=== PATIENT | male | born 1935 | race Caucasian/White ===

== ENCOUNTER 2016-04-18 20:26 | Emergency (ER) | payer MEDICARE, OTHER ==
[~2016-04-18 20:26] MED LIST: ASCO25TA PO; ASPI1TAB PO; BENA25CA2 PO; COLA100C PO; FLOM5CAP PO; GLUCOSAMINE PO; GUAI100S7 PO; IRON65TA PO; IRONTAB3 PO; LIDO5DIS36 TD; LOPR0.77 EX; MAGN200T3 PO; MAVI1TAB PO; MOBI7.5T10 PO; MULTCAP PO; OMEG340C PO; PRAM0.5T4 PO; PRAV10TA PO; PROS5TAB PO; PROTPAK PO; TESS100C PO; VALS1TAB49 PO; VITA250L INJ; VITAMIN B 12 PO; VITAMIN D PO; tylenol 3
[2016-04-18 21:39] LABS: MEAN CORPUSCULAR HEMOGLOBIN 33.5 pg (27.0-33.0); MEAN CORPUSCULAR VOLUME 95.6 fl (80.0-96.0); RED CELL DISTRIBUTION WIDTH 12.1 % (11.5-14.5); WHITE BLOOD COUNT 8.6 K/mm3 (4.0-10.0)
[2016-04-18 21:42] LABS: INR 1.02
[2016-04-18 21:59] LABS: ANION GAP 6 MEQ/L (8-16); BLOOD UREA NITROGEN 21 MG/DL (7-18); CALCIUM LEVEL 8.6 MG/DL (8.8-10.2); CARBON DIOXIDE LEVEL 27 MEQ/L (21-32); CHLORIDE LEVEL 109 MEQ/L (98-107); CREATININE FOR GFR 1.06 MG/DL (0.70-1.30); GLOMERULAR FILTRATION RATE > 60.0 (>42); GLUCOSE, FASTING 91 MG/DL (83-110); POTASSIUM SERUM 4.5 MEQ/L (3.5-5.1); SODIUM LEVEL 142 MEQ/L (136-145)
--- NOTE | 2016-04-18 22:40 | EDDOCDS ---
Nurse's Notes [facility] Name: Jose G Ferguson Age: 80 yrs Sex: Male : 1935 Arrival Date: 04/18/2016 Time: 20:26 Bed 17 Private MD: Neri Horner Diagnosis: Gastritis, unspecified Presentation: 04/18 20:29 Presenting complaint: Patient states: he has had 3 black stools and has a history of GI ms18 bleeds. brought in a sample. Adult Sepsis Screening: The patient does not have new or worsening altered mentation. Patient's respiratory rate is less than 22. Systolic blood pressure is greater than 100. Patient has a qSOFA score of 0- Negative Sepsis Screen. Suicide/Homicide risk assessment- the patient denies having any suicidal and/or homicidal ideations and does not present with any other emotional, behavioral or mental health complaints. Status: Patient is not a coordinator of genetic services or dependent. Transition of care: patient was not received from another setting of care. 20:29 Acuity: MAURICE Level 3 ms18 20:29 Method Of Arrival: Walkin/Carried/Asstd ms18 Triage Assessment: 20:42 General: Appears in no apparent distress, Behavior is appropriate for age, cooperative. ms18 Pain: Denies pain. Neurological: Level of Consciousness is awake, alert, obeys commands. Respiratory: Airway is patent Respiratory effort is even, unlabored. Derm: Skin is pink, warm & dry. Historical: - Allergies: no known allergies; - Home Meds: 1. Azilect 1 mg oral tab 1 tab once daily 2. Tylenol PM Oral 1 tablet nightly 3. Colace 100 mg oral cap 1 cap once daily 4. magnesium oxide 400 mg Oral cap 400 mg daily 5. multivitamin Oral cap daily 6. ferrous sulfate 325 mg (65 mg iron) Oral tab daily 7. Vitamin D Oral 2000 units daily 8. Vitamin C 500 mg Oral chew daily 9. [place]-3 oral cap daily 300 mg 10. Glucosamine oral oral daily 11. Vitamin B-12 1,000 mcg Oral tab 1,000 mcg daily 12. ciclopirox 0.77 % topical crea 2 times per day 13. Lidoderm 5 % Topical ptmd as needed 14. Flomax 0.4 mg Oral cp24 2 caps once daily 15. Proscar 5 mg Oral tab 1 tab once daily 16. pravastatin 40 mg oral tab 1 tab once daily 17. valsartan 40 mg oral tab 1 tab once daily 18. Voltaren 1 % topical gel 4 times per day 19. [place] 5-325 mg Oral tab 1 tab every 6 hours 20. aspirin 81 mg Oral tab 1 tab once daily - PMHx: Hypertension; Diabetes - NIDDM: controlled; hyperlipidemia; CAD; Hernia; Parkinson's Disease; GI bleed; - PSHx: Aortic Valve Replacement, Mechanical; back surgery; aneurysm repair, aorta; Carpal Tunnel Repair- Left; - Social history: Smoking status: Patient states former smoker of tobacco. No barriers to communication noted, The patient speaks fluent Hebrew. - Family history: Not pertinent. - : The pt / caregiver states he / she is not on anticoagulants. Home medication list is obtained from the patient. - Exposure Risk Screening:: None identified. Screenin:58 Screening information is obtained from the patient. Fall risk: No risks identified. mgs Assistance ADL's: requires no assistance with activities of daily living. Abuse/DV Screen: The patient / caregiver reports he/she is: not in a situation that causes fear, pain or injury. Nutritional screening: No deficits noted. Advance Directives: Currently, there is a health care proxy, Peter Ferguson, . There is no active DNR order. home support is adequate. Assessment: 20:57 Adult Sepsis Screening: The patient does not have new or worsening altered mentation. mgs Patient's respiratory rate is less than 22. Systolic blood pressure is greater than 100. Patient has a qSOFA score of 0- Negative Sepsis Screen. General: Appears in no apparent distress, Behavior is appropriate for age, cooperative. Pain: Denies pain. Neurological: Level of Consciousness is awake, alert, Oriented to person, place, time. Cardiovascular: Capillary refill < 3 seconds Heart tones S1 S2 present. Respiratory: Airway is patent Respiratory effort is even, unlabored, Respiratory pattern is regular, symmetrical, Breath sounds are clear bilaterally. GI: Abdomen is distended, Bowel sounds present X 4 quads. Abd is non tender X 4 quads. Derm: Skin is pale. 21:48 General: Appears in no apparent distress, Behavior is appropriate for age, cooperative. mgs Pain: Denies pain. Neurological: Level of Consciousness is awake, alert, Oriented to person, place, time. Cardiovascular: Capillary refill < 3 seconds. Respiratory: Airway is patent Respiratory effort is even, unlabored, Respiratory pattern is regular, symmetrical. Derm: Skin is pale. 22:37 General: Appears in no apparent distress, Behavior is appropriate for age, cooperative. mgs Pain: Denies pain. Neurological: Level of Consciousness is awake, alert, Oriented to person, place, time. Cardiovascular: Capillary refill < 3 seconds. Respiratory: Airway is patent Respiratory effort is even, unlabored, Respiratory pattern is regular, symmetrical. Derm: Skin is pink, warm & dry. Vital Signs: 20:27 BP 188 / 89; Pulse 81; Resp 18 S; Temp 96.5(O); Pulse Ox 96% on R/A; Weight 85.73 kg dd6 (R); Height 5 ft. 9 in. (175.26 cm) (R); 20:53 BP 197 / 95 (auto/); mgs 20:53 Pulse 70; Pulse Ox 97% ; mgs 22:26 BP 186 / 83; Pulse 71; Resp 20; Temp 97.4(O); Pulse Ox 96% on R/A; Pain 0/10; jmv 20:27 Body Mass Index 27.91 (85.73 kg, 175.26 cm) dd6 Vitals: 20:27 Log In Time: April 18, 2016 at 20:25. dd6 ED Course: 20:26 Patient visited by Omid Swenson PCA. dd6 20:26 Patient moved to Waiting dd6 20:27 Neri Horner MD is Private Physician. dd6 20:27 Patient moved to Pre RCE dd6 20:31 Triage Initiated ms18 20:37 Howard Quesada,RN is Primary Nurse. mgs 20:37 Patient moved to Apr 21:01 Patient visited by Howard Quesada,YELENA. mgs 21:13 Jass Cooper FNP is PHCP. ke 21:13 Patient visited by Jass Cooper FNP. ke 21:13 Patient visited by Jass Cooper FNP. ke 21:33 PT/INR Sent. mgs 21:33 BMP Sent. mgs 21:33 CBC Sent. mgs 21:42 Patient visited by Jass Cooper FNP. ke 22:17 Patient visited by Jass Cooper FNP. ke 22:19 Neri Horner MD is Referral Physician. ke 22:27 Patient visited by Curt Will PCA. jmv 22:38 No IV's were initiated during this patient's visit. No procedures done that require mgs assistance. 22:39 Patient visited by Howard Quesada RN. mgs 22:39 The patient / caregiver is instructed regarding the plan of care and ED course. mgs Order Results: Lab Order: CBC; SPEC'M 04/18/16 21:30 Test: WHITE BLOOD COUNT; Value: 8.6; Range: 4.0-10.0; Units: K/mm3; Status: F Test: RED BLOOD COUNT; Value: 3.88; Range: 4.30-6.10; Abnormal: Below low normal; Units: M/mm3; Status: F Test: HEMOGLOBIN; Value: 13.0; Range: 14.0-18.0; Abnormal: Below low normal; Units: g/dl; Status: F Test: HEMATOCRIT; Value: 37.1; Range: 42.0-52.0; Abnormal: Below low normal; Units: %; Status: F Test: MEAN CORPUSCULAR VOLUME; Value: 95.6; Range: 80.0-96.0; Units: fl; Status: F Test: MEAN CORPUSCULAR HEMOGLOBIN; Value: 33.5; Range: 27.0-33.0; Abnormal: Above high normal; Units: pg; Status: F Test: MEAN CORPUSCULAR HGB CONC; Value: 35.0; Range: 32.0-36.5; Units: g/dl; Status: F Test: RED CELL DISTRIBUTION WIDTH; Value: 12.1; Range: 11.5-14.5; Units: %; Status: F Test: PLATELET COUNT, AUTOMATED; Value: 239; Range: 150-450; Units: k/mm3; Status: F Lab Order: BMP; SPEC'M 04/18/16 21:30 Test: GLUCOSE, FASTING; Value: 91; Range: 83-110; Units: MG/DL; Status: F Test: BLOOD UREA NITROGEN; Value: 21; Range: 7-18; Abnormal: Above high normal; Units: MG/DL; Status: F Test: CREATININE FOR GFR; Value: 1.06; Range: 0.70-1.30; Units: MG/DL; Status: F Test: GLOMERULAR FILTRATION RATE; Value: > 60.0; Range: >42; Status: F Test: SODIUM LEVEL; Value: 142; Range: 136-145; Units: MEQ/L; Status: F Test: POTASSIUM SERUM; Value: 4.5; Range: 3.5-5.1; Units: MEQ/L; Status: F Test: CHLORIDE LEVEL; Value: 109; Range: 98-107; Abnormal: Above high normal; Units: MEQ/L; Status: F Test: CARBON DIOXIDE LEVEL; Value: 27; Range: 21-32; Units: MEQ/L; Status: F Test: ANION GAP; Value: 6; Range: 8-16; Abnormal: Below low normal; Units: MEQ/L; Status: F Test: CALCIUM LEVEL; Value: 8.6; Range: 8.8-10.2; Abnormal: Below low normal; Units: MG/DL; Status: F Test Note: ; Units are mL/min/1.73 m2 Chronic Kidney Disease Staging per NKF: Stage I & II GFR >=60 Normal to Mildly Decreased Stage III GFR 30-59 Moderately Decreased Stage IV GFR 15-29 Severely Decreased Stage V GFR <15 Very Little GFR Left ESRD GFR <15 on [facility] Lab Order: PT/INR; MARY'M 04/18/16 21:30 Test: PROTHROMBIN TIME; Value: 13.5; Range: 12.3-14.5; Units: SECONDS; Status: F Test: INR; Value: 1.02; Status: F Test Note: ; THERAPUTIC HUMAN INR VALUES INDICATIONS NORMAL RANGES PROPHYLAXIS/TREATMENT OF: VENOUS THROMBOSIS 2.0-3.0 PULMONARY EMBOLISM 2.0-3.0 PREVENTION OF SYSTEMIC EMBOLISM FROM: TISSUE HEART VALVES 2.0-3.0 ACUTE MYOCARDIAL INFARCTION 2.0-3.0 VALVULAR HEART DISEASE 2.0-3.0 ATRIAL FIBRILLATION 2.0-3.0 MECHANICAL VALVES(HIGH RISK) 2.5-3.5 RECURRENT MYOCARDIAL INFARCTION 2.5-3.5 Outcome: 22:20 Discharge ordered by Provider. ke 22:38 Discharge Assessment: Patient awake, alert and oriented x 3. No cognitive and/or mgs functional deficits noted. Patient verbalized understanding of disposition instructions. patient administered narcotics - no. The following High Risk Discharge criteria are identified: None. Discharged to home ambulatory, with family. Condition: stable. Discharge instructions given to patient, Instructed on discharge instructions, follow up and referral plans. medication usage, Demonstrated understanding of instructions, medications, Pt was receptive of discharge instructions/ teaching. Prescriptions given X 1. No special radiology studies were completed. Property sent home with patient. 22:39 Patient left the ED. mgs Signatures: Maggy Lockhart, RN RN Jass Chilel, CHANGE RELEASE MANAGER CHANGE RELEASE MANAGER Omid To, INSPECTOR SET UP AND LAY OUT INSPECTOR SET UP AND LAY OUT dd6 Fanta Hallman RN RN ms18 Howard QuesadaRN RN mgs Curt Will, INSPECTOR SET UP AND LAY OUT INSPECTOR SET UP AND LAY OUT jmv MTDD
--- NOTE | 2016-04-18 22:40 | EDDOCDS ---
Physician Documentation [facility] Name: Jose G Ferguson Age: 80 yrs Sex: Male : 1935 Arrival Date: 04/18/2016 Time: 20:26 Bed 17 Private MD: Neri Horner Disposition: 04/18/16 22:20 Discharged to Home/Self Care. Impression: Gastritis, unspecified. - Condition is Stable. - Discharge Instructions: Gastritis, Adult. - Prescriptions for Zofran 4 mg Oral Tablet - take 1 tablet by ORAL route 4 times per day As needed; 10 tablet. - Medication Reconciliation, Local Pharmacy Hours form. - Follow up: Neri Horner MD; When: 2 - 3 days; Reason: Recheck today's complaints, Continuance of care. - Problem is an ongoing problem. - Symptoms are unchanged. Historical: - Allergies: no known allergies; - Home Meds: 1. Azilect 1 mg oral tab 1 tab once daily 2. Tylenol PM Oral 1 tablet nightly 3. Colace 100 mg oral cap 1 cap once daily 4. magnesium oxide 400 mg Oral cap 400 mg daily 5. multivitamin Oral cap daily 6. ferrous sulfate 325 mg (65 mg iron) Oral tab daily 7. Vitamin D Oral 2000 units daily 8. Vitamin C 500 mg Oral chew daily 9. [place]-3 oral cap daily 300 mg 10. Glucosamine oral oral daily 11. Vitamin B-12 1,000 mcg Oral tab 1,000 mcg daily 12. ciclopirox 0.77 % topical crea 2 times per day 13. Lidoderm 5 % Topical ptmd as needed 14. Flomax 0.4 mg Oral cp24 2 caps once daily 15. Proscar 5 mg Oral tab 1 tab once daily 16. pravastatin 40 mg oral tab 1 tab once daily 17. valsartan 40 mg oral tab 1 tab once daily 18. Voltaren 1 % topical gel 4 times per day 19. [place] 5-325 mg Oral tab 1 tab every 6 hours 20. aspirin 81 mg Oral tab 1 tab once daily - PMHx: Hypertension; Diabetes - NIDDM: controlled; hyperlipidemia; CAD; Hernia; Parkinson's Disease; GI bleed; - PSHx: Aortic Valve Replacement, Mechanical; back surgery; aneurysm repair, aorta; Carpal Tunnel Repair- Left; - Social history: Smoking status: Patient states former smoker of tobacco. No barriers to communication noted, The patient speaks fluent Wolof. - Family history: Not pertinent. - : The pt / caregiver states he / she is not on anticoagulants. Home medication list is obtained from the patient. - Exposure Risk Screening:: None identified. Vital Signs: 04/18 20:27 BP 188 / 89; Pulse 81; Resp 18 S; Temp 96.5(O); Pulse Ox 96% on R/A; Weight 85.73 kg / dd6 189 lbs (R); Height 5 ft. 9 in. (175.26 cm) (R); 20:53 BP 197 / 95 (auto/); mgs 20:53 Pulse 70; Pulse Ox 97% ; mgs 22:26 BP 186 / 83; Pulse 71; Resp 20; Temp 97.4(O); Pulse Ox 96% on R/A; Pain 0/10; jmv 20:27 Body Mass Index 27.91 (85.73 kg, 175.26 cm) dd6 MDM: 21:23 CBC Ordered. EDMS 21:23 BMP Ordered. EDMS 21:23 PT/INR Ordered. EDMS 22:18 CBC Reviewed. ke 22:18 BMP Reviewed. ke 22:18 PT/INR Reviewed. irvin Signatures: Dispatcher [employer] EDJass Majano, ADVERTISING DISPATCH CLERKS SUPERVISOR ADVERTISING DISPATCH CLERKS SUPERVISOR Fanta Hong,RN RN ms18 Howard Quesada,RN RN mgs MTDD
--- NOTE | 2016-04-20 23:40 | EDDOCDS ---
Physician Documentation [facility] Name: Jose G Ferguson Age: 80 yrs Sex: Male : 1935 Arrival Date: 04/18/2016 Time: 20:26 Bed 17 Private MD: Neri Horner Disposition: 04/18/16 22:20 Discharged to Home/Self Care. Impression: Gastritis, unspecified. - Condition is Stable. - Discharge Instructions: Gastritis, Adult. - Prescriptions for Zofran 4 mg Oral Tablet - take 1 tablet by ORAL route 4 times per day As needed; 10 tablet. - Medication Reconciliation, Local Pharmacy Hours form. - Follow up: Neri Horner MD; When: 2 - 3 days; Reason: Recheck today's complaints, Continuance of care. - Problem is an ongoing problem. - Symptoms are unchanged. Historical: - Allergies: no known allergies; - Home Meds: 1. Azilect 1 mg oral tab 1 tab once daily 2. Tylenol PM Oral 1 tablet nightly 3. Colace 100 mg oral cap 1 cap once daily 4. magnesium oxide 400 mg Oral cap 400 mg daily 5. multivitamin Oral cap daily 6. ferrous sulfate 325 mg (65 mg iron) Oral tab daily 7. Vitamin D Oral 2000 units daily 8. Vitamin C 500 mg Oral chew daily 9. [place]-3 oral cap daily 300 mg 10. Glucosamine oral oral daily 11. Vitamin B-12 1,000 mcg Oral tab 1,000 mcg daily 12. ciclopirox 0.77 % topical crea 2 times per day 13. Lidoderm 5 % Topical ptmd as needed 14. Flomax 0.4 mg Oral cp24 2 caps once daily 15. Proscar 5 mg Oral tab 1 tab once daily 16. pravastatin 40 mg oral tab 1 tab once daily 17. valsartan 40 mg oral tab 1 tab once daily 18. Voltaren 1 % topical gel 4 times per day 19. [place] 5-325 mg Oral tab 1 tab every 6 hours 20. aspirin 81 mg Oral tab 1 tab once daily - PMHx: Hypertension; Diabetes - NIDDM: controlled; hyperlipidemia; CAD; Hernia; Parkinson's Disease; GI bleed; - PSHx: Aortic Valve Replacement, Mechanical; back surgery; aneurysm repair, aorta; Carpal Tunnel Repair- Left; - Social history: Smoking status: Patient states former smoker of tobacco. No barriers to communication noted, The patient speaks fluent Estonian. - Family history: Not pertinent. - : The pt / caregiver states he / she is not on anticoagulants. Home medication list is obtained from the patient. - Exposure Risk Screening:: None identified. Vital Signs: 04/18 20:27 BP 188 / 89; Pulse 81; Resp 18 S; Temp 96.5(O); Pulse Ox 96% on R/A; Weight 85.73 kg / dd6 189 lbs (R); Height 5 ft. 9 in. (175.26 cm) (R); 20:53 BP 197 / 95 (auto/); mgs 20:53 Pulse 70; Pulse Ox 97% ; mgs 22:26 BP 186 / 83; Pulse 71; Resp 20; Temp 97.4(O); Pulse Ox 96% on R/A; Pain 0/10; jmv 20:27 Body Mass Index 27.91 (85.73 kg, 175.26 cm) dd6 MDM: 21:23 CBC Ordered. EDMS 21:23 BMP Ordered. EDMS 21:23 PT/INR Ordered. EDMS 22:18 CBC Reviewed. ke 22:18 BMP Reviewed. ke 22:18 PT/INR Reviewed. irvin 22:44 [facility] Payment Agreement was scanned into [employer] and attached to record. neville 22:44 Financial registration complete. aimee 04/19 01:43 T-Sheet-- Draft Copy was scanned into [employer] and attached to record. ximena Signatures: Dispatcher [employer] EDJass Majano, [facility] TECH INSTRUCTOR Fanta Hong RN RN ms18 Howard Quesada RN RN mgs Mary Mendez Gabriela gjb The chart was reviewed and I authenticate all verbal orders and agree with the evaluation and treatment provided.Attachments: 04/18 22:44 [facility] Payment Agreement [email or web address] 04/19 01:43 T-Sheet-- Draft Copy ximena Chart Complete MTDD
--- NOTE | 2016-04-20 23:40 | EDDOCDS ---
Nurse's Notes [facility] Name: Jose G Ferguson Age: 80 yrs Sex: Male : 1935 Arrival Date: 04/18/2016 Time: 20:26 Bed 17 Private MD: Neri Horner Diagnosis: Gastritis, unspecified Presentation: 04/18 20:29 Presenting complaint: Patient states: he has had 3 black stools and has a history of GI ms18 bleeds. brought in a sample. Adult Sepsis Screening: The patient does not have new or worsening altered mentation. Patient's respiratory rate is less than 22. Systolic blood pressure is greater than 100. Patient has a qSOFA score of 0- Negative Sepsis Screen. Suicide/Homicide risk assessment- the patient denies having any suicidal and/or homicidal ideations and does not present with any other emotional, behavioral or mental health complaints. Status: Patient is not a online services manager or dependent. Transition of care: patient was not received from another setting of care. 20:29 Acuity: MAURICE Level 3 ms18 20:29 Method Of Arrival: Walkin/Carried/Asstd ms18 Triage Assessment: 20:42 General: Appears in no apparent distress, Behavior is appropriate for age, cooperative. ms18 Pain: Denies pain. Neurological: Level of Consciousness is awake, alert, obeys commands. Respiratory: Airway is patent Respiratory effort is even, unlabored. Derm: Skin is pink, warm & dry. Historical: - Allergies: no known allergies; - Home Meds: 1. Azilect 1 mg oral tab 1 tab once daily 2. Tylenol PM Oral 1 tablet nightly 3. Colace 100 mg oral cap 1 cap once daily 4. magnesium oxide 400 mg Oral cap 400 mg daily 5. multivitamin Oral cap daily 6. ferrous sulfate 325 mg (65 mg iron) Oral tab daily 7. Vitamin D Oral 2000 units daily 8. Vitamin C 500 mg Oral chew daily 9. [place]-3 oral cap daily 300 mg 10. Glucosamine oral oral daily 11. Vitamin B-12 1,000 mcg Oral tab 1,000 mcg daily 12. ciclopirox 0.77 % topical crea 2 times per day 13. Lidoderm 5 % Topical ptmd as needed 14. Flomax 0.4 mg Oral cp24 2 caps once daily 15. Proscar 5 mg Oral tab 1 tab once daily 16. pravastatin 40 mg oral tab 1 tab once daily 17. valsartan 40 mg oral tab 1 tab once daily 18. Voltaren 1 % topical gel 4 times per day 19. [place] 5-325 mg Oral tab 1 tab every 6 hours 20. aspirin 81 mg Oral tab 1 tab once daily - PMHx: Hypertension; Diabetes - NIDDM: controlled; hyperlipidemia; CAD; Hernia; Parkinson's Disease; GI bleed; - PSHx: Aortic Valve Replacement, Mechanical; back surgery; aneurysm repair, aorta; Carpal Tunnel Repair- Left; - Social history: Smoking status: Patient states former smoker of tobacco. No barriers to communication noted, The patient speaks fluent Indonesian. - Family history: Not pertinent. - : The pt / caregiver states he / she is not on anticoagulants. Home medication list is obtained from the patient. - Exposure Risk Screening:: None identified. Screenin:58 Screening information is obtained from the patient. Fall risk: No risks identified. mgs Assistance ADL's: requires no assistance with activities of daily living. Abuse/DV Screen: The patient / caregiver reports he/she is: not in a situation that causes fear, pain or injury. Nutritional screening: No deficits noted. Advance Directives: Currently, there is a health care proxy, Peter Ferguson, . There is no active DNR order. home support is adequate. Assessment: 20:57 Adult Sepsis Screening: The patient does not have new or worsening altered mentation. mgs Patient's respiratory rate is less than 22. Systolic blood pressure is greater than 100. Patient has a qSOFA score of 0- Negative Sepsis Screen. General: Appears in no apparent distress, Behavior is appropriate for age, cooperative. Pain: Denies pain. Neurological: Level of Consciousness is awake, alert, Oriented to person, place, time. Cardiovascular: Capillary refill < 3 seconds Heart tones S1 S2 present. Respiratory: Airway is patent Respiratory effort is even, unlabored, Respiratory pattern is regular, symmetrical, Breath sounds are clear bilaterally. GI: Abdomen is distended, Bowel sounds present X 4 quads. Abd is non tender X 4 quads. Derm: Skin is pale. 21:48 General: Appears in no apparent distress, Behavior is appropriate for age, cooperative. mgs Pain: Denies pain. Neurological: Level of Consciousness is awake, alert, Oriented to person, place, time. Cardiovascular: Capillary refill < 3 seconds. Respiratory: Airway is patent Respiratory effort is even, unlabored, Respiratory pattern is regular, symmetrical. Derm: Skin is pale. 22:37 General: Appears in no apparent distress, Behavior is appropriate for age, cooperative. mgs Pain: Denies pain. Neurological: Level of Consciousness is awake, alert, Oriented to person, place, time. Cardiovascular: Capillary refill < 3 seconds. Respiratory: Airway is patent Respiratory effort is even, unlabored, Respiratory pattern is regular, symmetrical. Derm: Skin is pink, warm & dry. Vital Signs: 20:27 BP 188 / 89; Pulse 81; Resp 18 S; Temp 96.5(O); Pulse Ox 96% on R/A; Weight 85.73 kg dd6 (R); Height 5 ft. 9 in. (175.26 cm) (R); 20:53 BP 197 / 95 (auto/); mgs 20:53 Pulse 70; Pulse Ox 97% ; mgs 22:26 BP 186 / 83; Pulse 71; Resp 20; Temp 97.4(O); Pulse Ox 96% on R/A; Pain 0/10; jmv 20:27 Body Mass Index 27.91 (85.73 kg, 175.26 cm) dd6 Vitals: 20:27 Log In Time: April 18, 2016 at 20:25. dd6 ED Course: 20:26 Patient visited by Omid Swenson PCA. dd6 20:26 Patient moved to Waiting dd6 20:27 Neri Horner MD is Private Physician. dd6 20:27 Patient moved to Pre RCE dd6 20:31 Triage Initiated ms18 20:37 Howard Quesada,RN is Primary Nurse. mgs 20:37 Patient moved to Apr 21:01 Patient visited by Howard Quesada,YELENA. mgs 21:13 Jass Cooper FNP is PHCP. ke 21:13 Patient visited by Jass Cooper FNP. ke 21:13 Patient visited by Jass Cooper FNP. ke 21:33 PT/INR Sent. mgs 21:33 BMP Sent. mgs 21:33 CBC Sent. mgs 21:42 Patient visited by Jass Cooper FNP. ke 22:17 Patient visited by Jass Cooper FNP. ke 22:19 Neri Horner MD is Referral Physician. ke 22:27 Patient visited by Curt Will PCA. jmv 22:38 No IV's were initiated during this patient's visit. No procedures done that require mgs assistance. 22:39 Patient visited by Howard Quesada RN. mgs 22:39 The patient / caregiver is instructed regarding the plan of care and ED course. mgs 22:44 [facility] [place] Agreement was scanned into [employer] and attached to record. gjb 04/19 01:43 T-Sheet-- Draft Copy was scanned into [employer] and attached to record. lja Order Results: Lab Order: CBC; SPEC'M 04/18/16 21:30 Test: WHITE BLOOD COUNT; Value: 8.6; Range: 4.0-10.0; Units: K/mm3; Status: F Test: RED BLOOD COUNT; Value: 3.88; Range: 4.30-6.10; Abnormal: Below low normal; Units: M/mm3; Status: F Test: HEMOGLOBIN; Value: 13.0; Range: 14.0-18.0; Abnormal: Below low normal; Units: g/dl; Status: F Test: HEMATOCRIT; Value: 37.1; Range: 42.0-52.0; Abnormal: Below low normal; Units: %; Status: F Test: MEAN CORPUSCULAR VOLUME; Value: 95.6; Range: 80.0-96.0; Units: fl; Status: F Test: MEAN CORPUSCULAR HEMOGLOBIN; Value: 33.5; Range: 27.0-33.0; Abnormal: Above high normal; Units: pg; Status: F Test: MEAN CORPUSCULAR HGB CONC; Value: 35.0; Range: 32.0-36.5; Units: g/dl; Status: F Test: RED CELL DISTRIBUTION WIDTH; Value: 12.1; Range: 11.5-14.5; Units: %; Status: F Test: PLATELET COUNT, AUTOMATED; Value: 239; Range: 150-450; Units: k/mm3; Status: F Lab Order: BMP; SPEC'M 04/18/16 21:30 Test: GLUCOSE, FASTING; Value: 91; Range: 83-110; Units: MG/DL; Status: F Test: BLOOD UREA NITROGEN; Value: 21; Range: 7-18; Abnormal: Above high normal; Units: MG/DL; Status: F Test: CREATININE FOR GFR; Value: 1.06; Range: 0.70-1.30; Units: MG/DL; Status: F Test: GLOMERULAR FILTRATION RATE; Value: > 60.0; Range: >42; Status: F Test: SODIUM LEVEL; Value: 142; Range: 136-145; Units: MEQ/L; Status: F Test: POTASSIUM SERUM; Value: 4.5; Range: 3.5-5.1; Units: MEQ/L; Status: F Test: CHLORIDE LEVEL; Value: 109; Range: 98-107; Abnormal: Above high normal; Units: MEQ/L; Status: F Test: CARBON DIOXIDE LEVEL; Value: 27; Range: 21-32; Units: MEQ/L; Status: F Test: ANION GAP; Value: 6; Range: 8-16; Abnormal: Below low normal; Units: MEQ/L; Status: F Test: CALCIUM LEVEL; Value: 8.6; Range: 8.8-10.2; Abnormal: Below low normal; Units: MG/DL; Status: F Test Note: ; Units are mL/min/1.73 m2 Chronic Kidney Disease Staging per NKF: Stage I & II GFR >=60 Normal to Mildly Decreased Stage III GFR 30-59 Moderately Decreased Stage IV GFR 15-29 Severely Decreased Stage V GFR <15 Very Little GFR Left ESRD GFR <15 on VIDEO GAME SCRIPT WRITER Lab Order: PT/INR; SPEC'M 04/18/16 21:30 Test: PROTHROMBIN TIME; Value: 13.5; Range: 12.3-14.5; Units: SECONDS; Status: F Test: INR; Value: 1.02; Status: F Test Note: ; THERAPUTIC HUMAN INR VALUES INDICATIONS NORMAL RANGES PROPHYLAXIS/TREATMENT OF: VENOUS THROMBOSIS 2.0-3.0 PULMONARY EMBOLISM 2.0-3.0 PREVENTION OF SYSTEMIC EMBOLISM FROM: TISSUE HEART VALVES 2.0-3.0 ACUTE MYOCARDIAL INFARCTION 2.0-3.0 VALVULAR HEART DISEASE 2.0-3.0 ATRIAL FIBRILLATION 2.0-3.0 MECHANICAL VALVES(HIGH RISK) 2.5-3.5 RECURRENT MYOCARDIAL INFARCTION 2.5-3.5 Outcome: 04/18 22:20 Discharge ordered by Provider. irvin 22:38 Discharge Assessment: Patient awake, alert and oriented x 3. No cognitive and/or mgs functional deficits noted. Patient verbalized understanding of disposition instructions. patient administered narcotics - no. The following High Risk Discharge criteria are identified: None. Discharged to home ambulatory, with family. Condition: stable. Discharge instructions given to patient, Instructed on discharge instructions, follow up and referral plans. medication usage, Demonstrated understanding of instructions, medications, Pt was receptive of discharge instructions/ teaching. Prescriptions given X 1. No special radiology studies were completed. Property sent home with patient. 22:39 Patient left the ED. mgs Signatures: Maggy Lockhart, RN RN Jass Chilel, PITCH GATHERER PITCH GATHERER Omid To, SULPHATE TESTER SULPHATE TESTER dd6 Fanta Hallman,RN RN ms18 Howard Quesada,YELENA RN mgs Andrea, Elsa Araon Jose, SULPHATE TESTER SULPHATE TESTER jmv Chart Complete REBECCA
--- NOTE | 2016-04-20 23:40 | EDDOCDS ---
Physician Documentation [facility] Name: Jose G Ferguson Age: 80 yrs Sex: Male : 1935 Arrival Date: 04/18/2016 Time: 20:26 Bed 17 Private MD: Neri Horner Disposition: 04/18/16 22:20 Discharged to Home/Self Care. Impression: Gastritis, unspecified. - Condition is Stable. - Discharge Instructions: Gastritis, Adult. - Prescriptions for Zofran 4 mg Oral Tablet - take 1 tablet by ORAL route 4 times per day As needed; 10 tablet. - Medication Reconciliation, Local Pharmacy Hours form. - Follow up: Neri Horner MD; When: 2 - 3 days; Reason: Recheck today's complaints, Continuance of care. - Problem is an ongoing problem. - Symptoms are unchanged. Historical: - Allergies: no known allergies; - Home Meds: 1. Azilect 1 mg oral tab 1 tab once daily 2. Tylenol PM Oral 1 tablet nightly 3. Colace 100 mg oral cap 1 cap once daily 4. magnesium oxide 400 mg Oral cap 400 mg daily 5. multivitamin Oral cap daily 6. ferrous sulfate 325 mg (65 mg iron) Oral tab daily 7. Vitamin D Oral 2000 units daily 8. Vitamin C 500 mg Oral chew daily 9. [place]-3 oral cap daily 300 mg 10. Glucosamine oral oral daily 11. Vitamin B-12 1,000 mcg Oral tab 1,000 mcg daily 12. ciclopirox 0.77 % topical crea 2 times per day 13. Lidoderm 5 % Topical ptmd as needed 14. Flomax 0.4 mg Oral cp24 2 caps once daily 15. Proscar 5 mg Oral tab 1 tab once daily 16. pravastatin 40 mg oral tab 1 tab once daily 17. valsartan 40 mg oral tab 1 tab once daily 18. Voltaren 1 % topical gel 4 times per day 19. [place] 5-325 mg Oral tab 1 tab every 6 hours 20. aspirin 81 mg Oral tab 1 tab once daily - PMHx: Hypertension; Diabetes - NIDDM: controlled; hyperlipidemia; CAD; Hernia; Parkinson's Disease; GI bleed; - PSHx: Aortic Valve Replacement, Mechanical; back surgery; aneurysm repair, aorta; Carpal Tunnel Repair- Left; - Social history: Smoking status: Patient states former smoker of tobacco. No barriers to communication noted, The patient speaks fluent Slovenian. - Family history: Not pertinent. - : The pt / caregiver states he / she is not on anticoagulants. Home medication list is obtained from the patient. - Exposure Risk Screening:: None identified. Vital Signs: 04/18 20:27 BP 188 / 89; Pulse 81; Resp 18 S; Temp 96.5(O); Pulse Ox 96% on R/A; Weight 85.73 kg / dd6 189 lbs (R); Height 5 ft. 9 in. (175.26 cm) (R); 20:53 BP 197 / 95 (auto/); mgs 20:53 Pulse 70; Pulse Ox 97% ; mgs 22:26 BP 186 / 83; Pulse 71; Resp 20; Temp 97.4(O); Pulse Ox 96% on R/A; Pain 0/10; jmv 20:27 Body Mass Index 27.91 (85.73 kg, 175.26 cm) dd6 MDM: 21:23 CBC Ordered. EDMS 21:23 BMP Ordered. EDMS 21:23 PT/INR Ordered. EDMS 22:18 CBC Reviewed. ke 22:18 BMP Reviewed. ke 22:18 PT/INR Reviewed. irvin 22:44 [facility] Payment Agreement was scanned into [employer] and attached to record. neville 22:44 Financial registration complete. aimee 04/19 01:43 T-Sheet-- Draft Copy was scanned into [employer]ji and attached to record. ximena Signatures: Dispatcher [employer] EDJass Majano, BROWN BLACKSMITH APPRENTICE Fnata Hong RN RN ms18 Howard Quesada RN RN mgs Mary Mendez Gabriela gjb The chart was reviewed and I authenticate all verbal orders and agree with the evaluation and treatment provided.Attachments: 04/18 22:44 [facility] Payment Agreement [facility] 04/19 01:43 T-Sheet-- Draft Copy ximena Chart Complete MTDD
== END 2016-04-18 22:39 | disposition home or self-care (01) ==
LOC: M ED 20:26
DX: K52.9 Noninfective gastroenteritis and colitis, unspecified (principal); I10 Essential (primary) hypertension; E11.9 Type 2 diabetes mellitus without complications; E78.5 Hyperlipidemia, unspecified; I25.10 Atherosclerotic heart disease of native coronary artery without angina pectoris; G20 Parkinson's disease; K92.2 Gastrointestinal hemorrhage, unspecified; Z95.2 Presence of prosthetic heart valve; Z87.891 Personal history of nicotine dependence; Z79.82 Long term (current) use of aspirin; Z79.891 Long term (current) use of opiate analgesic; Z79.899 Other long term (current) drug therapy

== ENCOUNTER → 2016-05-09 | Outpatient (CLI) | payer MEDICARE, OTHER ==
[2016-05-09 10:57] LABS: ALBUMIN 3.8 GM/DL (3.2-5.2); ALBUMIN/GLOBULIN RATIO 1.06 (1.00-1.93); ALKALINE PHOSPHATASE 98 U/L (45-117); ALT/SGPT 18 U/L (12-78); ANION GAP 8 MEQ/L (8-16); AST/SGOT 15 U/L (15-37); BILIRUBIN,TOTAL 0.6 MG/DL (0.2-1.0); BLOOD UREA NITROGEN 13 MG/DL (7-18); CALCIUM LEVEL 8.7 MG/DL (8.8-10.2); CARBON DIOXIDE LEVEL 28 MEQ/L (21-32); CHLORIDE LEVEL 107 MEQ/L (98-107); CREATININE FOR GFR 0.86 MG/DL (0.70-1.30); GLOMERULAR FILTRATION RATE > 60.0 (>42); GLUCOSE, FASTING 98 MG/DL (83-110); POTASSIUM SERUM 4.3 MEQ/L (3.5-5.1); SODIUM LEVEL 143 MEQ/L (136-145); TOTAL PROTEIN 7.4 GM/DL (6.4-8.2)
== END ==
LOC: M WUC 08:08
PROVIDERS: ATTEND Family Medicine
DX: I11.9 Hypertensive heart disease without heart failure (principal); E11.8 Type 2 diabetes mellitus with unspecified complications

== ENCOUNTER 2016-05-21 12:57 | Inpatient (IN) | payer MEDICARE, OTHER ==
[~2016-05-21] VITALS: Ht 177.8 cm; Wt 83.7 kg
[2016-05-21 13:37] LABS: BASO % 0.5 % (0.0-1.0); EOS # 0.2 K/mm3 (0.0-0.50); EOS % 2.3 % (0.0-3.0); LARGE UNSTAINED CELL # 0.1 K/mm3 (0.0-0.4); LARGE UNSTAINED CELL % 1.7 % (0.0-4.0); LYMPH # 1.2 K/mm3 (1.5-4.5); LYMPH % 15.8 % (24.0-44.0); MEAN CORPUSCULAR HEMOGLOBIN 33.7 pg (27.0-33.0); MEAN CORPUSCULAR HGB CONC 33.7 g/dl (32.0-36.5); MEAN CORPUSCULAR VOLUME 100.1 fl (80.0-96.0); MONO # 0.5 K/mm3 (0.0-0.8); MONO % 7.5 % (0.0-5.0); NEUTROPHILS # 4.9 K/mm3 (1.8-7.7); NEUTROPHILS % 72.1 % (36.0-66.0); PLATELET COUNT, AUTOMATED 232 k/mm3 (150-450); RED CELL DISTRIBUTION WIDTH 12.6 % (11.5-14.5); WHITE BLOOD COUNT 6.8 K/mm3 (4.0-10.0)
[2016-05-21 13:47] LABS: INR 0.99
[2016-05-21 13:56] LABS: ALBUMIN 3.9 GM/DL (3.2-5.2); ALBUMIN/GLOBULIN RATIO 1.03 (1.00-1.93); ALKALINE PHOSPHATASE 96 U/L (45-117); ALT/SGPT 19 U/L (12-78); AMYLASE 89 U/L (25-115); ANION GAP 3 MEQ/L (8-16); AST/SGOT 16 U/L (15-37); BILIRUBIN,DIRECT 0.1 MG/DL (0.0-0.2); BILIRUBIN,TOTAL 0.4 MG/DL (0.2-1.0); BLOOD UREA NITROGEN 21 MG/DL (7-18); CALCIUM LEVEL 8.8 MG/DL (8.8-10.2); CARBON DIOXIDE LEVEL 30 MEQ/L (21-32); CHLORIDE LEVEL 108 MEQ/L (98-107); CREATININE FOR GFR 0.91 MG/DL (0.70-1.30); GLOMERULAR FILTRATION RATE > 60.0 (>42); GLUCOSE, FASTING 114 MG/DL (83-110); POTASSIUM SERUM 4.3 MEQ/L (3.5-5.1); SODIUM LEVEL 141 MEQ/L (136-145); TOTAL PROTEIN 7.7 GM/DL (6.4-8.2)
[2016-05-21] MEDS ORDERED: PANTOPRAZOLE 40MG INJ (PROTONIX) (C9113) As Ordered ONE (13:59)
[2016-05-21] MEDS ORDERED: OXYC1TAB23 PO (14:33)
[2016-05-21] MEDS ORDERED: VOLT1GEL24 TD (14:33)
[2016-05-21] MEDS ORDERED: GLUCTAB6 PO (14:33)
[2016-05-21] MEDS ORDERED: VITA100072 PO (14:33)
[2016-05-21] MEDS ORDERED: FERR325T PO (14:33)
[2016-05-21] MEDS ORDERED: TYLE1TAB5 PO (14:33)
[2016-05-21] MEDS ORDERED: VITA20008 PO (14:33)
[2016-05-21] MEDS ORDERED: AZIL1TAB PO (14:33)
[2016-05-21] MEDS ORDERED: MAGN400T5 PO (14:34)
[2016-05-21] MEDS ORDERED: PERCOCET 5MG/325MG TAB PO PRN ×2 (14:45)
[2016-05-21] MEDS ORDERED: ACETAMINOPHEN TAB 650MG DOSE (2X325MG) PO ONE (18:00)
[2016-05-21] MEDS ORDERED: TAMSULOSIN 0.4 MG CAP PO ONE (18:00)
--- NOTE | 2016-05-21 18:48 | EDDOCDS ---
Physician Documentation [facility] Name: Jose G Ferguson Age: 80 yrs Sex: Male : 1935 Arrival Date: 05/21/2016 Time: 12:57 Bed 6 Private MD: Neri Horner MD Disposition: 05/21/16 14:04 Hospitalization ordered by Neri Horner for Inpatient Admission. Preliminary diagnosis is Gastrointestinal hemorrhage, unspecified. - [facility] - Status is Inpatient Admission. ar3 - Condition is Stable. - Problem is new. - Symptoms are unchanged. Historical: - Allergies: NSAIDS (GI bleed); - Home Meds: 1. aspirin 81 mg Oral tab 1 tab once daily 2. Azilect 1 mg oral tab 1 tab once daily 3. Colace 100 mg oral cap 1 cap once daily 4. ferrous sulfate 325 mg (65 mg iron) Oral tab daily 5. Flomax 0.4 mg Oral cp24 2 caps once daily 6. Vitamin B-12 1,000 mcg Oral tab 1000 mcg daily 7. oxycodone-acetaminophen 5-325 mg Oral tab every 6 hours states once a day 8. Voltaren 1 % Topical gel 4 times per day 9. Lidoderm 5 % Topical ptmd as needed 10. valsartan 40 mg oral tab 1 tab once daily 11. Proscar 5 mg Oral tab 1 tab once daily 12. Tessalon [place] 100 mg Oral cap prn- hasnt taken 13. Benadryl 25 mg Oral cap bedtime 14. magnesium oxide 400 mg Oral cap 400 mg daily 15. multivitamin Oral cap daily 16. Vitamin C 500 mg Oral chew daily 17. Vitamin D Oral 2000 unit daily 18. [place]-3 oral cap daily 300 mg 19. Glucosamine oral daily - PMHx: Diabetes - NIDDM: controlled; CAD; gi bleed; Hernia; hyperlipidemia; Hypertension; Parkinson's Disease; esophageal obstruction; BPH; Anemia; Depression; Anxiety; - PSHx: Aortic Valve Replacement, Mechanical; back surgery; aneurysm repair, aorta; Carpal Tunnel Repair- Left; - Social history: Smoking status: Patient states former smoker of tobacco. No barriers to communication noted, The patient speaks fluent Luxembourgish, Speaks appropriately for age. - Family history: Not pertinent. - : The pt / caregiver states he / she is not on anticoagulants. Home medication list is obtained from the patient. - Exposure Risk Screening:: None identified. Vital Signs: 05/21 12:59 BP 194 / 77; Pulse 86; Resp 18 S; Temp 96.2(O); Pulse Ox 98% on R/A; Weight 85.73 kg / gr2 189 lbs (R); Height 5 ft. 9 in. (175.26 cm) (R); Pain 2/10; 13:50 BP 174 / 82 LA Supine (auto/reg); js13 13:50 BP 165 / 74 LA Standing (auto/reg); js13 13:51 Pulse 70 MON; Resp 16; Pulse Ox 96% on R/A; js13 13:51 BP 166 / 71 LA Sitting (auto/reg); js13 14:05 BP 158 / 73 (auto/); js13 14:05 Pulse 68 MON; Resp 16; Pulse Ox 95% on R/A; js13 14:28 BP 162 / 76 (auto/); js13 14:28 Pulse 74; Resp 16; Pulse Ox 95% on R/A; js13 14:50 BP 156 / 72 (auto/); js13 14:50 Pulse 68 MON; Resp 16; Pulse Ox 97% on R/A; js13 15:20 BP 151 / 70 (auto/); js13 15:20 Pulse 68 MON; Resp 16; Pulse Ox 97% on R/A; js13 15:50 BP 147 / 69 (auto/); js13 15:50 Pulse 74 MON; Resp 16; Pulse Ox 99% on R/A; js13 15:58 BP 155 / 74 (auto/); js13 15:58 Pulse 72 MON; Resp 16; Pulse Ox 99% on R/A; js13 16:20 BP 196 / 81 (auto/); js13 16:20 Pulse 80 MON; Resp 16; Pulse Ox 98% on R/A; js13 16:50 BP 168 / 79 (auto/); js13 16:50 Pulse 70 MON; Resp 16; Pulse Ox 96% on R/A; js13 17:10 BP 170 / 79 (auto/); js13 17:12 Pulse 84 MON; Resp 16; Pulse Ox 97% on R/A; js13 17:20 BP 191 / 78 (auto/); js13 17:20 Pulse 70 MON; Resp 16; Pulse Ox 96% on R/A; js13 17:50 BP 184 / 83 (auto/); js13 17:50 Pulse 68 MON; Resp 16; Pulse Ox 96% on R/A; js13 18:20 BP 212 / 77 (auto/); js13 18:20 Pulse 70 MON; Resp 16; Pulse Ox 96% on R/A; js13 18:31 BP 201 / 84 (auto/); js13 18:31 Pulse 70 MON; Resp 16; Temp 97.0(O); Pulse Ox 97% on R/A; js13 12:59 Body Mass Index 27.91 (85.73 kg, 175.26 cm) gr2 MDM: 13:12 Undress patient appropriately for examination ordered. sd1 13:13 Amylase Ordered. EDMS 13:13 Basic Metabolic Profile Ordered. EDMS 13:13 CBC with Diff Ordered. EDMS 13:13 Lipase Ordered. EDMS 13:13 Liver Profile Ordered. EDMS 13:13 Prothrombin Time Profile\E\INR Ordered. EDMS 13:13 Type & Screen Ordered. EDMS 13:13 NOTHING BY MOUTH+DIET ordered. EDMS 13:42 CBC with Diff Reviewed. sd1 13:43 Orthostatic VS ordered. sd1 13:43 Dewer/Pulse Ox/q 30 min VS ordered. sd1 13:44 ECG WITH READING ER PHYS+CARDIAG ordered. EDMS 13:52 Type and Cross, Packed Cells Ordered. EDMS 13:55 BED REQUEST+ADM ordered. EDMS 13:57 Prothrombin Time Profile\E\INR Reviewed. sd1 13:57 Type & Screen Reviewed. sd1 13:58 pantoprazole 40 mg IV at bolus once ordered. sd1 14:37 Admission / Observation Status ordered. EDMS 14:38 CLEAR LIQUIDS DIET ordered. EDMS 14:38 COMPLETE BLOOD COUNT Ordered. EDMS 14:51 Financial registration complete. lg 14:56 [facility] Payment Agreement was scanned into [employer] and attached to record. lg 15:03 NS 0.9% 1000 ml IV at 150 mL/hr continuous ordered. sd1 17:35 Transfuse PRBC's 1 unit, ensure PRBCs ordered in lab ordered. js13 18:15 Admission Orders was scanned into [employer] and attached to record. ar3 18:17 COMPLETE BLOOD COUNT Ordered. EDMS Administered Medications: 14:01 Drug: pantoprazole 40 mg [pantoprazole 40 mg intravenous solution] Route: IV; Rate: js13 bolus; Site: left antecubital; 15:32 Not Given (Patient Refused): NS 0.9% 1000 ml IV at 150 mL/hr continuous bcj Signatures: Dispatcher [employer] EDMS Kandy Morales MD MD sd1 Maxwell Yao, RN RN bcj Dayana Figueroa RN RN srm Inder Inman, Reg Reg lg Cely Bond, PELLET POST INSPECTOR PELLET POST INSPECTOR ar3 Lawanda Dowd RN RN js13 The chart was reviewed and I authenticate all verbal orders and agree with the evaluation and treatment provided.Corrections: (The following items were deleted from the chart) 13:54 13:54 TYPE & SCREEN ordered. EDMS EDMS 13:54 13:54 TYPE & SCREEN ordered. EDMS EDMS 14:52 14:37 PACKED CELLS ordered. EDMS EDMS 14:52 14:37 TYPE & SCREEN ordered. EDMS EDMS 15:03 14:38 COMPLETE BLOOD COUNT ordered. EDMS EDMS Attachments: 14:56 [facility] Payment Agreement lg 18:15 Admission Orders ar3 MTDD
--- NOTE | 2016-05-21 18:48 | EDDOCDS ---
Nurse's Notes [facility] Name: Jose G Ferguson Age: 80 yrs Sex: Male : 1935 Arrival Date: 05/21/2016 Time: 12:57 Bed 6 Private MD: Neri Horner MD Diagnosis: Gastrointestinal hemorrhage, unspecified Presentation: 05/21 13:06 Presenting complaint: Patient states: 3 bloody stools in past hour. hx of same. denies srm pain. no other c/o. Adult Sepsis Screening: The patient does not have new or worsening altered mentation. Patient's respiratory rate is less than 22. Systolic blood pressure is greater than 100. Patient has a qSOFA score of 0- Negative Sepsis Screen. Suicide/Homicide risk assessment- the patient denies having any suicidal and/or homicidal ideations and does not present with any other emotional, behavioral or mental health complaints. Status: Patient is not a nursing service administrator or dependent. Transition of care: patient was not received from another setting of care. 13:06 Acuity: MAURICE Level 3 srm 13:06 Method Of Arrival: Walkin/Carried/Asstd srm Triage Assessment: 13:12 General: Appears in no apparent distress, Behavior is appropriate for age, cooperative. srm Pain: Denies pain. Historical: - Allergies: NSAIDS (GI bleed); - Home Meds: 1. aspirin 81 mg Oral tab 1 tab once daily 2. Azilect 1 mg oral tab 1 tab once daily 3. Colace 100 mg oral cap 1 cap once daily 4. ferrous sulfate 325 mg (65 mg iron) Oral tab daily 5. Flomax 0.4 mg Oral cp24 2 caps once daily 6. Vitamin B-12 1,000 mcg Oral tab 1000 mcg daily 7. oxycodone-acetaminophen 5-325 mg Oral tab every 6 hours states once a day 8. Voltaren 1 % Topical gel 4 times per day 9. Lidoderm 5 % Topical ptmd as needed 10. valsartan 40 mg oral tab 1 tab once daily 11. Proscar 5 mg Oral tab 1 tab once daily 12. Tessalon Perles 100 mg Oral cap prn- hasnt taken 13. Benadryl 25 mg Oral cap bedtime 14. magnesium oxide 400 mg Oral cap 400 mg daily 15. multivitamin Oral cap daily 16. Vitamin C 500 mg Oral chew daily 17. Vitamin D Oral 2000 unit daily 18. [place]-3 oral cap daily 300 mg 19. Glucosamine oral daily - PMHx: Diabetes - NIDDM: controlled; CAD; gi bleed; Hernia; hyperlipidemia; Hypertension; Parkinson's Disease; esophageal obstruction; BPH; Anemia; Depression; Anxiety; - PSHx: Aortic Valve Replacement, Mechanical; back surgery; aneurysm repair, aorta; Carpal Tunnel Repair- Left; - Social history: Smoking status: Patient states former smoker of tobacco. No barriers to communication noted, The patient speaks fluent Tunisian, Speaks appropriately for age. - Family history: Not pertinent. - : The pt / caregiver states he / she is not on anticoagulants. Home medication list is obtained from the patient. - Exposure Risk Screening:: None identified. Screenin:30 Screening information is obtained from the patient. Fall risk: At risk due to age. js13 Assistance ADL's: requires no assistance with activities of daily living. Abuse/DV Screen: The patient / caregiver reports he/she is: not in a situation that causes fear, pain or injury. Nutritional screening: No deficits noted. Advance Directives: There is no active DNR order. home support is adequate. Assessment: 13:30 General: Appears in no apparent distress, Behavior is appropriate for age, cooperative. js13 Pain: Denies pain. Neurological: No deficits noted. Level of Consciousness is awake, alert. Cardiovascular: Chest pain is denied. GI: Abdomen is non- distended Bowel sounds hypoactive in right upper quadrant, left upper quadrant, right lower quadrant and left lower quadrant Abd is soft and non tender Reports bloody stools. Derm: Skin is pink, warm & dry. 13:30 Respiratory: Airway is patent Respiratory effort is even, unlabored, Respiratory js13 pattern is regular, symmetrical. 14:13 General: Appears in no apparent distress, Behavior is appropriate for age, cooperative. js13 Pain: Denies pain. Neurological: Level of Consciousness is awake, alert. Cardiovascular: Rhythm is regular Chest pain is denied. Respiratory: Airway is patent Respiratory effort is even, unlabored, Respiratory pattern is regular, symmetrical. Derm: Skin is pink, warm & dry. 15:15 General: Appears in no apparent distress, Behavior is appropriate for age, cooperative. js13 Pain: Denies pain. Neurological: Level of Consciousness is awake, alert. Cardiovascular: Rhythm is regular Chest pain is denied. Respiratory: Airway is patent Respiratory effort is even, unlabored, Respiratory pattern is regular, symmetrical. GI: Abdomen is non- distended Bowel sounds present X 4 quads. Abd is soft and non tender Reports bloody stools. Derm: Skin is pink, warm & dry. 15:30 Adult Sepsis Screening: The patient does not have new or worsening altered mentation. js13 Patient's respiratory rate is less than 22. Systolic blood pressure is greater than 100. Patient has a qSOFA score of 0- Negative Sepsis Screen. 16:03 General: Appears in no apparent distress, Behavior is appropriate for age, cooperative. js13 Pain: Denies pain. Neurological: Level of Consciousness is awake, alert. Cardiovascular: Rhythm is sinus rhythm Chest pain is denied. Respiratory: No deficits noted. Airway is patent Respiratory effort is even, unlabored, Respiratory pattern is regular, symmetrical. GI: Abdomen is non- distended Bowel sounds present X 4 quads. Abd is soft and non tender Reports bloody stools. Derm: Skin is pink, warm & dry. 17:33 Adult Sepsis Screening: The patient does not have new or worsening altered mentation. js13 Patient's respiratory rate is less than 22. Systolic blood pressure is greater than 100. Patient has a qSOFA score of 0- Negative Sepsis Screen. General: Appears in no apparent distress, Behavior is appropriate for age, cooperative. General: Blood running in at 150 ml/hr. Pain: Denies pain. Neurological: Level of Consciousness is awake, alert. Cardiovascular: Rhythm is sinus rhythm Chest pain is denied. Respiratory: Airway is patent Respiratory effort is even, unlabored, Respiratory pattern is regular, symmetrical. GI: Abdomen is non- distended Bowel sounds present X 4 quads. Abd is soft and non tender Reports bloody stools. Derm: Skin is pink, warm & dry. 18:33 General: Appears in no apparent distress, comfortable, Behavior is appropriate for age, js13 cooperative. Pain: Denies pain. Neurological: Level of Consciousness is awake, alert. Cardiovascular: Rhythm is sinus rhythm Chest pain is denied. Respiratory: Airway is patent Respiratory effort is even, unlabored, Respiratory pattern is regular, symmetrical, Breath sounds are clear. GI: Abdomen is non- distended Bowel sounds present X 4 quads. Abd is soft and non tender Reports bloody stools. Derm: Skin is pink, warm & dry. Vital Signs: 12:59 BP 194 / 77; Pulse 86; Resp 18 S; Temp 96.2(O); Pulse Ox 98% on R/A; Weight 85.73 kg gr2 (R); Height 5 ft. 9 in. (175.26 cm) (R); Pain 2/10; 13:50 BP 174 / 82 LA Supine (auto/reg); js13 13:50 BP 165 / 74 LA Standing (auto/reg); js13 13:51 Pulse 70 MON; Resp 16; Pulse Ox 96% on R/A; js13 13:51 BP 166 / 71 LA Sitting (auto/reg); js13 14:05 BP 158 / 73 (auto/); js13 14:05 Pulse 68 MON; Resp 16; Pulse Ox 95% on R/A; js13 14:28 BP 162 / 76 (auto/); js13 14:28 Pulse 74; Resp 16; Pulse Ox 95% on R/A; js13 14:50 BP 156 / 72 (auto/); js13 14:50 Pulse 68 MON; Resp 16; Pulse Ox 97% on R/A; js13 15:20 BP 151 / 70 (auto/); js13 15:20 Pulse 68 MON; Resp 16; Pulse Ox 97% on R/A; js13 15:50 BP 147 / 69 (auto/); js13 15:50 Pulse 74 MON; Resp 16; Pulse Ox 99% on R/A; js13 15:58 BP 155 / 74 (auto/); js13 15:58 Pulse 72 MON; Resp 16; Pulse Ox 99% on R/A; js13 16:20 BP 196 / 81 (auto/); js13 16:20 Pulse 80 MON; Resp 16; Pulse Ox 98% on R/A; js13 16:50 BP 168 / 79 (auto/); js13 16:50 Pulse 70 MON; Resp 16; Pulse Ox 96% on R/A; js13 17:10 BP 170 / 79 (auto/); js13 17:12 Pulse 84 MON; Resp 16; Pulse Ox 97% on R/A; js13 17:20 BP 191 / 78 (auto/); js13 17:20 Pulse 70 MON; Resp 16; Pulse Ox 96% on R/A; js13 17:50 BP 184 / 83 (auto/); js13 17:50 Pulse 68 MON; Resp 16; Pulse Ox 96% on R/A; js13 18:20 BP 212 / 77 (auto/); js13 18:20 Pulse 70 MON; Resp 16; Pulse Ox 96% on R/A; js13 18:31 BP 201 / 84 (auto/); js13 18:31 Pulse 70 MON; Resp 16; Temp 97.0(O); Pulse Ox 97% on R/A; js13 12:59 Body Mass Index 27.91 (85.73 kg, 175.26 cm) gr2 Vitals: 12:59 Log In Time: May 21, 2016 at 12:59. gr2 ED Course: 12:58 Patient visited by Otf Workman. gr2 12:58 Neri Horner is Private Physician. gr2 12:58 Patient moved to Waiting gr2 13:03 Patient visited by Otf Workman. gr2 13:03 Patient moved to Pre RCE gr2 13:07 Triage Initiated srm 13:13 Lawanda Dowd RN is Primary Nurse. srm 13:13 Patient moved to 6 srm 13:19 Kandy Morales MD is Attending Physician. sd1 13:29 Amylase Sent. js13 13:29 Basic Metabolic Profile Sent. js13 13:29 CBC with Diff Sent. js13 13:29 Lipase Sent. js13 13:29 Liver Profile Sent. js13 13:29 Prothrombin Time Profile\E\INR Sent. js13 13:29 Type & Screen Sent. js13 13:30 The patient / caregiver is instructed regarding the plan of care and ED course. js13 13:30 Inserted saline lock: 18 gauge in left antecubital area and blood collected. The js13 patient tolerated the procedure well. No procedures done that require assistance. Labs drawn. (by ED staff). Sent per order to lab. 13:32 Patient visited by Lawanda Dowd RN. js13 13:37 Patient visited by Kandy Morales MD. sd1 13:55 Patient visited by Lawanda Dowd RN. js13 14:04 Neri Horner is Hospitalizing Provider. sd1 14:06 EKG done. (by ED staff). Reviewed by Kandy Morales MD. rn1 14:14 Patient visited by Lawanda Dowd RN. js13 14:56 [facility] Payment Agreement was scanned into [employer] and attached to record. lg 15:38 Patient visited by Maxwell Yao RN. bcj 16:05 Patient visited by Lawanda Dowd RN. js13 18:15 Admission Orders was scanned into [employer] and attached to record. ar3 18:35 Patient visited by Lawanda Dowd RN. js13 18:45 Patient visited by Lawanda Dowd RN. js13 Administered Medications: 14:01 Drug: pantoprazole 40 mg [pantoprazole 40 mg intravenous solution] Route: IV; Rate: js13 bolus; Site: left antecubital; 15:32 Not Given (Patient Refused): NS 0.9% 1000 ml IV at 150 mL/hr continuous bcj Intake: 18:44 PO: 360.00ml (Juice); Total: 360.00ml. js13 18:44 blood js13 Output: 18:44 Stool: 300; Total: 0.00ml. js13 18:44 blood js13 Order Results: Lab Order: Amylase; SPEC'M 05/21/16 13:26 Test: AMYLASE; Value: 89; Range: 25-115; Units: U/L; Status: F Lab Order: Basic Metabolic Profile; [facility]' 05/21/16 13:26 Test: GLUCOSE, FASTING; Value: 114; Range: 83-110; Abnormal: Above high normal; Units: MG/DL; Status: F Test: BLOOD UREA NITROGEN; Value: 21; Range: 7-18; Abnormal: Above high normal; Units: MG/DL; Status: F Test: CREATININE FOR GFR; Value: 0.91; Range: 0.70-1.30; Units: MG/DL; Status: F Test: GLOMERULAR FILTRATION RATE; Value: > 60.0; Range: >42; Status: F Test: SODIUM LEVEL; Value: 141; Range: 136-145; Units: MEQ/L; Status: F Test: POTASSIUM SERUM; Value: 4.3; Range: 3.5-5.1; Units: MEQ/L; Status: F Test: CHLORIDE LEVEL; Value: 108; Range: 98-107; Abnormal: Above high normal; Units: MEQ/L; Status: F Test: CARBON DIOXIDE LEVEL; Value: 30; Range: 21-32; Units: MEQ/L; Status: F Test: ANION GAP; Value: 3; Range: 8-16; Abnormal: Below low normal; Units: MEQ/L; Status: F Test: CALCIUM LEVEL; Value: 8.8; Range: 8.8-10.2; Units: MG/DL; Status: F Test Note: ; Units are mL/min/1.73 m2 Chronic Kidney Disease Staging per NKF: Stage I & II GFR >=60 Normal to Mildly Decreased Stage III GFR 30-59 Moderately Decreased Stage IV GFR 15-29 Severely Decreased Stage V GFR <15 Very Little GFR Left ESRD GFR <15 on [employer]OR OF [employer]PERATIONS Lab Order: CBC with Diff; SPEC'M 05/21/16 13:26 Test: WHITE BLOOD COUNT; Value: 6.8; Range: 4.0-10.0; Units: K/mm3; Status: F Test: RED BLOOD COUNT; Value: 3.86; Range: 4.30-6.10; Abnormal: Below low normal; Units: M/mm3; Status: F Test: HEMOGLOBIN; Value: 13.0; Range: 14.0-18.0; Abnormal: Below low normal; Units: g/dl; Status: F Test: HEMATOCRIT; Value: 38.7; Range: 42.0-52.0; Abnormal: Below low normal; Units: %; Status: F Test: MEAN CORPUSCULAR VOLUME; Value: 100.1; Range: 80.0-96.0; Abnormal: Above high normal; Units: fl; Status: F Test: MEAN CORPUSCULAR HEMOGLOBIN; Value: 33.7; Range: 27.0-33.0; Abnormal: Above high normal; Units: pg; Status: F Test: MEAN CORPUSCULAR HGB CONC; Value: 33.7; Range: 32.0-36.5; Units: g/dl; Status: F Test: RED CELL DISTRIBUTION WIDTH; Value: 12.6; Range: 11.5-14.5; Units: %; Status: F Test: PLATELET COUNT, AUTOMATED; Value: 232; Range: 150-450; Units: k/mm3; Status: F Test: NEUTROPHILS %; Value: 72.1; Range: 36.0-66.0; Abnormal: Above high normal; Units: %; Status: F Test: LYMPH %; Value: 15.8; Range: 24.0-44.0; Abnormal: Below low normal; Units: %; Status: F Test: MONO %; Value: 7.5; Range: 0.0-5.0; Abnormal: Above high normal; Units: %; Status: F Test: EOS %; Value: 2.3; Range: 0.0-3.0; Units: %; Status: F Test: BASO %; Value: 0.5; Range: 0.0-1.0; Units: %; Status: F Test: LARGE UNSTAINED CELL %; Value: 1.7; Range: 0.0-4.0; Units: %; Status: F Test: NEUTROPHILS #; Value: 4.9; Range: 1.8-7.7; Units: K/mm3; Status: F Test: LYMPH #; Value: 1.2; Range: 1.5-4.5; Abnormal: Below low normal; Units: K/mm3; Status: F Test: MONO #; Value: 0.5; Range: 0.0-0.8; Units: K/mm3; Status: F Test: EOS #; Value: 0.2; Range: 0.0-0.50; Units: K/mm3; Status: F Test: BASO #; Value: 0.0; Range: 0.0-0.2; Units: K/mm3; Status: F Test: LARGE UNSTAINED CELL #; Value: 0.1; Range: 0.0-0.4; Units: K/mm3; Status: F Lab Order: Lipase; SPEC' 05/21/16 13:26 Test: LIPASE; Value: 199; Range: 73-393; Units: U/L; Status: F Lab Order: Liver Profile; [facility] 05/21/16 13:26 Test: AST/SGOT; Value: 16; Range: 15-37; Units: U/L; Status: F Test: ALT/SGPT; Value: 19; Range: 12-78; Units: U/L; Status: F Test: ALKALINE PHOSPHATASE; Value: 96; Range: 45-117; Units: U/L; Status: F Test: BILIRUBIN,TOTAL; Value: 0.4; Range: 0.2-1.0; Units: MG/DL; Status: F Test: BILIRUBIN,DIRECT; Value: 0.1; Range: 0.0-0.2; Units: MG/DL; Status: F Test: TOTAL PROTEIN; Value: 7.7; Range: 6.4-8.2; Units: GM/DL; Status: F Test: ALBUMIN; Value: 3.9; Range: 3.2-5.2; Units: GM/DL; Status: F Test: ALBUMIN/GLOBULIN RATIO; Value: 1.03; Range: 1.00-1.93; Status: F Lab Order: Prothrombin Time Profile\E\INR; SPEC'M 05/21/16 13:26 Test: PROTHROMBIN TIME; Value: 13.2; Range: 12.3-14.5; Units: SECONDS; Status: F Test: INR; Value: 0.99; Status: F Test Note: ; THERAPUTIC HUMAN INR VALUES INDICATIONS NORMAL RANGES PROPHYLAXIS/TREATMENT OF: VENOUS THROMBOSIS 2.0-3.0 PULMONARY EMBOLISM 2.0-3.0 PREVENTION OF SYSTEMIC EMBOLISM FROM: TISSUE HEART VALVES 2.0-3.0 ACUTE MYOCARDIAL INFARCTION 2.0-3.0 VALVULAR HEART DISEASE 2.0-3.0 ATRIAL FIBRILLATION 2.0-3.0 MECHANICAL VALVES(HIGH RISK) 2.5-3.5 RECURRENT MYOCARDIAL INFARCTION 2.5-3.5 Lab Order: Type & Screen; SPEC05/21/16 13:26 Test: BLOOD TYPE; Value: B POS; Status: F Test: AB SCREEN (INDIRECT KYUNG)GEL; Value: NEGATIVE; Status: F Outcome: 14:04 Decision to Hospitalize by Provider. sd1 16:51 Admission hand-off: Report Faxed Fax receipt verified by Diandra Bustamante Clerk. js13 18:42 Discharge Assessment: Patient awake, alert and oriented x 3. No cognitive and/or js13 functional deficits noted. Patient verbalized understanding of disposition instructions. patient administered narcotics - no. The following High Risk Discharge criteria are identified: None. Admitted to PCU accompanied by nurse, accompanied by tech, via stretcher, on monitor, with chart. Condition: stable. No special radiology studies were completed. Admission hand-off: Report called to Dano Schafer RN. Property :Personal belongings accompany Pt. 18:47 Patient left the ED. ar3 Signatures: Kandy Morales MD MD sd1 Maxwell Yao RN RN juan mj Dayana Figueroa RN RN srm Inder Inman, Reg Reg lg Ronda, Cely, [employer] ar3 Lawanda DowdRN RN js13 Otf Workman 2 Andrea Lockhart rn1 Corrections: (The following items were deleted from the chart) 18:44 18:31 Pulse 70bpm; MonitorResp 16bpm; Pulse Ox 97% RA; js13 js13 MTDD
[2016-05-21 19:00] VITALS: BP 162/70
--- NOTE | 2016-05-21 19:08 | ECGEPIP ---
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
--- NOTE | 2016-05-21 20:10 | HPE ---
DATE OF ADMISSION: 05/21/2016 PRINCIPAL DIAGNOSIS: Gastrointestinal bleed, presumably diverticular. SECONDARY DIAGNOSES: 1. Hypertensive heart disease. 2. Type 2 diabetes. 3. Hyperlipidemia. 4. History of esophageal stricture. 5. History of upper gastrointestinal bleed in February 2012 from AVMs. 6. History of lower gastrointestinal bleed in October 2013, probably diverticular. 7. Status post aortic valve replacement with bioprosthetic aortic valve in 2012 with normal bioprosthetic valve function on echocardiogram in June 2014. 8. Parkinson's disease. 9. Severe lumbar spinal stenosis. 10. B12 deficiency. 11. Hyperlipidemia. HISTORY: Jose G Ferguson is 80. He has had six maroon, watery stools today, which is painless. He woke up with this. He has had no lightheadedness. He is tachycardic and looks pale in the emergency room. He has a history of lower gastrointestinal bleeding from presumed diverticular source in October 2013 and had an upper and lower endoscopy by Dr. Castelan in October 2013. No acute bleeding found. He had a severe upper gastrointestinal bleed in February 2012 and transferred to [facility] and had EGD by Dr. Marti Wise that showed AVMs requiring photocoagulation. His past medical history shows: 1. Hypertensive heart disease. 2. Diet-controlled type 2 diabetes. 3. Hyperlipidemia. 4. Gastroesophageal reflux. 5. B12 deficiency. 6. History of esophageal stricture, status post Botox injections, dilatations and ultimately Heller myotomy in February 2014. He had a thoracic aortic aneurysm repaired in March 2013. 7. Aortic valvular disease and had aortic valve replacement with bioprosthetic aortic valve in March 2013, most recent echocardiogram from June 2014 showed normal AV bioprosthetic function, left atrial enlargement, ejection fraction of 65%. It should be noted that [facility] notified the patients who had cardiac surgery involving a piece of bypass equipment of a very low risk of Mycobacterium chimaera infection, of which he has shown no signs of this infection. 8. He has Parkinson's disease and has seen a neurologist for this. 9. He has severe lumbar spinal stenosis first noted on a MRI in March 2007. Progressive on a MRI from March 2015. ALLERGIES: NSAIDS are avoided because of gastrointestinal bleed and gastritis. While not an allergy, I do note that he is on Azilect, which has numerous drug interactions. SURGICAL HISTORY: Left wrist repair many years ago. Pilonidal cyst repair. Prior prosthetic aortic valve replacement in October 2008. Ascending aortic aneurysm repair with repair of aortic valve in May 2012. Colonoscopy in September 2006, February 2012, October 2013. Cystoscopy for bladder outlet obstruction in August 2007. EGD on numerous occasions, including October 2006, August 2009, February 2010, July 2010, February 2012 with photocoagulation of AVMs. Numerous esophageal dilatations. Botox injections and ultimately a Heller myotomy in February 2014. Unilateral laminectomy by Dr. Solis in September 2014. Left carpal tunnel repair in March 2015. Left cataract extraction in November 2015. FAMILY HISTORY: Father of hypotensive event. Siblings have problems with hypotension. Daughter has type 2 diabetes. SOCIAL HISTORY: He is . He quit smoking many years ago. No significant alcohol intake. 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 His 's name is Adiel. 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 MEDICATIONS: - Benadryl 25 mg at bedtime - Colace 100 mg twice a day - magnesium 400 mg daily - iron 325 mg daily - multivitamin daily - vitamin D 2000 units daily - vitamin C - oxycodone acetaminophen 5/325 mg every 6 hours as needed for pain - Voltaren 1% gel 2 to 4 grams externally for joint pain - Lidoderm 5% patch to the back on 12 hours and off 12 hours - valsartan 40 mg daily - pravastatin 40 mg daily - Flomax 0.4 mg daily - Proscar 5 mg daily - Azilect 1 mg daily for Parkinson's - aspirin 81 mg daily REVIEW OF SYSTEMS: No unexplained weight loss, hematemesis, abdominal pain, distention or bloating. No chest pain or shortness of breath. PHYSICAL EXAMINATION: VITAL SIGNS: Per emergency room flow sheet. When I was seeing him, his systolic pressure was in the 130s, but he was tachycardic with heart rate around 100. GENERAL APPEARANCE: He looked pale, resting comfortably, visiting with family. Looks anxious. HEENT: Shows masked facial appearance of Parkinson's. Pupils are round and reactive to light. Pharynx clear. Neck with no masses. LUNGS: Clear. HEART: Regular rhythm. 1/6 systolic ejection murmur. ABDOMEN: Soft, nontender, nondistended. Perfuse maroon stool in the toilet in the room. EXTREMITIES: No clubbing, cyanosis or edema. Parkinsonian tremor, more on the right than the left. LABORATORY DATA: White count is 6.8, hemoglobin 13, hematocrit 38, platelets 232. INR is 0.99. Sodium 141, potassium 4.3, BUN 21, creatinine 0.9, glucose 114. Liver functions normal. IMPRESSION: 1. Gastrointestinal bleed, presumably diverticular. Bleeding was quite perfuse. He is tachycardic. He has not received intravenous fluids yet. I have ordered some normal saline. He will be typed and crossed 2 units of packed red blood cells and transfused if his hemoglobin drops or if he becomes hypotensive. We do not have any gastroenterology coverage this weekend. Dr. Lora is learning operations specialist for surgery. He will be consulted. The case has been discussed with Dr. Lora. 2. Parkinson's disease. Continue his Azilect. 3. Aortic valve replacement, bioprosthetic valve. Holding aspirin in the face of gastrointestinal bleeding. 4. Type 2 diabetes, diet controlled. Should not require attention while here. 5. Hypertensive heart disease. Hold his valsartan in the face of his GI bleed. 6. Spinal stenosis. Continue his Lidoderm patch. Hold the voltaren patch, absorption of Voltaren topically is minimal, but in the face of gastrointestinal bleeding we will discontinue it. 7. Hyperlipidemia. Continue pravastatin 40 mg daily. 8. Benign prostatic hypertrophy (BPH) . Continue Flomax 0.4 mg daily, Proscar 5 mg daily. Early ambulation. He is at risk of acute urinary retention. The patient has signed a consent for transfusion if necessary. The risks and benefits have been discussed with the patient and his . He has had transfusions before for gastrointestinal bleeds.
[2016-05-21 20:25] LABS: MEAN CORPUSCULAR HEMOGLOBIN 33.6 pg (27.0-33.0); MEAN CORPUSCULAR HGB CONC 34.7 g/dl (32.0-36.5)
[2016-05-21] MEDS: **NOTE PATIENT COMMENT** MISC XX SCH (21:00)
[2016-05-21 21:05] VITALS: BP 168/78
[2016-05-21] MEDS: PRAVASTATIN 20 MG TAB PO SCH (21:19)
[2016-05-21] MEDS: FINASTERIDE 5 MG TAB PO SCH (21:19)
[2016-05-21 22:51] LABS: MEAN CORPUSCULAR HEMOGLOBIN 33.2 pg (27.0-33.0); MEAN CORPUSCULAR HGB CONC 34.3 g/dl (32.0-36.5); MEAN CORPUSCULAR VOLUME 96.8 fl (80.0-96.0); RED CELL DISTRIBUTION WIDTH 13.1 % (11.5-14.5); WHITE BLOOD COUNT 8.1 K/mm3 (4.0-10.0)
[2016-05-21 23:59] VITALS: BP 169/74
[2016-05-22] MEDS ORDERED: SLF 3 ML SYR IV PRN (02:15)
[2016-05-22 02:23] LABS: MEAN CORPUSCULAR HEMOGLOBIN 34.3 pg (27.0-33.0); MEAN CORPUSCULAR HGB CONC 35.3 g/dl (32.0-36.5); MEAN CORPUSCULAR VOLUME 97.1 fl (80.0-96.0); RED CELL DISTRIBUTION WIDTH 12.9 % (11.5-14.5); WHITE BLOOD COUNT 8.3 K/mm3 (4.0-10.0)
[2016-05-22 02:50] LABS: ANION GAP 7 MEQ/L (8-16); BLOOD UREA NITROGEN 21 MG/DL (7-18); CALCIUM LEVEL 8.4 MG/DL (8.8-10.2); CARBON DIOXIDE LEVEL 25 MEQ/L (21-32); CHLORIDE LEVEL 110 MEQ/L (98-107); CREATININE FOR GFR 0.81 MG/DL (0.70-1.30); GLOMERULAR FILTRATION RATE > 60.0 (>42); GLUCOSE, FASTING 102 MG/DL (83-110); POTASSIUM SERUM 4.3 MEQ/L (3.5-5.1); SODIUM LEVEL 142 MEQ/L (136-145)
[2016-05-22] MEDS: SLF 3 ML SYR IV SCH ×3 (05:03→21:15)
[2016-05-22 05:14] VITALS: BP 172/75
[2016-05-22 08:00] VITALS: BP 160/72
[2016-05-22 08:12] LABS: MEAN CORPUSCULAR HEMOGLOBIN 33.1 pg (27.0-33.0); MEAN CORPUSCULAR HGB CONC 34.1 g/dl (32.0-36.5); MEAN CORPUSCULAR VOLUME 97.1 fl (80.0-96.0); RED CELL DISTRIBUTION WIDTH 13.1 % (11.5-14.5); WHITE BLOOD COUNT 7.2 K/mm3 (4.0-10.0)
[2016-05-22] MEDS: LIDOCAINE 5% (LIDODERM) PATCH TD SCH (09:23)
[2016-05-22] MEDS: AZILECT 1 MG PO SCH (11:34)
[2016-05-22 11:42] VITALS: BP 138/70
--- NOTE | 2016-05-22 11:51 | CR ---
DATE OF CONSULTATION: 05/21/2016 CHIEF COMPLAINT: Gastrointestinal (GI) bleeding. HISTORY OF PRESENT ILLNESS: The patient is a 80-year-old male who presented to the emergency room with a history of six maroon watery stools that started this morning. After having a multiple maroon stools, he came the emergency room for evaluation. While in the ER he had another three to four bowel movements. He claims at up to this point he has had at least 10. However, they are starting to become more clotted and less bright blood in them. No nausea or vomiting. No problems with abdominal pain, diarrhea, or constipation in the past. No recent difficulty with heartburn or acid reflux. He has had both upper and lower GI bleeds in his history. 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 In October 2013, he had lower GI bleed that was treated nonoperatively and was suspected to be from diverticulosis. PAST MEDICAL HISTORY: Heart disease. Type 2 diabetes. Hyperlipidemia. Gastroesophageal reflux disease. B12 deficiency. History of esophageal stricture with Botox injections and dilatations. Parkinson's. Lumbar stenosis. PAST SURGICAL HISTORY: Multiple upper and lower endoscopies. Heller myotomy. Thoracic aortic aneurysm repair. Aortic valve replacement. ALLERGIES: 1. LATEX. 2. NSAIDS. MEDICATIONS: Please see med rec. REVIEW OF SYSTEMS: Pertinent positives and negatives as stated in the history of present illness. PHYSICAL EXAMINATION GENERAL: Alert and oriented times three. No acute distress. VITALS: Temperature 97.3, pulse 73, respirations 18, blood pressure 162/70, pulse oximetry 98% on room air. HEENT: Pupils equally round and reactive to light and accommodation. HEART: S1 and S2 regular rate and rhythm. LUNGS: Clear to auscultation bilaterally. ABDOMEN: Soft, nontender, nondistended. Bowel sounds positive. EXTREMITIES: No clubbing, cyanosis or edema. LABORATORIES: Hemoglobin 13, white count 6.8, platelets 232, INR 0.99, potassium 4.3, creatinine 0.91. ASSESSMENT/PLAN: Patient is a 80-year-old male with suspected acute blood loss anemia secondary to the lower GI bleed. This is likely diverticular in nature; however , due to the color of the blood and the contents that he showed me in the toilet, I am concerned for possible ischemic colitis as well. That is less likely given that he has no abdominal pain; however, I will check a lactic acid just to make sure. Repeat hemoglobin after 1 unit of blood stayed at 13. Therefore, no need to give a second unit of blood. Will continue to watch him overnight with every 6 hours hemoglobin and hematocrit and monitor his bowel movements. If he continues to show signs of active bleeding or if there is suspicion for ischemic colitis, then I will consider endoscopy tomorrow. However, if his bleeding appears to be slowing down, then we may hold off and try to treat him nonsurgically. The patient agrees to this. I will explain this all to him and his again in the morning. REBECCA
--- NOTE | 2016-05-22 14:46 | IPN ---
DATE OF SERVICE: 05/22/2016 Jose G is seen in progressive care unit (PCU). He had some rectal bleeding overnight, at least two bloody stools, none today. His hemoglobin in stabilizing. I had originally planned for him to get 2 units of packed red blood cells, but we only transfused one. His blood pressure went up after the first unit and his rectal bleeding seemed to have slowed down at that point. Per the patient, he has not had a bloody stool since the middle of the night. Blood pressure 130/70, pulse 84, respirations 18, 96% oxygen saturation. He looks well. Color is good. Lungs clear. Heart regular rate and rhythm with a 1/6 systolic ejection murmur. Abdomen soft, nontender. No masses. No peripheral edema. LABORATORIES: Electrolytes are unremarkable. Hemoglobin is 11.3 IMPRESSION: 1. Rectal bleeding, probably diverticular. He has received 1 unit packed red blood cells. Aspirin is on hold. Surgery has been consulted, Dr. Lora. He agrees it is probably diverticular. I do not think he wants endoscopy at this point. I am transferring him to the floor. His hemoglobin is stable. He can probably be discharged tomorrow. 2. Hypertension. His blood pressure has been elevated. I was holding his valsartan when he was actively bleeding. Will restart this. 3. Benign prostatic hypertrophy (BPH). Continue Flomax and Proscar. 4. Parkinson's. He is on Azilect 1 mg daily. This is fraught with drug interactions and will ask pharmacy to review these prior to releasing medications. 5. Spinal stenosis. He is on Lidoderm patch. We will hold the voltaren for now. 6. Hyperlipidemia. Continue his pravastatin 40 mg daily.
[2016-05-22 14:50] LABS: MEAN CORPUSCULAR HEMOGLOBIN 32.8 pg (27.0-33.0); MEAN CORPUSCULAR HGB CONC 34.2 g/dl (32.0-36.5); MEAN CORPUSCULAR VOLUME 96.1 fl (80.0-96.0); RED CELL DISTRIBUTION WIDTH 13.1 % (11.5-14.5); WHITE BLOOD COUNT 7.6 K/mm3 (4.0-10.0)
[2016-05-22] MEDS: VALSARTAN 40MG TABLET (DIOVAN) PO SCH (15:30)
[2016-05-22 18:30] VITALS: BP_SYST 145; BP_SYST 170; BP_DIAS 72; BP_DIAS 77
[2016-05-22 20:27] LABS: MEAN CORPUSCULAR HEMOGLOBIN 33.9 pg (27.0-33.0); MEAN CORPUSCULAR HGB CONC 35.7 g/dl (32.0-36.5); MEAN CORPUSCULAR VOLUME 94.9 fl (80.0-96.0); RED CELL DISTRIBUTION WIDTH 12.6 % (11.5-14.5); WHITE BLOOD COUNT 6.7 K/mm3 (4.0-10.0)
[2016-05-22] MEDS: FINASTERIDE 5 MG TAB PO SCH (20:51)
[2016-05-22] MEDS: **NOTE PATIENT COMMENT** MISC XX SCH (20:51)
[2016-05-22] MEDS: PRAVASTATIN 20 MG TAB PO SCH (20:51)
[2016-05-22 22:00] VITALS: BP 140/72
[2016-05-23 02:31] LABS: MEAN CORPUSCULAR HEMOGLOBIN 33.9 pg (27.0-33.0); MEAN CORPUSCULAR HGB CONC 35.4 g/dl (32.0-36.5); RED CELL DISTRIBUTION WIDTH 13.1 % (11.5-14.5); WHITE BLOOD COUNT 9.6 K/mm3 (4.0-10.0)
[2016-05-23 02:46] LABS: ANION GAP 5 MEQ/L (8-16); BLOOD UREA NITROGEN 19 MG/DL (7-18); CALCIUM LEVEL 8.6 MG/DL (8.8-10.2); CARBON DIOXIDE LEVEL 29 MEQ/L (21-32); CHLORIDE LEVEL 108 MEQ/L (98-107); CREATININE FOR GFR 0.87 MG/DL (0.70-1.30); GLOMERULAR FILTRATION RATE > 60.0 (>42); GLUCOSE, FASTING 101 MG/DL (83-110); POTASSIUM SERUM 4.6 MEQ/L (3.5-5.1); SODIUM LEVEL 142 MEQ/L (136-145)
[2016-05-23] MEDS: SLF 3 ML SYR IV SCH ×3 (05:32→22:05)
[2016-05-23 06:00] VITALS: BP 139/66
[2016-05-23 08:09] LABS: MEAN CORPUSCULAR HEMOGLOBIN 33.8 pg (27.0-33.0); MEAN CORPUSCULAR HGB CONC 34.9 g/dl (32.0-36.5); MEAN CORPUSCULAR VOLUME 96.9 fl (80.0-96.0); RED CELL DISTRIBUTION WIDTH 13.1 % (11.5-14.5); WHITE BLOOD COUNT 6.8 K/mm3 (4.0-10.0)
[2016-05-23] MEDS: LIDOCAINE 5% (LIDODERM) PATCH TD SCH (09:00)
[2016-05-23] MEDS: AZILECT 1 MG PO SCH (09:19)
[2016-05-23 09:20] VITALS: BP 139/66
[2016-05-23] MEDS: VALSARTAN 40MG TABLET (DIOVAN) PO SCH (09:20)
--- NOTE | 2016-05-23 12:37 | IPNPDOC ---
Assessment/Plan Date Seen The patient was seen on 05/23/16. Problems Problems: (1) Acute GI hemorrhage Status: Acute Problem Specific Plan: Consult Specialist, Monitor Clinically, Repeat Labs Problem Text: favor tic bleed-afebrile, normal WBC, non tender 10/2013 colon/EGD Reindl normal x moderate sigmoid losis 05/23/16 slightly down to 11.2 05/21/16 hgb 13.0 but received 2u PRBCs ? h/o gastric/SB AVMs (not seen in EGD) Pt was seen by Dr Lora from surgery. Dr Lora discussed the possibility of endoscopy if bleeding continues. Hemoglobin has remained stable. Continue to monitor. Aspirin 81/vit C has been held. (2) HTN (hypertension) Status: Chronic Problem Specific Plan: Monitor Clinically Problem Text: Pt is on Diovan. (3) Spinal stenosis Status: Chronic Problem Specific Plan: Monitor Clinically Problem Text: Lidoderm patch. Voltaren held. (4) Hyperlipemia Status: Chronic Problem Specific Plan: Monitor Clinically Problem Text: On Pravastatin. (5) Parkinson disease Status: Chronic Problem Specific Plan: Monitor Clinically Problem Text: Pt is on Azilect 1 mg daily. (6) BPH (benign prostatic hyperplasia) Status: Chronic Problem Specific Plan: Monitor Clinically Problem Text: On Proscar. Plan / VTE VTE Prophylaxis Ordered?: No Subjective Review of Systems CC/HPI The patient is a 80-year-old male admitted with a reason for visit of Acute Gi Hemorrhage. Events since last encounter Pt notes rectal bleeding restarted. Denies Abd pain. Denies CP, SOB. Constitutional: Denies: Chills, Fever Pulmonary: Denies: Dyspnea Cardiovascular: Denies: Chest Pain, Palpitations Gastrointestinal: Denies: Abdominal Pain, Nausea, Vomiting Objective Physical Examination General Exam: Positive: Alert, No Acute Distress Neck Exam: Positive: Supple, Negative: JVD Chest Exam: Positive: Clear to auscultation Heart Exam: Positive: Rate Normal, Regular Rhythm Abdomen Exam: Positive: Normal bowel sounds, Soft, Negative: Tenderness Extremity Exam: Negative: Edema Vital Signs/I&O Vital Signs Date Time Temp Pulse Resp B/P Pulse Ox O2 Delivery O2 Flow Rate FiO2 05/23/16 09:20 139/66 05/23/16 06:00 97.7 87 16 98 05/22/16 11:42 Room Air I&O- Last 24 Hours up to 6 AM 05/23/16 06:00 Intake Total 1440 ml Output Total 850 ml Balance 590 ml Laboratory Data Labs 24H Laboratory Tests 2 05/23/16 02:19: Anion Gap 5L, Blood Urea Nitrogen 19H, Creatinine 0.87, Sodium Level 142, Potassium Level 4.6, Chloride Level 108H, Carbon Dioxide Level 29, Calcium Level 8.6L, Glomerular Filtration Rate > 60.0 CBC/BMP Laboratory Tests 05/22/16 14:35 Red Blood Count 3.53 L, Mean Corpuscular Volume 96.1 H, Mean Corpuscular Hemoglobin 32.8, Mean Corpuscular Hemoglobin Concent 34.2, Red Cell Distribution Width 13.1 05/22/16 20:17 Red Blood Count 3.37 L, Mean Corpuscular Volume 94.9, Mean Corpuscular Hemoglobin 33.9 H, Mean Corpuscular Hemoglobin Concent 35.7, Red Cell Distribution Width 12.6 05/23/16 02:19 Red Blood Count 3.35 L, Mean Corpuscular Volume 96.0, Mean Corpuscular Hemoglobin 33.9 H, Mean Corpuscular Hemoglobin Concent 35.4, Red Cell Distribution Width 13.1, Calcium Level 8.6 L 05/23/16 08:01 Red Blood Count 3.33 L, Mean Corpuscular Volume 96.9 H, Mean Corpuscular Hemoglobin 33.8 H, Mean Corpuscular Hemoglobin Concent 34.9, Red Cell Distribution Width 13.1 Rios Peters May 23, 2016 12:37 Daryl Holland M.D. May 23, 2016 16:12
[2016-05-23 14:00] VITALS: BP 142/67
[2016-05-23] MEDS ORDERED: GOLYTELY SOLN 4000 ML BTL PO ONE (14:00)
--- NOTE | 2016-05-23 19:48 | EDDOCDS ---
Physician Documentation [facility] Name: Jose G Ferguson Age: 80 yrs Sex: Male : 1935 Arrival Date: 05/21/2016 Time: 12:57 Bed 6 Private MD: Neri Horner MD Disposition: 05/21/16 14:04 Hospitalization ordered by Neri Horner for Inpatient Admission. Preliminary diagnosis is Gastrointestinal hemorrhage, unspecified. - [facility] - Status is Inpatient Admission. ar3 - Condition is Stable. - Problem is new. - Symptoms are unchanged. Historical: - Allergies: NSAIDS (GI bleed); - Home Meds: 1. aspirin 81 mg Oral tab 1 tab once daily 2. Azilect 1 mg oral tab 1 tab once daily 3. Colace 100 mg oral cap 1 cap once daily 4. ferrous sulfate 325 mg (65 mg iron) Oral tab daily 5. Flomax 0.4 mg Oral cp24 2 caps once daily 6. Vitamin B-12 1,000 mcg Oral tab 1000 mcg daily 7. oxycodone-acetaminophen 5-325 mg Oral tab every 6 hours states once a day 8. Voltaren 1 % Topical gel 4 times per day 9. Lidoderm 5 % Topical ptmd as needed 10. valsartan 40 mg oral tab 1 tab once daily 11. Proscar 5 mg Oral tab 1 tab once daily 12. Tessalon Perles 100 mg Oral cap prn- hasnt taken 13. Benadryl 25 mg Oral cap bedtime 14. magnesium oxide 400 mg Oral cap 400 mg daily 15. multivitamin Oral cap daily 16. Vitamin C 500 mg Oral chew daily 17. Vitamin D Oral 2000 unit daily 18. [employer]-3 oral cap daily 300 mg 19. Glucosamine oral daily - PMHx: Diabetes - NIDDM: controlled; CAD; gi bleed; Hernia; hyperlipidemia; Hypertension; Parkinson's Disease; esophageal obstruction; BPH; Anemia; Depression; Anxiety; - PSHx: Aortic Valve Replacement, Mechanical; back surgery; aneurysm repair, aorta; Carpal Tunnel Repair- Left; - Social history: Smoking status: Patient states former smoker of tobacco. No barriers to communication noted, The patient speaks fluent Slovenian, Speaks appropriately for age. - Family history: Not pertinent. - : The pt / caregiver states he / she is not on anticoagulants. Home medication list is obtained from the patient. - Exposure Risk Screening:: None identified. Vital Signs: 05/21 12:59 BP 194 / 77; Pulse 86; Resp 18 S; Temp 96.2(O); Pulse Ox 98% on R/A; Weight 85.73 kg / gr2 189 lbs (R); Height 5 ft. 9 in. (175.26 cm) (R); Pain 2/10; 13:50 BP 174 / 82 LA Supine (auto/reg); js13 13:50 BP 165 / 74 LA Standing (auto/reg); js13 13:51 Pulse 70 MON; Resp 16; Pulse Ox 96% on R/A; js13 13:51 BP 166 / 71 LA Sitting (auto/reg); js13 14:05 BP 158 / 73 (auto/); js13 14:05 Pulse 68 MON; Resp 16; Pulse Ox 95% on R/A; js13 14:28 BP 162 / 76 (auto/); js13 14:28 Pulse 74; Resp 16; Pulse Ox 95% on R/A; js13 14:50 BP 156 / 72 (auto/); js13 14:50 Pulse 68 MON; Resp 16; Pulse Ox 97% on R/A; js13 15:20 BP 151 / 70 (auto/); js13 15:20 Pulse 68 MON; Resp 16; Pulse Ox 97% on R/A; js13 15:50 BP 147 / 69 (auto/); js13 15:50 Pulse 74 MON; Resp 16; Pulse Ox 99% on R/A; js13 15:58 BP 155 / 74 (auto/); js13 15:58 Pulse 72 MON; Resp 16; Pulse Ox 99% on R/A; js13 16:20 BP 196 / 81 (auto/); js13 16:20 Pulse 80 MON; Resp 16; Pulse Ox 98% on R/A; js13 16:50 BP 168 / 79 (auto/); js13 16:50 Pulse 70 MON; Resp 16; Pulse Ox 96% on R/A; js13 17:10 BP 170 / 79 (auto/); js13 17:12 Pulse 84 MON; Resp 16; Pulse Ox 97% on R/A; js13 17:20 BP 191 / 78 (auto/); js13 17:20 Pulse 70 MON; Resp 16; Pulse Ox 96% on R/A; js13 17:50 BP 184 / 83 (auto/); js13 17:50 Pulse 68 MON; Resp 16; Pulse Ox 96% on R/A; js13 18:20 BP 212 / 77 (auto/); js13 18:20 Pulse 70 MON; Resp 16; Pulse Ox 96% on R/A; js13 18:31 BP 201 / 84 (auto/); js13 18:31 Pulse 70 MON; Resp 16; Temp 97.0(O); Pulse Ox 97% on R/A; js13 12:59 Body Mass Index 27.91 (85.73 kg, 175.26 cm) gr2 MDM: 13:12 Undress patient appropriately for examination ordered. sd1 13:13 Amylase Ordered. EDMS 13:13 Basic Metabolic Profile Ordered. EDMS 13:13 CBC with Diff Ordered. EDMS 13:13 Lipase Ordered. EDMS 13:13 Liver Profile Ordered. EDMS 13:13 Prothrombin Time Profile\E\INR Ordered. EDMS 13:13 Type & Screen Ordered. EDMS 13:13 NOTHING BY MOUTH+DIET ordered. EDMS 13:42 CBC with Diff Reviewed. sd1 13:43 Orthostatic VS ordered. sd1 13:43 Fund Development Manager/Pulse Ox/q 30 min VS ordered. sd1 13:44 ECG WITH READING ER PHYS+CARDIAG ordered. EDMS 13:52 Type and Cross, Packed Cells Ordered. EDMS 13:55 BED REQUEST+ADM ordered. EDMS 13:57 Prothrombin Time Profile\E\INR Reviewed. sd1 13:57 Type & Screen Reviewed. sd1 13:58 pantoprazole 40 mg IV at bolus once ordered. sd1 14:37 Admission / Observation Status ordered. EDMS 14:38 CLEAR LIQUIDS DIET ordered. EDMS 14:38 COMPLETE BLOOD COUNT Ordered. EDMS 14:51 Financial registration complete. lg 14:56 MT-EM Payment Agreement was scanned into [employer] and attached to record. lg 15:03 NS 0.9% 1000 ml IV at 150 mL/hr continuous ordered. sd1 17:35 Transfuse PRBC's 1 unit, ensure PRBCs ordered in lab ordered. js13 18:15 Admission Orders was scanned into [employer] and attached to record. ar3 18:17 COMPLETE BLOOD COUNT Ordered. EDMS 19:39 T-Sheet-- Draft Copy was scanned into [employer] and attached to record. r 05/22 11:42 ECG/EKG was scanned into [employer] and attached to record. 11:43 Consents was scanned into [employer] and attached to record. gb Administered Medications: 05/21 14:01 Drug: pantoprazole 40 mg [pantoprazole 40 mg intravenous solution] Route: IV; Rate: js13 bolus; Site: left antecubital; 15:32 Not Given (Patient Refused): NS 0.9% 1000 ml IV at 150 mL/hr continuous bcj Signatures: Dispatcher [employer] EDMS Kandy Morales MD MD sd1 Maxwell Yao, RN RN bcDayana Sharpe RN RN srm Ivanna Holloway, Reg Reg gb Inder Inman, Reg Reg lg Miguel Bonda, BEREAVEMENT PROGRAM COORDINATOR BEREAVEMENT PROGRAM COORDINATOR ar3 Lawanda Dowd RN RN js13 Paluy Jacob The chart was reviewed and I authenticate all verbal orders and agree with the evaluation and treatment provided.Corrections: (The following items were deleted from the chart) 13:54 13:54 TYPE & SCREEN ordered. EDMS EDMS 13:54 13:54 TYPE & SCREEN ordered. EDMS EDMS 14:52 14:37 PACKED CELLS ordered. EDMS EDMS 14:52 14:37 TYPE & SCREEN ordered. EDMS EDMS 15:03 14:38 COMPLETE BLOOD COUNT ordered. EDMS EDMS Attachments: 14:56 [facility] Payment Agreement lg 18:15 Admission Orders ar3 19:39 T-Sheet-- Draft Copy [facility] 05/22 11:42 ECG/EKG gb Chart Complete MTDD
--- NOTE | 2016-05-23 19:48 | EDDOCDS ---
Nurse's Notes [facility] Name: Jose G Ferguson Age: 80 yrs Sex: Male : 1935 Arrival Date: 05/21/2016 Time: 12:57 Bed 6 Private MD: Neri Horner MD Diagnosis: Gastrointestinal hemorrhage, unspecified Presentation: 05/21 13:06 Presenting complaint: Patient states: 3 bloody stools in past hour. hx of same. denies srm pain. no other c/o. Adult Sepsis Screening: The patient does not have new or worsening altered mentation. Patient's respiratory rate is less than 22. Systolic blood pressure is greater than 100. Patient has a qSOFA score of 0- Negative Sepsis Screen. Suicide/Homicide risk assessment- the patient denies having any suicidal and/or homicidal ideations and does not present with any other emotional, behavioral or mental health complaints. Status: Patient is not a supervisor volunteer services or dependent. Transition of care: patient was not received from another setting of care. 13:06 Acuity: MAURICE Level 3 srm 13:06 Method Of Arrival: Walkin/Carried/Asstd srm Triage Assessment: 13:12 General: Appears in no apparent distress, Behavior is appropriate for age, cooperative. srm Pain: Denies pain. Historical: - Allergies: NSAIDS (GI bleed); - Home Meds: 1. aspirin 81 mg Oral tab 1 tab once daily 2. Azilect 1 mg oral tab 1 tab once daily 3. Colace 100 mg oral cap 1 cap once daily 4. ferrous sulfate 325 mg (65 mg iron) Oral tab daily 5. Flomax 0.4 mg Oral cp24 2 caps once daily 6. Vitamin B-12 1,000 mcg Oral tab 1000 mcg daily 7. oxycodone-acetaminophen 5-325 mg Oral tab every 6 hours states once a day 8. Voltaren 1 % Topical gel 4 times per day 9. Lidoderm 5 % Topical ptmd as needed 10. valsartan 40 mg oral tab 1 tab once daily 11. Proscar 5 mg Oral tab 1 tab once daily 12. Tessalon Perles 100 mg Oral cap prn- hasnt taken 13. Benadryl 25 mg Oral cap bedtime 14. magnesium oxide 400 mg Oral cap 400 mg daily 15. multivitamin Oral cap daily 16. Vitamin C 500 mg Oral chew daily 17. Vitamin D Oral 2000 unit daily 18. [place]-3 oral cap daily 300 mg 19. Glucosamine oral daily - PMHx: Diabetes - NIDDM: controlled; CAD; gi bleed; Hernia; hyperlipidemia; Hypertension; Parkinson's Disease; esophageal obstruction; BPH; Anemia; Depression; Anxiety; - PSHx: Aortic Valve Replacement, Mechanical; back surgery; aneurysm repair, aorta; Carpal Tunnel Repair- Left; - Social history: Smoking status: Patient states former smoker of tobacco. No barriers to communication noted, The patient speaks fluent Kuwaiti, Speaks appropriately for age. - Family history: Not pertinent. - : The pt / caregiver states he / she is not on anticoagulants. Home medication list is obtained from the patient. - Exposure Risk Screening:: None identified. Screenin:30 Screening information is obtained from the patient. Fall risk: At risk due to age. js13 Assistance ADL's: requires no assistance with activities of daily living. Abuse/DV Screen: The patient / caregiver reports he/she is: not in a situation that causes fear, pain or injury. Nutritional screening: No deficits noted. Advance Directives: There is no active DNR order. home support is adequate. Assessment: 13:30 General: Appears in no apparent distress, Behavior is appropriate for age, cooperative. js13 Pain: Denies pain. Neurological: No deficits noted. Level of Consciousness is awake, alert. Cardiovascular: Chest pain is denied. GI: Abdomen is non- distended Bowel sounds hypoactive in right upper quadrant, left upper quadrant, right lower quadrant and left lower quadrant Abd is soft and non tender Reports bloody stools. Derm: Skin is pink, warm & dry. 13:30 Respiratory: Airway is patent Respiratory effort is even, unlabored, Respiratory js13 pattern is regular, symmetrical. 14:13 General: Appears in no apparent distress, Behavior is appropriate for age, cooperative. js13 Pain: Denies pain. Neurological: Level of Consciousness is awake, alert. Cardiovascular: Rhythm is regular Chest pain is denied. Respiratory: Airway is patent Respiratory effort is even, unlabored, Respiratory pattern is regular, symmetrical. Derm: Skin is pink, warm & dry. 15:15 General: Appears in no apparent distress, Behavior is appropriate for age, cooperative. js13 Pain: Denies pain. Neurological: Level of Consciousness is awake, alert. Cardiovascular: Rhythm is regular Chest pain is denied. Respiratory: Airway is patent Respiratory effort is even, unlabored, Respiratory pattern is regular, symmetrical. GI: Abdomen is non- distended Bowel sounds present X 4 quads. Abd is soft and non tender Reports bloody stools. Derm: Skin is pink, warm & dry. 15:30 Adult Sepsis Screening: The patient does not have new or worsening altered mentation. js13 Patient's respiratory rate is less than 22. Systolic blood pressure is greater than 100. Patient has a qSOFA score of 0- Negative Sepsis Screen. 16:03 General: Appears in no apparent distress, Behavior is appropriate for age, cooperative. js13 Pain: Denies pain. Neurological: Level of Consciousness is awake, alert. Cardiovascular: Rhythm is sinus rhythm Chest pain is denied. Respiratory: No deficits noted. Airway is patent Respiratory effort is even, unlabored, Respiratory pattern is regular, symmetrical. GI: Abdomen is non- distended Bowel sounds present X 4 quads. Abd is soft and non tender Reports bloody stools. Derm: Skin is pink, warm & dry. 17:33 Adult Sepsis Screening: The patient does not have new or worsening altered mentation. js13 Patient's respiratory rate is less than 22. Systolic blood pressure is greater than 100. Patient has a qSOFA score of 0- Negative Sepsis Screen. General: Appears in no apparent distress, Behavior is appropriate for age, cooperative. General: Blood running in at 150 ml/hr. Pain: Denies pain. Neurological: Level of Consciousness is awake, alert. Cardiovascular: Rhythm is sinus rhythm Chest pain is denied. Respiratory: Airway is patent Respiratory effort is even, unlabored, Respiratory pattern is regular, symmetrical. GI: Abdomen is non- distended Bowel sounds present X 4 quads. Abd is soft and non tender Reports bloody stools. Derm: Skin is pink, warm & dry. 18:33 General: Appears in no apparent distress, comfortable, Behavior is appropriate for age, js13 cooperative. Pain: Denies pain. Neurological: Level of Consciousness is awake, alert. Cardiovascular: Rhythm is sinus rhythm Chest pain is denied. Respiratory: Airway is patent Respiratory effort is even, unlabored, Respiratory pattern is regular, symmetrical, Breath sounds are clear. GI: Abdomen is non- distended Bowel sounds present X 4 quads. Abd is soft and non tender Reports bloody stools. Derm: Skin is pink, warm & dry. Vital Signs: 12:59 BP 194 / 77; Pulse 86; Resp 18 S; Temp 96.2(O); Pulse Ox 98% on R/A; Weight 85.73 kg gr2 (R); Height 5 ft. 9 in. (175.26 cm) (R); Pain 2/10; 13:50 BP 174 / 82 LA Supine (auto/reg); js13 13:50 BP 165 / 74 LA Standing (auto/reg); js13 13:51 Pulse 70 MON; Resp 16; Pulse Ox 96% on R/A; js13 13:51 BP 166 / 71 LA Sitting (auto/reg); js13 14:05 BP 158 / 73 (auto/); js13 14:05 Pulse 68 MON; Resp 16; Pulse Ox 95% on R/A; js13 14:28 BP 162 / 76 (auto/); js13 14:28 Pulse 74; Resp 16; Pulse Ox 95% on R/A; js13 14:50 BP 156 / 72 (auto/); js13 14:50 Pulse 68 MON; Resp 16; Pulse Ox 97% on R/A; js13 15:20 BP 151 / 70 (auto/); js13 15:20 Pulse 68 MON; Resp 16; Pulse Ox 97% on R/A; js13 15:50 BP 147 / 69 (auto/); js13 15:50 Pulse 74 MON; Resp 16; Pulse Ox 99% on R/A; js13 15:58 BP 155 / 74 (auto/); js13 15:58 Pulse 72 MON; Resp 16; Pulse Ox 99% on R/A; js13 16:20 BP 196 / 81 (auto/); js13 16:20 Pulse 80 MON; Resp 16; Pulse Ox 98% on R/A; js13 16:50 BP 168 / 79 (auto/); js13 16:50 Pulse 70 MON; Resp 16; Pulse Ox 96% on R/A; js13 17:10 BP 170 / 79 (auto/); js13 17:12 Pulse 84 MON; Resp 16; Pulse Ox 97% on R/A; js13 17:20 BP 191 / 78 (auto/); js13 17:20 Pulse 70 MON; Resp 16; Pulse Ox 96% on R/A; js13 17:50 BP 184 / 83 (auto/); js13 17:50 Pulse 68 MON; Resp 16; Pulse Ox 96% on R/A; js13 18:20 BP 212 / 77 (auto/); js13 18:20 Pulse 70 MON; Resp 16; Pulse Ox 96% on R/A; js13 18:31 BP 201 / 84 (auto/); js13 18:31 Pulse 70 MON; Resp 16; Temp 97.0(O); Pulse Ox 97% on R/A; js13 12:59 Body Mass Index 27.91 (85.73 kg, 175.26 cm) gr2 Vitals: 12:59 Log In Time: May 21, 2016 at 12:59. gr2 ED Course: 12:58 Patient visited by Otf Workman. gr2 12:58 Neri Horner is Private Physician. gr2 12:58 Patient moved to Waiting gr2 13:03 Patient visited by Otf Workman. gr2 13:03 Patient moved to Pre RCE gr2 13:07 Triage Initiated srm 13:13 Lawanda Dowd RN is Primary Nurse. srm 13:13 Patient moved to 6 srm 13:19 Kandy Morales MD is Attending Physician. sd1 13:29 Amylase Sent. js13 13:29 Basic Metabolic Profile Sent. js13 13:29 CBC with Diff Sent. js13 13:29 Lipase Sent. js13 13:29 Liver Profile Sent. js13 13:29 Prothrombin Time Profile\E\INR Sent. js13 13:29 Type & Screen Sent. js13 13:30 The patient / caregiver is instructed regarding the plan of care and ED course. js13 13:30 Inserted saline lock: 18 gauge in left antecubital area and blood collected. The js13 patient tolerated the procedure well. No procedures done that require assistance. Labs drawn. (by ED staff). Sent per order to lab. 13:32 Patient visited by Lawanda Dowd RN. js13 13:37 Patient visited by Kandy Morales MD. sd1 13:55 Patient visited by Lawanda Dowd RN. js13 14:04 Neri Horner is Hospitalizing Provider. sd1 14:06 EKG done. (by ED staff). Reviewed by Kandy Morales MD. rn1 14:14 Patient visited by Lawanda Dowd RN. js13 14:56 [facility] Payment Agreement was scanned into [employer] and attached to record. lg 15:38 Patient visited by Maxwell Yao RN. bcj 16:05 Patient visited by Lawanda Dowd RN. js13 18:15 Admission Orders was scanned into [employer] and attached to record. ar3 18:35 Patient visited by Lawanda Dowd RN. js13 18:45 Patient visited by Lawanda Dowd RN. js13 19:39 T-Sheet-- Draft Copy was scanned into [employer] and attached to record. klr 02 11:42 ECG/EKG was scanned into [employer] and attached to record. gb 11:43 Consents was scanned into [employer] and attached to record. gb Administered Medications: 05/21 14:01 Drug: pantoprazole 40 mg [pantoprazole 40 mg intravenous solution] Route: IV; Rate: js13 bolus; Site: left antecubital; 15:32 Not Given (Patient Refused): NS 0.9% 1000 ml IV at 150 mL/hr continuous bcj Attachments: 11:43 Consents gb Intake: 05/21 18:44 PO: 360.00ml (Juice); Total: 360.00ml. js13 18:44 blood js13 Output: 18:44 Stool: 300; Total: 0.00ml. js13 18:44 blood js13 Order Results: Lab Order: Amylase; SPEC'M 05/21/16 13:26 Test: AMYLASE; Value: 89; Range: 25-115; Units: U/L; Status: F Lab Order: Basic Metabolic Profile; SPEC'M 05/21/16 13:26 Test: GLUCOSE, FASTING; Value: 114; Range: 83-110; Abnormal: Above high normal; Units: MG/DL; Status: F Test: BLOOD UREA NITROGEN; Value: 21; Range: 7-18; Abnormal: Above high normal; Units: MG/DL; Status: F Test: CREATININE FOR GFR; Value: 0.91; Range: 0.70-1.30; Units: MG/DL; Status: F Test: GLOMERULAR FILTRATION RATE; Value: > 60.0; Range: >42; Status: F Test: SODIUM LEVEL; Value: 141; Range: 136-145; Units: MEQ/L; Status: F Test: POTASSIUM SERUM; Value: 4.3; Range: 3.5-5.1; Units: MEQ/L; Status: F Test: CHLORIDE LEVEL; Value: 108; Range: 98-107; Abnormal: Above high normal; Units: MEQ/L; Status: F Test: CARBON DIOXIDE LEVEL; Value: 30; Range: 21-32; Units: MEQ/L; Status: F Test: ANION GAP; Value: 3; Range: 8-16; Abnormal: Below low normal; Units: MEQ/L; Status: F Test: CALCIUM LEVEL; Value: 8.8; Range: 8.8-10.2; Units: MG/DL; Status: F Test Note: ; Units are mL/min/1.73 m2 Chronic Kidney Disease Staging per NKF: Stage I & II GFR >=60 Normal to Mildly Decreased Stage III GFR 30-59 Moderately Decreased Stage IV GFR 15-29 Severely Decreased Stage V GFR <15 Very Little GFR Left ESRD GFR <15 on ROUGH RICE TENDER Lab Order: CBC with Diff; SPEC'M 05/21/16 13:26 Test: WHITE BLOOD COUNT; Value: 6.8; Range: 4.0-10.0; Units: K/mm3; Status: F Test: RED BLOOD COUNT; Value: 3.86; Range: 4.30-6.10; Abnormal: Below low normal; Units: M/mm3; Status: F Test: HEMOGLOBIN; Value: 13.0; Range: 14.0-18.0; Abnormal: Below low normal; Units: g/dl; Status: F Test: HEMATOCRIT; Value: 38.7; Range: 42.0-52.0; Abnormal: Below low normal; Units: %; Status: F Test: MEAN CORPUSCULAR VOLUME; Value: 100.1; Range: 80.0-96.0; Abnormal: Above high normal; Units: fl; Status: F Test: MEAN CORPUSCULAR HEMOGLOBIN; Value: 33.7; Range: 27.0-33.0; Abnormal: Above high normal; Units: pg; Status: F Test: MEAN CORPUSCULAR HGB CONC; Value: 33.7; Range: 32.0-36.5; Units: g/dl; Status: F Test: RED CELL DISTRIBUTION WIDTH; Value: 12.6; Range: 11.5-14.5; Units: %; Status: F Test: PLATELET COUNT, AUTOMATED; Value: 232; Range: 150-450; Units: k/mm3; Status: F Test: NEUTROPHILS %; Value: 72.1; Range: 36.0-66.0; Abnormal: Above high normal; Units: %; Status: F Test: LYMPH %; Value: 15.8; Range: 24.0-44.0; Abnormal: Below low normal; Units: %; Status: F Test: MONO %; Value: 7.5; Range: 0.0-5.0; Abnormal: Above high normal; Units: %; Status: F Test: EOS %; Value: 2.3; Range: 0.0-3.0; Units: %; Status: F Test: BASO %; Value: 0.5; Range: 0.0-1.0; Units: %; Status: F Test: LARGE UNSTAINED CELL %; Value: 1.7; Range: 0.0-4.0; Units: %; Status: F Test: NEUTROPHILS #; Value: 4.9; Range: 1.8-7.7; Units: K/mm3; Status: F Test: LYMPH #; Value: 1.2; Range: 1.5-4.5; Abnormal: Below low normal; Units: K/mm3; Status: F Test: MONO #; Value: 0.5; Range: 0.0-0.8; Units: K/mm3; Status: F Test: EOS #; Value: 0.2; Range: 0.0-0.50; Units: K/mm3; Status: F Test: BASO #; Value: 0.0; Range: 0.0-0.2; Units: K/mm3; Status: F Test: LARGE UNSTAINED CELL #; Value: 0.1; Range: 0.0-0.4; Units: K/mm3; Status: F Lab Order: Lipase; SPEC' 05/21/16 13:26 Test: LIPASE; Value: 199; Range: 73-393; Units: U/L; Status: F Lab Order: Liver Profile; SPEC' 05/21/16 13:26 Test: AST/SGOT; Value: 16; Range: 15-37; Units: U/L; Status: F Test: ALT/SGPT; Value: 19; Range: 12-78; Units: U/L; Status: F Test: ALKALINE PHOSPHATASE; Value: 96; Range: 45-117; Units: U/L; Status: F Test: BILIRUBIN,TOTAL; Value: 0.4; Range: 0.2-1.0; Units: MG/DL; Status: F Test: BILIRUBIN,DIRECT; Value: 0.1; Range: 0.0-0.2; Units: MG/DL; Status: F Test: TOTAL PROTEIN; Value: 7.7; Range: 6.4-8.2; Units: GM/DL; Status: F Test: ALBUMIN; Value: 3.9; Range: 3.2-5.2; Units: GM/DL; Status: F Test: ALBUMIN/GLOBULIN RATIO; Value: 1.03; Range: 1.00-1.93; Status: F Lab Order: Prothrombin Time Profile\E\INR; SPEC'M 05/21/16 13:26 Test: PROTHROMBIN TIME; Value: 13.2; Range: 12.3-14.5; Units: SECONDS; Status: F Test: INR; Value: 0.99; Status: F Test Note: ; THERAPUTIC HUMAN INR VALUES INDICATIONS NORMAL RANGES PROPHYLAXIS/TREATMENT OF: VENOUS THROMBOSIS 2.0-3.0 PULMONARY EMBOLISM 2.0-3.0 PREVENTION OF SYSTEMIC EMBOLISM FROM: TISSUE HEART VALVES 2.0-3.0 ACUTE MYOCARDIAL INFARCTION 2.0-3.0 VALVULAR HEART DISEASE 2.0-3.0 ATRIAL FIBRILLATION 2.0-3.0 MECHANICAL VALVES(HIGH RISK) 2.5-3.5 RECURRENT MYOCARDIAL INFARCTION 2.5-3.5 Lab Order: Type & Screen; SPEC'M 05/21/16 13:26 Test: BLOOD TYPE; Value: B POS; Status: F Test: AB SCREEN (INDIRECT KYUNG)GEL; Value: NEGATIVE; Status: F Outcome: 14:04 Decision to Hospitalize by Provider. sd1 16:51 Admission hand-off: Report Faxed Fax receipt verified by Diandra Bustamante Clerk. js13 18:42 Discharge Assessment: Patient awake, alert and oriented x 3. No cognitive and/or js13 functional deficits noted. Patient verbalized understanding of disposition instructions. patient administered narcotics - no. The following High Risk Discharge criteria are identified: None. Admitted to PCU accompanied by nurse, accompanied by tech, via stretcher, on monitor, with chart. Condition: stable. No special radiology studies were completed. Admission hand-off: Report called to Dano Schafer RN. Property :Personal belongings accompany Pt. 18:47 Patient left the ED. ar3 Signatures: Kandy Morales MD MD sd1 Maxwell Yao, RN RN Dayana Choudhary, RN RN srm Amie, Ivanna, Reg Reg gb Ganter, LoriLee, Reg Reg lg Ronda, Cely, ASSOCIATE PROGRAM MANAGER ASSOCIATE PROGRAM MANAGER ar3 Lawanda Dowd,RN RN js13 Otf Workman gr2 Andrea Lockhart rn1 Pauly Jacob Corrections: (The following items were deleted from the chart) 18:44 18:31 Pulse 70bpm; MonitorResp 16bpm; Pulse Ox 97% RA; js13 js13 Chart Complete MTDD
--- NOTE | 2016-05-23 19:48 | EDDOCDS ---
Physician Documentation [facility] Name: Jose G Ferguson Age: 80 yrs Sex: Male : 1935 Arrival Date: 05/21/2016 Time: 12:57 Bed 6 Private MD: Neri Horner MD Disposition: 05/21/16 14:04 Hospitalization ordered by Neri Horner for Inpatient Admission. Preliminary diagnosis is Gastrointestinal hemorrhage, unspecified. - [facility] - Status is Inpatient Admission. ar3 - Condition is Stable. - Problem is new. - Symptoms are unchanged. Historical: - Allergies: NSAIDS (GI bleed); - Home Meds: 1. aspirin 81 mg Oral tab 1 tab once daily 2. Azilect 1 mg oral tab 1 tab once daily 3. Colace 100 mg oral cap 1 cap once daily 4. ferrous sulfate 325 mg (65 mg iron) Oral tab daily 5. Flomax 0.4 mg Oral cp24 2 caps once daily 6. Vitamin B-12 1,000 mcg Oral tab 1000 mcg daily 7. oxycodone-acetaminophen 5-325 mg Oral tab every 6 hours states once a day 8. Voltaren 1 % Topical gel 4 times per day 9. Lidoderm 5 % Topical ptmd as needed 10. valsartan 40 mg oral tab 1 tab once daily 11. Proscar 5 mg Oral tab 1 tab once daily 12. Tessalon Perles 100 mg Oral cap prn- hasnt taken 13. Benadryl 25 mg Oral cap bedtime 14. magnesium oxide 400 mg Oral cap 400 mg daily 15. multivitamin Oral cap daily 16. Vitamin C 500 mg Oral chew daily 17. Vitamin D Oral 2000 unit daily 18. [place]-3 oral cap daily 300 mg 19. Glucosamine oral daily - PMHx: Diabetes - NIDDM: controlled; CAD; gi bleed; Hernia; hyperlipidemia; Hypertension; Parkinson's Disease; esophageal obstruction; BPH; Anemia; Depression; Anxiety; - PSHx: Aortic Valve Replacement, Mechanical; back surgery; aneurysm repair, aorta; Carpal Tunnel Repair- Left; - Social history: Smoking status: Patient states former smoker of tobacco. No barriers to communication noted, The patient speaks fluent Malay, Speaks appropriately for age. - Family history: Not pertinent. - : The pt / caregiver states he / she is not on anticoagulants. Home medication list is obtained from the patient. - Exposure Risk Screening:: None identified. Vital Signs: 05/21 12:59 BP 194 / 77; Pulse 86; Resp 18 S; Temp 96.2(O); Pulse Ox 98% on R/A; Weight 85.73 kg / gr2 189 lbs (R); Height 5 ft. 9 in. (175.26 cm) (R); Pain 2/10; 13:50 BP 174 / 82 LA Supine (auto/reg); js13 13:50 BP 165 / 74 LA Standing (auto/reg); js13 13:51 Pulse 70 MON; Resp 16; Pulse Ox 96% on R/A; js13 13:51 BP 166 / 71 LA Sitting (auto/reg); js13 14:05 BP 158 / 73 (auto/); js13 14:05 Pulse 68 MON; Resp 16; Pulse Ox 95% on R/A; js13 14:28 BP 162 / 76 (auto/); js13 14:28 Pulse 74; Resp 16; Pulse Ox 95% on R/A; js13 14:50 BP 156 / 72 (auto/); js13 14:50 Pulse 68 MON; Resp 16; Pulse Ox 97% on R/A; js13 15:20 BP 151 / 70 (auto/); js13 15:20 Pulse 68 MON; Resp 16; Pulse Ox 97% on R/A; js13 15:50 BP 147 / 69 (auto/); js13 15:50 Pulse 74 MON; Resp 16; Pulse Ox 99% on R/A; js13 15:58 BP 155 / 74 (auto/); js13 15:58 Pulse 72 MON; Resp 16; Pulse Ox 99% on R/A; js13 16:20 BP 196 / 81 (auto/); js13 16:20 Pulse 80 MON; Resp 16; Pulse Ox 98% on R/A; js13 16:50 BP 168 / 79 (auto/); js13 16:50 Pulse 70 MON; Resp 16; Pulse Ox 96% on R/A; js13 17:10 BP 170 / 79 (auto/); js13 17:12 Pulse 84 MON; Resp 16; Pulse Ox 97% on R/A; js13 17:20 BP 191 / 78 (auto/); js13 17:20 Pulse 70 MON; Resp 16; Pulse Ox 96% on R/A; js13 17:50 BP 184 / 83 (auto/); js13 17:50 Pulse 68 MON; Resp 16; Pulse Ox 96% on R/A; js13 18:20 BP 212 / 77 (auto/); js13 18:20 Pulse 70 MON; Resp 16; Pulse Ox 96% on R/A; js13 18:31 BP 201 / 84 (auto/); js13 18:31 Pulse 70 MON; Resp 16; Temp 97.0(O); Pulse Ox 97% on R/A; js13 12:59 Body Mass Index 27.91 (85.73 kg, 175.26 cm) gr2 MDM: 13:12 Undress patient appropriately for examination ordered. sd1 13:13 Amylase Ordered. EDMS 13:13 Basic Metabolic Profile Ordered. EDMS 13:13 CBC with Diff Ordered. EDMS 13:13 Lipase Ordered. EDMS 13:13 Liver Profile Ordered. EDMS 13:13 Prothrombin Time Profile\E\INR Ordered. EDMS 13:13 Type & Screen Ordered. EDMS 13:13 NOTHING BY MOUTH+DIET ordered. EDMS 13:42 CBC with Diff Reviewed. sd1 13:43 Orthostatic VS ordered. sd1 13:43 Acid Strength Inspector/Pulse Ox/q 30 min VS ordered. sd1 13:44 ECG WITH READING ER PHYS+CARDIAG ordered. EDMS 13:52 Type and Cross, Packed Cells Ordered. EDMS 13:55 BED REQUEST+ADM ordered. EDMS 13:57 Prothrombin Time Profile\E\INR Reviewed. sd1 13:57 Type & Screen Reviewed. sd1 13:58 pantoprazole 40 mg IV at bolus once ordered. sd1 14:37 Admission / Observation Status ordered. EDMS 14:38 CLEAR LIQUIDS DIET ordered. EDMS 14:38 COMPLETE BLOOD COUNT Ordered. EDMS 14:51 Financial registration complete. lg 14:56 [facility] Payment Agreement was scanned into [employer] and attached to record. lg 15:03 NS 0.9% 1000 ml IV at 150 mL/hr continuous ordered. sd1 17:35 Transfuse PRBC's 1 unit, ensure PRBCs ordered in lab ordered. js13 18:15 Admission Orders was scanned into [employer] and attached to record. ar3 18:17 COMPLETE BLOOD COUNT Ordered. EDMS 19:39 T-Sheet-- Draft Copy was scanned into [employer] and attached to record. r 05/22 11:42 ECG/EKG was scanned into [employer] and attached to record. 11:43 Consents was scanned into [employer] and attached to record. gb Administered Medications: 05/21 14:01 Drug: pantoprazole 40 mg [pantoprazole 40 mg intravenous solution] Route: IV; Rate: js13 bolus; Site: left antecubital; 15:32 Not Given (Patient Refused): NS 0.9% 1000 ml IV at 150 mL/hr continuous bcj Signatures: Dispatcher [employer] EDMS Kandy Morales MD MD sd1 Maxwell Yao, RN RN bcDayana Sharpe RN RN srm Ivanna Holloway, Reg Reg gb Inder Inman, Reg Reg lg Miguel Bonda, TERRA COTTA ROOFER TERRA COTTA ROOFER ar3 Lawanda Dowd RN RN js13 Pauly Jacob The chart was reviewed and I authenticate all verbal orders and agree with the evaluation and treatment provided.Corrections: (The following items were deleted from the chart) 13:54 13:54 TYPE & SCREEN ordered. EDMS EDMS 13:54 13:54 TYPE & SCREEN ordered. EDMS EDMS 14:52 14:37 PACKED CELLS ordered. EDMS EDMS 14:52 14:37 TYPE & SCREEN ordered. EDMS EDMS 15:03 14:38 COMPLETE BLOOD COUNT ordered. EDMS EDMS Attachments: 14:56 [facility] Payment Agreement lg 18:15 Admission Orders ar3 19:39 T-Sheet-- Draft Copy [facility] 05/22 11:42 ECG/EKG gb Chart Complete MTDD
[2016-05-23] MEDS: **NOTE PATIENT COMMENT** MISC XX SCH (21:00)
[2016-05-23 22:00] VITALS: BP 125/64
[2016-05-23] MEDS: PRAVASTATIN 20 MG TAB PO SCH (22:05)
[2016-05-23] MEDS: FINASTERIDE 5 MG TAB PO SCH (22:05)
[2016-05-24] VITALS (7 sets, daily range): BP systolic 130–195; BP diastolic 63–78
[2016-05-24] MEDS: SLF 3 ML SYR IV SCH ×3 (06:00→21:21)
[2016-05-24 07:17] LABS: BASO % 0.4 % (0.0-1.0); EOS # 0.2 K/mm3 (0.0-0.50); EOS % 2.7 % (0.0-3.0); LARGE UNSTAINED CELL # 0.1 K/mm3 (0.0-0.4); LARGE UNSTAINED CELL % 1.5 % (0.0-4.0); LYMPH # 1.4 K/mm3 (1.5-4.5); LYMPH % 22.8 % (24.0-44.0); MEAN CORPUSCULAR HEMOGLOBIN 33.4 pg (27.0-33.0); MEAN CORPUSCULAR VOLUME 95.5 fl (80.0-96.0); MONO # 0.5 K/mm3 (0.0-0.8); MONO % 7.7 % (0.0-5.0); NEUTROPHILS # 3.8 K/mm3 (1.8-7.7); NEUTROPHILS % 64.9 % (36.0-66.0); PLATELET COUNT, AUTOMATED 215 k/mm3 (150-450); RED CELL DISTRIBUTION WIDTH 12.9 % (11.5-14.5); WHITE BLOOD COUNT 5.9 K/mm3 (4.0-10.0)
[2016-05-24 07:31] LABS: ANION GAP 8 MEQ/L (8-16); BLOOD UREA NITROGEN 21 MG/DL (7-18); CALCIUM LEVEL 8.6 MG/DL (8.8-10.2); CARBON DIOXIDE LEVEL 27 MEQ/L (21-32); CHLORIDE LEVEL 107 MEQ/L (98-107); CREATININE FOR GFR 0.84 MG/DL (0.70-1.30); GLOMERULAR FILTRATION RATE > 60.0 (>42); GLUCOSE, FASTING 84 MG/DL (83-110); POTASSIUM SERUM 3.7 MEQ/L (3.5-5.1); SODIUM LEVEL 142 MEQ/L (136-145)
--- NOTE | 2016-05-24 07:47 | IPNPDOC ---
Assessment/Plan Date Seen The patient was seen on 05/24/16. Problems Problems: (1) Acute GI hemorrhage Status: Acute Problem Specific Plan: Consult Specialist, Monitor Clinically, Repeat Labs Problem Text: favor tic bleed-afebrile, normal WBC, non tender 10/2013 colon/EGD Reindl normal x moderate sigmoid losis 05/23/16 slightly down to 11.2 05/21/16 hgb 13.0 but received 2u PRBCs ? h/o gastric/SB AVMs (not seen in EGD) Pt was seen by Dr Lora from surgery. Dr Lora discussed the possibility of endoscopy if bleeding continues. Hemoglobin has remained stable. Continue to monitor. Aspirin 81/vit C has been held. Hemoglobin down slightly this am, but no bleeding overnight. Some blood in stool noted earlier yesterday so he is on for Scope today. (2) HTN (hypertension) Status: Chronic Problem Specific Plan: Monitor Clinically Problem Text: Pt is on Diovan. Pressure still OK, but I am concerned about possible hypotension being created by valsartan in conjunction with GI Bleed so will stop valsartan until bleeding controlled and evidence of need to resume Rx. (3) Spinal stenosis Status: Chronic Problem Specific Plan: Monitor Clinically Problem Text: Lidoderm patch. Voltaren held. Going forward, patient should probably avoid all NSAID agents, even topicals He is taking APAP/narcotic agents for pain. (4) Hyperlipemia Status: Chronic Problem Specific Plan: Monitor Clinically Problem Text: On Pravastatin. (5) Parkinson disease Status: Chronic Problem Specific Plan: Monitor Clinically Problem Text: Pt is on Azilect 1 mg daily. Reports movement is nominal and no problems. (6) BPH (benign prostatic hyperplasia) Status: Chronic Problem Specific Plan: Monitor Clinically Problem Text: On Proscar. Symptoms: none reported. Plan / VTE VTE Prophylaxis Ordered?: No Disposition Scope today. If bleeding stopped and Hgb stable, likely D/C tomorrow. Subjective Review of Systems CC/HPI The patient is a 80-year-old male admitted with a reason for visit of Acute Gi Hemorrhage. Objective Physical Examination General Exam: Positive: Alert, No Acute Distress Neck Exam: Positive: Supple, Negative: JVD Chest Exam: Positive: Clear to auscultation Heart Exam: Positive: Rate Normal, Regular Rhythm Abdomen Exam: Positive: Normal bowel sounds, Soft, Negative: Tenderness Extremity Exam: Negative: Edema Vital Signs/I&O Vital Signs Date Time Temp Pulse Resp B/P Pulse Ox O2 Delivery O2 Flow Rate FiO2 05/23/16 22:00 97.4 62 16 125/64 95 Room Air I&O- Last 24 Hours up to 6 AM 05/24/16 06:00 Intake Total 840 ml Output Total 600 ml Balance 240 ml Laboratory Data Labs 24H Laboratory Tests 2 05/24/16 07:01: Anion Gap 8, White Blood Count 5.9, Red Blood Count 3.16L, Hemoglobin 10.6L, Hematocrit 30.2L, Mean Corpuscular Volume 95.5, Mean Corpuscular Hemoglobin 33.4H, Mean Corpuscular Hemoglobin Concent 35.0, Red Cell Distribution Width 12.9, Platelet Count 215, Neutrophils (%) (Auto) 64.9, Lymphocytes (%) (Auto) 22.8L, Monocytes (%) (Auto) 7.7H, Eosinophils (%) (Auto) 2.7, Basophils (%) ( Auto) 0.4, Neutrophils # (Auto) 3.8, Lymphocytes # (Auto) 1.4L, Monocytes # ( Auto) 0.5, Eosinophils # (Auto) 0.2, Basophils # (Auto) 0.0, Blood Urea Nitrogen 21H, Creatinine 0.84, Sodium Level 142, Potassium Level 3.7, Chloride Level 107, Carbon Dioxide Level 27, Calcium Level 8.6L, Glomerular Filtration Rate > 60.0, Large Unclassified Cells # 0.1, Large Unclassified Cells % 1.5 CBC/BMP Laboratory Tests 05/23/16 08:01 Red Blood Count 3.33 L, Mean Corpuscular Volume 96.9 H, Mean Corpuscular Hemoglobin 33.8 H, Mean Corpuscular Hemoglobin Concent 34.9, Red Cell Distribution Width 13.1 05/24/16 07:01 Red Blood Count 3.16 L, Mean Corpuscular Volume 95.5, Mean Corpuscular Hemoglobin 33.4 H, Mean Corpuscular Hemoglobin Concent 35.0, Red Cell Distribution Width 12.9, Calcium Level 8.6 L, Neutrophils (%) (Auto) 64.9, Lymphocytes (%) (Auto) 22.8 L, Monocytes (%) (Auto) 7.7 H, Eosinophils (%) (Auto ) 2.7, Basophils (%) (Auto) 0.4, Neutrophils # (Auto) 3.8, Lymphocytes # (Auto) 1.4 L, Monocytes # (Auto) 0.5, Eosinophils # (Auto) 0.2, Basophils # (Auto) 0.0 Anthony Hanks MD May 24, 2016 07:46
[2016-05-24] MEDS: LIDOCAINE 5% (LIDODERM) PATCH TD SCH (09:00)
[2016-05-24] MEDS: AZILECT 1 MG PO SCH (09:46)
[2016-05-24] MEDS ORDERED: ePHEDrine SULFATE 25 MG/5 ML(5MG/ML) SYRINGE As Ordered ONE (17:09)
[2016-05-24] MEDS ORDERED: PROPOFOL 200 MG/20 ML VIAL As Ordered ONE ×2 (17:09→17:15)
[2016-05-24] MEDS ORDERED: PHENYLephrine HCL 500 MCG/5 ML (100MCG/ML) SYRINGE (J2370) As Ordered ONE (17:09)
[2016-05-24] MEDS ORDERED: LIDOCAINE 2% INJ 100 MG/5 ML SDV (FOR ANES.) As Ordered ONE (17:09)
--- NOTE | 2016-05-24 17:43 | ROOR ---
Patient Name: Jose G Ferguson Procedure Date: 05/24/2016 3:12 PM Date of : 1935 Age: 80 Room: Main OR Gender: Male Note Status: Finalized Procedure: Colonoscopy Indications: Hematochezia Providers: DO Antwon Gutierrez MD: Neri Horner MD Requesting Provider: Medicines: Propofol per Anesthesia Complications: No immediate complications. Estimated blood loss: None. Procedure: Pre-Anesthesia Assessment: - Prior to the procedure, a History and Physical was performed, and patient medications and allergies were reviewed. The patient is competent. The risks and benefits of the procedure and the sedation options and risks were discussed with the patient. All questions were answered and informed consent was obtained. Patient identification and proposed procedure were verified by the physician, the nurse, the clamper and the airdrop systems technician in the procedure room. Mental Status Examination: alert and oriented. Airway Examination: normal oropharyngeal airway and neck mobility. Respiratory Examination: clear to auscultation. CV Examination: normal. Prophylactic Antibiotics: The patient does not require prophylactic antibiotics. Prior Anticoagulants: The patient has taken no previous anticoagulant or antiplatelet agents. ASA Grade Assessment: II - A patient with mild systemic disease. After reviewing the risks and benefits, the patient was deemed in satisfactory condition to undergo the procedure. The anesthesia plan was to use monitored anesthesia care (MAC). Immediately prior to administration of medications, the patient was re-assessed for adequacy to receive sedatives. The heart rate, respiratory rate, oxygen saturations, blood pressure, adequacy of pulmonary ventilation, and response to care were monitored throughout the procedure. The physical status of the patient was re-assessed after the procedure. The Colonoscope was introduced through the anus and advanced to the cecum, identified by the appendiceal orifice, ileocecal valve and palpation. The colonoscopy was somewhat difficult. The patient tolerated the procedure well. Findings: 400mL maroon and clotted blood was found in the entire colon. The exam was otherwise without abnormality. Impression: - Blood in the entire examined colon. - The examination was otherwise normal. - No specimens collected. Recommendation: - [facility] - plan on egd tomorrow Lucian Lora DO 05/24/2016 5:42:32 PM This report has been signed electronically. Number of Addenda: 0 Note Initiated On: 05/24/2016 3:12 PM Estimated Blood Loss: Estimated blood loss: none.
[2016-05-24] MEDS ORDERED: ONDANSETRON 4MG/2ML VIAL (J2405) IV PRN (18:00)
[2016-05-24] MEDS ORDERED: LR 1,000 ML IV SCH (18:00)
[2016-05-24] MEDS: **NOTE PATIENT COMMENT** MISC XX SCH (21:00)
[2016-05-24] MEDS: PRAVASTATIN 20 MG TAB PO SCH (21:21)
[2016-05-24] MEDS: FINASTERIDE 5 MG TAB PO SCH (21:21)
[2016-05-25] VITALS: BP 122/60
[2016-05-25] MEDS: SLF 3 ML SYR IV SCH ×3 (05:44→22:26)
[2016-05-25 06:00] VITALS: BP 138/65
[2016-05-25 06:49] LABS: BASO % 0.3 % (0.0-1.0); EOS # 0.2 K/mm3 (0.0-0.50); EOS % 2.4 % (0.0-3.0); LARGE UNSTAINED CELL # 0.1 K/mm3 (0.0-0.4); LYMPH % 16.2 % (24.0-44.0); MEAN CORPUSCULAR HEMOGLOBIN 32.6 pg (27.0-33.0); MEAN CORPUSCULAR HGB CONC 34.3 g/dl (32.0-36.5); MEAN CORPUSCULAR VOLUME 95.2 fl (80.0-96.0); MONO # 0.5 K/mm3 (0.0-0.8); MONO % 7.2 % (0.0-5.0); NEUTROPHILS # 4.6 K/mm3 (1.8-7.7); NEUTROPHILS % 71.9 % (36.0-66.0); PLATELET COUNT, AUTOMATED 201 k/mm3 (150-450); RED CELL DISTRIBUTION WIDTH 12.9 % (11.5-14.5); WHITE BLOOD COUNT 6.3 K/mm3 (4.0-10.0)
[2016-05-25 07:07] LABS: ANION GAP 8 MEQ/L (8-16); BLOOD UREA NITROGEN 19 MG/DL (7-18); CALCIUM LEVEL 8.4 MG/DL (8.8-10.2); CARBON DIOXIDE LEVEL 27 MEQ/L (21-32); CHLORIDE LEVEL 107 MEQ/L (98-107); CREATININE FOR GFR 0.83 MG/DL (0.70-1.30); GLOMERULAR FILTRATION RATE > 60.0 (>42); GLUCOSE, FASTING 104 MG/DL (83-110); POTASSIUM SERUM 3.7 MEQ/L (3.5-5.1); SODIUM LEVEL 142 MEQ/L (136-145)
[2016-05-25] MEDS: LIDOCAINE 5% (LIDODERM) PATCH TD SCH (08:37)
--- NOTE | 2016-05-25 08:51 | IPNPDOC ---
Subjective Subjective Date Seen The patient was seen on 05/25/16. Chief Complaint/HPI The patient is a 80-year-old male admitted with a reason for visit of Acute Gi Hemorrhage. General: Denies: Chills Cardiovascular: Denies: Lt Headedness, Orthopnea, Palpitations Gastrointestinal: Reports: Melena, Denies: Abdominal Pain, Nausea, Vomiting Genitourinary: Denies: Dysuria, Frequency, Hematuria Endocrine: Denies: Polydipsia, Polyphagia, Polyuria Objective Physical Examination General Exam: Positive: Alert, No Acute Distress Neck Exam: Positive: Supple, Negative: JVD Chest Exam: Positive: Clear to auscultation Heart Exam: Positive: Rate Normal, Regular Rhythm Abdomen Exam: Positive: Normal bowel sounds, Soft, Negative: Tenderness Extremity Exam: Negative: Edema Assessment /Plan Problems Problems: (1) Acute GI hemorrhage Status: Acute Problem Specific Plan: Consult Specialist, Monitor Clinically, Repeat Labs Problem Text: favor tic bleed-afebrile, normal WBC, non tender 10/2013 colon/EGD Reindl normal x moderate sigmoid losis 05/23/16 slightly down to 11.2 05/21/16 hgb 13.0 but received 2u PRBCs ? h/o gastric/SB AVMs (not seen in EGD) Pt was seen by Dr Lora from surgery. Dr Lora discussed the possibility of endoscopy if bleeding continues. Hemoglobin has remained stable. Continue to monitor. Aspirin 81/vit C has been held. Hemoglobin down slightly this am, but no bleeding overnight. Some blood in stool noted earlier yesterday so he is on for Scope today. 05/25/16. Colon showed about 400 cc of blood. no active bleeding site identified so on for UGI endoscopy today. Patient asked good questions about the problem and plan and these were reviewed in detail (2) HTN (hypertension) Status: Chronic Problem Specific Plan: Monitor Clinically Problem Text: Pt is on Diovan. Pressure still OK, but I am concerned about possible hypotension being created by valsartan in conjunction with GI Bleed so will stop valsartan until bleeding controlled and evidence of need to resume Rx. 05/25/16 bp ok so far, off valsartan (3) Spinal stenosis Status: Chronic Problem Specific Plan: Monitor Clinically Problem Text: Lidoderm patch. Voltaren held. Going forward, patient should probably avoid all NSAID agents, even topicals He is taking APAP/narcotic agents for pain. (4) Hyperlipemia Status: Chronic Problem Specific Plan: Monitor Clinically Problem Text: On Pravastatin. (5) Parkinson disease Status: Chronic Problem Specific Plan: Monitor Clinically Problem Text: Pt is on Azilect 1 mg daily. Reports movement is nominal and no problems. (6) BPH (benign prostatic hyperplasia) Status: Chronic Problem Specific Plan: Monitor Clinically Problem Text: On Proscar. Symptoms: none reported. Plan/VTE VTE Prophylaxis Ordered?: No Disposition UGI endoscopy, continue to monitor CBC, once he is convincingly no longer bleeding, will be ready for Discharge. If bleeding continues additional work up will be needed to localize source (possible tagged red cell study but he is not likely bleeding fast enough for this test, possible camera pill study but not likely available locally) VS, I&O, 24H, Fishbone Vital Signs/I&O VS/I&O Vital Signs Date Time Temp Pulse Resp B/P Pulse Ox O2 Delivery O2 Flow Rate FiO2 05/25/16 06:00 97.5 76 18 138/65 96 Room Air I&O- Last 24 Hours up to 6 AM 05/25/16 06:00 Intake Total 720 ml Output Total 400 ml Balance 320 ml Laboratory Data 24H LABS Laboratory Tests 2 05/25/16 06:31: Anion Gap 8, White Blood Count 6.3, Red Blood Count 2.78L, Hemoglobin 9.1L, Hematocrit 26.5L, Mean Corpuscular Volume 95.2, Mean Corpuscular Hemoglobin 32.6 , Mean Corpuscular Hemoglobin Concent 34.3, Red Cell Distribution Width 12.9, Platelet Count 201, Neutrophils (%) (Auto) 71.9H, Lymphocytes (%) (Auto) 16.2L, Monocytes (%) (Auto) 7.2H, Eosinophils (%) (Auto) 2.4, Basophils (%) (Auto) 0.3 , Neutrophils # (Auto) 4.6, Lymphocytes # (Auto) 1.0L, Monocytes # (Auto) 0.5, Eosinophils # (Auto) 0.2, Basophils # (Auto) 0.0, Blood Urea Nitrogen 19H, Creatinine 0.83, Sodium Level 142, Potassium Level 3.7, Chloride Level 107, Carbon Dioxide Level 27, Calcium Level 8.4L, Glomerular Filtration Rate > 60.0, Large Unclassified Cells # 0.1, Large Unclassified Cells % 2.0 CBC/BMP Laboratory Tests 05/25/16 06:31 Calcium Level 8.4 L, Red Blood Count 2.78 L, Mean Corpuscular Volume 95.2, Mean Corpuscular Hemoglobin 32.6, Mean Corpuscular Hemoglobin Concent 34.3, Red Cell Distribution Width 12.9, Neutrophils (%) (Auto) 71.9 H, Lymphocytes (%) (Auto) 16.2 L, Monocytes (%) (Auto) 7.2 H, Eosinophils (%) (Auto) 2.4, Basophils (%) ( Auto) 0.3, Neutrophils # (Auto) 4.6, Lymphocytes # (Auto) 1.0 L, Monocytes # ( Auto) 0.5, Eosinophils # (Auto) 0.2, Basophils # (Auto) 0.0 Anthony Hanks MD May 25, 2016 08:51
[2016-05-25] MEDS: AZILECT 1 MG PO SCH (08:54)
[2016-05-25] MEDS ORDERED: PROPOFOL 200 MG/20 ML VIAL As Ordered ONE (13:20)
[2016-05-25] MEDS ORDERED: LIDOCAINE 2% INJ 100 MG/5 ML SDV (FOR ANES.) As Ordered ONE (13:20)
--- NOTE | 2016-05-25 14:11 | ROOR ---
Patient Name: Jose G Ferguson Procedure Date: 05/25/2016 1:57 PM Date of : 1935 Age: 80 Room: [facility] Gender: Male Note Status: Finalized Procedure: Upper GI endoscopy Indications: Hematochezia, Melena Providers: DO Antwon Gutierrez MD: Neri Horner MD Requesting Provider: Medicines: Propofol per Anesthesia Complications: No immediate complications. Procedure: Pre-Anesthesia Assessment: - Prior to the procedure, a History and Physical was performed, and patient medications and allergies were reviewed. The patient is competent. The risks and benefits of the procedure and the sedation options and risks were discussed with the patient. All questions were answered and informed consent was obtained. Patient identification and proposed procedure were verified by the physician, the nurse, the paraprofessional education assistant and the architecture technician in the endoscopy suite. Mental Status Examination: alert and oriented. Airway Examination: normal oropharyngeal airway and neck mobility. Respiratory Examination: clear to auscultation. CV Examination: normal. Prophylactic Antibiotics: The patient does not require prophylactic antibiotics. Prior Anticoagulants: The patient has taken no previous anticoagulant or antiplatelet agents. ASA Grade Assessment: II - A patient with mild systemic disease. After reviewing the risks and benefits, the patient was deemed in satisfactory condition to undergo the procedure. The anesthesia plan was to use monitored anesthesia care (MAC). Immediately prior to administration of medications, the patient was re-assessed for adequacy to receive sedatives. The heart rate, respiratory rate, oxygen saturations, blood pressure, adequacy of pulmonary ventilation, and response to care were monitored throughout the procedure. The physical status of the patient was re-assessed after the procedure. The Endoscope was introduced through the mouth, and advanced to the second part of duodenum. The upper GI endoscopy was accomplished without difficulty. The patient tolerated the procedure well. Findings: The esophagus was normal. The stomach was normal. The examined duodenum was normal. Impression: - Normal esophagus. - Normal stomach. - Normal examined duodenum. - No specimens collected. Recommendation: - [facility]. Lucian Lora DO 05/25/2016 2:11:12 PM This report has been signed electronically. Number of Addenda: 0 Note Initiated On: 05/25/2016 1:57 PM Estimated Blood Loss: Estimated blood loss: none.
[2016-05-25 15:00] VITALS: BP 148/74
[2016-05-25 16:55] LABS: MEAN CORPUSCULAR HEMOGLOBIN 33.5 pg (27.0-33.0); MEAN CORPUSCULAR HGB CONC 34.9 g/dl (32.0-36.5); MEAN CORPUSCULAR VOLUME 95.9 fl (80.0-96.0); RED CELL DISTRIBUTION WIDTH 12.8 % (11.5-14.5); WHITE BLOOD COUNT 6.3 K/mm3 (4.0-10.0)
[2016-05-25] MEDS: **NOTE PATIENT COMMENT** MISC XX SCH (21:00)
[2016-05-25 22:00] VITALS: BP 142/65
[2016-05-25] MEDS: PRAVASTATIN 20 MG TAB PO SCH (22:26)
[2016-05-25] MEDS: FINASTERIDE 5 MG TAB PO SCH (22:26)
[2016-05-26] MEDS: SLF 3 ML SYR IV SCH ×3 (05:48→20:47)
[2016-05-26 06:00] VITALS: BP 116/56
[2016-05-26 06:56] LABS: BASO % 0.3 % (0.0-1.0); EOS # 0.2 K/mm3 (0.0-0.50); EOS % 3.4 % (0.0-3.0); LARGE UNSTAINED CELL # 0.1 K/mm3 (0.0-0.4); LARGE UNSTAINED CELL % 1.5 % (0.0-4.0); LYMPH # 1.2 K/mm3 (1.5-4.5); MEAN CORPUSCULAR HEMOGLOBIN 33.4 pg (27.0-33.0); MEAN CORPUSCULAR HGB CONC 34.3 g/dl (32.0-36.5); MEAN CORPUSCULAR VOLUME 97.4 fl (80.0-96.0); MONO # 0.4 K/mm3 (0.0-0.8); MONO % 7.3 % (0.0-5.0); NEUTROPHILS # 4.2 K/mm3 (1.8-7.7); NEUTROPHILS % 69.6 % (36.0-66.0); PLATELET COUNT, AUTOMATED 251 k/mm3 (150-450); RED CELL DISTRIBUTION WIDTH 13.2 % (11.5-14.5)
[2016-05-26 07:13] LABS: ANION GAP 6 MEQ/L (8-16); BLOOD UREA NITROGEN 15 MG/DL (7-18); CALCIUM LEVEL 8.3 MG/DL (8.8-10.2); CARBON DIOXIDE LEVEL 28 MEQ/L (21-32); CHLORIDE LEVEL 109 MEQ/L (98-107); CREATININE FOR GFR 0.84 MG/DL (0.70-1.30); GLOMERULAR FILTRATION RATE > 60.0 (>42); GLUCOSE, FASTING 115 MG/DL (83-110); POTASSIUM SERUM 3.7 MEQ/L (3.5-5.1); SODIUM LEVEL 143 MEQ/L (136-145)
--- NOTE | 2016-05-26 08:57 | IPNPDOC ---
Subjective General Date Seen The patient was seen on 05/26/16. Subjective Chief Complaint/HPI The patient is a 80-year-old male admitted with a reason for visit of Acute Gi Hemorrhage. General: Denies: Chills, Night Sweats Eyes: Denies: Vision change ENT: Denies: Dysphagia, Head Aches Pulmonary: Denies: Cough, Dyspnea, Pleuritic Chest Pain Cardiovascular: Denies: Chest Pain, Orthopnea, Palpitations Gastrointestinal: Denies: Abdominal Pain, Nausea, Vomiting Genitourinary: Denies: Dysuria Objective Physical Examination General Exam: Positive: Alert, No Acute Distress Neck Exam: Positive: Supple, Negative: JVD Chest Exam: Positive: Clear to auscultation Heart Exam: Positive: Rate Normal, Regular Rhythm Abdomen Exam: Positive: Normal bowel sounds, Soft, Negative: Tenderness Extremity Exam: Negative: Edema Assessment /Plan Problems Problems: (1) Acute GI hemorrhage Status: Acute Problem Specific Plan: Consult Specialist, Monitor Clinically, Repeat Labs Problem Text: favor tic bleed-afebrile, normal WBC, non tender 10/2013 colon/EGD Reindl normal x moderate sigmoid losis 05/23/16 slightly down to 11.2 05/21/16 hgb 13.0 but received 2u PRBCs ? h/o gastric/SB AVMs (not seen in EGD) Pt was seen by Dr Lora from surgery. Dr Lora discussed the possibility of endoscopy if bleeding continues. Hemoglobin has remained stable. Continue to monitor. Aspirin 81/vit C has been held. Hemoglobin down slightly this am, but no bleeding overnight. Some blood in stool noted earlier yesterday so he is on for Scope today. 05/25/16. Colon showed about 400 cc of blood. no active bleeding site identified so on for UGI endoscopy today. Patient asked good questions about the problem and plan and these were reviewed in detail 05/26/16: UGI endoscopy negative. Hgb up a bit today. Hopefully bleeding has stopped and discharge can be expected tomorrow with plan to perform Capsule endoscopy (2) HTN (hypertension) Status: Chronic Problem Specific Plan: Monitor Clinically Problem Text: Pt is on Diovan. Pressure still OK, but I am concerned about possible hypotension being created by valsartan in conjunction with GI Bleed so will stop valsartan until bleeding controlled and evidence of need to resume Rx. 05/25/16 bp ok so far, off valsartan (3) Spinal stenosis Status: Chronic Problem Specific Plan: Monitor Clinically Problem Text: Lidoderm patch. Voltaren held. Going forward, patient should probably avoid all NSAID agents, even topicals He is taking APAP/narcotic agents for pain. (4) Hyperlipemia Status: Chronic Problem Specific Plan: Monitor Clinically Problem Text: On Pravastatin. (5) Parkinson disease Status: Chronic Problem Specific Plan: Monitor Clinically Problem Text: Pt is on Azilect 1 mg daily. Reports movement is nominal and no problems. (6) BPH (benign prostatic hyperplasia) Status: Chronic Problem Specific Plan: Monitor Clinically Problem Text: On Proscar. Symptoms: none reported. Plan/VTE VTE Prophylaxis Ordered?: No Plan Diagnostics: Check Labs Anticipated Discharge: Home VS, I&O, 24H, [facility] Vital Signs/I&O Vital Signs Date Time Temp Pulse Resp B/P Pulse Ox O2 Delivery O2 Flow Rate FiO2 05/26/16 06:00 96.3 68 18 116/56 95 Room Air I&O- Last 24 Hours up to 6 AM 05/26/16 06:00 Intake Total 600 ml Output Total 225 ml Balance 375 ml Laboratory Data 24H LABS Laboratory Tests 2 05/26/16 06:30: Anion Gap 6L, White Blood Count 6.0, Red Blood Count 2.72L, Hemoglobin 9.1L, Hematocrit 26.5L, Mean Corpuscular Volume 97.4H, Mean Corpuscular Hemoglobin 33.4H, Mean Corpuscular Hemoglobin Concent 34.3, Red Cell Distribution Width 13.2, Platelet Count 251, Neutrophils (%) (Auto) 69.6H, Lymphocytes (%) (Auto) 18.0L, Monocytes (%) (Auto) 7.3H, Eosinophils (%) (Auto) 3.4H, Basophils (%) ( Auto) 0.3, Neutrophils # (Auto) 4.2, Lymphocytes # (Auto) 1.2L, Monocytes # ( Auto) 0.4, Eosinophils # (Auto) 0.2, Basophils # (Auto) 0.0, Blood Urea Nitrogen 15, Creatinine 0.84, Sodium Level 143, Potassium Level 3.7, Chloride Level 109H, Carbon Dioxide Level 28, Calcium Level 8.3L, Glomerular Filtration Rate > 60.0, Large Unclassified Cells # 0.1, Large Unclassified Cells % 1.5 CBC/BMP Laboratory Tests 05/25/16 16:41 Red Blood Count 2.55 L, Mean Corpuscular Volume 95.9, Mean Corpuscular Hemoglobin 33.5 H, Mean Corpuscular Hemoglobin Concent 34.9, Red Cell Distribution Width 12.8 05/25/16 22:23 05/26/16 06:30 Red Blood Count 2.72 L, Mean Corpuscular Volume 97.4 H, Mean Corpuscular Hemoglobin 33.4 H, Mean Corpuscular Hemoglobin Concent 34.3, Red Cell Distribution Width 13.2, Calcium Level 8.3 L, Neutrophils (%) (Auto) 69.6 H, Lymphocytes (%) (Auto) 18.0 L, Monocytes (%) (Auto) 7.3 H, Eosinophils (%) (Auto ) 3.4 H, Basophils (%) (Auto) 0.3, Neutrophils # (Auto) 4.2, Lymphocytes # (Auto ) 1.2 L, Monocytes # (Auto) 0.4, Eosinophils # (Auto) 0.2, Basophils # (Auto) 0.0 Anthony Hanks MD May 26, 2016 08:56
[2016-05-26] MEDS: LIDOCAINE 5% (LIDODERM) PATCH TD SCH (09:00)
[2016-05-26] MEDS: AZILECT 1 MG PO SCH (09:52)
[2016-05-26 14:00] VITALS: BP 126/63
[2016-05-26 17:08] LABS: MEAN CORPUSCULAR HEMOGLOBIN 33.3 pg (27.0-33.0); MEAN CORPUSCULAR HGB CONC 34.2 g/dl (32.0-36.5); MEAN CORPUSCULAR VOLUME 97.5 fl (80.0-96.0); RED CELL DISTRIBUTION WIDTH 13.3 % (11.5-14.5); WHITE BLOOD COUNT 6.2 K/mm3 (4.0-10.0)
[2016-05-26] MEDS: PRAVASTATIN 20 MG TAB PO SCH (20:45)
[2016-05-26] MEDS: **NOTE PATIENT COMMENT** MISC XX SCH (20:46)
[2016-05-26] MEDS: FINASTERIDE 5 MG TAB PO SCH (20:46)
[2016-05-26 22:00] VITALS: BP 162/74
[2016-05-27] MEDS: SLF 3 ML SYR IV SCH (05:56)
[2016-05-27 06:00] VITALS: BP 162/74
[2016-05-27 06:53] LABS: BASO % 0.4 % (0.0-1.0); EOS # 0.2 K/mm3 (0.0-0.50); EOS % 2.9 % (0.0-3.0); LARGE UNSTAINED CELL # 0.1 K/mm3 (0.0-0.4); LARGE UNSTAINED CELL % 1.5 % (0.0-4.0); LYMPH # 1.2 K/mm3 (1.5-4.5); LYMPH % 16.4 % (24.0-44.0); MEAN CORPUSCULAR HEMOGLOBIN 33.1 pg (27.0-33.0); MEAN CORPUSCULAR HGB CONC 33.7 g/dl (32.0-36.5); MEAN CORPUSCULAR VOLUME 98.4 fl (80.0-96.0); MONO # 0.4 K/mm3 (0.0-0.8); MONO % 5.3 % (0.0-5.0); NEUTROPHILS # 5.5 K/mm3 (1.8-7.7); NEUTROPHILS % 73.6 % (36.0-66.0); PLATELET COUNT, AUTOMATED 247 k/mm3 (150-450); RED CELL DISTRIBUTION WIDTH 13.4 % (11.5-14.5); WHITE BLOOD COUNT 7.5 K/mm3 (4.0-10.0)
[2016-05-27 07:06] LABS: ANION GAP 8 MEQ/L (8-16); BLOOD UREA NITROGEN 15 MG/DL (7-18); CALCIUM LEVEL 8.4 MG/DL (8.8-10.2); CARBON DIOXIDE LEVEL 27 MEQ/L (21-32); CHLORIDE LEVEL 109 MEQ/L (98-107); CREATININE FOR GFR 0.88 MG/DL (0.70-1.30); GLOMERULAR FILTRATION RATE > 60.0 (>42); GLUCOSE, FASTING 100 MG/DL (83-110); POTASSIUM SERUM 3.5 MEQ/L (3.5-5.1); SODIUM LEVEL 144 MEQ/L (136-145)
[2016-05-27] MEDS: LIDOCAINE 5% (LIDODERM) PATCH TD SCH (07:49)
[2016-05-27] MEDS: AZILECT 1 MG PO SCH (08:19)
--- NOTE | 2016-05-27 10:06 | DSES ---
DATE OF ADMISSION: 05/21/2016 DATE OF DISCHARGE: 05/27/2016 ATTENDING PHYSICIAN: Dr. Anthony Hanks PRIMARY CARE PROVIDER: Dr. Neri Horner HISTORY OF PRESENT ILLNESS: 80-year-old gentleman who presented to the emergency room with six maroon, watery colored stools which were painless. Workup in the emergency room showed some tachycardia, pale appearance, and presenting hemoglobin and hematocrit (H and H) of 13 and 38. White blood cell count stable on admission. The patient was subsequently admitted. HOSPITAL COURSE: Dr. Lucian Lora was consulted. He proceeded with colonoscopy as well as upper endoscopy. The patient resumed a regular diet on 05/25/2016 and has tolerated his regular diet well. H and H has remained stable. Vital signs have remained stable. The patient is anxious to go home as of today. CONSULTS: Dr. Lucian Lora, general surgery. PROCEDURES: 1. Colonoscopy, completed on 05/24/2016. The patient was noted to have 400 mL maroon and clotted blood in the entire colon. Otherwise normal exam. No specimens collected. 2. Esophagogastroduodenoscopy (EGD) completed on 05/25/[address] Lora. Esophagus was normal. Stomach normal. Duodenum normal. No specimens collected. PHYSICAL EXAM: Today, blood pressure slightly elevated at 162/74. The patient has a heart rate of 72. Temperature 98.6. Oxygen saturation 94% on room air. HEENT: Neck is supple without lymphadenopathy. CARDIOVASCULAR: Heart rate and rhythm are regular. PULMONARY: Lungs clear to auscultation bilaterally. ABDOMEN: Soft. Nontender. Positive bowel sounds times all four quadrants. The patient is passing flatus without difficulty. ASSESSMENT: 1. Gastrointestinal bleed. 2. Hypertensive heart disease. 3. Type 2 diabetes. 4. Hyperlipidemia. 5. Esophageal stricture. 6. History of aortic valve replacement. 7. History of Parkinson's disease. 8. Severe lumbar spine stenosis. 9. B12 deficiency. 10. Hyperlipidemia. PLAN: Patient will be discharged home. Diet is a regular carbohydrate consistent diet. Activity is as tolerated. He will followup with his primary care physician (PCP) within the next 7 days. He will follow up with Dr. Jose Castelan for a recommended capsule endoscopy within the next 2 weeks. MEDICATIONS: - vitamin C 500 mg by mouth daily - Tessalon Perles 100 mg by mouth three times a day as needed cough - vitamin D3 2000 international units by mouth daily - vitamin B12 1000 mcg by mouth daily - Colace 100 mg by mouth daily - ferrous sulfate 325 mg by mouth daily - Proscar 5 mg by mouth at bedtime - glucosamine chondroitin 1 tablet daily - lidocaine patch 5% transdermal every 12 hours as needed for pain, apply to back - magnesium oxide 400 mg by mouth daily - multivitamin 1 daily - [place] 3 capsules 1 by mouth daily - oxycodone/acetaminophen 1 tablet by mouth daily as needed pain - pravastatin 10 mg tablet, he is to take 40 mg by mouth at bedtime - Azilect 1 mg by mouth daily - tamsulosin hydrochloride 0.8 mg by mouth at bedtime - Tylenol PM Extra Strength 1 tablet by mouth at bedtime - valsartan 40 mg by mouth at bedtime MEDICATIONS THAT WERE HELD (Include): - aspirin 81 mg daily and Voltaren gel as patient is at increased risk of further GI bleeding The patient was advised on symptoms of further GI bleeding and instructions to attend to an urgent care or the emergency department if he develops further bloody stools. The patient is discharged in stable and satisfactory condition with no further questions at the time of discharge. [facility]
== END 2016-05-27 11:20 | disposition home or self-care (01) | DRG 378 ==
LOC: M ED 12:57 → M ED INP 14:17 → M PCU 18:49 → M MS5PR 05-22 15:37
PROVIDERS: ADMIT Family Medicine; ATTEND Family Medicine
PROC: 30233N1 Transfusion of Nonautologous Red Blood Cells into Peripheral Vein, Percutaneous Approach (ICD-10-PCS; 2016-05-21)
PROC: 0DJD8ZZ Inspection of Lower Intestinal Tract, Via Natural or Artificial Opening Endoscopic (ICD-10-PCS; principal; 2016-05-24 16:00)
PROC: 0DJ08ZZ Inspection of Upper Intestinal Tract, Via Natural or Artificial Opening Endoscopic (ICD-10-PCS; 2016-05-25)
DX: K57.91 Diverticulosis of intestine, part unspecified, without perforation or abscess with bleeding (principal); D62 Acute posthemorrhagic anemia; E11.9 Type 2 diabetes mellitus without complications; E78.5 Hyperlipidemia, unspecified; K22.2 Esophageal obstruction; Z95.2 Presence of prosthetic heart valve; G20 Parkinson's disease; M48.06 Spinal stenosis, lumbar region; E53.8 Deficiency of other specified B group vitamins; N40.0 Benign prostatic hyperplasia without lower urinary tract symptoms; I10 Essential (primary) hypertension; Z88.6 Allergy status to analgesic agent; Z79.899 Other long term (current) drug therapy; Z83.3 Family history of diabetes mellitus; Z82.49 Family history of ischemic heart disease and other diseases of the circulatory system; Z87.891 Personal history of nicotine dependence; Z79.82 Long term (current) use of aspirin; Z91.040 Latex allergy status

== ENCOUNTER → 2016-05-31 | Outpatient (CLI) | payer MEDICARE, OTHER ==
[~2016-05-31] MED LIST changes: +AZIL1TAB PO; +FERR325T PO; +GLUCTAB6 PO; +MAGN400T5 PO; +OXYC1TAB23 PO; +TYLE1TAB5 PO; +VITA100072 PO; +VITA20008 PO; +VOLT1GEL24 TD
[2016-05-31 17:30] LABS: ALBUMIN 3.1 GM/DL (3.2-5.2); ALBUMIN/GLOBULIN RATIO 1.11 (1.00-1.93); ALKALINE PHOSPHATASE 76 U/L (45-117); ALT/SGPT 23 U/L (12-78); ANION GAP 7 MEQ/L (8-16); AST/SGOT 18 U/L (15-37); BILIRUBIN,TOTAL 0.3 MG/DL (0.2-1.0); BLOOD UREA NITROGEN 15 MG/DL (7-18); CALCIUM LEVEL 8.5 MG/DL (8.8-10.2); CARBON DIOXIDE LEVEL 27 MEQ/L (21-32); CHLORIDE LEVEL 109 MEQ/L (98-107); CREATININE FOR GFR 0.97 MG/DL (0.70-1.30); GLOMERULAR FILTRATION RATE > 60.0 (>42); GLUCOSE, FASTING 92 MG/DL (83-110); POTASSIUM SERUM 4.5 MEQ/L (3.5-5.1); SODIUM LEVEL 143 MEQ/L (136-145); TOTAL PROTEIN 5.9 GM/DL (6.4-8.2)
[2016-05-31 18:06] LABS: BASO % 0.2 % (0.0-1.0); EOS # 0.2 K/mm3 (0.0-0.50); EOS % 2.6 % (0.0-3.0); LARGE UNSTAINED CELL # 0.2 K/mm3 (0.0-0.4); LARGE UNSTAINED CELL % 2.9 % (0.0-4.0); LYMPH # 0.7 K/mm3 (1.5-4.5); LYMPH % 8.4 % (24.0-44.0); MEAN CORPUSCULAR HEMOGLOBIN 33.1 pg (27.0-33.0); MEAN CORPUSCULAR HGB CONC 32.4 g/dl (32.0-36.5); MEAN CORPUSCULAR VOLUME 102.3 fl (80.0-96.0); MONO # 0.6 K/mm3 (0.0-0.8); MONO % 7.9 % (0.0-5.0); NEUTROPHILS # 6.1 K/mm3 (1.8-7.7); NEUTROPHILS % 78.1 % (36.0-66.0); PLATELET COUNT, AUTOMATED 243 k/mm3 (150-450); RED CELL DISTRIBUTION WIDTH 14.2 % (11.5-14.5); WHITE BLOOD COUNT 7.8 K/mm3 (4.0-10.0)
== END ==
LOC: M WUC 11:31
PROVIDERS: ATTEND Internal Medicine Gastroenterology
DX: D62 Acute posthemorrhagic anemia (principal)

== ENCOUNTER → 2016-06-02 | Outpatient (CLI) | payer MEDICARE, OTHER ==
[~2016-06-02] MED LIST changes: +E-Z-PAQUE 96% w/w SUSP 176GM BTL As Ordered ONE
--- NOTE | 2016-06-02 16:42 | REP ---
SMALL BOWEL FOLLOW THROUGH: The procedure was performed under the direct supervision of Dr. Hernandez. The images were reviewed with Dr. Hernandez. The service promoter salesperson film shows no organomegaly or pathological masses. The intestinal gas pattern is nonspecific. There are degenerative changes of the lumbar spine identified. Liquid barium was administered and the barium column was followed through the small bowel to the level of the terminal ileum. The initial film demonstrates a hiatal hernia and reflux. Small bowel transit time is approximately 2 hours. During fluoroscopy, gentle palpation shows all loops are freely movable and pliable. There are no fixed or angulated loops. The small bowel mucosal pattern is normal in course and caliber. There is no transition to suggest a partial small bowel obstruction. Spot filming of the terminal ileum shows it to be unremarkable. IMPRESSION: There is a hiatal hernia and gastroesophageal reflux identified, otherwise unremarkable small bowel follow through examination. 1 minute and 13 seconds of fluoroscopy time was utilized for this procedure. Reviewed by ADRIANE Chavira 06/02/2016 05:16 PEdited and Signed by Lucian Hernandez MD 06/03/2016 06:25 P
== END ==
LOC: M RAD 08:20
PROVIDERS: ATTEND Internal Medicine Gastroenterology
DX: D62 Acute posthemorrhagic anemia (principal); K21.9 Gastro-esophageal reflux disease without esophagitis; K44.9 Diaphragmatic hernia without obstruction or gangrene

== ENCOUNTER → 2016-06-07 | Outpatient (CLI) | payer MEDICARE, OTHER ==
[~2016-06-07] MED LIST changes: -E-Z-PAQUE 96% w/w SUSP 176GM BTL As Ordered ONE
== END ==
LOC: M LAB 11:04
PROVIDERS: ATTEND Internal Medicine Gastroenterology
DX: D62 Acute posthemorrhagic anemia (principal); K92.1 Melena

== ENCOUNTER 2016-06-08 07:01 | Outpatient (CLI) | payer MEDICARE, OTHER ==
[~2016-06-08] VITALS: Ht 177.8 cm; Wt 83.7 kg
[2016-06-08] MEDS ORDERED: diphenhydrAMINE 25 MG CAP PO PRN (09:45)
[2016-06-08] MEDS ORDERED: ACETAMINOPHEN TAB 650MG DOSE (2X325MG) PO PRN (09:45)
== END 2016-06-08 12:15 | disposition home or self-care (01) ==
LOC: M INFU 07:01
PROVIDERS: ATTEND Internal Medicine Gastroenterology
DX: D62 Acute posthemorrhagic anemia (principal); K92.1 Melena; Z79.899 Other long term (current) drug therapy; Z79.891 Long term (current) use of opiate analgesic; Z91.040 Latex allergy status
CPT/HCPCS: 36430; P9016

== ENCOUNTER → 2016-06-13 | Outpatient (REF) | payer MEDICARE, OTHER ==
[2016-06-13 15:35] LABS: BASO % 0.4 % (0.0-1.0); EOS # 0.2 K/mm3 (0.0-0.50); LARGE UNSTAINED CELL # 0.1 K/mm3 (0.0-0.4); LARGE UNSTAINED CELL % 1.2 % (0.0-4.0); LYMPH % 12.3 % (24.0-44.0); MEAN CORPUSCULAR HEMOGLOBIN 31.7 pg (27.0-33.0); MEAN CORPUSCULAR HGB CONC 33.5 g/dl (32.0-36.5); MEAN CORPUSCULAR VOLUME 94.5 fl (80.0-96.0); MONO # 0.4 K/mm3 (0.0-0.8); MONO % 4.9 % (0.0-5.0); NEUTROPHILS # 6.1 K/mm3 (1.8-7.7); NEUTROPHILS % 79.2 % (36.0-66.0); PLATELET COUNT, AUTOMATED 366 k/mm3 (150-450); RED CELL DISTRIBUTION WIDTH 17.6 % (11.5-14.5); WHITE BLOOD COUNT 7.7 K/mm3 (4.0-10.0)
== END ==
LOC: M SFHCPLAZ 13:51
PROVIDERS: ATTEND Physician Assistant
DX: K92.2 Gastrointestinal hemorrhage, unspecified (principal)

== ENCOUNTER → 2016-06-24 | Outpatient (CLI) | payer MEDICARE, OTHER ==
[~2016-06-24] VITALS: Ht 175.3 cm; Wt 83.0 kg
[~2016-06-24] MED LIST changes: +LIDOCAINE 2% INJ 100 MG/5 ML SDV (FOR ANES.) As Ordered ONE; +NS 1,000 ML IV SCH; +PROPOFOL 200 MG/20 ML VIAL As Ordered ONE
--- NOTE | 2016-06-24 07:42 | ROOR ---
Patient Name: Jose G Ferguson Procedure Date: 06/24/2016 7:31 AM Date of : 1935 Age: 80 Room: [facility] Gender: Male Note Status: Finalized Procedure: Upper GI endoscopy Indications: Acute post hemorrhagic anemia, Iron deficiency anemia Providers: Jose CASTELAN MD Referring MD: Neri Horner MD Requesting Provider: Medicines: Monitored Anesthesia Care Complications: No immediate complications. Procedure: Pre-Anesthesia Assessment: - The heart rate, respiratory rate, oxygen saturations, blood pressure, adequacy of pulmonary ventilation, and response to care were monitored throughout the procedure. The Endoscope was introduced through the mouth, and advanced to the second part of duodenum. The upper GI endoscopy was accomplished without difficulty. The patient tolerated the procedure well. Findings: The esophagus was normal. The stomach was normal. The examined duodenum was normal. Impression: - Normal esophagus. - Normal stomach. - Normal examined duodenum. - No specimens collected. Recommendation: - Observe patient's clinical course. Jose Castelan MD Jose CASTELAN MD 06/24/2016 7:42:05 AM This report has been signed electronically. Number of Addenda: 0 Note Initiated On: 06/24/2016 7:31 AM Estimated Blood Loss: Estimated blood loss: none.
--- NOTE | 2016-06-24 08:03 | ROOR ---
Patient Name: Jose G Ferguson Procedure Date: 06/24/2016 7:31 AM Date of : 1935 Age: 80 Room: [facility] Gender: Male Note Status: Finalized Procedure: Colonoscopy Indications: Hematochezia, Iron deficiency anemia Providers: Jose CASTELAN MD Referring MD: Neri Horner MD Requesting Provider: Medicines: Monitored Anesthesia Care Complications: No immediate complications. Procedure: Pre-Anesthesia Assessment: - The heart rate, respiratory rate, oxygen saturations, blood pressure, adequacy of pulmonary ventilation, and response to care were monitored throughout the procedure. The Colonoscope was introduced through the anus and advanced to 10 cm into the ileum. The colonoscopy was performed without difficulty. The patient tolerated the procedure well. The quality of the bowel preparation was good. Findings: The perianal and digital rectal examinations were normal. (Exam: Complete, Prep: Good or Excellent.) Multiple medium-mouthed diverticula were found in the sigmoid colon, descending colon and transverse colon. Internal hemorrhoids were found during retroflexion. The hemorrhoids were moderate. The terminal ileum contained a single non-bleeding aphtha. No stigmata of recent bleeding were seen. The exam was otherwise without abnormality on direct and retroflexion views. Impression: - Moderate diverticulosis in the sigmoid colon, in the descending colon and in the transverse colon. - Internal hemorrhoids. - A single small aphtha in the terminal ileum. - The examination was otherwise normal on direct and retroflexion views. - No specimens collected. - (Source for chronic anemia is not seen.) Recommendation: - To visualize the small bowel, perform video capsule endoscopy at appointment to be scheduled. - To discuss todays findings, my office will call you in the next few days to schedule a follow up appointment. Jose Castelan MD Jose CASTELAN MD 06/24/2016 8:02:53 AM This report has been signed electronically. Number of Addenda: 0 Note Initiated On: 06/24/2016 7:31 AM Estimated Blood Loss: Estimated blood loss: none.
[2016-06-24 08:20] VITALS: BP 146/67
== END | disposition home or self-care (01) ==
LOC: M OPP 06:27
PROVIDERS: ATTEND Internal Medicine Gastroenterology
DX: K92.1 Melena (principal); D50.9 Iron deficiency anemia, unspecified; K57.30 Diverticulosis of large intestine without perforation or abscess without bleeding; K64.8 Other hemorrhoids; K63.3 Ulcer of intestine; D62 Acute posthemorrhagic anemia; K63.89 Other specified diseases of intestine; I10 Essential (primary) hypertension; E78.5 Hyperlipidemia, unspecified; K46.9 Unspecified abdominal hernia without obstruction or gangrene; R12 Heartburn; M19.90 Unspecified osteoarthritis, unspecified site; I71.4 Abdominal aortic aneurysm, without rupture; G20 Parkinson's disease; J39.3 Upper respiratory tract hypersensitivity reaction, site unspecified; N40.0 Benign prostatic hyperplasia without lower urinary tract symptoms; Z95.3 Presence of xenogenic heart valve; Z87.19 Personal history of other diseases of the digestive system; Z88.8 Allergy status to other drugs, medicaments and biological substances; Z91.040 Latex allergy status; Z79.899 Other long term (current) drug therapy

== ENCOUNTER → 2016-07-07 | Outpatient (REF) | payer MEDICARE, OTHER ==
[~2016-07-07] MED LIST changes: -COLA100C PO; +COLA100C3 PO; -LIDOCAINE 2% INJ 100 MG/5 ML SDV (FOR ANES.) As Ordered ONE; -NS 1,000 ML IV SCH; -PROPOFOL 200 MG/20 ML VIAL As Ordered ONE
[2016-07-07 12:42] LABS: MEAN CORPUSCULAR HGB CONC 32.8 g/dl (32.0-36.5); MEAN CORPUSCULAR VOLUME 94.5 fl (80.0-96.0); RED CELL DISTRIBUTION WIDTH 16.1 % (11.5-14.5); RETIC HEMOGLOBIN CONTENT CHr 33.1 PG (24-36); RETICULOCYTE % ADVIA2120 1.4 % (0.5-1.5); WHITE BLOOD COUNT 6.5 K/mm3 (4.0-10.0)
[2016-07-07 12:52] LABS: ANION GAP 8 MEQ/L (8-16); BLOOD UREA NITROGEN 17 MG/DL (7-18); CALCIUM LEVEL 9.3 MG/DL (8.8-10.2); CARBON DIOXIDE LEVEL 28 MEQ/L (21-32); CHLORIDE LEVEL 106 MEQ/L (98-107); CREATININE FOR GFR 0.88 MG/DL (0.70-1.30); FERRITIN 204 NG/ML (26-388); GLOMERULAR FILTRATION RATE > 60.0 (>42); GLUCOSE, FASTING 98 MG/DL (83-110); POTASSIUM SERUM 4.8 MEQ/L (3.5-5.1); SODIUM LEVEL 142 MEQ/L (136-145)
== END ==
LOC: M SFHCADAM 09:52
PROVIDERS: ATTEND Family Medicine
DX: K92.2 Gastrointestinal hemorrhage, unspecified (principal); N13.8 Other obstructive and reflux uropathy
CPT/HCPCS: 80048; 82728; 84402; 84403; 85027; 85046; G0463

== ENCOUNTER → 2016-07-13 | Outpatient (REF) | payer MEDICARE, OTHER | LOC: M LAB REF 13:05 | PROVIDERS: ATTEND Nurse Practitioner Family | DX: R35.1 Nocturia (principal) | CPT/HCPCS: 51798; 81001; 87086; G0463 ==

== ENCOUNTER → 2016-08-18 | Outpatient (REF) | payer MEDICARE, OTHER ==
[2016-08-18 12:35] LABS: MEAN CORPUSCULAR HEMOGLOBIN 32.4 pg (27.0-33.0); MEAN CORPUSCULAR HGB CONC 33.7 g/dl (32.0-36.5); MEAN CORPUSCULAR VOLUME 96.2 fl (80.0-96.0); RED CELL DISTRIBUTION WIDTH 15.8 % (11.5-14.5); WHITE BLOOD COUNT 5.8 K/mm3 (4.0-10.0)
[2016-08-18 13:08] LABS: PERCENT SATURATION 33.8 % (19.7-37.4)
== END ==
LOC: M SFHCADAM 10:04
PROVIDERS: ATTEND Physician Assistant
DX: D64.9 Anemia, unspecified (principal)
CPT/HCPCS: 82728; 83550; 85027; G0463

== ENCOUNTER 2016-10-28 08:09 | Outpatient (CLI) | payer MEDICARE, OTHER ==
[~2016-10-28 08:09] MED LIST changes: -COLA100C3 PO; +COLA100C5 PO; +FERR1TAB8 PO; -FERR325T PO; -LIDO5DIS36 TD; +LIDO5DIS41 TD; +MOBI4TAB PO; -MOBI7.5T10 PO; -PRAV10TA PO; +PRAV10TA4 PO; +VOLT1GEL15 TD; -VOLT1GEL24 TD
[2016-10-28 09:37] LABS: MEAN CORPUSCULAR HEMOGLOBIN 33.2 pg (27.0-33.0); MEAN CORPUSCULAR HGB CONC 34.1 g/dl (32.0-36.5); MEAN CORPUSCULAR VOLUME 97.2 fl (80.0-96.0); RED CELL DISTRIBUTION WIDTH 13.2 % (11.5-14.5); WHITE BLOOD COUNT 7.5 K/mm3 (4.0-10.0)
[2016-10-28 09:57] LABS: ALBUMIN 3.8 GM/DL (3.2-5.2); ALBUMIN/GLOBULIN RATIO 1.06 (1.00-1.93); ALKALINE PHOSPHATASE 79 U/L (45-117); ALT/SGPT 14 U/L (12-78); ANION GAP 7 MEQ/L (8-16); AST/SGOT 14 U/L (15-37); BILIRUBIN,TOTAL 0.5 MG/DL (0.2-1.0); BLOOD UREA NITROGEN 18 MG/DL (7-18); CALCIUM LEVEL 9.1 MG/DL (8.8-10.2); CARBON DIOXIDE LEVEL 29 MEQ/L (21-32); CHLORIDE LEVEL 106 MEQ/L (98-107); CHOLESTEROL LEVEL 96 MG/DL (<200); CREATININE FOR GFR 0.88 MG/DL (0.70-1.30); GLOMERULAR FILTRATION RATE > 60.0 (>35); GLUCOSE, FASTING 84 MG/DL (83-110); POTASSIUM SERUM 4.4 MEQ/L (3.5-5.1); SODIUM LEVEL 142 MEQ/L (136-145); TOTAL PROTEIN 7.4 GM/DL (6.4-8.2); TRIGLYCERIDES LEVEL 151 MG/DL (<150)
== END 2016-10-28 16:00 | disposition home or self-care (01) ==
LOC: M WUC 08:09
PROVIDERS: ATTEND Family Medicine
DX: I25.10 Atherosclerotic heart disease of native coronary artery without angina pectoris (principal); E11.8 Type 2 diabetes mellitus with unspecified complications; E78.5 Hyperlipidemia, unspecified

== ENCOUNTER 2017-01-13 08:38 | Outpatient (CLI) | payer MEDICARE, OTHER ==
[2017-01-13] MEDS ORDERED: NS 1,000 ML IV ONE (09:00)
[2017-01-13] MEDS ORDERED: SINE25TA5 PO (09:52)
--- NOTE | 2017-01-13 11:22 | ROOR ---
Patient Name: Jose G Ferguson Procedure Date: 01/13/2017 10:55 AM Date of : 1935 Age: 81 Room: [facility] Gender: Male Note Status: Finalized Procedure: Upper GI endoscopy Indications: Dysphagia, History of Achalasia, s/p myotomy/surgical correction. New onset dysphagia. Providers: Jose CASTELAN MD Referring MD: Neri Horner MD Requesting Provider: Medicines: Monitored Anesthesia Care Complications: No immediate complications. Procedure: Pre-Anesthesia Assessment: - The heart rate, respiratory rate, oxygen saturations, blood pressure, adequacy of pulmonary ventilation, and response to care were monitored throughout the procedure. The Endoscope was introduced through the mouth, and advanced to the second part of duodenum. The upper GI endoscopy was accomplished without difficulty. The patient tolerated the procedure well. Findings: Abnormal motility was noted in the esophagus. The cricopharyngeus was normal. There are extra peristaltic waves in the esophageal body. The distal esophagus/lower esophageal sphincter is open. A TTS dilator was passed through the scope. Dilation with an 18-19-20 mm balloon dilator was performed to 20 mm. The dilation site was examined and showed no change. A medium amount of food (residue) was found in the gastric body. The entire examined stomach was normal. The cardia and gastric fundus were normal on retroflexion. The examined duodenum was normal. Impression: - Abnormal esophageal motility. Dilated. - A medium amount of food (residue) in the stomach. - Normal stomach. - Normal examined duodenum. - No specimens collected. - (known achalasia, s/p surgical correction. LES appears patent and normal, esophagus body spastic--I suspect esophageal dysmotility. Possible residual vigorous achalasia of esophageal body) Recommendation: - Observe patient's clinical course. - Observe patient's clinical course following today's procedure with therapeutic intervention. - For persistent symptoms, consideration may be given to PRN use of s/l Nitrate or Nifedipine/Calcium Channel gail. Jose Castelan MD Jose CASTELAN MD 01/13/2017 11:22:07 AM This report has been signed electronically. Number of Addenda: 0 Note Initiated On: 01/13/2017 10:55 AM Estimated Blood Loss: Estimated blood loss: none.
[2017-01-13] MEDS ORDERED: PROPOFOL 200 MG/20 ML VIAL As Ordered ONE (11:39)
[2017-01-13] MEDS ORDERED: LIDOCAINE 2% INJ 100 MG/5 ML SDV (FOR ANES.) As Ordered ONE (11:39)
[2017-01-13 11:48] VITALS: BP 139/74
== END 2017-01-13 11:56 | disposition home or self-care (01) ==
LOC: M OPP 08:38
PROVIDERS: ATTEND Internal Medicine Gastroenterology
DX: R13.10 Dysphagia, unspecified (principal); K22.4 Dyskinesia of esophagus; I10 Essential (primary) hypertension; E78.5 Hyperlipidemia, unspecified; E11.9 Type 2 diabetes mellitus without complications; E53.8 Deficiency of other specified B group vitamins; G20 Parkinson's disease; Z95.4 Presence of other heart-valve replacement; Z88.8 Allergy status to other drugs, medicaments and biological substances; Z91.040 Latex allergy status; Z79.82 Long term (current) use of aspirin; Z79.899 Other long term (current) drug therapy

== ENCOUNTER → 2017-07-07 | Outpatient (CLI) | payer MEDICARE, OTHER ==
[~2017-07-07] MED LIST changes: -ASCO25TA PO; -ASPI1TAB PO; -AZIL1TAB PO; -BENA25CA2 PO; -COLA100C5 PO; +E-Z-GAS II EFFERVESCENT PACKET (SODIUM BICARB./CITRIC ACID/SIMETHICONE) As Ordered; +E-Z-HD 98% w/w 340GM SUSP BTL As Ordered; +E-Z-PAQUE 96% w/w SUSP 176GM BTL As Ordered; -FERR1TAB8 PO; -FLOM5CAP PO; -GLUCOSAMINE PO; -GLUCTAB6 PO; -GUAI100S7 PO; -IRON65TA PO; -IRONTAB3 PO; -LIDO5DIS41 TD; -LOPR0.77 EX; -MAGN200T3 PO; -MAGN400T5 PO; -MAVI1TAB PO; -MOBI4TAB PO; -MULTCAP PO; -OMEG340C PO; -OXYC1TAB23 PO; -PRAM0.5T4 PO; -PRAV10TA4 PO; -PROS5TAB PO; -PROTPAK PO; -TESS100C PO; -TYLE1TAB5 PO; -VALS1TAB49 PO; -VITA100072 PO; -VITA20008 PO; -VITA250L INJ; -VITAMIN B 12 PO; -VITAMIN D PO; -VOLT1GEL15 TD; -tylenol 3
== END ==
LOC: M RAD 09:40
DX: R13.10 Dysphagia, unspecified (principal); Z98.890 Other specified postprocedural states
CPT/HCPCS: 71045

== ENCOUNTER → 2017-07-12 | Outpatient (CLI) | payer MEDICARE, OTHER | LOC: M RAD 07:24 | DX: R13.10 Dysphagia, unspecified (principal); K21.9 Gastro-esophageal reflux disease without esophagitis; K44.9 Diaphragmatic hernia without obstruction or gangrene | CPT/HCPCS: 74220 ==

== ENCOUNTER 2017-07-14 11:58 | Day surgery (SDC) | payer MEDICARE, OTHER ==
[2017-07-14] MEDS: NS 1,000 ML IV (12:00)
[2017-07-14] MEDS ORDERED: PROPOFOL 200 MG/20 ML VIAL As Ordered ×2 (13:19)
[2017-07-14] MEDS ORDERED: AMPICILLIN 2 GM VIAL As Ordered (13:47)
[2017-07-14] MEDS: AMPICILLIN SOD 2 GM in D5W MINI-BAG PLUS 100 ML IV (13:53)
[2017-07-14] MEDS: GENTAMICIN 80 MG in APPROPRIATE DILUENT 1 EA IV (14:20)
== END 2017-07-14 15:33 | disposition home or self-care (01) ==
LOC: M OPP 11:58
DX: R13.19 Other dysphagia (principal); K22.4 Dyskinesia of esophagus; K22.0 Achalasia of cardia; R13.14 Dysphagia, pharyngoesophageal phase; T18.2XXA Foreign body in stomach, initial encounter; Q39.4 Esophageal web; I25.10 Atherosclerotic heart disease of native coronary artery without angina pectoris; I10 Essential (primary) hypertension; E78.5 Hyperlipidemia, unspecified; Z95.2 Presence of prosthetic heart valve; Z87.19 Personal history of other diseases of the digestive system; K46.9 Unspecified abdominal hernia without obstruction or gangrene; K21.9 Gastro-esophageal reflux disease without esophagitis; R12 Heartburn; D64.9 Anemia, unspecified; E53.8 Deficiency of other specified B group vitamins; M19.90 Unspecified osteoarthritis, unspecified site; M51.9 Unspecified thoracic, thoracolumbar and lumbosacral intervertebral disc disorder; F41.9 Anxiety disorder, unspecified; F32.9 Major depressive disorder, single episode, unspecified; G20 Parkinson's disease; N40.1 Benign prostatic hyperplasia with lower urinary tract symptoms; Z86.79 Personal history of other diseases of the circulatory system; Z88.8 Allergy status to other drugs, medicaments and biological substances; Z91.040 Latex allergy status; Z79.82 Long term (current) use of aspirin; Z79.899 Other long term (current) drug therapy
CPT/HCPCS: 43249

== ENCOUNTER → 2017-09-26 | Outpatient (CLI) | payer MEDICARE, OTHER ==
[2017-09-26 10:55] LABS: HEMATOCRIT 38.1 % (42.0-52.0); HEMOGLOBIN 13.4 g/dl (13.5-17.5); MEAN CORPUSCULAR HEMOGLOBIN 33.8 pg (27.0-33.0); MEAN CORPUSCULAR HGB CONC 35.2 g/dl (32.0-36.5); PLATELET COUNT, AUTOMATED 209 10^3/uL (150-450); RED BLOOD COUNT 3.97 10^6/uL (4.30-6.10); RED CELL DISTRIBUTION WIDTH 12.5 % (11.5-14.5); WHITE BLOOD COUNT 7.2 10^3/uL (4.0-10.0)
[2017-09-26 11:05] LABS: INR 0.99; PROTHROMBIN TIME 13.2 SECONDS (12.4-14.5)
[2017-09-26 11:23] LABS: ERYTHROCYTE SEDIMENTATION RATE 10 mm/hr (0-20)
[2017-09-26 11:24] LABS: ALBUMIN 3.8 GM/DL (3.2-5.2); ALBUMIN/GLOBULIN RATIO 1.09 (1.00-1.93); ALKALINE PHOSPHATASE 89 U/L (45-117); ALT/SGPT 6 U/L (12-78); ANION GAP 7 MEQ/L (8-16); AST/SGOT 14 U/L (7-37); BILIRUBIN,TOTAL 0.7 MG/DL (0.2-1.0); BLOOD UREA NITROGEN 17 MG/DL (7-18); CALCIUM LEVEL 8.8 MG/DL (8.8-10.2); CARBON DIOXIDE LEVEL 27 MEQ/L (21-32); CHLORIDE LEVEL 108 MEQ/L (98-107); CREATININE FOR GFR 0.85 MG/DL (0.70-1.30); GLOMERULAR FILTRATION RATE > 60.0 (>35); GLUCOSE, FASTING 122 MG/DL (70-100); POTASSIUM SERUM 3.9 MEQ/L (3.5-5.1); SODIUM LEVEL 142 MEQ/L (136-145); TOTAL PROTEIN 7.3 GM/DL (6.4-8.2)
== END ==
LOC: M ADMPAT 09:23
DX: Z01.818 Encounter for other preprocedural examination (principal); M16.12 Unilateral primary osteoarthritis, left hip; G35 Multiple sclerosis; Z95.2 Presence of prosthetic heart valve; K21.9 Gastro-esophageal reflux disease without esophagitis; Z87.19 Personal history of other diseases of the digestive system
CPT/HCPCS: 71046

== ENCOUNTER → 2017-10-03 | Outpatient (CLI) | payer MEDICARE, OTHER ==
[2017-10-03 13:02] LABS: HEMOGLOBIN 14.3 g/dl (13.5-17.5); MEAN CORPUSCULAR HEMOGLOBIN 33.6 pg (27.0-33.0); MEAN CORPUSCULAR HGB CONC 34.9 g/dl (32.0-36.5); MEAN CORPUSCULAR VOLUME 96.2 fl (80.0-96.0); PLATELET COUNT, AUTOMATED 207 10^3/uL (150-450); RED BLOOD COUNT 4.26 10^6/uL (4.30-6.10); RED CELL DISTRIBUTION WIDTH 12.5 % (11.5-14.5); WHITE BLOOD COUNT 6.5 10^3/uL (4.0-10.0)
[2017-10-03 13:24] LABS: VITAMIN B12 LEVEL 941 PG/ML (247-911)
[2017-10-03 13:37] LABS: ALBUMIN/GLOBULIN RATIO 1.05 (1.00-1.93); ALKALINE PHOSPHATASE 88 U/L (45-117); ALT/SGPT 17 U/L (12-78); ANION GAP 10 MEQ/L (8-16); AST/SGOT 11 U/L (7-37); BILIRUBIN,TOTAL 0.5 MG/DL (0.2-1.0); BLOOD UREA NITROGEN 12 MG/DL (7-18); CARBON DIOXIDE LEVEL 28 MEQ/L (21-32); CHLORIDE LEVEL 106 MEQ/L (98-107); CHOLESTEROL LEVEL 86 MG/DL (<200); CREATININE FOR GFR 0.86 MG/DL (0.70-1.30); GLOMERULAR FILTRATION RATE > 60.0 (>35); GLUCOSE, FASTING 103 MG/DL (70-100); HDL CHOLESTEROL 40 MG/DL (>40); LDL CHOLESTEROL 24.6 MG/DL (<100); NON-HDL-C 46 MG/DL; POTASSIUM SERUM 4.6 MEQ/L (3.5-5.1); SODIUM LEVEL 144 MEQ/L (136-145); TOTAL PROTEIN 7.8 GM/DL (6.4-8.2); TRIGLYCERIDES LEVEL 107 MG/DL (<150)
[2017-10-03 15:52] LABS: MALB URINE SIEMENS 87.5 MG/L; MAU/CREAT RATIO 30.2 MCG/MG (0.0-30.0)
[2017-10-03 18:48] LABS: ESTIMATED AVERAGE GLUCOSE 120 MG/DL (60-110); HEMOGLOBIN A1c 5.8 %
== END ==
LOC: M WUC 08:15
DX: D51.9 Vitamin B12 deficiency anemia, unspecified (principal); E11.8 Type 2 diabetes mellitus with unspecified complications; E78.5 Hyperlipidemia, unspecified
CPT/HCPCS: 82607

== ENCOUNTER 2017-10-23 09:06 | Inpatient (IN) | payer MEDICARE, OTHER ==
[2017-10-23 09:57] LABS: GLUCOSE, FASTING 96 MG/DL (70-100)
[2017-10-23] MEDS: LR 1,000 ML IV ×3 (10:15→16:00)
[2017-10-23] MEDS: MIDAZOLAM INJ 2 MG/2 ML VIAL (J2250) IV (11:01)
[2017-10-23] MEDS ORDERED: fentaNYL 100 MCG/2 ML INJECTION (J3010) As Ordered (12:07)
[2017-10-23] MEDS ORDERED: BUPIVACAINE/DEXTROSE 0.75% 2 ML AMP As Ordered (12:09)
[2017-10-23] MEDS ORDERED: ONDANSETRON 4MG/2ML VIAL (J2405) As Ordered (12:10)
[2017-10-23] MEDS ORDERED: PROPOFOL 200 MG/20 ML VIAL As Ordered ×3 (12:10)
[2017-10-23] MEDS: EPINEPHrine INJ 1 MG/ML 1ML AMP As Ordered ×3 (12:15→13:01)
[2017-10-23] MEDS: TRANEXAMIC ACID 100 MG/ML 10ML VIAL As Ordered ×2 (12:18→13:00)
[2017-10-23] MEDS: ceFAZolin 1GM INJ (J0690 PER 500MG) As Ordered (12:19)
[2017-10-23] MEDS ORDERED: PHENYLephrine HCL 500 MCG/5 ML (100MCG/ML) SYRINGE (J2370) As Ordered ×4 (12:25→12:53)
[2017-10-23] MEDS ORDERED: PHENYLEPHRINE INJ 10MG/ML VIAL (J2370) As Ordered (12:53)
[2017-10-23] MEDS ORDERED: MORPHINE 1MG/ML IN 0.9% NACL 100ML IV BAG As Ordered ×2 (13:26→13:28)
[2017-10-23] MEDS ORDERED: MORPHINE 1MG/ML IN 0.9% NACL 100ML IV BAG IV (13:45)
[2017-10-23] MEDS ORDERED: FLEET ENEMA PR (13:45)
[2017-10-23] MEDS ORDERED: EPIDURAL/PCA KEYS XX (13:45)
[2017-10-23] MEDS ORDERED: PERCOCET 5MG/325MG TAB PO (13:45)
[2017-10-23] MEDS ORDERED: ONDANSETRON 4MG/2ML VIAL (J2405) IV ×3 (13:45)
[2017-10-23] MEDS ORDERED: NALBUPHINE HCL 10 MG/ML AMP (J2300) IV (13:45)
[2017-10-23] MEDS ORDERED: fentaNYL 100 MCG/2 ML INJECTION (J3010) IV (13:45)
[2017-10-23] MEDS ORDERED: NALOXONE INJ 0.4 MG/1 ML VIAL (J2310) IV (13:45)
[2017-10-23] MEDS ORDERED: HYDROMORPHONE HCL 0.5 MG/ 0.5 ML SYRINGE (J1170 PER 1) IV (13:45)
[2017-10-23] MEDS ORDERED: diphenhydrAMINE INJ 50MG/ML VIAL (J1200) IV (13:45)
[2017-10-23 14:05] LABS: HEMATOCRIT 30.6 % (42.0-52.0); HEMOGLOBIN 10.8 g/dl (13.5-17.5)
[2017-10-23] MEDS: PHENYLephrine HCL 500 MCG/5 ML (100MCG/ML) SYRINGE (J2370) IV ×2 (14:15→14:26)
[2017-10-23] MEDS: LR 500 ML IV (14:30)
[2017-10-23] MEDS ORDERED: PHENYLephrine HCL 500 MCG/5 ML (100MCG/ML) SYRINGE (J2370) (15:27)
[2017-10-23 17:01] LABS: BASO % 0.2 % (0.0-1.0); EOS # 0.1 10^3/uL (0.0-0.50); EOS % 0.4 % (0.0-3.0); HEMATOCRIT 30.9 % (42.0-52.0); HEMOGLOBIN 10.9 g/dl (13.5-17.5); IMMATURE GRANULOCYTE % 0.6 % (0-3.0); LYMPH # 1.8 10^3/uL (1.5-4.5); LYMPH % 11.6 % (24.0-44.0); MEAN CORPUSCULAR HEMOGLOBIN 34.1 pg (27.0-33.0); MEAN CORPUSCULAR HGB CONC 35.3 g/dl (32.0-36.5); MEAN CORPUSCULAR VOLUME 96.6 fl (80.0-96.0); MONO # 1.4 10^3/uL (0.0-0.8); MONO % 9.2 % (0.0-5.0); NEUTROPHILS # 12.2 10^3/uL (1.8-7.7); PLATELET COUNT, AUTOMATED 175 10^3/uL (150-450); RED CELL DISTRIBUTION WIDTH 12.2 % (11.5-14.5); WHITE BLOOD COUNT 15.7 10^3/uL (4.0-10.0)
[2017-10-23] MEDS: NS 1,000 ML IV ×2 (17:30→20:42)
[2017-10-23 17:36] LABS: ALBUMIN 3.1 GM/DL (3.2-5.2); ALBUMIN/GLOBULIN RATIO 1.11 (1.00-1.93); ALKALINE PHOSPHATASE 73 U/L (45-117); ALT/SGPT 10 U/L (12-78); ANION GAP 7 MEQ/L (8-16); AST/SGOT 16 U/L (7-37); BILIRUBIN,TOTAL 0.6 MG/DL (0.2-1.0); BLOOD UREA NITROGEN 11 MG/DL (7-18); CARBON DIOXIDE LEVEL 26 MEQ/L (21-32); CHLORIDE LEVEL 111 MEQ/L (98-107); CREATININE FOR GFR 0.69 MG/DL (0.70-1.30); GLOMERULAR FILTRATION RATE > 60.0 (>35); GLUCOSE, FASTING 89 MG/DL (70-100); POTASSIUM SERUM 4.2 MEQ/L (3.5-5.1); SODIUM LEVEL 144 MEQ/L (136-145); TOTAL PROTEIN 5.9 GM/DL (6.4-8.2)
[2017-10-23] MEDS: ACETAMINOPHEN TAB 650MG DOSE (2X325MG) PO (18:45)
[2017-10-24 00:43] LABS: HEMATOCRIT 26.9 % (42.0-52.0); HEMOGLOBIN 9.1 g/dl (13.5-17.5)
[2017-10-24] MEDS ORDERED: DOCUSATE SODIUM 100 MG CAP PO (02:45)
[2017-10-24] MEDS ORDERED: GLUCOSE 4 GM CHEW TABLET PO (02:45)
[2017-10-24] MEDS ORDERED: GLUCAGON FOR INJ 1 MG VIAL (J1610) SC (02:45)
[2017-10-24] MEDS ORDERED: DEXTROSE 50% 50 ML SYRINGE IV (02:45)
[2017-10-24] MEDS: NS 1,000 ML IV (05:00)
[2017-10-24] MEDS ORDERED: ONDANSETRON 4 MG TAB (S0181) PO (06:45)
[2017-10-24] MEDS ORDERED: PERCOCET 5MG/325MG TAB PO ×2 (06:45)
[2017-10-24 06:56] LABS: HEMOGLOBIN 8.8 g/dl (13.5-17.5); MEAN CORPUSCULAR HEMOGLOBIN 33.7 pg (27.0-33.0); MEAN CORPUSCULAR HGB CONC 33.8 g/dl (32.0-36.5); MEAN CORPUSCULAR VOLUME 99.6 fl (80.0-96.0); PLATELET COUNT, AUTOMATED 150 10^3/uL (150-450); RED BLOOD COUNT 2.61 10^6/uL (4.30-6.10); RED CELL DISTRIBUTION WIDTH 12.4 % (11.5-14.5); WHITE BLOOD COUNT 12.4 10^3/uL (4.0-10.0)
[2017-10-24] MEDS: HumaLOG INSULIN (NovoLOG) PER UNIT SC ×4 (07:30→21:00)
[2017-10-24 07:51] LABS: BEDSIDE GLUCOSE 122 MG/DL (83-110)
[2017-10-24] MEDS: MOM 30ML SUSPENSION UDC PO (09:00)
[2017-10-24] MEDS: SENOKOT S TAB PO ×2 (09:00→22:59)
[2017-10-24] MEDS: MIRALAX *UNIT DOSE* 17GM PACKET PO (09:00)
[2017-10-24] MEDS ORDERED: traMADol 50 MG TAB PO (09:30)
[2017-10-24] MEDS ORDERED: ACETAMINOPHEN 500 MG TAB PO (09:30)
[2017-10-24] MEDS: traMADol 50 MG TAB PO ×2 (10:08→18:09)
[2017-10-24 11:12] LABS: HEMATOCRIT 23.9 % (42.0-52.0); HEMOGLOBIN 8.3 g/dl (13.5-17.5)
[2017-10-24] MEDS ORDERED: PILL CRUSHER/CUTTER 1 EACH XX (11:30)
[2017-10-24 12:07] LABS: BEDSIDE GLUCOSE 141 MG/DL (83-110)
[2017-10-24] MEDS: SINEMET 25-100 MG TAB PO ×3 (12:43→23:00)
[2017-10-24] MEDS: ASCORBIC ACID 250 MG TAB PO (12:43)
[2017-10-24 17:14] LABS: BEDSIDE GLUCOSE 105 MG/DL (83-110)
[2017-10-24] MEDS ORDERED: RIVAROXABAN 10 MG TAB (XARELTO) PO (18:00)
[2017-10-24] MEDS: RASAGILINE 1 MG PO (18:09)
[2017-10-24 20:08] LABS: IMMEDIATE SPIN CROSSMATCH 1 2
[2017-10-24 20:33] LABS: BEDSIDE GLUCOSE 105 MG/DL (83-110)
[2017-10-24] MEDS: VALSARTAN 40MG TABLET (DIOVAN) PO (22:59)
[2017-10-24] MEDS: FINASTERIDE 5 MG TAB PO (22:59)
[2017-10-24] MEDS: PRAVASTATIN 20 MG TAB PO (23:00)
[2017-10-24] MEDS: TAMSULOSIN 0.4 MG CAP PO (23:00)
[2017-10-25] MEDS ORDERED: UNRESOLVED PATIENT OWN MED ORDER XX (00:01)
[2017-10-25] MEDS: traMADol 50 MG TAB PO ×2 (00:59→09:09)
[2017-10-25 07:14] LABS: MEAN CORPUSCULAR HEMOGLOBIN 32.4 pg (27.0-33.0); MEAN CORPUSCULAR HGB CONC 34.7 g/dl (32.0-36.5); MEAN CORPUSCULAR VOLUME 93.5 fl (80.0-96.0); PLATELET COUNT, AUTOMATED 136 10^3/uL (150-450); RED BLOOD COUNT 3.21 10^6/uL (4.30-6.10); RED CELL DISTRIBUTION WIDTH 13.5 % (11.5-14.5); WHITE BLOOD COUNT 12.6 10^3/uL (4.0-10.0)
[2017-10-25] MEDS: HumaLOG INSULIN (NovoLOG) PER UNIT SC ×2 (07:30→12:00)
[2017-10-25 07:34] LABS: HEMOGLOBIN 10.4 g/dl (13.5-17.5)
[2017-10-25 08:02] LABS: BEDSIDE GLUCOSE 118 MG/DL (83-110)
[2017-10-25] MEDS: MIRALAX *UNIT DOSE* 17GM PACKET PO (09:00)
[2017-10-25] MEDS: MOM 30ML SUSPENSION UDC PO (09:00)
[2017-10-25] MEDS: ASCORBIC ACID 250 MG TAB PO (09:09)
[2017-10-25] MEDS: RIVAROXABAN 10 MG TAB (XARELTO) PO (09:09)
[2017-10-25] MEDS: SINEMET 25-100 MG TAB PO (09:09)
[2017-10-25] MEDS: RASAGILINE 1 MG PO (09:09)
[2017-10-25] MEDS: SENOKOT S TAB PO (09:09)
[2017-10-25 11:50] LABS: BEDSIDE GLUCOSE 101 MG/DL (83-110)
== END 2017-10-25 15:10 | DRG 470 ==
LOC: M OR 09:06 → M MS5PR 15:52
PROVIDERS: Orthopaedic Surgery
PROC: 0SRB0JA Replacement of Left Hip Joint with Synthetic Substitute, Uncemented, Open Approach (ICD-10-PCS; principal; 2017-10-23 11:23)
PROC: 30233N1 Transfusion of Nonautologous Red Blood Cells into Peripheral Vein, Percutaneous Approach (ICD-10-PCS; 2017-10-23 11:23)
DX: M16.12 Unilateral primary osteoarthritis, left hip (principal); D62 Acute posthemorrhagic anemia; E11.9 Type 2 diabetes mellitus without complications; E78.5 Hyperlipidemia, unspecified; I10 Essential (primary) hypertension; N40.0 Benign prostatic hyperplasia without lower urinary tract symptoms; E53.8 Deficiency of other specified B group vitamins; G20 Parkinson's disease; Z95.2 Presence of prosthetic heart valve; Z98.49 Cataract extraction status, unspecified eye; Z87.891 Personal history of nicotine dependence; Z91.040 Latex allergy status; Z88.6 Allergy status to analgesic agent; Z79.82 Long term (current) use of aspirin; Z79.899 Other long term (current) drug therapy

== ENCOUNTER 2017-10-25 15:15 | Inpatient (IN) | payer MEDICARE, OTHER ==
[~2017-10-25 15:15] MED LIST changes: +ACETAMINOPHEN 500 MG TAB PO; +BENZONATATE 100 MG CAP PO; +BISACODYL 10 MG SUPP PR; +BISACODYL 5 MG TAB PO; +DEXTROSE 50% 50 ML SYRINGE IV; -E-Z-GAS II EFFERVESCENT PACKET (SODIUM BICARB./CITRIC ACID/SIMETHICONE) As Ordered; -E-Z-HD 98% w/w 340GM SUSP BTL As Ordered; -E-Z-PAQUE 96% w/w SUSP 176GM BTL As Ordered; +FLEET ENEMA PR; +GLUCAGON FOR INJ 1 MG VIAL (J1610) SC; +GLUCOSE 4 GM CHEW TABLET PO; +MIRALAX *UNIT DOSE* 17GM PACKET PO; +MOM 30ML SUSPENSION UDC PO; +ONDANSETRON 4 MG TAB (S0181) PO; +ONDANSETRON 4MG/2ML VIAL (J2405) IM
[2017-10-25] MEDS ORDERED: HumaLOG INSULIN (NovoLOG) PER UNIT SC ×2 (17:30→21:00)
[2017-10-25] MEDS: MULTIVITAMINS/MINERALS THERAP 1 TAB PO (17:35)
[2017-10-25] MEDS: SINEMET 25-100 MG TAB PO ×2 (17:35→21:15)
[2017-10-25] MEDS: RIVAROXABAN 10 MG TAB (XARELTO) PO (17:35)
[2017-10-25] MEDS: VITAMIN D 1,000 INTERNATIONAL UNITS TABLET PO (17:35)
[2017-10-25] MEDS: CYANOCOBALAMIN 500 MCG TAB PO (17:35)
[2017-10-25] MEDS: SENNA 8.6 MG TAB (SENOKOT) PO (21:14)
[2017-10-25] MEDS: FINASTERIDE 5 MG TAB PO (21:14)
[2017-10-25] MEDS: PRAVASTATIN 10 MG TAB PO (21:14)
[2017-10-25] MEDS: traMADol 50 MG TAB PO (21:15)
[2017-10-25] MEDS: TAMSULOSIN 0.4 MG CAP PO (21:15)
[2017-10-25] MEDS: VALSARTAN 40MG TABLET (DIOVAN) PO (21:15)
[2017-10-26 07:29] LABS: BASO % 0.2 % (0.0-1.0); EOS # 0.1 10^3/uL (0.0-0.50); EOS % 0.9 % (0.0-3.0); HEMATOCRIT 28.6 % (42.0-52.0); IMMATURE GRANULOCYTE % 0.3 % (0-3.0); LYMPH # 0.7 10^3/uL (1.5-4.5); LYMPH % 7.8 % (24.0-44.0); MEAN CORPUSCULAR HEMOGLOBIN 32.7 pg (27.0-33.0); MEAN CORPUSCULAR VOLUME 93.5 fl (80.0-96.0); MONO # 0.9 10^3/uL (0.0-0.8); MONO % 10.3 % (0.0-5.0); NEUTROPHILS % 80.5 % (36.0-66.0); PLATELET COUNT, AUTOMATED 147 10^3/uL (150-450); RED BLOOD COUNT 3.06 10^6/uL (4.30-6.10); RED CELL DISTRIBUTION WIDTH 13.2 % (11.5-14.5); WHITE BLOOD COUNT 8.7 10^3/uL (4.0-10.0)
[2017-10-26 07:40] LABS: ALBUMIN 2.5 GM/DL (3.2-5.2); ALBUMIN/GLOBULIN RATIO 0.66 (1.00-1.93); ALKALINE PHOSPHATASE 63 U/L (45-117); ALT/SGPT 8 U/L (12-78); ANION GAP 7 MEQ/L (8-16); AST/SGOT 27 U/L (7-37); BLOOD UREA NITROGEN 14 MG/DL (7-18); CALCIUM LEVEL 8.1 MG/DL (8.8-10.2); CARBON DIOXIDE LEVEL 26 MEQ/L (21-32); CHLORIDE LEVEL 106 MEQ/L (98-107); CREATININE FOR GFR 0.69 MG/DL (0.70-1.30); GLOMERULAR FILTRATION RATE > 60.0 (>35); GLUCOSE, FASTING 140 MG/DL (70-100); POTASSIUM SERUM 3.5 MEQ/L (3.5-5.1); SODIUM LEVEL 139 MEQ/L (136-145); TOTAL PROTEIN 6.3 GM/DL (6.4-8.2)
[2017-10-26] MEDS: DOCUSATE SODIUM 100 MG CAP PO (07:48)
[2017-10-26] MEDS: VITAMIN D 1,000 INTERNATIONAL UNITS TABLET PO (07:49)
[2017-10-26] MEDS: MULTIVITAMINS/MINERALS THERAP 1 TAB PO (07:49)
[2017-10-26] MEDS: LIDOCAINE 5% (LIDODERM) PATCH TD (07:49)
[2017-10-26] MEDS: RASAGILINE MESYLATE 1 MG PO (07:49)
[2017-10-26] MEDS: ASCORBIC ACID 250 MG TAB PO (07:50)
[2017-10-26] MEDS: CYANOCOBALAMIN 500 MCG TAB PO (07:50)
[2017-10-26] MEDS: SINEMET 25-100 MG TAB PO ×3 (07:50→20:42)
[2017-10-26] MEDS: traMADol 50 MG TAB PO ×3 (07:50→20:46)
[2017-10-26] MEDS: RIVAROXABAN 10 MG TAB (XARELTO) PO (17:33)
[2017-10-26] MEDS: PRAVASTATIN 10 MG TAB PO (20:42)
[2017-10-26] MEDS: SENNA 8.6 MG TAB (SENOKOT) PO (20:42)
[2017-10-26] MEDS: TAMSULOSIN 0.4 MG CAP PO (20:42)
[2017-10-26] MEDS: FINASTERIDE 5 MG TAB PO (20:42)
[2017-10-26] MEDS: VALSARTAN 40MG TABLET (DIOVAN) PO (20:42)
[2017-10-26] MEDS: **NOTE PATIENT COMMENT** MISC XX (20:46)
[2017-10-26] MEDS: PILL CRUSHER/CUTTER 1 EACH XX (22:12)
[2017-10-27] MEDS: CYANOCOBALAMIN 500 MCG TAB PO (08:21)
[2017-10-27] MEDS: LIDOCAINE 5% (LIDODERM) PATCH TD ×2 (08:21→08:28)
[2017-10-27] MEDS: SINEMET 25-100 MG TAB PO ×3 (08:22→21:18)
[2017-10-27] MEDS: MULTIVITAMINS/MINERALS THERAP 1 TAB PO (08:23)
[2017-10-27] MEDS: DOCUSATE SODIUM 100 MG CAP PO (08:23)
[2017-10-27] MEDS: ASCORBIC ACID 250 MG TAB PO (08:23)
[2017-10-27] MEDS: VITAMIN D 1,000 INTERNATIONAL UNITS TABLET PO (08:23)
[2017-10-27] MEDS: traMADol 50 MG TAB PO ×4 (08:24→22:53)
[2017-10-27] MEDS: RASAGILINE MESYLATE 1 MG PO (08:24)
[2017-10-27] MEDS: RIVAROXABAN 10 MG TAB (XARELTO) PO (19:33)
[2017-10-27] MEDS: TAMSULOSIN 0.4 MG CAP PO (21:18)
[2017-10-27] MEDS: FINASTERIDE 5 MG TAB PO (21:18)
[2017-10-27] MEDS: SENNA 8.6 MG TAB (SENOKOT) PO (21:19)
[2017-10-27] MEDS: PRAVASTATIN 10 MG TAB PO (21:20)
[2017-10-27] MEDS: VALSARTAN 40MG TABLET (DIOVAN) PO (21:20)
[2017-10-27] MEDS: **NOTE PATIENT COMMENT** MISC XX (21:21)
[2017-10-27] MEDS: diphenhydrAMINE 50 MG CAP PO ×2 (22:51→22:52)
[2017-10-28] MEDS: traMADol 50 MG TAB PO ×4 (03:44→21:17)
[2017-10-28] MEDS: ASCORBIC ACID 250 MG TAB PO (08:30)
[2017-10-28] MEDS: RASAGILINE MESYLATE 1 MG PO (08:30)
[2017-10-28] MEDS: LIDOCAINE 5% (LIDODERM) PATCH TD ×2 (08:30→09:00)
[2017-10-28] MEDS: CYANOCOBALAMIN 500 MCG TAB PO (08:30)
[2017-10-28] MEDS: VITAMIN D 1,000 INTERNATIONAL UNITS TABLET PO (08:30)
[2017-10-28] MEDS: SINEMET 25-100 MG TAB PO ×3 (08:30→21:17)
[2017-10-28] MEDS: DOCUSATE SODIUM 100 MG CAP PO (08:30)
[2017-10-28] MEDS: MULTIVITAMINS/MINERALS THERAP 1 TAB PO (08:30)
[2017-10-28] MEDS: RIVAROXABAN 10 MG TAB (XARELTO) PO (17:01)
[2017-10-28] MEDS: SENNA 8.6 MG TAB (SENOKOT) PO (21:16)
[2017-10-28] MEDS: TAMSULOSIN 0.4 MG CAP PO (21:17)
[2017-10-28] MEDS: FINASTERIDE 5 MG TAB PO (21:17)
[2017-10-28] MEDS: PRAVASTATIN 10 MG TAB PO (21:17)
[2017-10-28] MEDS: VALSARTAN 40MG TABLET (DIOVAN) PO (21:17)
[2017-10-28] MEDS: **NOTE PATIENT COMMENT** MISC XX (21:18)
[2017-10-29] MEDS: traMADol 50 MG TAB PO ×4 (02:35→21:17)
[2017-10-29] MEDS: LIDOCAINE 5% (LIDODERM) PATCH TD (09:00)
[2017-10-29] MEDS: MULTIVITAMINS/MINERALS THERAP 1 TAB PO (09:23)
[2017-10-29] MEDS: VITAMIN D 1,000 INTERNATIONAL UNITS TABLET PO (09:23)
[2017-10-29] MEDS: RASAGILINE MESYLATE 1 MG PO (09:24)
[2017-10-29] MEDS: DOCUSATE SODIUM 100 MG CAP PO (09:24)
[2017-10-29] MEDS: SINEMET 25-100 MG TAB PO ×3 (09:24→21:14)
[2017-10-29] MEDS: ASCORBIC ACID 250 MG TAB PO (09:24)
[2017-10-29] MEDS: CYANOCOBALAMIN 500 MCG TAB PO (09:24)
[2017-10-29] MEDS: RIVAROXABAN 10 MG TAB (XARELTO) PO (17:19)
[2017-10-29] MEDS: **NOTE PATIENT COMMENT** MISC XX (21:00)
[2017-10-29] MEDS: TAMSULOSIN 0.4 MG CAP PO (21:14)
[2017-10-29] MEDS: SENNA 8.6 MG TAB (SENOKOT) PO (21:14)
[2017-10-29] MEDS: PRAVASTATIN 10 MG TAB PO (21:14)
[2017-10-29] MEDS: VALSARTAN 40MG TABLET (DIOVAN) PO (21:15)
[2017-10-29] MEDS: FINASTERIDE 5 MG TAB PO (21:15)
[2017-10-30] MEDS: CYANOCOBALAMIN 500 MCG TAB PO (09:35)
[2017-10-30] MEDS: ASCORBIC ACID 250 MG TAB PO (09:35)
[2017-10-30] MEDS: DOCUSATE SODIUM 100 MG CAP PO (09:35)
[2017-10-30] MEDS: SINEMET 25-100 MG TAB PO ×3 (09:35→20:30)
[2017-10-30] MEDS: VITAMIN D 1,000 INTERNATIONAL UNITS TABLET PO (09:35)
[2017-10-30] MEDS: MULTIVITAMINS/MINERALS THERAP 1 TAB PO (09:35)
[2017-10-30] MEDS: LIDOCAINE 5% (LIDODERM) PATCH TD (09:36)
[2017-10-30] MEDS: RASAGILINE MESYLATE 1 MG PO (09:36)
[2017-10-30] MEDS: QUEtiapine FUMARATE 25 MG TAB PO (09:43)
[2017-10-30 15:40] LABS: BASO % 0.2 % (0.0-1.0); EOS # 0.1 10^3/uL (0.0-0.50); EOS % 1.1 % (0.0-3.0); HEMATOCRIT 29.3 % (42.0-52.0); HEMOGLOBIN 10.1 g/dl (13.5-17.5); IMMATURE GRANULOCYTE % 0.4 % (0-3.0); LYMPH % 12.2 % (24.0-44.0); MEAN CORPUSCULAR HEMOGLOBIN 33.1 pg (27.0-33.0); MEAN CORPUSCULAR HGB CONC 34.5 g/dl (32.0-36.5); MEAN CORPUSCULAR VOLUME 96.1 fl (80.0-96.0); MONO # 0.9 10^3/uL (0.0-0.8); MONO % 11.2 % (0.0-5.0); NEUTROPHILS # 6.3 10^3/uL (1.8-7.7); NEUTROPHILS % 74.9 % (36.0-66.0); PLATELET COUNT, AUTOMATED 278 10^3/uL (150-450); RED BLOOD COUNT 3.05 10^6/uL (4.30-6.10); WHITE BLOOD COUNT 8.4 10^3/uL (4.0-10.0)
[2017-10-30 16:06] LABS: ANION GAP 9 MEQ/L (8-16); BLOOD UREA NITROGEN 9 MG/DL (7-18); CALCIUM LEVEL 8.5 MG/DL (8.8-10.2); CARBON DIOXIDE LEVEL 28 MEQ/L (21-32); CHLORIDE LEVEL 106 MEQ/L (98-107); CREATININE FOR GFR 0.72 MG/DL (0.70-1.30); GLOMERULAR FILTRATION RATE > 60.0 (>35); GLUCOSE, FASTING 106 MG/DL (70-100); MAGNESIUM LEVEL 2.1 MG/DL (1.8-2.4); POTASSIUM SERUM 3.6 MEQ/L (3.5-5.1); SODIUM LEVEL 143 MEQ/L (136-145)
[2017-10-30 17:17] LABS: KETONE, URINE AUTO RFX TRACE mg/dL (NEGATIVE); LEUKOCYTE ESTERASE UR AUTO RFX NEGATIVE (NEGATIVE); MUCUS, URINE RFX SMALL (NEGATIVE); NITRITE, URINE AUTO RFX NEGATIVE (NEGATIVE); RBC, URINE AUTO RFX 2 /HPF (0-3); SPECIFIC GRAVITY UR AUTO RFX 1.011 (1.002-1.035); SQUAM EPITHELIAL CELL UR AURFX 0 /HPF (0-6); WBC, URINE AUTO RFX 0 /HPF (0-3)
[2017-10-30] MEDS: RIVAROXABAN 10 MG TAB (XARELTO) PO (18:22)
[2017-10-30] MEDS: ACETAMINOPHEN 500 MG TAB PO (18:22)
[2017-10-30] MEDS: PRAVASTATIN 10 MG TAB PO (20:30)
[2017-10-30] MEDS: QUEtiapine FUMARATE 50 MG TAB PO (20:31)
[2017-10-30] MEDS: FINASTERIDE 5 MG TAB PO (20:31)
[2017-10-30] MEDS: SENNA 8.6 MG TAB (SENOKOT) PO (20:31)
[2017-10-30] MEDS: **NOTE PATIENT COMMENT** MISC XX (20:31)
[2017-10-30] MEDS: TAMSULOSIN 0.4 MG CAP PO (20:31)
[2017-10-30] MEDS: VALSARTAN 40MG TABLET (DIOVAN) PO (20:31)
[2017-10-30] MEDS ORDERED: QUEtiapine FUMARATE 50 MG TAB PO (21:00)
[2017-10-31] MEDS: ACETAMINOPHEN 500 MG TAB PO ×3 (06:07→17:51)
[2017-10-31] MEDS: LIDOCAINE 5% (LIDODERM) PATCH TD ×2 (09:00→10:04)
[2017-10-31] MEDS: MULTIVITAMINS/MINERALS THERAP 1 TAB PO (10:02)
[2017-10-31] MEDS: VITAMIN D 1,000 INTERNATIONAL UNITS TABLET PO (10:02)
[2017-10-31] MEDS: CYANOCOBALAMIN 500 MCG TAB PO (10:03)
[2017-10-31] MEDS: DOCUSATE SODIUM 100 MG CAP PO (10:03)
[2017-10-31] MEDS: ASCORBIC ACID 250 MG TAB PO (10:03)
[2017-10-31] MEDS: SINEMET 25-100 MG TAB PO ×3 (10:04→20:58)
[2017-10-31] MEDS: RIVAROXABAN 10 MG TAB (XARELTO) PO (17:50)
[2017-10-31] MEDS: traMADol 50 MG TAB PO (18:56)
[2017-10-31] MEDS: QUEtiapine FUMARATE 50 MG TAB PO (20:58)
[2017-10-31] MEDS: SENNA 8.6 MG TAB (SENOKOT) PO (20:58)
[2017-10-31] MEDS: FINASTERIDE 5 MG TAB PO (20:58)
[2017-10-31] MEDS: VALSARTAN 40MG TABLET (DIOVAN) PO (20:58)
[2017-10-31] MEDS: PRAVASTATIN 10 MG TAB PO (20:58)
[2017-10-31] MEDS: TAMSULOSIN 0.4 MG CAP PO (20:58)
[2017-10-31] MEDS: **NOTE PATIENT COMMENT** MISC XX (20:59)
[2017-11-01] MEDS: ACETAMINOPHEN 500 MG TAB PO (06:01)
[2017-11-01] MEDS: MULTIVITAMINS/MINERALS THERAP 1 TAB PO (08:34)
[2017-11-01] MEDS: LIDOCAINE 5% (LIDODERM) PATCH TD ×2 (08:34→08:42)
[2017-11-01] MEDS: CYANOCOBALAMIN 500 MCG TAB PO (08:35)
[2017-11-01] MEDS: SINEMET 25-100 MG TAB PO (08:35)
[2017-11-01] MEDS: VITAMIN D 1,000 INTERNATIONAL UNITS TABLET PO (08:35)
[2017-11-01] MEDS: DOCUSATE SODIUM 100 MG CAP PO (08:35)
[2017-11-01] MEDS: ASCORBIC ACID 250 MG TAB PO (08:35)
[2017-11-01] MEDS: traMADol 50 MG TAB PO (08:36)
== END 2017-11-01 12:35 | disposition home health service (06) | DRG 560 ==
LOC: M PM&R 15:15
DX: Z47.1 Aftercare following joint replacement surgery (principal); D62 Acute posthemorrhagic anemia; R44.1 Visual hallucinations; Z96.642 Presence of left artificial hip joint; G20 Parkinson's disease; Z87.891 Personal history of nicotine dependence; I10 Essential (primary) hypertension; E11.9 Type 2 diabetes mellitus without complications; N40.0 Benign prostatic hyperplasia without lower urinary tract symptoms; Z79.899 Other long term (current) drug therapy; E78.5 Hyperlipidemia, unspecified; E53.8 Deficiency of other specified B group vitamins; Z95.2 Presence of prosthetic heart valve; R47.82 Fluency disorder in conditions classified elsewhere; Z79.4 Long term (current) use of insulin; Z91.040 Latex allergy status; Z88.6 Allergy status to analgesic agent

== ENCOUNTER → 2017-11-16 | Outpatient (REF) | payer MEDICARE, OTHER | LOC: M SFHCPLAZ 09:51 | DX: D51.9 Vitamin B12 deficiency anemia, unspecified (principal); E11.8 Type 2 diabetes mellitus with unspecified complications; E78.5 Hyperlipidemia, unspecified ==

== ENCOUNTER → 2018-03-28 | Outpatient (CLI) | payer MEDICARE, OTHER ==
[2018-03-28 12:03] LABS: HEMATOCRIT 39.1 % (42.0-52.0); HEMOGLOBIN 13.3 g/dl (13.5-17.5); PLATELET COUNT, AUTOMATED 184 10^3/uL (150-450); RED BLOOD COUNT 4.03 10^6/uL (4.30-6.10); RED CELL DISTRIBUTION WIDTH 13.4 % (11.5-14.5); WHITE BLOOD COUNT 6.6 10^3/uL (4.0-10.0)
[2018-03-28 12:46] LABS: ALBUMIN 3.8 GM/DL (3.2-5.2); ALBUMIN/GLOBULIN RATIO 1.19 (1.00-1.93); ALKALINE PHOSPHATASE 86 U/L (45-117); ALT/SGPT 10 U/L (12-78); ANION GAP 7 MEQ/L (8-16); AST/SGOT 14 U/L (7-37); BILIRUBIN,TOTAL 0.8 MG/DL (0.2-1.0); BLOOD UREA NITROGEN 12 MG/DL (7-18); CALCIUM LEVEL 8.5 MG/DL (8.8-10.2); CARBON DIOXIDE LEVEL 28 MEQ/L (21-32); CHLORIDE LEVEL 107 MEQ/L (98-107); CHOLESTEROL LEVEL 92 MG/DL (<200); CREATININE FOR GFR 0.87 MG/DL (0.70-1.30); GLOMERULAR FILTRATION RATE > 60.0 (>35); GLUCOSE, FASTING 93 MG/DL (70-100); HDL CHOLESTEROL 44 MG/DL (>40); LDL CHOLESTEROL 29 MG/DL (<100); NON-HDL-C 48 MG/DL; POTASSIUM SERUM 3.6 MEQ/L (3.5-5.1); SODIUM LEVEL 142 MEQ/L (136-145); TRIGLYCERIDES LEVEL 97 MG/DL (<150); VITAMIN B12 LEVEL 1588 PG/ML (247-911)
[2018-03-28 16:01] LABS: MALB URINE SIEMENS 83.1 MG/L; MAU/CREAT RATIO 40.3 MCG/MG (0.0-30.0)
[2018-03-28 16:28] LABS: ESTIMATED AVERAGE GLUCOSE 114 MG/DL (60-110); HEMOGLOBIN A1c 5.6 %
== END ==
LOC: M WUC 08:53
DX: E11.8 Type 2 diabetes mellitus with unspecified complications (principal); D51.9 Vitamin B12 deficiency anemia, unspecified; E78.5 Hyperlipidemia, unspecified
CPT/HCPCS: 82607

== ENCOUNTER → 2018-08-14 | Outpatient (CLI) | payer MEDICARE, OTHER ==
[~2018-08-14] MED LIST changes: -ACETAMINOPHEN 500 MG TAB PO; +ASPI81TA26 PO; +AZIL1TAB PO; +BENA25CA2 PO; -BENZONATATE 100 MG CAP PO; -BISACODYL 10 MG SUPP PR; -BISACODYL 5 MG TAB PO; +COLA100C5 PO; -DEXTROSE 50% 50 ML SYRINGE IV; +E-Z-GAS II EFFERVESCENT PACKET (SODIUM BICARB./CITRIC ACID/SIMETHICONE) As Ordered ONE; +E-Z-HD 98% w/w 340GM SUSP BTL As Ordered ONE; +E-Z-PAQUE 96% w/w SUSP 176GM BTL As Ordered ONE; +FERR1TAB8 PO; -FLEET ENEMA PR; +FLOM0.4C39 PO; -GLUCAGON FOR INJ 1 MG VIAL (J1610) SC; +GLUCOSAMINE PO; -GLUCOSE 4 GM CHEW TABLET PO; +GLUCTAB6 PO; +GUAI100L6 PO; +IRON65TA PO; +IRONTAB3 PO; +LIDO5DIS41 TD; +LOPR0.77 EX; +LOPR0.775 EX; +LOSA50TA88 PO; +MAGN200T3 PO; +MAGN400T5 PO; +MAVI1TAB PO; -MIRALAX *UNIT DOSE* 17GM PACKET PO; +MOBI4TAB PO; -MOM 30ML SUSPENSION UDC PO; +MULTCAP PO; +OMEG340C PO; +OMEG350C PO; -ONDANSETRON 4 MG TAB (S0181) PO; -ONDANSETRON 4MG/2ML VIAL (J2405) IM; +OXYC1TAB23 PO; +PRAM0.5T7 PO; +PRAV10TA4 PO; +PRAV40TA2 PO; +PROS5TAB PO; +PROTPAK PO; +QUET5TAB PO; +REST0.05 OD; +SINE25TA5 PO; +TESS100C PO; +TRAM50TA2 PO; +TYLE1TAB5 PO; +TYLE650T35 PO; +VALS1TAB49 PO; +VITA100018 PO; +VITA1TAB23 PO; +VITA200044 PO; +VITA20008 PO; +VITA250L INJ; +VITAMIN B 12 PO; +VITAMIN D PO; +VOLT1GEL15 TD; +XARE10TA PO; +tylenol 3
--- NOTE | 2018-08-15 09:34 | REP ---
Esophagram The procedure was performed under the direct supervision of Dr. Hernandez. The images were reviewed with Dr. Finley. A single view PA chest x-ray is submitted as a meat scrubber film. There is no change compared to a previous chest x-ray performed on 07/12/2017. Liquid barium and gas producing granules were given in the erect position as well as liquid barium in the prone oblique positions in order to perform a double contrast esophagram examination. The oral and pharyngeal stages of deglutition are unremarkable. 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 There are tertiary waves. There is a hiatal hernia. There is gastroesophageal reflux demonstrated to the level of the thoracic inlet. These findings are unchanged compared to a previous exam. The stricture seen on the previous exam has improved. Impression: 1. 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 2. The stricture seen on the previous exam has improved. 3. The remainder of the findings described above are unchanged compared to a previous examination dated 07/12/2017. 0.8 minutes of fluoro time was utilized for this procedure. Reviewed by ADRIANE Chavira 08/14/2018 05:05 P Electronically Signed by Lucian Hernandez MD 08/15/2018 09:25 A
== END ==
LOC: M RAD 08:36
PROVIDERS: ATTEND Internal Medicine Gastroenterology
DX: K22.0 Achalasia of cardia (principal); D50.1 Sideropenic dysphagia

== ENCOUNTER 2018-08-24 12:06 | Day surgery (SDC) | payer MEDICARE, OTHER ==
[~2018-08-24] VITALS: Ht 175.3 cm; Wt 81.6 kg
[~2018-08-24 12:06] MED LIST changes: -E-Z-GAS II EFFERVESCENT PACKET (SODIUM BICARB./CITRIC ACID/SIMETHICONE) As Ordered ONE; -E-Z-HD 98% w/w 340GM SUSP BTL As Ordered ONE; -E-Z-PAQUE 96% w/w SUSP 176GM BTL As Ordered ONE; +NS 1,000 ML IV ONE
[2018-08-24] MEDS ORDERED: PROPOFOL 200 MG/20 ML VIAL As Ordered ONE (12:43)
[2018-08-24] MEDS ORDERED: LIDOCAINE 2% INJ 100 MG/5 ML SDV (FOR ANES.) As Ordered ONE (12:43)
--- NOTE | 2018-08-24 14:59 | ROOR ---
Patient Name: Jose G Ferguson Procedure Date: 08/24/2018 2:38 PM Date of : 1935 Age: 82 Room: [facility] Gender: Male Note Status: Finalized Procedure: Upper GI endoscopy Indications: Dysphagia, Abnormal cine-esophagram Providers: Jose CASTELAN MD Referring MD: Neri Horner MD Requesting Provider: Medicines: Monitored Anesthesia Care Complications: No immediate complications. Procedure: Pre-Anesthesia Assessment: - The heart rate, respiratory rate, oxygen saturations, blood pressure, adequacy of pulmonary ventilation, and response to care were monitored throughout the procedure. The Endoscope was introduced through the mouth, and advanced to the second part of duodenum. The upper GI endoscopy was somewhat difficult due to presence of food. The patient tolerated the procedure well. Findings: The examined esophagus was normal. A large amount of food (residue) was found in the entire examined stomach. The first portion of the duodenum was normal. Impression: - Normal esophagus- I see no significant esophageal web, there is no significant restriction at the LES. - A large amount of food (residue) in the stomach. c/w gastroparesis. Stomach was not well evaluated, but I see no gross lesions. - Normal first portion of the duodenum. (there is no outlet obstruction) - No specimens collected. Recommendation: - Observe patient's clinical course. - He is not a candidate for G-tube due to gastroparesis. Consideration may be given to a surgical J tube. - Try a Gastroparesis diet: - Eat smaller, more frequent meals throughout the day. - Low fat diet. - Liquid/soft foods are tolerated better than solid foods. - Low fiber/well cooked vegetables are tolerated better than high fiber/fibrous foods/raw vegetables. - Avoid medications that inhibit gastric/intestinal motility such as narcotic medications. Jose Castelan MD Jose CASTELAN MD 08/24/2018 2:59:02 PM Electronically signed by Jose CASTELAN MD Number of Addenda: 0 Note Initiated On: 08/24/2018 2:38 PM Estimated Blood Loss: Estimated blood loss: none.
[2018-08-24 15:15] VITALS: BP 181/85
== END 2018-08-24 15:29 | disposition home or self-care (01) ==
LOC: M OPP 12:06
PROVIDERS: ATTEND Internal Medicine Gastroenterology
DX: R13.10 Dysphagia, unspecified (principal); R93.3 Abnormal findings on diagnostic imaging of other parts of digestive tract

== ENCOUNTER → 2018-10-03 | Outpatient (CLI) | payer MEDICARE, OTHER ==
[~2018-10-03] MED LIST changes: -NS 1,000 ML IV ONE
[2018-10-03 10:00] LABS: ALBUMIN 3.7 GM/DL (3.2-5.2); ALT/SGPT 10 U/L (12-78); BILIRUBIN,TOTAL 0.5 MG/DL (0.2-1.0); BLOOD UREA NITROGEN 13 MG/DL (7-18); CALCIUM LEVEL 8.8 MG/DL (8.8-10.2); CARBON DIOXIDE LEVEL 27 MEQ/L (21-32); CHLORIDE LEVEL 109 MEQ/L (98-107); CREATININE FOR GFR 0.82 MG/DL (0.70-1.30); GLOMERULAR FILTRATION RATE > 60.0 (>35); GLUCOSE, FASTING 101 MG/DL (70-100); POTASSIUM SERUM 4.2 MEQ/L (3.5-5.1); SODIUM LEVEL 141 MEQ/L (136-145); TOTAL PROTEIN 7.2 GM/DL (6.4-8.2)
[2018-10-03 10:05] LABS: HEMOGLOBIN A1c 5.3 %
== END ==
LOC: M WUC 08:04
PROVIDERS: ATTEND Family Medicine
DX: E11.8 Type 2 diabetes mellitus with unspecified complications (principal)

== ENCOUNTER → 2019-03-24 | Outpatient (CLI) | payer MEDICARE, OTHER ==
[~2019-03-24] MED LIST changes: -VALS1TAB49 PO; +VALS40TA9 PO
[2019-03-24 12:42] LABS: HEMATOCRIT 42.4 % (42.0-52.0); HEMOGLOBIN 14.3 g/dl (13.5-17.5); MEAN CORPUSCULAR HEMOGLOBIN 34.7 pg (27.0-33.0); MEAN CORPUSCULAR HGB CONC 33.7 g/dl (32.0-36.5); MEAN CORPUSCULAR VOLUME 102.9 fl (80.0-96.0); PLATELET COUNT, AUTOMATED 210 10^3/uL (150-450); RED BLOOD COUNT 4.12 10^6/uL (4.30-6.10); WHITE BLOOD COUNT 5.2 10^3/uL (4.0-10.0)
[2019-03-24 13:12] LABS: ALT/SGPT 22 U/L (12-78); BILIRUBIN,TOTAL 0.7 MG/DL (0.2-1.0); BLOOD UREA NITROGEN 13 MG/DL (7-18); CARBON DIOXIDE LEVEL 30 MEQ/L (21-32); CHLORIDE LEVEL 108 MEQ/L (98-107); CHOLESTEROL LEVEL 111 MG/DL (<200); CHOLESTEROL RISK RATIO 2.176 (<5); CREATININE FOR GFR 0.81 MG/DL (0.70-1.30); GLOMERULAR FILTRATION RATE > 60.0 (>35); GLUCOSE, FASTING 98 MG/DL (70-100); HDL CHOLESTEROL 51 MG/DL (>40); LDL CHOLESTEROL 44 MG/DL (<100); NON-HDL-C 60 MG/DL; POTASSIUM SERUM 4.8 MEQ/L (3.5-5.1); SODIUM LEVEL 143 MEQ/L (136-145); TOTAL PROTEIN 7.6 GM/DL (6.4-8.2); TRIGLYCERIDES LEVEL 79 MG/DL (<150)
[2019-03-24 13:40] LABS: MALB URINE SIEMENS 89.7 MG/L; MAU/CREAT RATIO 37.6 MCG/MG (0.0-30.0)
== END ==
LOC: M WUC 08:03
PROVIDERS: ATTEND Family Medicine
DX: K22.2 Esophageal obstruction (principal); K31.84 Gastroparesis; E11.43 Type 2 diabetes mellitus with diabetic autonomic (poly)neuropathy; E78.5 Hyperlipidemia, unspecified

== ENCOUNTER → 2019-09-12 | Outpatient (CLI) | payer MEDICARE, OTHER ==
[2019-09-12 11:58] LABS: BLOOD UREA NITROGEN 19 MG/DL (7-18); CALCIUM LEVEL 9.2 MG/DL (8.8-10.2); CARBON DIOXIDE LEVEL 27 MEQ/L (21-32); CHLORIDE LEVEL 108 MEQ/L (98-107); CREATININE FOR GFR 0.86 MG/DL (0.70-1.30); GLOMERULAR FILTRATION RATE > 60.0 (>35); GLUCOSE, FASTING 86 MG/DL (70-100); POTASSIUM SERUM 4.2 MEQ/L (3.5-5.1); SODIUM LEVEL 140 MEQ/L (136-145)
[2019-09-12 12:51] LABS: HEMOGLOBIN A1c 5.5 %
== END ==
LOC: M WUC 08:18
PROVIDERS: ATTEND Family Medicine
DX: E11.8 Type 2 diabetes mellitus with unspecified complications (principal)

== ENCOUNTER → 2020-02-14 | Outpatient (REF) | payer MEDICARE, OTHER ==
[~2020-02-14] MED LIST changes: +ACET650T61 PO; -TYLE650T35 PO; -VITA1TAB23 PO; +VITA250T20 PO
[2020-02-14 12:49] LABS: HEMOGLOBIN 13.5 g/dl (13.5-17.5); MEAN CORPUSCULAR HEMOGLOBIN 35.1 pg (27.0-33.0); MEAN CORPUSCULAR HGB CONC 33.8 g/dl (32.0-36.5); MEAN CORPUSCULAR VOLUME 103.9 fl (80.0-96.0); PLATELET COUNT, AUTOMATED 213 10^3/uL (150-450); RED BLOOD COUNT 3.85 10^6/uL (4.30-6.10); WHITE BLOOD COUNT 7.6 10^3/uL (4.0-10.0)
[2020-02-14 13:01] LABS: ALBUMIN 3.9 GM/DL (3.2-5.2); ALT/SGPT 9 U/L (12-78); BILIRUBIN,TOTAL 0.5 MG/DL (0.2-1.0); BLOOD UREA NITROGEN 14 MG/DL (7-18); CALCIUM LEVEL 9.2 MG/DL (8.8-10.2); CARBON DIOXIDE LEVEL 29 MEQ/L (21-32); CHLORIDE LEVEL 106 MEQ/L (98-107); CHOLESTEROL LEVEL 104 MG/DL (<200); CREATININE FOR GFR 0.88 MG/DL (0.70-1.30); FREE T4 0.92 NG/DL (0.76-1.46); GLOMERULAR FILTRATION RATE > 60.0 (>35); GLUCOSE, FASTING 137 MG/DL (70-100); HDL CHOLESTEROL 46 MG/DL (>40); LDL CHOLESTEROL 36 MG/DL (<100); NON-HDL-C 58 MG/DL; POTASSIUM SERUM 4.1 MEQ/L (3.5-5.1); SODIUM LEVEL 140 MEQ/L (136-145); THYROID STIMULATING HORMONE 0.997 uIU/ML (0.358-3.740); TOTAL PROTEIN 7.7 GM/DL (6.4-8.2); TRIGLYCERIDES LEVEL 112 MG/DL (<150)
[2020-02-14 13:19] LABS: HEMOGLOBIN A1c 5.5 %
== END ==
LOC: M SFHCADAM 09:46
PROVIDERS: ATTEND Family Medicine
DX: R07.9 Chest pain, unspecified (principal); R06.00 Dyspnea, unspecified; I11.9 Hypertensive heart disease without heart failure; E11.8 Type 2 diabetes mellitus with unspecified complications; E78.5 Hyperlipidemia, unspecified

== ENCOUNTER → 2020-02-14 | Outpatient (CLI) | payer MEDICARE, OTHER ==
[~2020-02-14] MED LIST changes: +CEFD1CAP8 PO; +OMEP-221
--- NOTE | 2020-02-14 16:43 | REP ---
INDICATION: CHEST PAIN, UNSPECIFIED TYPE, ZAMBRANO(DYSPNEA ON EXERTION). COMPARISON: 09/26/2017 FINDINGS: Note is again made of previous median sternotomy and aortic valve prosthesis. The cardiomediastinal silhouette is stable. The heart is not enlarged. The lung rodriguez are clear and unchanged. The pleural angles are sharp. The osseous structures are stable and intact. IMPRESSION: There is no acute cardiopulmonary disease. <Electronically signed by Luis Beyer > 02/14/20 [id number]
== END ==
LOC: M ADAMS 10:16
PROVIDERS: ATTEND Family Medicine
DX: R07.9 Chest pain, unspecified (principal); R06.00 Dyspnea, unspecified; I11.9 Hypertensive heart disease without heart failure; E11.8 Type 2 diabetes mellitus with unspecified complications; E78.5 Hyperlipidemia, unspecified
CPT/HCPCS: 71046; 80053; 80061; 83036; 84439; 84443; 85027; G0463

== ENCOUNTER 2020-02-22 07:51 | Emergency (ER) | payer MEDICARE, OTHER ==
[~2020-02-22] VITALS: Ht 175.3 cm; Wt 82.0 kg
[~2020-02-22 07:51] MED LIST changes: -CEFD1CAP8 PO; -OMEP-221
[2020-02-22] MEDS ORDERED: OMEP-221 (08:14)
[2020-02-22] MEDS ORDERED: NS 500 ML IV ONE (08:15)
[2020-02-22 08:42] LABS: BASO % 0.2 % (0.0-1.0); EOS # 0.1 10^3/uL (0.0-0.5); EOS % 0.5 % (0.0-3.0); HEMATOCRIT 36.1 % (42.0-52.0); HEMOGLOBIN 12.1 g/dl (13.5-17.5); LYMPH # 0.9 10^3/uL (1.5-5.0); LYMPH % 5.8 % (24.0-44.0); MEAN CORPUSCULAR HEMOGLOBIN 33.7 pg (27.0-33.0); MEAN CORPUSCULAR HGB CONC 33.5 g/dl (32.0-36.5); MEAN CORPUSCULAR VOLUME 100.6 fl (80.0-96.0); MONO # 1.5 10^3/uL (0.0-0.8); MONO % 9.9 % (0.0-5.0); NEUTROPHILS # 12.4 10^3/uL (1.5-8.5); PLATELET COUNT, AUTOMATED 195 10^3/uL (150-450); RED BLOOD COUNT 3.59 10^6/uL (4.30-6.10); WHITE BLOOD COUNT 14.9 10^3/uL (4.0-10.0)
[2020-02-22 09:25] LABS: INR 0.99; PROTHROMBIN TIME 13.3 SECONDS (12.5-14.3)
[2020-02-22 09:26] LABS: PARTIAL THROMBOPLASTIN TIME 28.6 SECONDS (24.2-38.5)
[2020-02-22 09:31] LABS: ALBUMIN 3.6 GM/DL (3.2-5.2); ALT/SGPT < 6 U/L (12-78); BILIRUBIN,DIRECT 0.3 MG/DL (0.0-0.2); BILIRUBIN,TOTAL 0.9 MG/DL (0.2-1.0); BLOOD UREA NITROGEN 14 MG/DL (7-18); CALCIUM LEVEL 8.6 MG/DL (8.8-10.2); CARBON DIOXIDE LEVEL 24 MEQ/L (21-32); CHLORIDE LEVEL 109 MEQ/L (98-107); CREATININE FOR GFR 0.69 MG/DL (0.70-1.30); GLOMERULAR FILTRATION RATE > 60.0 (>35); GLUCOSE, FASTING 88 MG/DL (70-100); POTASSIUM SERUM 3.9 MEQ/L (3.5-5.1); SODIUM LEVEL 140 MEQ/L (136-145); TOTAL PROTEIN 6.7 GM/DL (6.4-8.2)
--- NOTE | 2020-02-22 10:10 | REP ---
INDICATION: gross hematuria. COMPARISON: CT WITH CONTRAST 03/03/2014 TECHNIQUE: RENAL STONE PROTOCOL WITH CORONAL AND SAGITTAL RECONSTRUCTIONS. IMAGES WERE ALSO OBTAINED USING ORTHOPEDIC METAL ARTIFACT REDUCTION ALGORITHM BECAUSE OF LEFT TOTAL HIP ARTHROPLASTY. FINDINGS: CT ABDOMEN: LUNG PEREIRA SHOW SOME MINOR FIBROTIC CHANGES DEEP SULCUS RIGHT LOWER LOBE UNCHANGED. THE HEART IS NOT ENLARGED AND THERE IS NO PERICARDIAL THICKENING OR EFFUSION I DO NOT SEE A HIATAL HERNIA THERE APPEARS TO BE SMALL AMOUNT OF REFLUX INTO THE LOWER ESOPHAGUS. NO HEPATOSPLENOMEGALY, FOCAL HEPATIC MASS OR INTRAHEPATIC BILIARY DILATATION NOTED. GALLBLADDER WITHOUT CALCIFIED STONE OR MASS. THE ADRENAL GLANDS WERE NORMAL. PANCREAS SHOWS NO MASS, DUCTAL DILATATION OR OTHER SIGNIFICANT FINDING. ABDOMINAL COURSE OF THE COLON SHOWS STOOL AND GAS SCATTERED WITHOUT SIGNS OF COLITIS OR DIVERTICULITIS. KIDNEYS SHOW NO STONE, HYDRONEPHROSIS, MASS OR VASCULAR CALCIFICATIONS. NO HYDRO URETER OR URETERAL STONE VISIBLE THE DISTAL LEFT URETER IS OBSCURED IN PART BUT NO GROSS STONE ALONG ITS COURSE. DISTAL RIGHT URETER UNREMARKABLE. ABDOMINAL AORTA SHOWS DIFFUSE ATHEROSCLEROTIC CALCIFICATION WITHOUT ANEURYSM. NO PERIAORTIC, MESENTERIC OR RETROPERITONEAL PATHOLOGIC SIZED LYMPHADENOPATHY WITH SOME SCATTERED NORMAL SIZE NODES EVIDENT. NO INFLAMMATORY CHANGE ABOUT THE CECUM. LUNG WINDOW REVIEW OF ALL CT SLICE LEVELS SHOWS NO PERFORATION OR FREE AIR. NO ABNORMAL FLUID COLLECTIONS TO SUGGEST ABSCESS. BONE WINDOWS SHOW LUMBAR SPINE WITH VACUUM PHENOMENA AT L3-4 AND L4-5, MARKED NARROWING AT THOSE LEVELS AND POSTERIOR OSTEOPHYTES. NO COMPRESSION DEFORMITY. LESSER DEGENERATIVE CHANGES AT OTHER DISC LEVELS AND A FEW MM OF RETROLISTHESIS OF L2 ON 3 AND L5 ON S1. NO COMPRESSION FRACTURES NOTED. THERE IS FACET ARTHROPATHY IN THE LOWER LUMBAR SPINE. VISUALIZED RIBS ARE INTACT. CT PELVIS: THE SACRUM AND SI JOINTS SHOW NO ACUTE FINDING. ILIAC BONES INTACT. THERE IS A LEFT TOTAL HIP ARTHROPLASTY WITH THE PROSTHETIC COMPONENTS SEEN UNREMARKABLE. SOME HETEROTOPIC BONE ADJACENT TO THE LEFT ACETABULAR ROOF MARGIN. RIGHT HIP SHOWS SOME DEGENERATIVE CHANGES WITH ACETABULAR AND FEMORAL HEAD SPURRING AND ONLY MILD JOINT SPACE NARROWING. PUBIC BONES ARE UNREMARKABLE. THE BLADDER IS ONLY PARTIALLY FILLED AND SOME SHADOWING LIMITS EVALUATION BECAUSE OF THE ADJACENT HARDWARE. HOWEVER, NO GROSS MASS OR STONE. ABDOMINAL PORTION OF THE COLON SHOWS SOME SCATTERED LEFT-SIDED DIVERTICULOSIS WITH HEAVIER DIVERTICULOSIS DISTAL LEFT COLON AND SIGMOID WITHOUT DIVERTICULITIS, COLITIS OR STRICTURE. APPENDIX IS NORMAL BUT ACTUALLY IS SEEN WITH THE RETROCECAL APPEARANCE AND WRAPPED AROUND THE INFERIOR MARGIN OF THE RIGHT LOBE OF THE LIVER. NO VENTRAL OR INGUINAL HERNIA NOR PATHOLOGIC INGUINAL ADENOPATHY. NO PELVIC LYMPHADENOPATHY OR FREE FLUID. IMPRESSION: 1. NO RENAL URETERAL OR BLADDER STONE VISIBLE. SOME DECREASED SENSITIVITY FOR STONE DISEASE IN THE DISTAL LEFT URETER AND BLADDER DUE TO LEFT HIP ARTHROPLASTY. 2. NO RENAL URETERAL OR BLADDER MASS IDENTIFIED. NON-CONTRAST STUDY LIMITS THAT EVALUATION WELL. 3. DIVERTICULOSIS DISTAL LEFT COLON AND SIGMOID WITHOUT DIVERTICULITIS. 4. EXTENSIVE DIFFUSE CALCIFICATIONS OF THE ABDOMINAL AORTA AND ILIAC VESSELS WITHOUT GROSS ANEURYSM. 5. NO OTHER SIGNIFICANT OR ACUTE FINDING. <Electronically signed by Lavon Calero > 02/22/20 [id number]
[2020-02-22] MEDS ORDERED: cefTRIAXone SOD 1 GM in D5W MINI-BAG PLUS 50 ML IV ONE (10:15)
[2020-02-22] MEDS ORDERED: CEFD1CAP8 PO (10:57)
[2020-02-22 11:16] VITALS: BP 113/55
== END 2020-02-22 11:32 | disposition home or self-care (01) ==
LOC: M ED 07:51
DX: N30.01 Acute cystitis with hematuria (principal); Z87.891 Personal history of nicotine dependence; K57.30 Diverticulosis of large intestine without perforation or abscess without bleeding; I70.0 Atherosclerosis of aorta; Z79.899 Other long term (current) drug therapy; Z88.6 Allergy status to analgesic agent; Z91.040 Latex allergy status
CPT/HCPCS: 36415; 74176; 80048; 80076; 81001; 85025; 85610; 85730; 87088; 87186; 96361; 96374; 99284; J0696

== ENCOUNTER → 2020-03-16 | Outpatient (REF) | payer MEDICARE, OTHER ==
[~2020-03-16] MED LIST changes: +CEFD1CAP8 PO; +OMEP-221
[2020-03-16 14:28] LABS: APPEARANCE, URINE CLEAR (CLEAR); BACTERIA, URINE AUTO NEGATIVE (NEGATIVE); BILIRUBIN, URINE AUTO 1+ (NEGATIVE); BLOOD, URINE BLOOD NEGATIVE (NEGATIVE); COLOR, URINE AMBER (YELLOW); GLUCOSE, URINE (UA) AUTO NEGATIVE (NEGATIVE); KETONE, URINE AUTO TRACE mg/dL (NEGATIVE); LEUKOCYTE ESTERASE, URINE AUTO NEGATIVE (NEGATIVE); MUCUS, URINE SMALL (NEGATIVE); NITRITE, URINE AUTO NEGATIVE (NEGATIVE); PROTEIN, URINE AUTO 1+ mg/dL (NEGATIVE); RBC, URINE AUTO 1 /HPF (0-3); SPECIFIC GRAVITY URINE AUTO 1.032 (1.002-1.035); SQUAMOUS EPITHELIAL CELL UR AU 0 /HPF (0-6); WBC, URINE AUTO 2 /HPF (0-3)
== END ==
LOC: M SMT 13:28
PROVIDERS: ATTEND Nurse Practitioner Family
DX: N39.0 Urinary tract infection, site not specified (principal)

== ENCOUNTER → 2020-03-24 | Outpatient (CLI) | payer MEDICARE, OTHER ==
[2020-03-24 10:27] LABS: HEMATOCRIT 41.2 % (42.0-52.0); HEMOGLOBIN 13.8 g/dl (13.5-17.5); MEAN CORPUSCULAR HEMOGLOBIN 34.1 pg (27.0-33.0); MEAN CORPUSCULAR HGB CONC 33.5 g/dl (32.0-36.5); MEAN CORPUSCULAR VOLUME 101.7 fl (80.0-96.0); PLATELET COUNT, AUTOMATED 210 10^3/uL (150-450); RED BLOOD COUNT 4.05 10^6/uL (4.30-6.10); WHITE BLOOD COUNT 6.3 10^3/uL (4.0-10.0)
[2020-03-24 11:03] LABS: HEMOGLOBIN A1c 5.3 %
[2020-03-24 11:11] LABS: ALBUMIN 4.3 GM/DL (3.2-5.2); ALT/SGPT 13 U/L (12-78); BILIRUBIN,TOTAL 0.8 MG/DL (0.2-1.0); BLOOD UREA NITROGEN 18 MG/DL (7-18); CALCIUM LEVEL 9.5 MG/DL (8.8-10.2); CARBON DIOXIDE LEVEL 28 MEQ/L (21-32); CHLORIDE LEVEL 108 MEQ/L (98-107); CHOLESTEROL LEVEL 99 MG/DL (<200); CREATININE FOR GFR 0.84 MG/DL (0.70-1.30); GLOMERULAR FILTRATION RATE > 60.0 (>35); GLUCOSE, FASTING 91 MG/DL (70-100); HDL CHOLESTEROL 44 MG/DL (>40); LDL CHOLESTEROL 36 MG/DL (<100); NON-HDL-C 55 MG/DL; POTASSIUM SERUM 3.9 MEQ/L (3.5-5.1); SODIUM LEVEL 140 MEQ/L (136-145); TOTAL PROTEIN 7.8 GM/DL (6.4-8.2); TRIGLYCERIDES LEVEL 95 MG/DL (<150)
== END ==
LOC: M WUC 08:04
PROVIDERS: ATTEND Family Medicine
DX: G20 Parkinson's disease (principal); E11.8 Type 2 diabetes mellitus with unspecified complications; E78.5 Hyperlipidemia, unspecified

== ENCOUNTER → 2020-09-21 | Outpatient (CLI) | payer MEDICARE, OTHER ==
[~2020-09-21] MED LIST changes: +CARB-89 PO; +QUET50TA3 PO; -QUET5TAB PO; -SINE25TA5 PO
[2020-09-21 10:34] LABS: BLOOD UREA NITROGEN 21 MG/DL (7-18); CARBON DIOXIDE LEVEL 26 MEQ/L (21-32); CHLORIDE LEVEL 109 MEQ/L (98-107); CREATININE FOR GFR 0.86 MG/DL (0.70-1.30); GLOMERULAR FILTRATION RATE > 60.0 (>35); GLUCOSE, FASTING 101 MG/DL (70-100); POTASSIUM SERUM 4.4 MEQ/L (3.5-5.1); SODIUM LEVEL 140 MEQ/L (136-145)
[2020-09-21 11:58] LABS: HEMOGLOBIN A1c 5.3 %
== END ==
LOC: M WUC 08:10
PROVIDERS: ATTEND Family Medicine
DX: E11.8 Type 2 diabetes mellitus with unspecified complications (principal)

== ENCOUNTER 2021-01-09 08:50 | Emergency (ER) | payer MEDICARE, OTHER ==
[~2021-01-09] VITALS: Ht 175.3 cm; Wt 76.6 kg
[~2021-01-09 08:50] MED LIST changes: -QUET50TA3 PO; +QUET50TA4 PO
--- NOTE | 2021-01-09 09:53 | REP ---
INDICATION: Altered Mental Status. COMPARISON: None. TECHNIQUE: Contiguous 5 mm thick axial projection images were obtained of the head. 2D coronal reconstructions were performed. FINDINGS: There is moderate diffuse cerebral atrophy with concomitant ventriculomegaly. There is patchy low density of the periventricular white matter consistent with chronic ischemic white matter disease. There is a focal widening of the extra-axial space in the left frontotemporal region, measuring 3.5 cm in AP dimension, 3.4 cm in vertical dimension, and 13 mm in thickness. There is mild mass effect on the underlying cerebral cortex and mild erosion of the internal table of the overlying calvarium. The appearance is consistent with an arachnoid cyst. There is no evidence of acute intracranial hemorrhage or infarction. There are no abnormal intraparenchymal masses or mass effects. The orbital contents and extracranial soft tissues are normal. The skull base and calvarium are intact. IMPRESSION: 1. Cerebral atrophy. 2. Left frontotemporal arachnoid cyst, as described. 3. No evidence of acute intracranial pathology. <Electronically signed by Dino Lewis > 01/09/21 0917
--- NOTE | 2021-01-09 09:57 | REP ---
INDICATION: Altered Mental Status. COMPARISON: PA and lateral chest, 02/14/2020. TECHNIQUE: Upright AP portable chest image was obtained. FINDINGS: The lungs are clear. There is no lobar consolidation or pleural effusion. The heart size is normal. There is an aortic valve prosthesis. There is calcific vascular disease of the thoracic aorta. Status post median sternotomy. The upper abdominal bowel gas pattern is normal. IMPRESSION: 1. No evidence of acute cardiopulmonary pathology. 2. Other findings as noted. <Electronically signed by Dino Lewis > 01/09/21 0993
[2021-01-09 10:44] LABS: BASO % 0.5 % (0.0-1.0); EOS # 0.3 10^3/uL (0.0-0.5); EOS % 4.1 % (0.0-3.0); HEMATOCRIT 34.3 % (42.0-52.0); HEMOGLOBIN 11.7 g/dl (13.5-17.5); LYMPH # 1.1 10^3/uL (1.5-5.0); MEAN CORPUSCULAR HEMOGLOBIN 34.8 pg (27.0-33.0); MEAN CORPUSCULAR HGB CONC 34.1 g/dl (32.0-36.5); MEAN CORPUSCULAR VOLUME 102.1 fl (80.0-96.0); MONO % 12.2 % (2.0-8.0); NEUTROPHILS # 5.4 10^3/uL (1.5-8.5); NEUTROPHILS % 68.9 % (36.0-66.0); PLATELET COUNT, AUTOMATED 223 10^3/uL (150-450); RED BLOOD COUNT 3.36 10^6/uL (4.30-6.10); WHITE BLOOD COUNT 7.9 10^3/uL (4.0-10.0)
[2021-01-09 11:14] LABS: OSMOLALITY SERUM 294 MOSM/KG (280-301)
[2021-01-09 11:17] LABS: RSV AMPLIFICATION NEGATIVE (NEGATIVE)
[2021-01-09 11:20] LABS: ALBUMIN 3.3 GM/DL (3.2-5.2); ALT/SGPT 10 U/L (12-78); BILIRUBIN,DIRECT 0.2 MG/DL (0.0-0.2); BILIRUBIN,TOTAL 0.4 MG/DL (0.2-1.0); BLOOD UREA NITROGEN 17 MG/DL (7-18); CALCIUM LEVEL 9.1 MG/DL (8.8-10.2); CARBON DIOXIDE LEVEL 27 MEQ/L (21-32); CHLORIDE LEVEL 110 MEQ/L (98-107); CK-MB VALUE MASS 1.4 NG/ML (<3.6); CPK CREATINE PHOSPHOKINASE 49 U/L (39-308); CREATININE FOR GFR 0.84 MG/DL (0.70-1.30); GLOMERULAR FILTRATION RATE > 60.0 (>35); GLUCOSE, FASTING 103 MG/DL (70-100); MB/CK RELATIVE INDEX 2.86 (< OR =4); POTASSIUM SERUM 4.5 MEQ/L (3.5-5.1); SODIUM LEVEL 142 MEQ/L (136-145); THYROID STIMULATING HORMONE 0.823 uIU/ML (0.358-3.740); TOTAL PROTEIN 7.2 GM/DL (6.4-8.2); TROPONIN I < 0.02 NG/ML (< 0.10)
[2021-01-09 12:16] VITALS: BP 184/84
--- NOTE | 2021-01-10 08:15 | ECGEPIP ---
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
== END 2021-01-09 12:52 | disposition home or self-care (01) ==
LOC: M ED 08:50
DX: R42 Dizziness and giddiness (principal); R55 Syncope and collapse; I44.0 Atrioventricular block, first degree; R94.31 Abnormal electrocardiogram [ECG] [EKG]; I45.19 Other right bundle-branch block; G20 Parkinson's disease; I10 Essential (primary) hypertension; E11.9 Type 2 diabetes mellitus without complications; E78.70 Disorder of bile acid and cholesterol metabolism, unspecified; Z79.82 Long term (current) use of aspirin; Z79.899 Other long term (current) drug therapy; Z88.8 Allergy status to other drugs, medicaments and biological substances; Z91.040 Latex allergy status

== ENCOUNTER 2021-02-05 10:30 | Emergency (ER) | payer MEDICARE, OTHER ==
[~2021-02-05] VITALS: Ht 177.8 cm; Wt 75.0 kg
--- OUTSIDE RECORDS SUMMARY | 2021-02-05 10:38 | CCD | Continuity of Care Document ---
Author Author Jose G GOMEZ Organization Unknown Address [address] [place] [address] Phone [phone] Care Team Providers Care Transmission And Coordination Engineer Name Role Phone Neri Horner M.D. AUTM [phone] Problems Active Problems Provider Date Parkinson's disease Stephen Tracey M.D. Onset: 05/22/2014 Social History Type Date Description Comments Sex Unknown Tobacco Use Start: Unknown End: Unknown Patient is a former smoker Allergies and adverse reactions Description No Known Drug Allergies Medications Active Medications SIG Qnty Indications Ordering Provide r Date Glycopyrrolate 1mg Tablets take 1 a tab daily as needed. 90keysha Tracey M.D. 1 Seroquel 25mg Tablets Take 1 tab daily at bedtime For 1 Week Then Stop. 7Toño [place] 07/02/2018 Diazepam 5mg Tablets take 1 tab 30-60 minutes prior to mri. 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 08/18/2017 Medrol 4mg TBPK take 6 tabs in the morning on day 1, then reduce by one tab each day till completed over 6 days. 21corrine Tracey M.D. 07/10/2017 Sinemet 25-100mg Tablets take 2 tablet am, and noon, and 1 tab pm 450keysha Tracey M.D. 10/2016 Tessalon Perles 100mg Capsules Take 1 capsule PO tid prn Cough. 30roger Tracey M.D. 03/15/2016 Voltaren 1% Gel apply 2-4 gms up to four times a day as needed pain in joints, apply over only two joints at a time. 1month Stephen Tracey M.D. 01/06/2015 Vitamin B-12 ER 1000mcg Tablets ER take one tablet once a day. 60tabs Stephen Tracey M.D. 08/2014 Cyanocobalamin 1000mcg/ML Solution Inject 1 ml intramuscular once per week as directed 30ml Charlie Tracey M.D. 05/22/2014 Azilect 1mg Tablets 1 by mouth every day. Unknown Aspirin [address] Unknown Immunizations Description No Information Available Vital Signs Date Vital Result Comment 01/28/2021 2:44pm Respiratory Rate 12 /min Height 69 inches 5'9" Weight 165.00 lb BMI (Body Mass Index) 24.4 kg/m2 [place] Weight 160 lb 10/20/2020 1:20pm Respiratory Rate 12 /min Height 69 inches 5'9" Weight 175.00 lb BMI (Body Mass Index) 25.8 kg/m2 [place] Weight 160 lb Results Description No Information Available Procedures Date Code Description Status 02/01/2021 81030 EEG Recording Awake & Asleep Com pleted 02/01/2021 80691 EEG Recording Awake & Asleep Com pleted 01/28/2021 45220 Office/Outpatient Established Mo d MDM 30-39 Min Completed 10/20/2020 21322 Phone Evaluation/Management Phys ician 11-20 Mins Completed Medical Devices Description No Information Available Encounters Type Date Location Provider Dx Diagnosis Office Visit 01/28/2021 2:30p [place] G20 Parkinson's disease Office Visit 10/20/2020 1:00p Main office - [place] Stephen downing M.D. G20 Parkinson's disease Assessments Date Code Description Provider 02/01/2021 R55 Syncope and collapse Barb naranjo M.D. 02/01/2021 R55 Syncope and collapse EEG 01/28/2021 G20 Parkinson's disease Stephen downing M.D. 10/20/2020 G20 Parkinson's disease Stephen downing M.D. Plan of Treatment Future Appointment(s):* 05/17/2021 10:45 am - Stephen Tracey M.D. at [facility] * 02/17/2021 11:45 am - Ans/DAYAANRA at [facility] Functional Status Description No Information Available Mental Status Description No Information Available Referrals Description No Information Available
--- OUTSIDE RECORDS SUMMARY | 2021-02-05 10:38 | CCD ---
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 Active confirmed 160270985 Problem Benign prostatic hyperplasia with lower urinary tract symptoms N40.1 Active confirmed 867160145 Problem Other intervertebral disc degeneration, 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 Active confirmed 42885591 Problem Vitamin B12 deficiency anemia, unspecified D51.9 Active confirmed 36928844 Problem Anemia, unspecified D64.9 Active confirmed 150935727 Problem Male erectile dysfunction, unspecified N52.9 A ctive confirmed 743293845 Problem Presence of prosthetic heart valve Z95.2 Activ e confirmed 444116478363066 Problem Hypertensive heart disease I11.9 Active confirmed 09684237 Problem Sleep pattern disturbance G47.20 Active confirmed 87577268 Problem 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 Active confirmed 91604 01 Problem Adjustment disorder with mixed anxiety and depressed mood F43.23 Active confirmed 84352124 Problem Lentigines L81.4 Active confirmed 668605041 Problem Parkinson's disease G20 Active confirmed 13803663 Problem Hyperlipidemia, unspecified E78.5 Active confirmed 84666814 Problem History of left hip replacement Z96.642 Active confirmed 402022437 Problem Gastroparesis K31.84 Active confirmed 422777 006 prob due to Parkinson's Problem SK (seborrheic keratosis) L82.1 Active confirmed 999320546 Problem AK (actinic keratosis) L57.0 Active confirmed 204546033 ALLERGIES Allergen (clinical drug ingredient) Drug/Non Drug Allergy do cumented on EMR Reaction Allergy Type Onset Date Status Tolmetin NSAIDs GI bleed , gastritis Drug Allergy Ac tive on Azilect--beware drug interaction Unknown Non Drug Allergy Active ENCOUNTERS from 1936 to 2021-02-04 Encounter Location Date Provider Diagnosis [facility] [address] [place] [address] Jan, Neri Horner Other intervertebral disc degeneration, 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 IMMUNIZATIONS Vaccine Route Administration Date Status COVID-19 dose #1 given elsewhere Unspecified Unknown Apr 18, 2020 Administered COVID-19 dose #2 given elsewhere Unspecified Unknown May 25, 2020 Administered Zoster 0.65mL Zostavax Unknown Apr 17, 2010 Administe red Influenza (High Dose 65 & up) Unknown Jan 16, 2015 Ad ministered Influenza (High Dose 65 & up) Unknown Jan 21, 2016 Ad ministered Influenza 6mo & up Fluzone IM Intramuscular Feb 02, 2011 Admi nistered Pneumococcal Adult 0.5mL Pneumovax 23 Unknown Dec 25 020 Administered Pneumococcal Adult 0.5mL Pneumovax 23 Unknown Jan 16 12 Administered Pneumococcal Adult 0.5mL Pneumovax 23 IM Intramuscular Feb 02 011 Administered Pneumococcal 0.5mL Prevnar 13 Unknown Jan 21, 2016 Ad ministered Pneumococcal 0.5mL Prevnar 13 IM Intramuscular Mar 20, 2014 A dministered Influenza 6mo & up Fluzone Unknown Dec 01, 2016 Admin istered Influenza 6mo & up Fluzone Unknown Dec 27, 2013 Admin istered Influenza 6mo & up Fluzone IM Intramuscular Jan 20, 2012 Admi nistered SOCIAL HISTORY Tobacco Use: Social History Observation Description Date Details (start date - stop date) Former Smoker Sex Assigned At : Social History Observation Description Sex Assigned At Unknown Audit Question Answer Notes Total Score: 0 Interpretation: Alcohol Education Drug and Alcohol Question Answer Notes Total Score: 0 Interpretation: No problems reported Alcohol Screening: Question Answer Notes Did you have a drink containing alcohol in the past year? No Points 0 Interpretation Negative BMI Care Goal Follow-Up Question Answer Notes Above Normal BMI Follow-Up Lifestyle education regarding t Tobacco Use: Question Answer Notes Are you a: former smoker How long has it been since you last smoked? > 10 years REASON FOR REFERRAL No Information VITAL SIGNS No information MEDICATIONS Medication SIG (Take, Route, Frequency, Duration) Notes Start Da te End Date Status Fish Oil Active Aspirin 81 MG 1 tablet Orally Once a day Active Omeprazole 40 MG 1 capsule Orally Once a day for 90 days Active Vitamin B 12 1000 mcg 1 tab(s) Orally daily for 90 days Active Losartan Potassium 50 MG 1 tablet Orally Once a day for 90 day(s) Active Tylenol Arthritis Pain 650 MG 2 tablets as needed Oral ly once daily in the morning and 1 tablet in the evening Active Azilect 1 MG 1 tablet Orally Once a day for 90 day(s) Active Lidoderm 5 % 1 patch to intact skin remov e after 12 hours Externally 12 hour on 12 hours off for 90 Active Prevagen 10 MG as directed Orally Ac tive Finasteride 5 MG 1 tablet Orally Once a day for 90 day(s) Active Ciclopirox Olamine 0.77 % 1 application to affected ar ea topically to groin twice daily as needed for 90 day(s) Active Flomax 0.4 MG TAKE TWO CAPSULES BY MOUTH E VERY DAY AT BEDTIME Orally Once a day for 90 days Active Sinemet 25-100 MG 2 tablets Orally twice daily and 1 tablet at night Active [place] 3 300 mg 1 capsule Orally Once a day Active Vitamin B-12 1000 MCG TAKE ONE TABLET BY MOUTH DAILY for 90 Active Pravastatin 40 mg 1 tab orally qhs for 90 day(s) Active Voltaren 1 % 2 -4 grams 4 times a day Ext ernally as needed for joint pain for 90 day(s) Active Glucosamine ... 1 capsule with a meal Orally Once a day Active Tessalon Perles 100 MG 1 capsule as needed Orally t hree times daily as needed for 30 days Active SEROquel 50 MG 1 tablet Orally before bedtime for 90 day(s) Nov, Active Colace 100 mg 2 caps Orally daily Ac tive Multivitamins 1 tab 1 tab Orally daily Active Shingrix 50 MCG as directed Intramuscular as directed for 1 dose(s) Not-Taking Vitamin D 2000 UNIT 1 capsule Orally Once a day Active Vitamin C 500 mg 1 tablet Orally daily Active PROCEDURES No Information RESULTS No Results REASON FOR VISIT refill MEDICAL (GENERAL) HISTORY Type Description Date Medical History type 2 diabetes-- diet controlled Medical History hyperlipidemia Medical History Hypertension Medical History Esophageal reflux-- esophagram 08/03, ref luxed to thoracic inlet Medical History B12 Deficiency Diagnosed 10/2010 Medical History Benign-appearing esophageal stricture, Dilated on 02/20/2012; [place] on EGD 03/29, s/p Botox injections, s/p Heller myotomy 02/28 Medical History thoracic aortic aneurysm s/p repair [facility] 2012 Medical History severe UGI bleed 02/26, voss sferred [facility], had EGD Dr Rafiq Wise--AVMs found, tx with photocoag Medical History esoph dysfxn post-op aneurysm repair 05/18 3 Medical History Esophageal dilatation 11/27 Medical History AVR bioprosthetic 2012; echo CANNY 06/29 EF 65%, AV bioprosth function nl, LAE; [facility] notified pt 04/01 of (slight) risk of Mycobacterium chimera infection from bypass equipment used; echo 07/01: LAE 42 mm, EF 65%, nl functioing bioprosthesis Medical History Lower GI bleed 10/28, prob di verticular; same 06/03, transfused 3 units total; EGD/colo/UGISBFT/capsule endoscopy all unrevealing Medical History early Parkinson--neuro 2014- - on Azilect; started Sinemet 07/01; MRI 10/04: atrophy, microangiopathic changes Medical History severe lumbar spinal stenosis, MRI 2006, 2014 Medical History BPH Medical History retinal embolism 2012, led t o AVR and thoracic aortic aneurysm repair. Advised to continue ASA despite hx GI bleed, as has documented hx embolic events Medical History gastroparesis--dx at EGD 09/02 Dr Castelan Surgical History left wrist surgery years ago Surgical History No personal or FHx of severe reaction to anesthesia Surgical History pilonidal cyst years ago Surgical History AVR (bioprosthetic) 11/12/2008 Surgical History colonoscopy 09/21/2006 Surgical History cystoscopy(benign enlargemen t of the prostate with evidence of bladder outlet obstruction. 09/06/2007 Surgical History EGD with biopsy 09/21/2006 Surgical History EGD 08/2009,02/2010,07/29/2010,02/2012--to rtuous aorta Surgical History Colonoscopy/ --nl 02/20/2012 Surgical History severe UGI bleed 02/26, voss sferred [facility], had EGD Dr Rafiq Wise--AVMs found, tx with photocoag 03/08/12 Surgical History Ascending Aortic repair (Dr. Rudy singh) 05/28/2012 Surgical History esophageal dilatation 11/27 Surgical History EGD/Dilatation/Botox - Dr. Wise 02/16 013 Surgical History lower Gi bleed--EGD/colonoscopy Dr Michelle ramirez 10/28 Surgical History laparoscopic heller myotomy Dr. Edis pompa 02/2014 Surgical History unilateral laminectomy Dr Solis 09/29 Surgical History left carpal tunnel 03/31 Surgical History left cataract 12/02/15 Surgical History Endoscopy and Colonoscopy-- EGD/colo/UGISBFT/capsule endoscopy all unrevealing 05/2016 Surgical History hip replacement, with postop anemia requiring blood transfusion 10-23-17 Surgical History EGD--gastroparesis 08/24/18 Hospitalization History GI Bleed 05/2016 Hospitalization History hip replacement 11/01 Goals Section No Information Health Concerns No Information MEDICAL EQUIPMENT No Information MENTAL STATUS No Information FUNCTIONAL STATUS No Information ASSESSMENTS Encounter Date Diagnosis Assessment Notes Treatment Notes Treatm ent Clinical Notes Jan, Other intervertebral disc de generation, lumbosacral region (ICD-10 - M51.37) PLAN OF TREATMENT Medication Medication Name Sig Start Date Stop Date Tessalon Perles 100 MG 1 capsule as needed Orally t hree times daily as needed for 30 days SEROquel 50 MG 1 tablet Orally before bedtime for 90 day(s) Nov, Azilect 1 MG 1 tablet Orally Once a day for 90 day(s) Lidoderm 5 % 1 patch to intact skin remov e after 12 hours Externally 12 hour on 12 hours off for 90 Next Appt Details Provider Name:Neri Horner, 2021-03 09:30:00 AM, [address], , [place], [address], Insurance Providers Payer Name Payer Address Payer Phone Insured Name Patient Relati onship to Insured Coverage Start Date Coverage End Date MEDICARE Part A and B [address] [place] [phone] NISHA FERGUSON [facility] [address] [address] [facility] [id number] NISHA FERGUSON [id number]
--- OUTSIDE RECORDS SUMMARY | 2021-02-05 10:39 | CCD | Continuity of Care Document ---
Author Author [facility] Organization Unknown Address [address] [address] Phone [phone] Care Team Providers Care Orthopedic Assistant Name Role Phone Neri Horner MD AUTM [phone] Problems Description No Active Problems Social History Type Date Description Comments Sex Unknown ETOH Use Denies alcohol use Recreational Drug Use Denies Drug Use Tobacco Use Start: Unknown End: Unknown Patient is a former smoker Allergies, Adverse Reactions, Alerts Active Allergies Criticality Reaction | Severity Comments Date NSAIDs Unable to assess criticality 07/13/2015 Inactive Allergies Latex Unable to assess criticality 09/03/2014 Medications Active Medications SIG Qnty Indications Ordering Provide r Date Ciclopirox Olamine 0.77% Cream apply to groin twice a day Unknown Finasteride 5mg Tablets Unknown Prevagen 10mg Capsules Unknown Tylenol 8 Hour Arthritis Pain 650mg Tablets ER 1 by mouth as needed every 8 hours Unknow n Aspirin Adult Low Dose 81mg Tablet s DR 1 by mouth every day Unknown Omeprazole 40mg Capsules DR Unknown Losartan Potassium 50mg Tablets Unknown Seroquel 50mg Tablets Unknown Voltaren 1% Gel apply to affected area three times a day Unknown Sinemet CR 25-100mg Tablets ER 1.5 tabs for 2 weeks then 1 tab tid Unknown Azilect 1mg Tablets take 1 tablet every morning Unknown Pravastatin Sodium 40mg Tablets 1 by mouth every day at bed time Unknown [place]-3 300mg Capsules qd Unknown Vitamin C 500mg Capsules 1 by mouth every day Unknown Vitamin D3 2000Unit Chewtabs qd Unknown Glucosamine Chondroitin 1500 Complex 1500Com Capsules every day Unknown Flomax 0.4mg Capsules 2 ca ps at bedtime Unknown Lidoderm 5% Patches use as directed on 12 hours off 12 hours up to 3 patches a day Unknown colace 100mg Capsules 2 caps daily Unknown Multi Vitamin Daily Tablets 1 every day Unknown Tessalon Perles 100mg Capsules 1 capsule prn orally four times a day Unknown Vitamin B 12 Injectable im m onthly Unknown Immunizations Description No Information Available Vital Signs Date Vital Result Comment 11/16/2020 2:04pm Body Temperature 97.7 F Height 69 inches 5'9" Weight 175.00 lb BMI (Body Mass Index) 25.8 kg/m2 10/13/2017 11:23am BP Systolic 150 mmHg BP Diastolic 70 mmHg Heart Rate 78 /min Body Temperature 98.1 F Height 68.5 inches 5'8.50" Weight 172.50 lb BMI (Body Mass Index) 25.8 kg/m2 Respiratory Rate 17 /min Results Description No Information Available Procedures Date Code Description Status 12/29/2020 89678 Manual Therapy Each 15 Minutes C ompleted 12/29/2020 19171 Therapeutic Procedure, Each 15 M inutes Completed 12/24/2020 72151 Physical Therapy Eval - Mod Comp lexity Completed 12/14/2020 00564 Office/Outpatient Established Lo w MDM 20-29 Min Completed 11/16/2020 47247 Office/Outpatient Established Mo d MDM 30-39 Min Completed 11/16/2020 43309 X-Ray Hip Unilateral With Pelvis 2-3 Views Completed 11/16/2020 00329 Inject/Drain Joint/Bursa Major C ompleted Medical Devices Description No Information Available Encounters Type Date Location Provider Dx Diagnosis Office Visit 11/16/2020 1:45p Franny Fontaine PA-C M7 0.62 Trochanteric bursitis, left hip G56.01 Carpal tunnel syndrome, righ t upper limb Z96.642 Presence of left artificial hip joint Assessments Date Code Description Provider 12/29/2020 M54.5 Low back pain Dia Merritt er, [employer] SALES REPRESENTATIVE 12/24/2020 M54.5 Low back pain Mary Reynolds , MSPT 12/14/2020 G56.01 Carpal tunnel syndrome, right up per limb Maxwell Solis MD 11/16/2020 M70.62 Trochanteric bursitis, left hip Viri Fontaine PA-C 11/16/2020 G56.01 Carpal tunnel syndrome, right up per limb Viri Fontaine PA-C 11/16/2020 Z96.642 Presence of left artificial hip joint Viri Fontaine PA-C Plan of Treatment Future Appointment(s):* 01/12/2021 2:00 pm - Dia Ryan PTA at Physical Therapy Functional Status Description No Information Available Mental Status Description No Information Available Referrals Refer to Dr Reason for Referral Status Appt Date Maxwell Solis MD Physical Therapy Right Knee per bill w at [facility] no auth req, after 25 visits pre d is recommended for medical necessity, patient is going to [facility] passed to pt dept sw. Created [address] [place] [address] [phone] Maxwell Solis MD Physical Therapy Right Knee per bill w at [facility] no auth req, after 25 visits pre d is recommended for medical necessity, patient is going to [facility] passed to pt dept sw. Created [address] [place] [address] [phone] Maxwell Solis MD SURGERY PER [place] AT [facility] NO AUTH REQUIRED FOR ULNAR NERVE AND CTR([id number]) TO SURGERY NT CALL REF #[id number] Created [address] [place] [address] [phone] Maxwell Solis MD SURGERY NO AUTH REQUIRED FOR RT ULNAR NERVE AND CTR([id number]) TO SURGERY NT Created [address] [place] [address] [phone]
--- OUTSIDE RECORDS SUMMARY | 2021-02-05 10:39 | CCD | Continuity of Care Document ---
Author Author Jose G HARRELL MD Organization Unknown Address [facility] [address] Phone [phone] Care Team Providers Care Telegraphic Typewriter Operator Name Role Phone Neri Horner MD AUTM [phone] Stephen Tracey MD AUTM [phone] Problems Active Problems Provider Date Aortic valve disorder Iliana E Symenow, PA-C Onset: 07/13/2011 Transplantation of heart valve Iliana Jacques Tolbertw, PA-C Onset: 0 07/13/2011 Atrial fibrillation Iliana E Symenow, PA-C Onset: 07/13/2011 Electrocardiogram abnormal Iliana E Symenow, PA-C Onset: 07/12 Benign essential hypertension Iliana E Symenow, PA-C Onset: Hyperlipidemia Iliana E Symenow, PA-C Onset: 07/13/2011 Essential hypertension Iliana E Symenow, PA-C Onset: 5 Mixed hyperlipidemia Iliana E Symenow, PA-C Onset: 04/29/2016 Aneurysm of thoracic aorta Iliana E Symenow, PA-C Onset: 04/29 Dietary management surveillance Iliana E Symenow, PA-C Onset: 11/13/2017 Social History Type Date Description Comments Sex Unknown Tobacco Use Start: Unknown End: Unknown Former Cigarette Smo ker Quit in 1999 1 1/2 PPD for 40 yrs ETOH Use Does not consume alcohol Tobacco Use Start: Unknown End: Unknown Patient is a former smoker up to 1 1/2 ppd x 40 yrs, quit 1999 Smoking Status Reviewed: 11/16/20 Patient is a former smoker up to 1 1/2 ppd x 40 yrs, quit 1999 Exercise Type/Frequency Does housework twice a w [place] vacuuming and dishes Exercise Type/Frequency 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 Exercise Type/Frequency Walks daily around t he house and yard Exercise Limitations Shortness Of Breath Exercise Limitations Dizziness Allergies, Adverse Reactions, Alerts Active Allergies Criticality Reaction | Severity Comments Date NKDA Unable to assess criticality 11/16/2020 NSAIDS Unable to assess criticality 11/16/2020 Medications Active Medications SIG Qnty Indications Ordering Provide r Date Finasteride 5mg Tablets 1 by mouth every day Unknown 11/15/2020 Voltaren 1% Gel apply as directed every 6 hours as needed Unknown 11/15/2020 Fish Oil 1000mg Capsules 1 by mouth every day Unknown 11/15/2020 Glycopyrrolate 1mg Tablets 1/2 my mouth daily Unknown 11/15/2020 Rasagiline Mesylate 1mg Tablets 1 by mouth every day Unknown 11/15/[address] 1 by mouth every day Unknown 11/22/2018 Sinemet 25-100mg Tablets 2 tablets in the morning, 2 tablets in the afternoon and 1 tablet before betime Unknown 11/22/2018 Tylenol 8 Hour Arthritis Pain 650mg Tablets ER 1 in the morning, 1 at noon and 1 at night Unknown 11/22/2018 Aspirin Ec Low Dose 81mg Tablets D R 1 by mouth every day Jose G Harrell MD 06/26/2018 Losartan Potassium 50mg Tablets 1 by mouth every day Unknown 11/12/2017 Vitamin D 2000Unit Capsules 1 by mouth every day Unknown 11/03/2016 Vitamin C 500mg Tablets 1 by mouth every day Unknown 10/26/2015 Ciclopirox Olamine 0.77% Cream as as directed topically sparingly to groin area twice daily as needed Neri Horner MD 10/26/2015 [place] 3 1000mg Capsules 1 by mouth every day Unknown 09/25/2014 Vitamin B-12 ER 1000mcg Tablets ER 1 by mouth every day Stephen Tracey MD 5 Pravastatin Sodium 40mg Tablets 1 by mouth every night at bedtime 90tabs E78.5 Jose G Harrell MD 2013 Flomax 0.4mg Capsules 2 by mouth every day Neri Horner MD 1 Multi-Vitamin Tablets daily Neri Horner MD 12/16/2009 Colace 100mg Capsules 1 po bi d Neri Horner MD 11/26/2008 Lidoderm 5% Patches as direct ed prn Neri Horner MD 11/26/2008 Glucosamine Chrondrointin 500mg Ta blets 1 po daily Unknown Immunizations Description No Information Available Vital Signs Date Vital Result Comment 11/16/2020 10:33am Weight 175.00 lb Home Weight 177lb Height 69 inches 5'9" BMI (Body Mass Index) 25.8 kg/m2 Heart Rate 72 /min Regular Respiratory Rate 16 /min BP Systolic Right Arm 128 mmHg sitting, regular c uff BP Diastolic Right Arm 74 mmHg sitting, regular cuff BP Systolic Left Arm 128 mmHg sitting BP Diastolic Left Arm 70 mmHg sitting 05/18/2020 9:36am Weight 178.00 lb Height 69 inches 5'9" BMI (Body Mass Index) 26.3 kg/m2 Heart Rate 72 /min Regular Respiratory Rate 16 /min BP Systolic Right Arm 136 mmHg sitting, regular c uff BP Diastolic Right Arm 76 mmHg sitting, regular cuff BP Systolic Left Arm 136 mmHg sitting BP Diastolic Left Arm 74 mmHg sitting Results Test Acquired Date Facility Test Result H/L Range Note BMP 09/21/2020 [facility] ([facility])- - Calcium Ser/Plasma Mass/Vol 9.0 Sodium 140 Carbon Dioxide Ser/Plasm 26 Chloride Serum/Plasma 109 Potassium 4.4 Glucose 101 High 70-100 Blood Urea Nitrogen 21 5-21 Creatinine 0.86 0.6-1.5 G F R >60.0 Procedures Date Code Description Status 12/10/2020 02088 Chronic Care MGMT 20 Mins Clinical Staff Time Per Calendar Month Completed 11/16/2020 06238 Office/Outpatient Established Mo d MDM 30-39 Min Completed 11/16/2020 13952 ECG 12-Lead Completed 10/21/2020 15728 Chronic Care MGMT 20 Mins Clinical Staff Time Per Calendar Month Completed 10/21/2020 50743 Chronic Care Management Services Ea Addl 20 Min Completed 09/11/2020 90472 Chronic Care MGMT 20 Mins Clinical Staff Time Per Calendar Month Completed 07/30/2020 01779 Chronic Care MGMT 20 Mins Clinical Staff Time Per Calendar Month Completed Medical Devices Description No Information Available Encounters Type Date Location Provider Dx Diagnosis Office Visit 12/10/2020 12:56p Main Office Jose G Harrell MD I48.91 Unspecified atrial fibrillation I10 Essential (primary) hyperten jerri Office Visit 11/16/2020 10:15a Main Office Iliana Andrade, PA-C I35.0 Nonrheumatic aortic (valve) stenosis 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e I71.2 Thoracic aortic aneurysm, wi thout rupture I48.91 Unspecified atrial fibrillat ion I10 Essential (primary) hyperten jerri R94.31 Abnormal electrocardiogram [ ECG] [EKG] E78.2 Mixed hyperlipidemia Z71.3 Dietary counseling and surve illance Office Visit 10/21/2020 5:11p Main Office Jose G Harrell MD I10 Essential (primary) hypertension I48.91 Unspecified atrial fibrillat ion Office Visit 09/11/2020 9:33a Main Office Jose G Harrell MD I10 Essential (primary) hypertension E78.2 Mixed hyperlipidemia Office Visit 07/30/2020 11:03a Main Office Jose G Harrell MD I48.91 Unspecified atrial fibrillation I10 Essential (primary) hyperten jerri E78.2 Mixed hyperlipidemia Assessments Date Code Description Provider 12/10/2020 I48.91 Unspecified atrial fibrillation Jose G Harrell MD 12/10/2020 I10 Essential (primary) hypertension Jose G Harrell MD 11/16/2020 I35.0 Nonrheumatic aortic (valve) sten osis Iliana Andrade, PA-C 11/16/2020 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 e Iliana Andrade, PA-C 11/16/2020 I71.2 Thoracic aortic aneurysm, withou t rupture Iliana Andrade, PA-C 11/16/2020 I48.91 Unspecified atrial fibrillation Iliana Andrade, PA-C 11/16/2020 I10 Essential (primary) hypertension Iliana Andrade, PA-C 11/16/2020 R94.31 Abnormal electrocardiogram [ECG] [EKG] Iliana Andrade, PA-C 11/16/2020 E78.2 Mixed hyperlipidemia Iliana young, PA-C 11/16/2020 Z71.3 Dietary counseling and surveilla nce Iliana Andrade PA-C 10/21/2020 I10 Essential (primary) hypertension Jose G Harrell MD 10/21/2020 I48.91 Unspecified atrial fibrillation Jose G Harrell MD 09/11/2020 I10 Essential (primary) hypertension Jose G Harrell MD 09/11/2020 E78.2 Mixed hyperlipidemia Jose G cervantes MD 07/30/2020 I48.91 Unspecified atrial fibrillation Jose G Harrell MD 07/30/2020 I10 Essential (primary) hypertension Jose G Harrell MD 07/30/2020 E78.2 Mixed hyperlipidemia Jose G cervantes MD Plan of Treatment Future Appointment(s):* 05/20/2021 9:45 am - Iliana Andrade PA-C at Main Office 11/16/2020 - Iliana Andrade PA-C* I35.0 Nonrheumatic aortic (valve) stenosis * 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e* Recommendations:* You require antibiotics prior to any dental work and some surgical procedures. * I71.2 Thoracic aortic aneurysm, without rupture * I48.91 Unspecified atrial fibrillation * I10 Essential (primary) hypertension * R94.31 Abnormal electrocardiogram [ECG] [EKG] * E78.2 Mixed hyperlipidemia * Z71.3 Dietary counseling and surveillance* Recommendations:* Follow a low fat/low cholesterol diet and do as much aerobic exercise as you can tolerate. * All * Follow up:* 6 month follow up. Functional Status Functional Condition Comment Date Status Independent with all ADL's Activ e Requires assistance with ambulating currently using cane Active Mental Status Description No Information Available Referrals Description No Information Available
--- OUTSIDE RECORDS SUMMARY | 2021-02-05 10:39 | CCD | Continuity of Care Document ---
Author Author Jose G JETT M.D. Organization Unknown Address [address] [place] [address] Phone [phone] Care Team Providers Care Restaurant Delivery Driver Name Role Phone Neri Horner M.D. AUTM [phone] Problems Active Problems Provider Date Parkinson's disease Stephen Jett M.D. Onset: 05/22/2014 Social History Type Date Description Comments Sex Unknown Tobacco Use Start: Unknown End: Unknown Patient is a former smoker Allergies and adverse reactions Description No Known Drug Allergies Medications Active Medications SIG Qnty Indications Ordering Provide r Date Glycopyrrolate 1mg Tablets take 1 a tab daily as needed. 90keysha Jett M.D. 1 Seroquel 25mg Tablets Take 1 tab daily at bedtime For 1 Week Then Stop. 7[place] 07/02/2018 Diazepam 5mg Tablets take 1 tab 30-60 minutes prior to mri. horn player reference #: [id number] 1keysha Jett M.D. 08/18/2017 Medrol 4mg TBPK take 6 tabs in the morning on day 1, then reduce by one tab each day till completed over 6 days. 21corrine Jett M.D. 07/10/2017 Sinemet 25-100mg Tablets take 2 tablet am, and noon, and 1 tab pm 450keysha Jett M.D. 10/2016 Tessalon Perles 100mg Capsules Take 1 capsule PO tid prn Cough. 30roger Jett M.D. 03/15/2016 Voltaren 1% Gel apply 2-4 gms up to four times a day as needed pain in joints, apply over only two joints at a time. 1month Stephen Jett M.D. 01/06/2015 Vitamin B-12 ER 1000mcg Tablets ER take one tablet once a day. 60tabs Stephen Jett M.D. 08/2014 Cyanocobalamin 1000mcg/ML Solution Inject 1 ml intramuscular once per week as directed 30ml Charlie Jett M.D. 05/22/2014 Azilect 1mg Tablets 1 by mouth every day. Unknown Aspirin [address] Unknown Immunizations Description No Information Available Vital Signs Date Vital Result Comment 01/28/2021 2:44pm Respiratory Rate 12 /min Height 69 inches 5'9" Weight 165.00 lb BMI (Body Mass Index) 24.4 kg/m2 [place] [facility] Weight 160 lb 10/20/2020 1:20pm Respiratory Rate 12 /min Height 69 inches 5'9" Weight 175.00 lb BMI (Body Mass Index) 25.8 kg/m2 [place] Body Weight 160 lb Results Description No Information Available Procedures Date Code Description Status 01/28/2021 93835 Office/Outpatient Established Mo d MDM 30-39 Min Completed 10/20/2020 37454 Phone Evaluation/Management Phys ician 11-20 Mins Completed Medical Devices Description No Information Available Encounters Type Date Location Provider Dx Diagnosis Office Visit 01/28/2021 2:30p [facility] office - [place] Stephen downing M.D. G20 Parkinson's disease Office Visit 10/20/2020 1:00p [facility] [place] Stephen downing M.D. G20 Parkinson's disease Assessments Date Code Description Provider 01/28/2021 G20 Parkinson's disease Stephen downing M.D. 10/20/2020 G20 Parkinson's disease Stephen downing M.D. Plan of Treatment Future Appointment(s):* 05/17/2021 10:45 am - Stephen Jett M.D. at [facility] * 02/17/2021 11:45 am - Ans/VS at [facility] * 03/08/2021 1:00 pm - EEG at Main office - [place] Functional Status Description No Information Available Mental Status Description No Information Available Referrals Description No Information Available
--- OUTSIDE RECORDS SUMMARY | 2021-02-05 10:39 | CCD | Continuity of Care Document ---
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 Exercise Type/Frequency Walks daily around t he [...] daily as needed Neri Horner MD 10/26/2015 [place] 3 1000mg Capsules 1 by mouth every [...] R >60.0 Procedures Date Code Description Status 11/16/2020 29469 Office/Outpatient Established Mo d MDM 30-39 Min Completed 11/16/2020 66937 ECG 12-Lead Completed 10/21/2020 70834 Chronic Care MGMT 20 Mins Clinical Staff Time Per Calendar Month Completed 10/21/2020 21863 Chronic Care Management Services Ea Addl 20 Min Completed 09/11/2020 99045 Chronic Care MGMT 20 Mins Clinical Staff Time Per Calendar Month Completed 07/30/2020 53292 Chronic Care MGMT 20 Mins Clinical Staff Time Per Calendar Month Completed 07/02/2020 23833 Chronic Care MGMT 20 Mins Clinical Staff Time Per Calendar Month Completed Medical Devices Description No Information Available Encounters Type Date Location Provider Dx Diagnosis Office Visit 11/16/2020 10:15a Main Office Iliana [...] Essential (primary) hyperten jerri E78.2 Mixed hyperlipidemia Office Visit 07/02/2020 12:56p Main Office Jose G Harrell MD I35.0 Nonrheumatic aortic (valve) stenosis I48.91 Unspecified atrial fibrillat ion I10 Essential (primary) hyperten jerri Assessments Date Code Description Provider 11/16/2020 I35.0 Nonrheumatic aortic (valve) sten osis [...] Z71.3 Dietary counseling and surveilla nce Iliana Andrade, PA-C 10/21/2020 I10 Essential (primary) hypertension Jose G Harrell MD 10/21/2020 I48.91 Unspecified atrial fibrillation Jose G Harrell MD 09/11/2020 I10 Essential (primary) hypertension Jose G Harrell MD 09/11/2020 E78.2 Mixed hyperlipidemia Jose G cervantes MD 07/30/2020 I48.91 Unspecified atrial fibrillation Jose G Harrell MD 07/30/2020 I10 Essential (primary) hypertension Jose G Harrell MD 07/30/2020 E78.2 Mixed hyperlipidemia Jose G cervantes MD 07/02/2020 I35.0 Nonrheumatic aortic (valve) sten osis Jose G Harrell MD 07/02/2020 I48.91 Unspecified atrial fibrillation Jose G Harrell MD 07/02/2020 I10 Essential (primary) hypertension Jose G Harrell MD Plan of Treatment Future Appointment(s):* 05/20/2021 [...]
--- OUTSIDE RECORDS SUMMARY | 2021-02-05 10:39 | CCD | Continuity of Care Document ---
Author Author Jose G REGALADO MD Organization Unknown Address [address] [place] [address] Phone [phone] Care Team Providers Care Dynamiter Name Role Phone Neri Horner MD AUTM [phone] Problems Description No Active Problems Social History [...] mouth every day at bed time Unknown [place]-3 300mg Capsules qd Unknown Vitamin C 500mg [...] 25.8 kg/m2 Respiratory Rate 17 /min Results Test Acquired Date Facility Test Result H/L Range Note Order 12/15/2020 [facility] [address] [address] Surgery <pending> Procedures Date Code Description Status 12/14/2020 77039 Office/Outpatient Established Lo w MDM 20-29 Min Completed 11/16/2020 43608 Office/Outpatient Established Mo d MDM 30-39 Min Completed 11/16/2020 33550 X-Ray Hip Unilateral With Pelvis 2-3 Views Completed 11/16/2020 05830 Inject/Drain Joint/Bursa Major C ompleted Medical Devices Description No Information Available Encounters Type Date Location Provider Dx Diagnosis Office Visit 11/16/2020 1:45p [place] Viri Fontaine PA-C M7 0.62 Trochanteric bursitis, left hip G56.01 Carpal tunnel syndrome, righ t upper limb Z96.642 Presence of left artificial hip joint Assessments Date Code Description Provider 12/14/2020 G56.01 Carpal tunnel syndrome, right up per limb Maxwell Regalado MD 11/16/2020 M70.62 Trochanteric bursitis, left hip Viri Fontaine PA-C 11/16/2020 G56.01 Carpal tunnel syndrome, right up per limb Viri Fontaine PA-C 11/16/2020 Z96.642 Presence of left artificial hip joint Viri Fontaine PA-C Plan of Treatment Future Appointment(s):* 12/24/2020 1:30 pm - Mary Reynolds MSPT at Physical Therapy 12/14/2020 - Maxwell Regalado MD* G56.01 Carpal tunnel syndrome, right upper limb * Follow up:* Post Op Functional Status Description No Information Available Mental Status Description No Information Available Referrals Refer to Dr Reason for Referral Status Appt Date Maxwell Regalado MD Physical Therapy Right Knee per bill w at [facility] no auth req, after 25 visits pre d is recommended for medical necessity, patient is going to [facility] passed to pt dept sw. Created [address] [place] [address] [phone] Maxwell Regalado MD Physical Therapy Right Knee per bill w at [facility] no auth req, after 25 visits pre d is recommended for medical necessity, patient is going to [facility] passed to pt dept sw. Created [address] [place] [address] [phone] Maxwell Regalado MD SURGERY PER [place] AT [facility] NO AUTH REQUIRED FOR ULNAR NERVE AND CTR([id number] & [id number]) TO SURGERY NT CALL REF #[id number] Created [address] [place] [address] [phone] Maxwell Regalado MD SURGERY NO AUTH REQUIRED FOR RT ULNAR NERVE AND CTR([id number]) TO SURGERY NT Created [address] [place] [address] [phone]
--- OUTSIDE RECORDS SUMMARY | 2021-02-05 10:39 | CCD | Continuity of Care Document ---
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 Type/Frequency Walks daily around t he [...] daily as needed Neri Horner MD 10/26/2015 [place] 3 1000mg Capsules 1 by mouth every [...] >60.0 Procedures Date Code Description Status 11/16/2020 97923 Office/Outpatient Established Mo d MDM 30-39 Min Completed 11/16/2020 92031 ECG 12-Lead Completed 10/21/2020 23437 Chronic Care MGMT 20 Mins Clinical Staff Time Per Calendar Month Completed 10/21/2020 37014 Chronic Care Management Services Ea Addl 20 Min Completed 09/11/2020 92600 Chronic Care MGMT 20 Mins Clinical Staff Time Per Calendar Month Completed 07/30/2020 40897 Chronic Care MGMT 20 Mins Clinical Staff Time Per Calendar Month Completed 07/02/2020 19932 Chronic Care MGMT 20 Mins Clinical Staff [...]
--- OUTSIDE RECORDS SUMMARY | 2021-02-05 10:39 | CCD ---
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 Active confirmed 890998351 Problem Benign prostatic hyperplasia with lower urinary tract symptoms N40.1 Active confirmed 397397904 Problem Other intervertebral disc degeneration, 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 Active confirmed 66837169 Problem Vitamin B12 deficiency anemia, unspecified D51.9 Active confirmed 18972831 Problem Anemia, unspecified D64.9 Active confirmed 420863224 Problem Male erectile dysfunction, unspecified N52.9 A ctive confirmed 278330832 Problem Presence of prosthetic heart valve Z95.2 Activ e confirmed 121271058734392 Problem Hypertensive heart disease I11.9 Active confirmed 91605012 Problem Sleep pattern disturbance G47.20 Active confirmed 19832274 Problem 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 Active confirmed 87433 01 Problem Adjustment disorder with mixed anxiety and depressed mood F43.23 Active confirmed 93033523 Problem Lentigines L81.4 Active confirmed 292900160 Problem Parkinson's disease G20 Active confirmed 16266832 Problem Hyperlipidemia, unspecified E78.5 Active confirmed 68772674 Problem History of left hip replacement Z96.642 Active confirmed 086373025 Problem Gastroparesis K31.84 Active confirmed 893259 006 prob due to Parkinson's Problem SK (seborrheic keratosis) L82.1 Active confirmed 454225542 Problem AK (actinic keratosis) L57.0 Active confirmed 992814188 ALLERGIES Allergen (clinical drug ingredient) Drug/Non Drug Allergy do cumented on EMR Reaction Allergy Type Onset Date Status NSAIDs GI bleed , gastritis Non Drug Allergy Active on Azilect--beware drug interaction Unknown Non Drug Allergy Active ENCOUNTERS from 1936 to 2021-01-09 Encounter Location Date Provider Diagnosis [facility] [address] [facility] [place] [phone] [place] [address] Dec, Neri Horner IMMUNIZATIONS Vaccine Route Administration Date Status COVID-19 dose #2 given elsewhere Unspecified Unknown May 25, 2020 Administered Pneumococcal Adult 0.5mL Pneumovax 23 IM Intramuscular Feb 02 011 Administered Influenza (High Dose 65 & up) Unknown Jan 16, 2015 Ad ministered Influenza (High Dose 65 & up) Unknown Jan 21, 2016 Ad ministered COVID-19 dose #1 given elsewhere Unspecified Unknown Apr 18, 2020 Administered Influenza 6mo & up Fluzone IM Intramuscular Feb 02, 2011 Admi nistered Zoster 0.65mL Zostavax Unknown Apr 17, 2010 Administe red Pneumococcal Adult 0.5mL Pneumovax 23 Unknown Dec 25 020 Administered Pneumococcal Adult 0.5mL Pneumovax 23 Unknown Jan 16 12 Administered Pneumococcal 0.5mL Prevnar 13 Unknown Jan [...] Notes Start Da te End Date Status Omeprazole 40 MG 1 capsule Orally Once a day for 90 days Active Aspirin 81 MG 1 tablet Orally Once a day Active Lidoderm 5 % 1 patch to intact skin remov e after 12 hours Externally 12 hour on 12 hours off for 90 Active Vitamin B 12 1000 mcg 1 tab(s) Orally daily for 90 days Active Tylenol Arthritis Pain 650 MG 2 tablets as needed Oral ly once daily in the morning and 1 tablet in the evening Active Fish Oil Active Azilect 1 MG 1 tablet Orally Once a day for 90 day(s) Active Losartan Potassium 50 MG 1 tablet Orally Once a day for 90 day(s) Active Prevagen 10 MG as directed Orally [...] daily and 1 tablet at night Active Harrison 3 300 mg 1 capsule Orally Once [...] Information RESULTS No Results REASON FOR VISIT dizzy spells MEDICAL (GENERAL) HISTORY Type Description Date Medical History type 2 diabetes-- diet controlled Medical History hyperlipidemia Medical History Hypertension Medical History Esophageal reflux-- esophagram 08/03, ref luxed to thoracic inlet Medical History B12 Deficiency Diagnosed 10/2010 Medical History Benign-appearing esophageal stricture, Dilated on 02/20/2012; [place] on EGD 03/29, s/p Botox injections, s/p Heller myotomy 02/28 Medical History thoracic aortic aneurysm s/p repair [facility] 2012 Medical History severe UGI bleed 02/26, voss sferred [facility], had EGD Dr Rafiq Wise--AVMs found, tx with photocoag Medical History esoph dysfxn post-op aneurysm repair 05/18 3 Medical History Esophageal dilatation 11/27 Medical History AVR bioprosthetic 2012; echo CANNY 06/29 EF 65%, AV bioprosth function nl, LAE; [facility] notified pt 04/01 of (slight) risk of [...] History severe UGI bleed 02/26, voss sferred [facility], had EGD Dr Rafiq Wise--AVMs found, tx [...] No Information FUNCTIONAL STATUS No Information ASSESSMENTS No Information PLAN OF TREATMENT Medication Medication Name Sig [...] for 90 Next Appt Details Provider Name:Neri Siri, 2021-03 09:30:00 AM, [id number], , [place], [address], Insurance Providers Payer Name Payer Address Payer Phone Insured Name Patient Relati onship to Insured Coverage Start Date Coverage End Date [facility] [id number] [facility] [phone] [id number] NISHA FERGUSON [id number] MEDICARE Part A and B [address] [place] [phone] NISHA FERGUSON self
--- OUTSIDE RECORDS SUMMARY | 2021-02-05 10:39 | CCD | Continuity of Care Document ---
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 Exercise Type/Frequency Walks daily around t he [...] daily as needed Neri Horner MD 10/26/2015 [place] 3 1000mg Capsules 1 by mouth every [...] >60.0 Procedures Date Code Description Status 12/10/2020 16537 Chronic Care MGMT 20 Mins Clinical Staff Time Per Calendar Month Completed 11/16/2020 63540 Office/Outpatient Established Mo d MDM 30-39 Min Completed 11/16/2020 27979 ECG 12-Lead Completed 10/21/2020 80300 Chronic Care MGMT 20 Mins Clinical Staff Time Per Calendar Month Completed 10/21/2020 41230 Chronic Care Management Services Ea Addl 20 Min Completed 09/11/2020 70819 Chronic Care MGMT 20 Mins Clinical Staff Time Per Calendar Month Completed 07/30/2020 30712 Chronic Care MGMT 20 Mins Clinical Staff [...]
--- OUTSIDE RECORDS SUMMARY | 2021-02-05 10:39 | CCD | Continuity of Care Document ---
Author Author Jose G REGALADO MD Organization Unknown Address [address] [place] [address] Phone [phone] Care Team Providers Care Property Claims Adjuster Name Role Phone Neri Horner MD AUTM [phone] Problems Description No Active Problems Social History Type Date Description Comments Sex Unknown ETOH Use Occasionally consumes alcohol Recreational Drug Use Denies Drug Use Tobacco [...] mouth every day at bed time Unknown [place]-3 300mg Capsules qd Unknown Vitamin C 500mg [...] Information Available Procedures Date Code Description Status 11/16/2020 49480 Office/Outpatient Established Mo d MDM 30-39 Min Completed 11/16/2020 92039 X-Ray Hip Unilateral With Pelvis 2-3 Views Completed 11/16/2020 87631 Inject/Drain Joint/Bursa Major C ompleted Medical Devices Description No Information Available Encounters Type Date Location Provider Dx Diagnosis Office Visit 11/16/2020 1:45p [place] Viri Fontaine PA-C M7 0.62 Trochanteric bursitis, left hip G56.01 Carpal tunnel syndrome, righ t upper limb Z96.642 Presence of left artificial hip joint Assessments Date Code Description Provider 12/14/2020 G56.01 Carpal tunnel syndrome, right up per limb Maxwell Regaldao MD 11/16/2020 M70.62 Trochanteric bursitis, left hip Viri Fontaine PA-C 11/16/2020 G56.01 Carpal tunnel syndrome, right up per limb Viri Fontaine PA-C 11/16/2020 Z96.642 Presence of left artificial hip joint Viri Fontaine PA-C Plan of Treatment Future Appointment(s):* 12/24/2020 1:30 pm - Mary Reynolds MSPT at Physical Therapy 12/14/2020 - Maxwell Regalado MD* G56.01 Carpal tunnel syndrome, right upper limb * New Orders:* Surgery, Ordered: 12/14/20 * Follow up:* Post Op Functional Status Description No Information Available Mental Status Description No Information Available Referrals Description No Information Available
--- OUTSIDE RECORDS SUMMARY | 2021-02-05 10:39 | CCD | Continuity of Care Document ---
Author Author Jose G JETT M.D. Organization Unknown Address [address] [place] [address] Phone [phone] Care Team Providers Care Yarn Examiner Name Role Phone eNri Horner M.D. AUTM [phone] Problems Active Problems Provider Date Parkinson's disease [...] 1 tab 30-60 minutes prior to mri. 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 08/18/2017 Medrol 4mg TBPK [...] lb BMI (Body Mass Index) 24.4 kg/m2 [place] Body Weight 160 lb 10/20/2020 1:20pm Respiratory Rate 12 /min Height 69 inches 5'9" Weight 175.00 lb BMI (Body Mass Index) 25.8 kg/m2 [place] Body Weight 160 lb Results Description No Information Available Procedures Date Code Description Status 01/28/2021 57786 Office/Outpatient Established Mo d MDM 30-39 Min Completed 10/20/2020 33621 Phone Evaluation/Management Phys ician 11-20 Mins Completed Medical Devices Description No Information Available Encounters Type Date Location Provider Dx Diagnosis Office Visit 01/28/2021 2:30p [facility] office - [place] Stephen downing M.D. G20 Parkinson's disease Office Visit 10/20/2020 1:00p [facility] - [place] Stephen downing M.D. G20 Parkinson's disease Assessments Date Code Description Provider 01/28/2021 G20 Parkinson's disease Stephen downing M.D. 10/20/2020 G20 Parkinson's disease Stephen downing M.D. Plan of Treatment Future Appointment(s):* 05/17/2021 10:45 am - Stephen Jett M.D. at [facility] * 02/17/2021 11:45 am - Ans/VS at [facility] * 03/08/2021 1:00 pm - EEG at Main office - [place] Functional Status Description No Information Available Mental Status Description No Information Available Referrals Description No Information Available
--- OUTSIDE RECORDS SUMMARY | 2021-02-05 10:39 | CCD | Continuity of Care Document ---
Author Author Jose G JETT M.D. Organization Unknown Address [address] [place] [address] Phone [phone] Care Team Providers Care Sleeping Car Conductor Name Role Phone Neri Horner M.D. AUTM [phone] Problems Active Problems Provider Date Parkinson's disease [...] 1 tab 30-60 minutes prior to mri. venetian blind machine operator reference #: [id number] 1keysha Jett M.D. 08/18/2017 Medrol 4mg TBPK [...] lb BMI (Body Mass Index) 24.4 kg/m2 [place] Body Weight 160 lb 10/20/2020 1:20pm Respiratory Rate 12 /min Height 69 inches 5'9" Weight 175.00 lb BMI (Body Mass Index) 25.8 kg/m2 [place] Body Weight 160 lb Results Description No Information Available Procedures Date Code Description Status 01/28/2021 81453 Office/Outpatient Established Mo d MDM 30-39 Min Completed 10/20/2020 31978 Phone Evaluation/Management Phys ician 11-20 Mins Completed Medical Devices Description No Information Available Encounters Type Date Location Provider Dx Diagnosis Office Visit 01/28/2021 2:30p [facility] office - [place] Stephen downing M.D. G20 Parkinson's disease Office Visit 10/20/2020 1:00p [facility] [place] Stephen downing M.D. G20 Parkinson's disease Assessments Date Code Description Provider 01/28/2021 G20 Parkinson's disease Stephen downing M.D. 10/20/2020 G20 Parkinson's disease Stephen downing M.D. Plan of Treatment Future Appointment(s):* 05/17/2021 10:45 am - Stephen Jett M.D. at [facility] * 02/17/2021 11:45 am - Ans/VS at [facility] * 03/08/2021 1:00 pm - EEG at Main office - [place] Functional Status Description No Information Available Mental Status Description No Information Available Referrals Description No Information Available
--- OUTSIDE RECORDS SUMMARY | 2021-02-05 10:39 | CCD | Continuity of Care Document ---
Author Author Joes G REGALADO MD Organization Unknown Address [address] [place] [address] Phone [phone] Care Team Providers Care Computer Numerical Control Programmer Name Role Phone Neri Horner MD AUTM [phone] Problems Description No Active Problems Social History [...] mouth every day at bed time Unknown [place]-3 300mg Capsules qd Unknown Vitamin C 500mg [...] Available Procedures Date Code Description Status 11/16/2020 36692 Office/Outpatient Established Mo d MDM 30-39 Min Completed 11/16/2020 14728 X-Ray Hip Unilateral With Pelvis 2-3 Views Completed 11/16/2020 90706 Inject/Drain Joint/Bursa Major C ompleted Medical Devices Description No Information Available Encounters Type Date Location Provider Dx Diagnosis Office Visit 11/16/2020 1:45p [place] Viri Fontaine PA-C M7 0.62 Trochanteric bursitis, [...]
--- OUTSIDE RECORDS SUMMARY | 2021-02-05 10:39 | CCD | Continuity of Care Document ---
Author Author Jose G GOMEZ Organization Unknown Address [address] [place] [address] Phone [phone] Care Team Providers Care Monorail Crane Operator Name Role Phone Neri Horner M.D. AUTM [phone] Problems Active Problems Provider Date Parkinson's disease [...] 1 tab 30-60 minutes prior to mri. 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 08/18/2017 Medrol 4mg TBPK [...] lb BMI (Body Mass Index) 24.4 kg/m2 [place] Body Weight 160 lb 10/20/2020 1:20pm Respiratory Rate 12 /min Height 69 inches 5'9" Weight 175.00 lb BMI (Body Mass Index) 25.8 kg/m2 [place] Body Weight 160 lb Results Description No Information Available Procedures Date Code Description Status 01/28/2021 69855 Office/Outpatient Established Mo d MDM 30-39 Min Completed 10/20/2020 62001 Phone Evaluation/Management Phys ician 11-20 Mins Completed Medical Devices Description No Information Available Encounters Type Date Location Provider Dx Diagnosis Office Visit 01/28/2021 2:30p Main office - [place] Stephen downing M.D. G20 Parkinson's disease Office Visit 10/20/2020 1:00p [facility] [place] Stephen downing M.D. G20 Parkinson's disease Assessments Date Code Description Provider 01/28/2021 G20 Parkinson's disease Stephen downing M.D. 10/20/2020 G20 Parkinson's disease Stephen downing M.D. Plan of Treatment Future Appointment(s):* 05/17/2021 10:45 am - Stephen Tracey M.D. at [facility] office [facility] * 02/17/2021 11:45 am - Ans/VS at [facility] Functional Status Description No Information Available Mental Status Description No Information Available Referrals Description No Information Available
--- OUTSIDE RECORDS SUMMARY | 2021-02-05 10:39 | CCD | Continuity of Care Document ---
Author Author Jose G MCGARRY MSPT Organization Unknown Address [address] [place] [address] Phone [phone] Care Team Providers Care Physics Technical Officer Name Role Phone Neri Horner MD AUTM [phone] Problems Description No Active Problems Social History [...] mouth every day at bed time Unknown [place]-3 300mg Capsules qd Unknown Vitamin C 500mg [...] Test Result H/L Range Note Order 12/15/2020 [facility] [address] [facility] [address] [place] [address] Surgery <pending> Procedures Date Code Description Status 12/14/2020 29283 Office/Outpatient Established Lo w MDM 20-29 Min Completed 11/16/2020 39749 Office/Outpatient Established Mo d MDM 30-39 Min Completed 11/16/2020 80351 X-Ray Hip Unilateral With Pelvis 2-3 Views Completed 11/16/2020 76944 Inject/Drain Joint/Bursa Major C ompleted Medical Devices Description No Information Available Encounters Type Date Location Provider Dx Diagnosis Office Visit 11/16/2020 1:45p [place] Viri Fontaine PA-C M7 0.62 Trochanteric bursitis, [...] Fontaine PA-C Plan of Treatment Future Appointment(s):* 12/29/2020 1:00 pm - Dia Ryan, COMMUNITY DEVELOPMENT SPECIALIST at Physical Therapy Functional Status Description No Information Available Mental Status Description No Information Available Referrals Refer to Dr Reason for Referral Status Appt Date Maxwell Solis MD Physical Therapy Right Knee per bill w at [facility] no auth req, after 25 visits pre d is recommended for medical necessity, patient is going to [facility] passed to pt dept sw. Created [address] [place] [address] [phone] Maxwell Solis MD Physical Therapy Right Knee per bill w at [facility] no auth req, after 25 visits pre d is recommended for medical necessity, patient is going to [facility] passed to pt dept sw. Created [address] [place] [address] [phone] Maxwell Solis MD SURGERY PER [place] AT [facility] NO AUTH REQUIRED FOR ULNAR NERVE AND CTR([id number] & [id number]) TO SURGERY NT CALL REF #[id number] Created [address] [place] [address] [phone] Maxwell Solis MD SURGERY NO AUTH REQUIRED FOR RT ULNAR NERVE AND CTR([id number] & [id number]) TO SURGERY NT Created [address] [place] [address] [phone]
--- OUTSIDE RECORDS SUMMARY | 2021-02-05 10:39 | CCD | Continuity of Care Document ---
Author Author Jose G FONTAINE PA-C Organization Unknown Address [address] [place] [address] Phone [phone] Care Team Providers Care Valve Maker Name Role Phone Neri Horner MD AUTM [phone] Problems Description No Active Problems Social History Type Date Description Comments Sex Unknown ETOH Use Occasionally consumes alcohol Recreational Drug Use Denies Drug Use Tobacco Use Start: Unknown End: Unknown Patient is a former smoker Allergies, Adverse Reactions, Alerts Active Allergies Criticality Reaction | Severity Comments Date Latex Unable to assess criticality 09/03/2014 NSAIDs Unable to assess criticality 07/13/2015 Medications Active Medications SIG Qnty Indications Ordering Provide r Date Tramadol HCL 50mg Tablets 1 every 4-6 hours as needed pain 60tabs M70.62 Radha Zamarripa MD 10/16 Bactroban Nasal 2% Ointment apply to each nostril three times a day for 5days 3gm Rocky antunez MD 09/19/2017 Hibiclens 4% Liquid hibiclens scrub apply daily to skin for 5 days in shower or bath 4oz Rishi Anglin MD 09/19/2017 Voltaren 1% Gel apply to affected area three times a day Unknown Tizanidine HCL 2mg Tablets one tab by mouth every 6 hours as needed Unknown Sinemet CR 25-100mg Tablets ER 1.5 tabs for 2 weeks then 1 tab tid Unknown Azilect 1mg Tablets take 1 tablet every morning Unknown Ciclopirox Olamine 0.77% Cream apply to groin twice a day Unknown [place]-3 300mg Capsules qd Unknown Vitamin C 500mg Capsules 1 by mouth every day Unknown Vitamin D3 2000Unit [place] qd Unknown Glucosamine Chondroitin 1500 Complex 1500Com Capsules every day Unknown Benadryl 25mg Tablets by mouth at bedtime as needed for sleep Unknown Valsartan 40mg Tablets 1 by mouth every day Unknown Oxycodone-Acetaminophen 5-325mg Ta blets 1- 2 q4hrs. as needed for pain Unknown Aspirin 81mg Tablets DR 1 by mouth every day Unknown Flomax 0.4mg Capsules 2 ca ps at bedtime Unknown Proscar 5mg Tablets 1 by mouth every day Unknown Lidoderm 5% Patches use as directed on 12 hours off 12 hours up to 3 patches a day Unknown colace 100mg Capsules 2 caps daily Unknown Magnesium 400mg Capsules 1 tab every day Unknown Multi Vitamin Daily Tablets 1 every day Unknown Tessalon [place] 100mg Capsules 1 capsule prn orally four times a day Unknown Vitamin B 12 Injectable im m onthly Unknown Pravastatin Sodium 40mg Tablets 1 by mouth every day at bed time Unknown Immunizations Description No Information Available Vital [...] Available Procedures Date Code Description Status 11/16/2020 88352 Office/Outpatient Established Mo d MDM 30-39 Min Completed 11/16/2020 81549 X-Ray Hip Unilateral With Pelvis 2-3 Views Completed 11/16/2020 39776 Inject/Drain Joint/Bursa Major C ompleted Medical Devices Description No Information Available Encounters Type Date Location Provider Dx Diagnosis Office Visit 11/16/2020 1:45p [place] Viri Fontaine PA-C M7 0.62 Trochanteric bursitis, left hip G56.01 Carpal tunnel syndrome, righ t upper limb Z96.642 Presence of left artificial hip joint Assessments Date Code Description Provider 11/16/2020 M70.62 Trochanteric bursitis, left hip Viri Fontaine PA-C 11/16/2020 G56.01 Carpal tunnel syndrome, right up per limb Viri Fontaine PA-C 11/16/2020 Z96.642 Presence of left artificial hip joint Viri Fontaine PA-C Plan of Treatment Future Appointment(s):* 12/14/2020 2:45 pm - Maxwell Solis MD at [place] 11/16/2020 - Viri Fontaine PA-C* M70.62 Trochanteric bursitis, left hip * G56.01 Carpal tunnel syndrome, right upper limb* Follow up:* with [facility] for surg eval * Z96.642 Presence of left artificial hip joint Functional Status Description No Information Available Mental Status Description No Information Available Referrals Description No Information Available
--- OUTSIDE RECORDS SUMMARY | 2021-02-05 10:39 | CCD | Continuity of Care Document ---
Author Author Jose G REYNOLDS MSPT Organization Unknown Address [address] [place] [address] Phone [phone] Care Team Providers Care Aircraft Accessories Mechanic Name Role Phone Neri Horner MD AUTM [phone] Problems Description No Active Problems Social History [...] mouth every day at bed time Unknown [place]-3 300mg Capsules qd Unknown Vitamin C 500mg [...] Available Procedures Date Code Description Status 12/29/2020 11256 Manual Therapy Each 15 Minutes C ompleted 12/29/2020 60450 Therapeutic Procedure, Each 15 M inutes Completed 12/24/2020 79466 Physical Therapy Eval - Mod Comp lexity Completed 12/14/2020 29004 Office/Outpatient Established Lo w MDM 20-29 Min Completed 11/16/2020 98605 Office/Outpatient Established Mo d MDM 30-39 Min Completed 11/16/2020 64781 X-Ray Hip Unilateral With Pelvis 2-3 Views Completed 11/16/2020 71441 Inject/Drain Joint/Bursa Major C ompleted Medical Devices Description No Information Available Encounters Type Date Location Provider Dx Diagnosis Office Visit 11/16/2020 1:45p Franny Fontaine PA-C M7 0.62 Trochanteric bursitis, left hip G56.01 Carpal tunnel syndrome, righ t upper limb Z96.642 Presence of left artificial hip joint Assessments Date Code Description Provider 12/29/2020 M54.5 Low back pain Dia Aguilareileen Merritt er, [employer] 12/24/2020 M54.5 Low back pain Mary Reynolds [...] Therapy Right Knee per bill w at [facility] no auth req, after 25 visits pre d is recommended for medical necessity, patient is going to [facility] passed to pt dept sw. Created [address] [place] [address] [phone] Maxwell Solis MD Physical Therapy Right Knee per bill w at [facility] no auth req, after 25 visits pre d is recommended for medical necessity, patient is going to [facility] passed to pt dept sw. Created [address] [place] [address] [phone] Maxwell Solis MD SURGERY PER [place] AT [facility] NO AUTH REQUIRED FOR ULNAR NERVE AND CTR([id number] & [id number]) TO SURGERY NT CALL REF #[id number] Created [address] [place] [address] [phone] Maxwell Solis MD SURGERY NO AUTH REQUIRED FOR RT ULNAR NERVE AND CTR([id number] & [id number]) TO SURGERY NT Created [address] [place] [address] [phone]
--- OUTSIDE RECORDS SUMMARY | 2021-02-05 10:40 | CCD | Continuity of Care Document ---
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 Name Role Phone Neri Horner MD AUTM [phone] Jose G Harrell MD AUTM [phone] [employer] [facility]M [phone] Problems Description No Information Available Social History Type Date Description Comments Sex Unknown ETOH Use Occasionally consumes alcohol Tobacco Use Start: Unknown No Smoking Status Reviewed: 11/26/20 No Allergies, Adverse Reactions, Alerts Description No Known Drug Allergies Medications Active Medications SIG Qnty Indications Ordering Provide r Date Proair HFA 108(90Base) mcg/Act Aer osol 2 puffs by mouth inhaled every 4-6 hours as needed for wheezing 8.500gm J20.9 King Thorpe JR., M.D. 11/26/2020 Doxycycline Monohydrate 100mg Caps ules 1 tab by mouth twice a day x10 days 20caps J20.9 King boogie JR., M.D. 11/26/2020 Mupirocin 2% Ointment aaa twice a day to the rash in genital area for 10 days 1units L30.9 King Thorpe JR., M.D. 11/11/2020 Azilect Unknown Voltaren 1% Gel apply 4 grams to affected left knee every 6 hours as needed for pain Unkno wn Eq Omeprazole Unknown Vitamin B12 TR 1000mcg Tablets ER every day Unknown Carbidopa-Levodopa 25-100mg Tablet s Take 1 1 2 Tablets By Mouth Three Times A Day Unknown Pravastatin Sodium 40mg Tablets Take One Tablet By Mouth AT Bedtime Unknown Quetiapine Fumarate 50mg Tablets Take One Tablet By Mouth Before Bedtime/prn Unknown Losartan Potassium 50mg Tablets Take One Tablet By Mouth Once A Day Unknown Metoprolol Succinate ER Unknown 0 Arthritis Pain 650mg Tablets ER 2 qhs Unknown Colace 100mg Capsules a day Unknown Aspir-[address] qd Unknown Lidoderm 5% Patches 1 apply to affected area daily back pain/prn 30units Unknown 000 Proscar 5mg Tablets OD Unknown Flomax 0.4mg Caps ER 24HR Unknown Immunizations Description No Information Available Vital Signs Date Vital Result Comment 11/26/2020 9:21am BP Systolic 116 mmHg BP Diastolic 64 mmHg Heart Rate 74 /min Respiratory Rate 14 /min O2 % BldC Oximetry 96 % Body Temperature 97.8 F Weight 172.00 lb Height 69 inches 5'9" BMI (Body Mass Index) 25.4 kg/m2 Pain Level 7 11/11/2020 12:06pm BP Systolic 138 mmHg BP Diastolic 71 mmHg Heart Rate 70 /min Respiratory Rate 13 /min O2 % BldC Oximetry 98 % Body Temperature 97.2 F Weight 172.00 lb Height 69 inches 5'9" BMI (Body Mass Index) 25.4 kg/m2 Pain Level 2 Results Description No Information Available Procedures Date Code Description Status 11/26/2020 63918 Office/Outpatient Established Lo w MDM 20-29 Min Completed 11/11/2020 81226 Office/Outpatient Established Lo w MDM 20-29 Min Completed Medical Devices Description No Information Available Encounters Type Date Location Provider Dx Diagnosis Office Visit 11/26/2020 8:45a Main Office CARLIE Pandey J20.9 Acute bronchitis, unspecified Z20.828 Contact w and exposure to ot h viral communicable diseases Office Visit 11/11/2020 1:15p Main Office CARLIE Almanza L30 .9 Dermatitis, unspecified Assessments Date Code Description Provider 11/26/2020 J20.9 Acute bronchitis, unspecified Re CARLIE Demarco 11/26/2020 Z20.828 Contact with and (kang spected) exposure to other viral communicable diseases CARLIE Pandey 11/11/2020 L30.9 Dermatitis, unspecified CARLIE Almanza Plan of Treatment 11/26/2020 - CARLIE Pandey* J20.9 Acute bronchitis, unspecified* New Medication:* Doxycycline Monohydrate 100 mg - 1 tab by mouth twice a day x10 days * Proair HFA 108(90 Base) mcg/Act - 2 puffs by mouth inhaled every 4-6 hours as needed for wheezing * Z20.828 Contact with and (suspected) exposure to other viral communicable diseases Functional Status Description No Information Available Mental Status Description No Information Available Referrals Description No Information Available
--- OUTSIDE RECORDS SUMMARY | 2021-02-05 10:40 | CCD ---
Author Author [facility] Organization [facility] Address Unknown Phone Unavailable Care Team Providers Care Land Reclamation Specialist Name Role Phone Heard, Radha TEST ENGINE EVALUATOR Unavailable Unavailable Heard, Radha TEST ENGINE EVALUATOR Unavailable Unavailable Heard, Radha TEST ENGINE EVALUATOR Unavailable Unavailable Heard, Radha TEST ENGINE EVALUATOR Unavailable Unavailable Heard, Radha TEST ENGINE EVALUATOR Unavailable Unavailable Heard, Radha TEST ENGINE EVALUATOR Unavailable Unavailable Heard, Radha TEST ENGINE EVALUATOR Unavailable Unavailable Heard, Radha TEST ENGINE EVALUATOR Unavailable Unavailable Heard, Radha TEST ENGINE EVALUATOR Unavailable Unavailable Heard, Radha TEST ENGINE EVALUATOR Unavailable Unavailable Heard, Radha TEST ENGINE EVALUATOR Unavailable Unavailable Heard, Radha TEST ENGINE EVALUATOR Unavailable Unavailable Heard, Radha TEST ENGINE EVALUATOR Unavailable Unavailable Jacques CIFUENTES MD Unavailable Unavailable Jacques CIFUENTES MD Unavailable Unavailable Jacques CIFUENTES MD Unavailable Unavailable Jacques CIFUENTES MD Unavailable Unavailable Jacques CIFUENTES MD Unavailable Unavailable Jacques CIFUENTES MD Unavailable Unavailable Jacques CIFUENTES MD Unavailable Unavailable Jacques CIFUENTES MD Unavailable Unavailable Jacques CIFUENTES MD Unavailable Unavailable Jacques CIFUENTES MD Unavailable Unavailable Jacques CIFUENTES MD Unavailable Unavailable Jacques CIFUENTES MD Unavailable Unavailable Jacques CIFUENTES MD Unavailable Unavailable Jacques CIFUENTES MD Unavailable Unavailable CIFUENTESJacques MD Unavailable Unavailable CIFUENTES E NISHA LEONG Unavailable Unavailable CIFUENTES E NISHA LEONG Unavailable Unavailable CIFUENTES E NISHA LEONG Unavailable Unavailable CIFUENTES E NISHA LEONG Unavailable Unavailable CIFUENTES E NISHA LEONG Unavailable Unavailable CIFUENTES E NISHA LEONG Unavailable Unavailable CIFUENTES E NISHA LEONG Unavailable Unavailable CIFUENTES E NISHA LEONG Unavailable Unavailable CIFUENTES E NISHA LEONG Unavailable Unavailable CIFUENTES E NISHA LEONG Unavailable Unavailable CIFUENTES E NISHA LEONG Unavailable Unavailable CIFUENTES E NISHA LEONG Unavailable Unavailable CIFUENTES E NISHA LEONG Unavailable Unavailable CIFUENTES E NISHA LEONG Unavailable Unavailable CIFUENTES E NISHA LEONG Unavailable Unavailable CIFUENTES E NISHA LEONG Unavailable Unavailable CIFUENTES E NISHA LEONG Unavailable Unavailable CIFUENTES E NISHA LEONG Unavailable Unavailable CIFUENTES E NISHA LEONG Unavailable Unavailable CIFUENTES, E NISHA LEONG Unavailable Unavailable CIFUENTES, E NISHA LEONG Unavailable Unavailable CIFUENTES, E NISHA LEONG Unavailable Unavailable CIFUENTES, E NISHA LEONG Unavailable Unavailable CIFUENTES, E NISHA LEONG Unavailable Unavailable CIFUENTES, E NISHA LEONG Unavailable Unavailable CIFUENTES, E NISHA LEONG Unavailable Unavailable CIFUENTES, E NISHA LEONG Unavailable Unavailable CIFUENTES, E NISHA LEONG Unavailable Unavailable CIFUENTES E NISHA LEONG Unavailable Unavailable CIFUENTES E NISHA LEONG Unavailable Unavailable CIFUENTES E NISHA LEONG Unavailable Unavailable CIFUENTES E NISHA LEONG Unavailable Unavailable CIFUENTES E NISHA LEONG Unavailable Unavailable CIFUENTES E NISHA LEONG Unavailable Unavailable CIFUENTES, E NISHA LEONG Unavailable Unavailable CIFUENTES, E NISHA LEONG Unavailable Unavailable CIFUENTES, E NISHA LEONG Unavailable Unavailable CIFUENTES E NISHA LEONG Unavailable Unavailable CIFUENTES E NISHA LEONG Unavailable Unavailable Symenow, Filomena Iliana PA Unavailable Unavailable Symenow, Filomena Iliana PA Unavailable Unavailable Symenow, Filomena Iliana PA Unavailable Unavailable Symenow, Filomena Iliana PA Unavailable Unavailable Symenow, Filomena Iliana PA Unavailable Unavailable Symenow, Filomena Iliana PA Unavailable Unavailable Symenow, Filomena Iliana PA Unavailable Unavailable Symenow, Filomena Iliana PA Unavailable Unavailable Symenow, Filomena Iliana PA Unavailable Unavailable Symenow, Filomena Iliana PA Unavailable Unavailable Symenow, Filomena Iliana PA Unavailable Unavailable Symenow, Filomena Iliana PA Unavailable Unavailable Symenow, Filomena Iliana PA Unavailable Unavailable Symenow, Filomena Iliana PA Unavailable Unavailable Symenow, Filomena Iliana PA Unavailable Unavailable Symenow, Filomena Iliana PA Unavailable Unavailable Symenow, Filomena Iliana PA Unavailable Unavailable Symenow, Filomena Iliana PA Unavailable Unavailable Symenow, Filomena Iliana PA Unavailable Unavailable Symenow, Filomena Iliana PA Unavailable Unavailable Symenow, Filomena Iliana PA Unavailable Unavailable Symenow, Filomena Iliana PA Unavailable Unavailable Symenow, Filomena Iliana PA Unavailable Unavailable Symenow, Filomena Iliana PA Unavailable Unavailable Symenow, Filomena Iliana PA Unavailable Unavailable Symenow, Filomena Iliana PA Unavailable Unavailable Symenow, Filomena Iliana PA Unavailable Unavailable Symenow, Filomena Iliana PA Unavailable Unavailable Symenow, Filomena Iliana PA Unavailable Unavailable Symenow, Filomena Iliana PA Unavailable Unavailable Symenow, Filomena Iliana PA Unavailable Unavailable Symenow, Filomena Iliana PA Unavailable Unavailable Symenow, Filomena Iliana PA Unavailable Unavailable Symenow, Filomena Iliana PA Unavailable Unavailable LETTIERE, A RAMESH PA Unavailable Unavailable LETTIERE, A RAMESH PA Unavailable Unavailable LETTIERE, A RAMESH PA Unavailable Unavailable LETTIERE, A RAMESH PA Unavailable Unavailable LETTIERE, A RAMESH PA Unavailable Unavailable LETTIERE, A RAMESH PA Unavailable Unavailable LETTIERE, A RAMESH PA Unavailable Unavailable LETTIERE, A RAMESH PA Unavailable Unavailable LETTIERE, A RAMESH PA Unavailable Unavailable LETTIERE, A RAMESH PA Unavailable Unavailable LETTIERE, A RAMESH PA Unavailable Unavailable LETTIERE, A RAMESH PA Unavailable Unavailable LETTIERE, A RAMESH PA Unavailable Unavailable LETTIERE, A RAMESH PA Unavailable Unavailable LETTIERE, A RAMESH PA Unavailable Unavailable LETTIERE, A RAMESH PA Unavailable Unavailable LETTIERE, A RAMESH PA Unavailable Unavailable LETTIERE, A RAMESH PA Unavailable Unavailable LETTIERE, A RAMESH PA Unavailable Unavailable LETTIERE, A RAMESH PA Unavailable Unavailable LETTIERE, A RAMESH PA Unavailable Unavailable LETTIERE, A RAMESH PA Unavailable Unavailable LETTIERE, A RAMESH PA Unavailable Unavailable LETTIERE, A RAMESH PA Unavailable Unavailable LETTIERE, A RAMESH PA Unavailable Unavailable LETTIERE, A RAMESH PA Unavailable Unavailable LETTIERE, A RAMESH PA Unavailable Unavailable LETTIERE, A RAMESH PA Unavailable Unavailable LETTIERE, A RAMESH PA Unavailable Unavailable LETTIERE, A RAMESH PA Unavailable Unavailable LETTIERE, A RAMESH PA Unavailable Unavailable Padalino, Nisha Garcia MD Unavailable Unavailable Padalino, Nisha Garcia MD Unavailable Unavailable Padalino, Nisha Garcia MD Unavailable Unavailable Padalino, Nisha Garcia MD Unavailable Unavailable Padalino, Nisha Garcia MD Unavailable Unavailable Padalino, Nisha Garcia MD Unavailable Unavailable Padalino, Nisha Garcia MD Unavailable Unavailable Padalino, Nisha Garcia MD Unavailable Unavailable Padalino, Nisha Garcia MD Unavailable Unavailable Padalino, Nisha Garcia MD Unavailable Unavailable Padalino, Nisha Garcia MD Unavailable Unavailable Padalino, Nisha Garcia MD Unavailable Unavailable Padalino, Nisha Garcia MD Unavailable Unavailable Padalino, Nisha Garcia MD Unavailable Unavailable Padalino, Nisha Garcia MD Unavailable Unavailable Padalino, Nisha Garcia MD Unavailable Unavailable Padalino, Nisha Garcia MD Unavailable Unavailable Padalino, Nisha Garcia MD Unavailable Unavailable Padalino, Nisha Garcia MD Unavailable Unavailable Padalino, Nisha Garcia MD Unavailable Unavailable Padalino, Nisha Garcia MD Unavailable Unavailable Padalino, Nisha Garcia MD Unavailable Unavailable Padalino, Nisha Garcia MD Unavailable Unavailable Padalino, Nisha Garcia MD Unavailable Unavailable Padalino, Nisha Garcia MD Unavailable Unavailable Padalino, Nisha Garcia MD Unavailable Unavailable Padalino, Nisha Garcia MD Unavailable Unavailable Padalino, Nisha Garcia MD Unavailable Unavailable Padalino, Nisha Garcia MD Unavailable Unavailable Padalino, Nisha Garcia MD Unavailable Unavailable Padalino, Nisha Garcia MD Unavailable Unavailable Padalino, Nisha Garcia MD Unavailable Unavailable Padalino, Nisha Garcia MD Unavailable Unavailable Padalino, Nisha Garcia MD Unavailable Unavailable Padalino, Nisha Garcia MD Unavailable Unavailable Padalino, Nisha Garcia MD Unavailable Unavailable Padalino, Nisha Garcia MD Unavailable Unavailable Padalino, Nisha Garcia MD Unavailable Unavailable Padalino, Nisha Garcia MD Unavailable Unavailable Padalino, Nisha Garcia MD Unavailable Unavailable Padalino, Nisha Garcia MD Unavailable Unavailable Padalino, Nisha Garcia MD Unavailable Unavailable Padalino, Nisha Garcia MD Unavailable Unavailable Padalino, Nisha Garcia MD Unavailable Unavailable Padalino, Nisha Garcia MD Unavailable Unavailable Padalino, Nisha Garcia MD Unavailable Unavailable Padalino, Nisha Garcia MD Unavailable Unavailable Padalino, Nisha Garcia MD Unavailable Unavailable Padalino, Nisha Garcia MD Unavailable Unavailable Padalino, Nisha Garcia MD Unavailable Unavailable Padalino, Nisha Garcia MD Unavailable Unavailable Padalino, Nisha Garcia MD Unavailable Unavailable Padalino, Nisha Garcia MD Unavailable Unavailable Padalino, Nisha Garcia MD Unavailable Unavailable Padalino, Nisha Garcia MD Unavailable Unavailable Padalino, Nisha Garcia MD Unavailable Unavailable Padalino, Nisha Garcia MD Unavailable Unavailable Padalino, Nisha Garcia MD Unavailable Unavailable Padalino, Nisha Garcia MD Unavailable Unavailable Padalino, Nisha Garcia MD Unavailable Unavailable Padalino, Nisha Garcia MD Unavailable Unavailable Padalino, Nisha Garcia MD Unavailable Unavailable Padalino, Nisha Garcia MD Unavailable Unavailable Padalino, Nisha Garcia MD Unavailable Unavailable Padalino, Nisha Garcia MD Unavailable Unavailable Padalino, Nisha Garcia MD Unavailable Unavailable Padalino, Nisha Garcia MD Unavailable Unavailable Padalino, Nisha Garcia MD Unavailable Unavailable Padalino, Nisha Garcia MD Unavailable Unavailable Padalino, Nisha Garcia MD Unavailable Unavailable Padalino, Nisha Garcia MD Unavailable Unavailable Padalino, Nisha Garcia MD Unavailable Unavailable Padalino, Nisha Garcia MD Unavailable Unavailable Padalino, Nisha Garcia MD Unavailable Unavailable Padalino, Nisha Garcia MD Unavailable Unavailable Padalino, Nisha Garcia MD Unavailable Unavailable Padalino, Nisha Garcia MD Unavailable Unavailable Fontaine, M Barratt PA Unavailable Unavailable Fontaine, M Barratt PA Unavailable Unavailable Fontaine, M Barratt PA Unavailable Unavailable Fontaine, M Barratt PA Unavailable Unavailable Fontaine, M Barratt PA Unavailable Unavailable Fontaine, M Barratt PA Unavailable Unavailable Fontaine, M Barratt PA Unavailable Unavailable Fontaine, M Barratt PA Unavailable Unavailable Fontaine, M Barratt PA Unavailable Unavailable Fontaine, M Barratt PA Unavailable Unavailable Fontaine, M Barratt PA Unavailable Unavailable Fontaine, M Barratt PA Unavailable Unavailable Fontaine, M Barratt PA Unavailable Unavailable Fontaine, M Barratt PA Unavailable Unavailable Fontaine, M Barratt PA Unavailable Unavailable Fontaine, M Barratt PA Unavailable Unavailable Fontaine, M Barratt PA Unavailable Unavailable Fontaine, M Barratt PA Unavailable Unavailable Fontaine, M Barratt PA Unavailable Unavailable Fontaine, M Barratt PA Unavailable Unavailable Fontaine, M Barratt PA Unavailable Unavailable Fontaine, M Barratt PA Unavailable Unavailable Fontaine, M Barratt PA Unavailable Unavailable Fontaine, M Barratt PA Unavailable Unavailable Fontaine, M Barratt PA Unavailable Unavailable Fontaine, M Barratt PA Unavailable Unavailable Fontaine, M Barratt PA Unavailable Unavailable Fontaine, M Barratt PA Unavailable Unavailable Fontaine, M Barratt PA Unavailable Unavailable Chevy Tracey MD Unavailable Unavailable Chevy Tracey MD Unavailable Unavailable Chevy Tracey MD Unavailable Unavailable Chevy Tracey MD Unavailable Unavailable Chevy Tracey MD Unavailable Unavailable Chevy Tracey MD Unavailable Unavailable Chevy Tracey MD Unavailable Unavailable Chevy Tracey MD Unavailable Unavailable Kyung O Charlieah Unavailable Unavailable Chevy Tracey MD Unavailable Unavailable Chevy Tracey MD Unavailable Unavailable Chevy Tracey MD Unavailable Unavailable Chevy Tracey MD Unavailable Unavailable Chevy Tracey MD Unavailable Unavailable Chevy Tracey MD Unavailable Unavailable Chevy Tracey MD Unavailable Unavailable Chevy Tracey MD Unavailable Unavailable Chevy Tracey MD Unavailable Unavailable Chevy Tracey MD Unavailable Unavailable Chevy Tracey MD Unavailable Unavailable Chevy Tracey MD Unavailable Unavailable Chevy Tracey MD Unavailable Unavailable Chevy Tracey MD Unavailable Unavailable Chevy Tracey MD Unavailable Unavailable Chevy Tracey MD Unavailable Unavailable Chevy Tracey MD Unavailable Unavailable Chevy Tracey MD Unavailable Unavailable Chevy Tracey MD Unavailable Unavailable Chevy Tracey MD Unavailable Unavailable Chevy Tracey MD Unavailable Unavailable Chevy Tracey MD Unavailable Unavailable Chevy Tracey MD Unavailable Unavailable Chevy Tracey MD Unavailable Unavailable Chevy Tracey MD Unavailable Unavailable Chevy Tracey MD Unavailable Unavailable Chevy Tracey MD Unavailable Unavailable hCevy Tracey MD Unavailable Unavailable Chevy Tracey MD Unavailable Unavailable Chevy Tracey MD Unavailable Unavailable Chevy Tracey MD Unavailable Unavailable Chevy Tracey MD Unavailable Unavailable Chevy Tracey MD Unavailable Unavailable Chevy Tracey MD Unavailable Unavailable Chevy Tracey MD Unavailable Unavailable Chevy Tracey MD Unavailable Unavailable Chevy Tracey MD Unavailable Unavailable Kyung O Stephen LEONG Unavailable Unavailable KyungChevy guardado MD Unavailable Unavailable Chevy Tracey Samah Unavailable Unavailable Chevy Tracey MD Unavailable Unavailable Chevy Tracey Samsurekha LEONG Unavailable Unavailable Chevy Traceyah Unavailable Unavailable Kyung, O Charlieah Unavailable Unavailable Kyung, O Samah Unavailable Unavailable Kyung, O Samah Unavailable Unavailable Kyung O Charlieah Unavailable Unavailable Kyung O Samah Unavailable Unavailable Kyung, O Samah Unavailable Unavailable Kyung O Samah Unavailable Unavailable Kyung, O Samah Unavailable Unavailable Kyung O Samah Unavailable Unavailable Kyung O Samah Unavailable Unavailable Chevy Traceyah Unavailable Unavailable Kyung O Charlieah Unavailable Unavailable Kyung O Charlieah Unavailable Unavailable Kyung O Charlieah Unavailable Unavailable Chevy Tracey MD Unavailable Unavailable Kyung O Stephen LEONG Unavailable Unavailable Chevy Traceyah Unavailable Unavailable Chevy Tracey MD Unavailable Unavailable Chevy Traceyah Unavailable Unavailable Chevy Traceyah Unavailable Unavailable Chevy Tracey MD Unavailable Unavailable Chevy Traceyah Unavailable Unavailable Chevy Traceyah Unavailable Unavailable Chevy Traceyah Unavailable Unavailable Kyung O Charlieah Unavailable Unavailable Kyung O Charlieah Unavailable Unavailable Kyung O Stephen LEONG Unavailable Unavailable RING, K FERCHO PA Unavailable Unavailable RING, K FERCHO PA Unavailable Unavailable RING, K FERCHO PA Unavailable Unavailable RING, K FERCHO PA Unavailable Unavailable RING, K FERCHO PA Unavailable Unavailable RING, K FERCHO PA Unavailable Unavailable RING, K FERCHO PA Unavailable Unavailable RING, K FERCHO PA Unavailable Unavailable RING, K FERCHO PA Unavailable Unavailable RING, K FERCHO PA Unavailable Unavailable RING, K FERCHO PA Unavailable Unavailable RING, K FERCHO PA Unavailable Unavailable RING, K FERCHO PA Unavailable Unavailable RING, K FERCHO PA Unavailable Unavailable RING, K FERCHO PA Unavailable Unavailable RING, K FERCHO PA Unavailable Unavailable RING, K FERCHO PA Unavailable Unavailable RING, K FERCHO PA Unavailable Unavailable RING, K FERCHO PA Unavailable Unavailable RING, K FERCHO PA Unavailable Unavailable RING, K FERCHO PA Unavailable Unavailable Re-disclosure Warning The records that you are about to access may contain information from federally-assisted alcohol or drug abuse programs. If such information is present, then the following federally mandated warning applies: This information has been disclosed to you from records protected by federal confidentiality rules (42 CFR part 2). The federal rules prohibit you from making any further disclosure of this information unless further disclosure is expressly permitted by the written consent of the person to whom it pertains or as otherwise permitted by 42 CFR part 2. A general authorization for the release of medical or other information is NOT sufficient for this purpose. The Federal rules restrict any use of the information to criminally investigate or prosecute any alcohol or drug abuse patient.The records that you are about to access may contain highly sensitive health information, the redisclosure of which is protected by Article 27-F of the [facility] Public Health law. If you continue you may have access to information: Regarding HIV / AIDS; Provided by facilities licensed or operated by the [facility] Office of Mental Health; or Provided by the [facility] Office for People With Developmental Disabilities. If such information is present, then the following [facility] mandated warning applies: This information has been disclosed to you from confidential records which are protected by state law. State law prohibits you from making any further disclosure of this information without the specific written consent of the person to whom it pertains, or as otherwise permitted by law. Any unauthorized further disclosure in violation of state law may result in a fine or snf sentence or both. A general authorization for the release of medical or other information is NOT sufficient authorization for further disc losure. Allergies and Adverse Reactions Type Description Substance Reaction Status Data Source(s ) Adverse Reaction Latex Synonym(s): RUBBER L ATEX [INCI]; LATEX; POLYMER OF CIS-1,4-POLYISOPRENE: MOLECULAR WEIGHT 100,000 TO 1,000,000 WITH A FEW PERCENT OF OTHER MATERIALS; PROTEINS, FATTY ACIDS, RESINS AND INORGANICS; NATURAL RUBBER; LATEX [VANDF]; NATURAL RUBBER [HSDB]; NATURAL RUBBER LATEX; SORVA/SORVINHA; RUBBER [OK]; NATURAL LATEX; RUBBER [MART.]; NATURAL RUBBER [WHO- DD]; RUBBER LATEX MED[facility] ([facility]) Family History Family Member Name Family Member Gender Family Member Status Date o f Status Description Data Source(s) Unknown Unknown Problem [facility] ([facility]) Unknown Unknown Problem [facility] ([facility]) Unknown Unknown Problem [facility] ([facility]) Unknown Female Problem [facility] ([facility]) Unknown Female Problem [facility] ([facility] Unknown Female Problem [facility] ([facility] Unknown Female Problem [facility] ([facility]) Unknown Female Problem [facility] ([facility] Encounters Encounter Providers Location Date Indications Data Source(s ) [place] [address] [address] 02/03/2021 12:00:00 AM EDT eCW1 ([facility]) Outpatient Attender: Stephen Tracey MD Main office - [facility] 01/28/2021 02:30:00 PM EDT [facility] ([facility]) [place] [address] [address] 01/08/2021 12:00:00 AM EDT eCW1 ([facility]) Office Visit Attender: NISHA CIFUENTES MD Main Office 12/10/2020 12:56:0 0 PM EDT [facility] ([facility]) Outpatient Attender: FERCHO Moralez Primary 11/26/2020 08:45:00 AM EDT [facility] ([facility]) Outpatient Attender: Viri SEXTON Physical Therapy 01:45:00 PM EDT [facility] ([facility]) Outpatient Attender: Iliana SEXTON Main Office 11/16/2020 10:15:00 AM EDT [facility] ([facility]) Outpatient Attender: RAEMSH Moralez Prim munira 11/11/2020 01:15:00 PM EDT [facility] ([facility]) [place] [address] [address] 11/11/2020 12:00:00 AM EDT eCW1 ([facility]) [place] [address] [address] 10/29/2020 12:00:00 AM EDT eCW1 ([facility]) [place] [address] [address] 10/29/2020 12:00:00 AM EDT eCW1 ([facility]) Office Visit Attender: NISHA CIFUENTES MD Main Office 10/21/2020 05:11:0 0 PM EDT [facility] ([facility]) [place] [address] [address] 10/21/2020 12:00:00 AM EDT eCW1 ([facility]) Office Visit Attender: Stephen Tracey MD Main office - [facility] 10/20/2020 01:00:00 PM EDT [facility] ([facility]) [place] [address] [address] 09/18/2020 12:00:00 AM EDT eCW1 ([facility]) Office Visit Attender: NISHA CIFUENTES MD Main Office 09/11/2020 09:33:0 0 AM EDT [facility] ([facility]) Office Visit Attender: NISHA CIFUENTES MD Main Office 07/30/2020 11:03:0 0 AM EDT [facility] ([facility]) Office Visit Attender: Stephen Tracey MD Main office - [facility] 07/03/2020 11:30:00 AM EDT [facility] ([facility]) Office Visit Attender: NISHA CIFUENTES MD Main Office 07/02/2020 12:56:0 0 PM EDT [facility] ([facility]) Office Visit Attender: NISHA CIFUENTES MD Main Office 05/25/2020 03:10:0 0 PM EST [facility] ([facility]) Outpatient Attender: Iliana SEXTON Main Office 05/18/2020 08:45:00 AM EST [facility] ([facility]) Office Visit Attender: NISHA CIFUENTES MD Main Office 04/06/2020 11:46:0 0 AM EST [facility] ([facility]) TeleMedicine Est. Pt. Level [address] [place] [address] 04/02/2020 12:00:00 AM EST eCW1 ([facility]) Unknown [address] [facility] [address] 03/17/2020 12:00:00 AM EST eCW1 ([facility]) Outpatient [address] [facility] [id number] 03/16/2020 12:00:00 AM EST eCW1 ([facility]) Office Visit Attender: NISHA CIFUENTES MD Main Office 03/02/2020 02:34:0 0 PM EST [facility] ([facility]) Unknown [address] [facility] [id number] 02/24/2020 12:00:00 AM EST eCW1 ([facility]) Outpatient Attender: Iliana SEXTON Main Office 02/20/2020 08:15:00 AM EST [facility] ([facility]) Outpatient [address] [facility] [id number] 02/14/2020 12:00:00 AM EDT eCW1 ([facility]) Unknown [address] [address] 02/12/2020 12:00:00 AM EDT eCW1 ([facility]) Unknown [address] [address] 02/05/2020 12:00:00 AM EDT eCW1 ([facility]) Office Visit Attender: NISHA CIFUENTES MD Main Office 01/29/2020 03:21:0 0 PM EDT [facility] ([facility]) Office Visit Attender: Stephen Tracey MD Main office - [facility] 01/09/2020 12:30:00 PM EDT [facility] ([facility]) Office Visit Attender: NISHA CIFUENTES MD Main Office 01/03/2020 11:03:0 0 AM EDT [facility] ([facility] [facility]) Outpatient Attender: Radha armendariz 12/25/2019 10:45:00 AM EDT MED[facility] ([facility], [facility]) Outpatient Attender: Joes Andrade MD [facility] 12/11/2019 10:00:00 AM EDT [facility] ([facility]) Immunizations Vaccine Date Status Description Data Source(s) COVID-19 VACCINE Moderna 06/05/2020 12:00:00 AM EST completed [facility] Vaccine Series Complete: YESThis Data wa s Submitted to [facility] [employer]. COVID-19 dose #2 given elsewhere Unspecified 05/25/2020 01:3 5:00 PM EST completed eCW1 ([facility]) COVID-19 dose #2 given elsewhere Unspecified 05/25/2020 01:3 5:00 PM EST completed eCW1 ([facility]) COVID-19 dose #2 given elsewhere Unspecified 05/25/2020 01:3 5:00 PM EST completed eCW1 ([facility]) COVID-19 dose #2 given elsewhere Unspecified 05/25/2020 01:3 5:00 PM EST completed eCW1 ([facility]) COVID-19 dose #2 given elsewhere Unspecified 05/25/2020 01:3 5:00 PM EST completed eCW1 ([facility]) COVID-19 dose #2 given elsewhere Unspecified 05/25/2020 01:3 5:00 PM EST completed eCW1 ([facility]) COVID-19 dose #2 given elsewhere Unspecified 05/25/2020 01:3 5:00 PM EST completed eCW1 ([facility]) COVID-19 VACCINE Moderna 05/07/2020 12:00:00 AM EST completed [facility] Vaccine Series Complete: NOThis Data was Submitted to [facility] [employer]. COVID-19 dose #1 given elsewhere Unspecified 04/18/2020 01:3 3:00 PM EST completed eCW1 ([facility]) COVID-19 dose #1 given elsewhere Unspecified 04/18/2020 01:3 3:00 PM EST completed eCW1 ([facility]) COVID-19 dose #1 given elsewhere Unspecified 04/18/2020 01:3 3:00 PM EST completed eCW1 ([facility]) COVID-19 dose #1 given elsewhere Unspecified 04/18/2020 01:3 3:00 PM EST completed eCW1 ([facility]) COVID-19 dose #1 given elsewhere Unspecified 04/18/2020 01:3 3:00 PM EST completed eCW1 ([facility]) COVID-19 dose #1 given elsewhere Unspecified 04/18/2020 01:3 3:00 PM EST completed eCW1 ([facility]) COVID-19 dose #1 given elsewhere Unspecified 04/18/2020 01:3 3:00 PM EST completed eCW1 ([facility]) pneumococcal polysaccharide PPV23 12/26/2019 09:48:00 AM EDT comple arabella eCW1 ([facility]) pneumococcal polysaccharide PPV23 12/26/2019 09:48:00 AM EDT comple arabella eCW1 ([facility]) pneumococcal polysaccharide PPV23 12/26/2019 09:48:00 AM EDT comple arabella eCW1 ([facility]) pneumococcal polysaccharide PPV23 12/26/2019 09:48:00 AM EDT comple arabella eCW1 ([facility]) pneumococcal polysaccharide PPV23 12/26/2019 09:48:00 AM EDT comple arabella eCW1 ([facility]) pneumococcal polysaccharide PPV23 12/26/2019 09:48:00 AM EDT comple arabella eCW1 ([facility]) pneumococcal polysaccharide PPV23 12/26/2019 09:48:00 AM EDT comple arabella eCW1 ([facility]) pneumococcal polysaccharide PPV23 12/26/2019 09:48:00 AM EDT comple arabella eCW1 ([facility]) pneumococcal polysaccharide PPV23 12/26/2019 09:48:00 AM EDT comple arabella eCW1 ([facility]) pneumococcal polysaccharide PPV23 12/26/2019 09:48:00 AM EDT comple arabella eCW1 ([facility]) pneumococcal polysaccharide PPV23 12/26/2019 09:48:00 AM EDT comple arabella eCW1 ([facility]) pneumococcal polysaccharide PPV23 12/26/2019 09:48:00 AM EDT comple arabella eCW1 ([facility]) Medications Medication Brand Name Start Date Product Form Dose Route Admi nistrative Instructions Pharmacy Instructions Status Indications Reaction Description Data Source(s) 200 ACTUAT Albuterol 0.09 MG/ACTUAT Metered Dose Inhaler [Pr oAir] Proair HFA 11/26/2020 12:00:00 AM EDT ORAL active MED[facility] ([facility]) Doxycycline Monohydrate 100 MG Oral Capsule Doxycycline Mcmullen hydrate 11/26/2020 12:00:00 AM EDT ORAL active M EDENT ([facility]) rasagiline 1 MG Oral Tablet Rasagiline Mesylate 11/15/2020 12:00:00 A M EDT ORAL active [facility] ([facility] Glycopyrrolate 1 MG Oral Tablet Glycopyrrolate 11/15/2020 12:00:00 AM EDT active [facility] ([facility]) Diclofenac Sodium 0.01 MG/MG Topical Gel [Voltaren] Voltaren 11/15/2020 12:00:00 AM EDT active [facility] ([facility]) Finasteride 5 MG Oral Tablet Finasteride 11/15/2020 12:00:00 AM EDT ORAL active [facility] ([facility]) docosahexaenoic acid 120 MG / Eicosapentaenoic Acid 18 0 MG Oral Capsule Fish Oil 11/15/2020 12:00:00 AM EDT ORAL active [facility] ([facility]) Mupirocin 0.02 MG/MG Topical Ointment Mupirocin 11/11/2020 12:00:00 AM EDT active MED[facility] ([facility]) Glycopyrrolate 1 MG Oral Tablet Glycopyrrolate 10/20/2020 12:00:00 AM EDT active MEDENT ([facility]) Prednisone 20 MG Oral Tablet Prednisone 12/25/2019 12:00:00 AM EDT completed MEDENT ([facility], [facility]) Triamcinolone Acetonide 1 MG/ML Topical Cream Triamcinolone Acetonide 12/25/2019 12:00:00 AM EDT completed MEDENT ([facility], [facility]) Insurance Providers Payer name Policy type / Coverage type Policy ID Covered green party ID Covered green party's relationship to shah Policy Shah Plan Information [facility] [employer] 7 [id number] Medicare (Part B) Medicare Primary [id number] Self [id number] Medicare (Part B) Medicare Primary [id number] [id number] Self 1 [id number] MEDICARE [id number] SP [id number] A [address] NISHA C UNAVAILABLE [id number] UNAVAI LABLE Medicare Part B [facility] [id number] 0 [id number] MEDICARE [id number] [place] [id number] A Medicare (Part B) Medicare Primary [id number] [id number] Self 1 [id number] MEDICARE A [id number] Self [id number] A Medicare Medicare Primary [id number] Self [id number] A MEDICARE [id number] SP [id number] A Medicare (Part B) Medicare Primary [id number] Self Ghi/Emblem HLTH (pr) [facility] Part B [id number] 2.0.1.995[id number] Family Dependent [id number] Ghi/Emblem HLTH (pr) Medigap Part B [id number] 2.840.1.363796.3.227.99.991.563248.0 Family Dependent [id number] Ghi/Emblem HLTH (pr) Medigap Part B [id number] 2.0.1.420750.3.227.99.991.816136.0 Family Dependent [id number] Ghi/Emblem HLTH (pr) Medigap Part B [id number] 2.0.1.258745.3.227.99.991.247608.0 Family Dependent [id number] Ghi/Emblem HLTH (pr) Medigap Part B [id number] 2.0.1.598829.3.227.99.991.390471.0 Family Dependent [id number] Ghi/Emblem HLTH (pr) Medigap Part B [id number] Family Depende nt Ghi/Emblem HLTH (pr) Medigap Part B [id number] 2..1.780116.3.227.99.991.095156.0 Family Dependent [id number] Ghi/Emblem HLTH (pr) Medigap Part B [id number] 2..1.036814.3.227.99.991.825553.0 Family Dependent [id number] [address] [facility] [id number] UNAV AILABLE Pomco [id number] 1 [id number] POMCO U [id number] Self [id number] POMCO PPO 2 [id number] 2 [id number] POMCO [id number] WI2 [id number] Pomco Medigap Part B [id number] Self POMCO [id number] Spo [id number] POMCO [id number] WI2 [id number] [place] Medicare Primary [id number] 2..1.495045.3.227.99.991.208526.0 Self [id number] Pomco (pr) Medigap Part B [id number] 2..1.754944.3.227.99 .991.223046.0 Self [id number] Pomco (pr) Medigap Part B [id number] Self [place] Medicare Primary [id number] Self Medicare [place] Medicare Primary [id number] 2..1.939303.3.227.99.991.856252.0 Self [id number] Medicare [place] Medicare Primary [id number] 2.16.840.1.210346.3.227.99.991.433128.0 Self [id number] [place] Medigap Part B [id number] 2.16.840.1.542639.3.227.99.991.163110.0 Self [id number] Medicare [place] Medicare Primary [id number] 2.16840.1.348769.3.227.99.991.356978.0 Self [id number] Medicare [place] Medicare Primary [id number] 2.16840.1.869899.3.227.99.991.578401.0 Self [id number] Medicare [place] Medicare Primary [id number] 2.16840.1.437482.3.227.99.991.251518.0 Self [id number] Pomco (pr) [facility] Part B [id number] 2.0.1.029452.3.227.99 .991.726791.0 Self [id number] POMCO U [id number] Self [id number] [place] Medicare Primary [id number].[id number] Self [id number] Medicare [place] Medicare Primary [id number] 2.840.1.329412.3.227.99.991.243821.0 Self [id number] [place] Medicare Primary [id number] Self [id number] Medicare [place] Medicare Primary [id number] 2.840.1.378976.3.227.99.991.863915.0 Self [id number] Medicare [place] Medicare Primary [id number] 2.840.1.901356.3.227.99.991.573258.0 Self [id number] Medicare [place] Medicare Primary [id number] 2.0.1.442093.3.227.99.991.639807.0 Self [id number] POMCO [id number] WI2 [id number] R INTERNATIONAL PAPER O UNAVAILABLE [id number] S UNAVAILABLE POMCO PPO O [id number] S [id number] Medicare Dme Supplies Medigap Part B [id number] 2.0.1.473269.3.227.99.991.789093.0 Self [id number] POMCO PPO O [id number] S [id number] POMCO [id number] WI2 [id number] [place] Medigap Part B [id number] 2.0.1.293456.3.227.99 .8646.17300.0 Family Dependent [id number] Medicare [place]/NGS Medicare Primary [id number] 2.0.1.799101.3.227.99.8646.12815.0 Self [id number] Medicare Dme Supplies Medigap Part B [id number] 2..1.185719.3.227.99.991.541771.0 Self [id number] MEDICARE [id number] SP [id number] Pom[place] Medigap Part B [id number] 2..1.161149.3.227.99 .8646.57494.0 Family Dependent [id number] Medicare [place]/NGS Medicare Primary [id number] 2.0.1.113988.3.227.99.8646.19263.0 Self [id number] [place] Medigap Part B [id number] 2.0.1.395619.3.227.99 .8646.40227.0 Family Dependent [id number] Medicare [place]/NGS Medicare Primary [id number] 2.0.1.661608.3.227.99.8646.35560.0 Self [id number] Medicare Dme Supplies Medigap Part B [id number] 2.16.840.1.926920.3.227.99.991.951188.0 Self [id number] Medicare Dme Supplies Medigap Part B [id number] 2.16.840.1.110924.3.227.99.991.995069.0 Self [id number] Pom[place] PHCS Ppo Medigap Part B [id number] 2.16840.1.450757.3.227. 99.572.52422.0 Family Dependent [id number] POMCO [id number] WI2 [id number] [place] Medigap Part B 2.840.1.164933.3.227.99.8646. 88978.0 Family Dependent Medicare Up[place]/[facility] Medicare Primary 2.840.1.15562 3.3.227.99.8646.92485.0 Self Medicare Dme Supplies Medigap Part B [id number] Self Pom[place] PHCS Ppo Medigap Part B 2.840.1.588485.3.227. 99.572.80484.0 Family Dependent Ghi Medigap Part B [id number] Self MEDICARE P [id number] S [id number] A [employer] [id number] WI2 [id number] SELF PAY 2 UNAVAILABLE 1 UNAVAILA BLE [id number] Pom[place] PHCS Ppo Medigap Part B [id number] 2.840.1.098060.3.227. 99.572.34203.0 Family Dependent [id number] UMR [facility] [id number] 2 [id number] Umr (pr) Medigap Part B [id number] Self [id number] Medicare Dme Supplies Medigap Part B [id number] Self [id number] ANSI-Commercial [id number] ANSI-Medicare Part B [id number] Umr (pr) [facility] Part B [id number] Self [id number] Medicare Dme Supplies [facility] Part B [id number] Self [id number] Umr (pr) [facility] Part B [id number] 2.16.840.1.445719.3.227.99.991.1010 31.0 Self [id number] Medicare Dme Supplies [facility] Part B [id number] 2.16.840.1.622942.3.227.99.991.267792.0 Self [id number] ANSI-Commercial [id number] ANSI-Medicare Part B [id number] ANSI-Medicare Part B [id number] ANSI-Commercial [id number] ANSI-Medicare Part B [id number] ANSI-Commercial [id number] ANSI-Medicare Part B [id number] ANSI-Commercial [id number] ANSI-Medicare Part B [id number] ANSI-Commercial [id number] UMR [facility] [id number] SP [id number] MEDICARE [id number] SP [id number] A Umr (pr) [facility] Part B [id number] ..219766.3.227.99.991.1010 31.0 Self [id number] Medicare Dme Supplies [facility] Part B [id number] .1.811358.3.227.99.991.189042.0 Self [id number] Umr/Uhc/Pomco [facility] Part B [id number] .1.978907.3.227.9 9.1767.6293.0 Family Dependent [id number] Medicare Natl Gov't Servi Medicare Primary [id number] .1.796079.3.227.99.1767.6293.0 Self [id number] Umr (pr) [employer] Part B [id number] .1.112572.3.227.99.991.1010 31.0 Self [id number] Medicare Dme Supplies [facility] Part B [id number] 2.16.840.1.524430.3.227.99.991.050616.0 Self [id number] ANSI-Commercial [id number] ANSI-Medicare Part B [id number] Umr (pr) [facility] Part B [id number] 2.16.840.1.111864.3.227.99.991.1010 31.0 Self [id number] Medicare Dme Supplies [facility] Part B [id number] 2.16.840.1.588669.3.227.99.991.238168.0 Self [id number] ANSI-Commercial [id number] ANSI-Medicare Part B [id number] ANSI-Commercial [id number] ANSI-Medicare Part B [id number] ANSI-Medicare Part B [id number] ANSI-Commercial [id number] Pomco PHCS Ppo Medigap Part B [id number] 2.160.1.480884.3.227. 99.572.24357.0 Family Dependent [id number] Umr Medigap Part B [id number] 2.16.0.1.861381.3.227.99.572.55391.0 Family Dependent [id number] Ghi Medigap Part B [id number] 2.0.1.767317.3.227.99.572.1648 6.0 Self [id number] UMR O [id number] S [id number] MEDICARE C [id number] S [id number] A Umr (pr) Medigap Part B [id number] 2.0.1.423449.3.227.99.991.1010 31.0 Self [id number] Medicare Dme Supplies Medigap Part B [id number] 2.0.1.087151.3.227.99.991.540649.0 Self [id number] Umr (pr) Medigap Part B [id number] 2.0.1.161144.3.227.99.991.1010 31.0 Self [id number] Medicare Dme Supplies Medigap Part B [id number] 2.0.1.226535.3.227.99.991.670207.0 Self [id number] Problems, Conditions, and Diagnoses No Information Surgeries/Procedures Procedure Description Date Indications Data Source(s) ELECTROENCEPHALOGRAM W/REC AWAKE&ASLEEP 02/01/2021 12: 00:00 [facility] ELECTROENCEPHALOGRAM W/REC AWAKE&ASLEEP 02/01/2021 12: 00:00 AM EDT MEDENT ([facility]) OFFICE OUTPATIENT VISIT 25 MINUTES 01/28/2021 12:00:00 AM EDT MED[facility] ([facility]) THERAPEUTIC PX 1/> AREAS EACH 15 MIN EXERCISES 12:00:00 AM EDT MEDENT ([facility] ) MANUAL THERAPY TQS 1/> REGIONS EACH 15 MINUTES 12:00:00 AM EDT MEDENT ([facility] ) Physical Therapy Eval - Mod Complexity 12/24/2020 12:0 0:00 AM EDT MED[facility] ([facility] ) OFFICE OUTPATIENT VISIT 15 MINUTES 12/14/2020 12:00:00 AM EDT MEDENT ([facility] ) Chronic Care MGMT 20 Mins Clinical Staff Time Per Calendar M ont 12/10/2020 12:00:00 AM EDT MED[facility] ([facility]) OFFICE OUTPATIENT VISIT 15 MINUTES 11/26/2020 12:00:00 AM EDT MEDENT ([facility], [facility]) ECG ROUTINE ECG W/LEAST 12 LDS W/I&R 11/16/2020 12:00: 00 AM EDT MED[facility] ([facility]) OFFICE OUTPATIENT VISIT 25 MINUTES 11/16/2020 12:00:00 AM EDT MED[facility] ([facility]) ARTHROCENTESIS ASPIR&/INJECTION MAJOR JT/BURSA 12:00:00 AM EDT MED[facility] ([facility] ) X-Ray Hip Unilateral With Pelvis 2-3 Views 11/16/2020 12:00:00 AM EDT MED[facility] ([facility] ) OFFICE OUTPATIENT VISIT 25 MINUTES 11/16/2020 12:00:00 AM EDT MED[facility] ([facility] ) OFFICE OUTPATIENT VISIT 15 MINUTES 11/11/2020 12:00:00 AM EDT MED[facility] ([facility], [facility]) Chronic Care Management Services Ea Addl 20 Min 2020 12:00:00 AM EDT [facility] ([facility]) Chronic Care MGMT 20 Mins Clinical Staff Time Per Calendar M onth 10/21/2020 12:00:00 AM EDT MED[facility] ([facility]) PHYSICIAN TELEPHONE EVALUATION 11-20 MIN 10/20/2020 12 :00:00 AM EDT MED[facility] ([facility] ) Chronic Care MGMT 20 Mins Clinical Staff Time Per Calendar M [facility] 09/11/2020 12:00:00 AM EDT [facility] ([facility]) Chronic Care MGMT 20 Mins Clinical Staff Time Per Calendar M [facility] 07/30/2020 12:00:00 AM EDT [facility] ([facility]) PHYSICIAN TELEPHONE EVALUATION 11-20 MIN 07/03/2020 12 :00:00 AM EDT MED[facility] ([facility] ) Chronic Care MGMT 20 Mins Clinical Staff Time Per Calendar M [facility] 07/02/2020 12:00:00 AM EDT [facility] ([facility]) Chronic Care Management Services Ea Addl 20 Min 2020 12:00:00 AM EST [facility] ([facility]) Chronic Care MGMT 20 Mins Clinical Staff Time Per Calendar M [facility] 05/25/2020 12:00:00 AM EST [facility] ([facility]) ECG ROUTINE ECG W/LEAST 12 LDS W/I&R 05/18/2020 12:00: 00 AM EST [facility] ([facility]) OFFICE OUTPATIENT VISIT 25 MINUTES 05/18/2020 12:00:00 AM EST [facility] ([facility]) ECG ROUTINE ECG W/LEAST 12 LDS W/I&R 02/20/2020 12:00: 00 AM EST [facility] ([facility]) TSTG ANS FUNCJ CARDIOVAGAL INNERVAJ PARASYMP 0 12:00:00 AM EST [facility] ([facility] ) TSTG ANS FUNCJ CARDIOVAGAL INNERVAJ PARASYMP 0 12:00:00 AM EST [facility] ([facility], ) TESTING AUTONOMIC NERVOUS SYSTEM FUNCTION 02/19/2020 1 2:00:00 AM EST [facility] ([facility], ) TESTING AUTONOMIC NERVOUS SYSTEM FUNCTION 02/19/2020 1 2:00:00 AM EST [facility] ([facility], ) Needle electromyography, each extremity, with related paraspinal areas, when performed, done with nerve conduction, amplitude and latency/velocity study; complete, five or more muscles studied, innervated by three or more nerves or four or more spinal levels (list separately in addition to the code for primary procedure). 01/15/2020 12:00:00 AM EDT MEDEN T ([facility], ) Needle electromyography, each extremity, with related paraspinal areas, when performed, done with nerve conduction, amplitude and latency/velocity study; complete, five or more muscles studied, innervated by three or more nerves or four or more spinal levels (list separately in addition to the code for primary procedure). 01/15/2020 12:00:00 AM EDT MEDEN T ([facility], ) 11272 Nerve conduction studies 13 or more studies NEW 201201/15/2020 12:00:00 AM EDT [facility] ([facility] ) Results ID Date Data Source [id number] 01/09/2021 10:27:00 AM EDT [facility] Name Value Range Interpretation Code Description Data Modesta rce(s) Supporting Document(s) SARS coronavirus 2 RNA [Presence] in Res piratory specimen by URBAN with probe detection NEGATIVE [facility] This lab was ordered by [facility] a nd reported by [facility]. ID Date Data Source [id number] 12/15/2020 10:57:00 AM EDT [facility] ([facility]) Name Value Range Interpretation Code Description Data Modesta rce(s) Supporting Document(s) Laboratory test finding (navigational concept) Laboratory test result [facility] ([facility]) ID Date Data Source [id number] 11/26/2020 12:00:00 AM EDT [facility] Name Value Range Interpretation Code Description Data Modesta rce(s) Supporting Document(s) SARS-CoV2 Rapid Antigen Negative [facility] This lab was reported by [facility]. ID Date Data Source [id number] 03/26/2020 12:00:00 AM EST [facility] Name Value Range Interpretation Code Description Data Modesta rce(s) Supporting Document(s) SARS coronavirus 2 Ag [facility] This lab was ordered by [facility] and reported by [facility]. ID Date Data Source [id number] 09/21/2020 03:21:00 PM EDT [facility] ([facility]) Name Value Range Interpretation Code Description Data Modesta rce(s) Supporting Document(s) Sodium 140 [facility] ([facility] Calcium [Mass/volume] in Serum or Plasma 9.0 [facility] ([facility]) Potassium [Moles/volume] in Serum or Plasma 4.4 [facility] ([facility]) Carbon dioxide, total [Moles/volume] in Serum or Plasma 26 [facility] ([facility]) Chloride [Moles/volume] in Serum or Plasma 109 [facility] ([facility]) Blood Urea Nitrogen 21 5-21 [facility] ([facility]) Creatinine 0.86 0.6-1.5 [facility] ([facility]) Glucose 101 70-100 [facility] ([facility]) Glomerular filtration rate/1.73 sq M.pre dicted [Volume Rate/Area] in Serum or Plasma by Creatinine-based formula (MDRD) Laboratory test result [facility] ([facility]) ID Date Data Source Basic Metabolic Profile (BMP) 09/21/2020 12:00:00 AM EDT eCW 1 ([facility]) Name Value Range Interpretation Code Description Data Modesta rce(s) Supporting Document(s) 101 70-100 GLUCOSE, FASTING eCW1 ([facility]) 21 7-18 BLOOD UREA NITROGEN eCW1 ([facility]) > 60.0 >35 GLOMERULAR FILTRATION RATE eCW 1 ([facility]) 140 136-145 SODIUM LEVEL eCW1 ([facility]) 0.86 0.70-1.30 CREATININE FOR GFR eCW1 ([facility]) 26 21-32 CARBON DIOXIDE LEVEL eCW1 ([facility]) 109 98-107 CHLORIDE LEVEL eCW1 ([facility]) 4.4 3.5-5.1 POTASSIUM SERUM eCW1 ([facility] hospital) 9.0 8.8-10.2 CALCIUM LEVEL eCW1 ([facility]) ID Date Data Source [id number] 09/21/2020 12:00:00 AM EDT eCW1 ([facility]) Name Value Range Interpretation Code Description Data Modesta rce(s) Supporting Document(s) Hemoglobin A1c/Hemoglobin.total in Blood 5.3 HEMOGLOBIN A1c eCW1 ([facility]) ID Date Data Source [id number] 03/24/2020 12:55:00 PM EST MEDENT ([facility]) Name Value Range Interpretation Code Description Data Modesta rce(s) Supporting Document(s) HDL 44 MEDENT ([facility] Cholesterol 99 MEDENT ([facility]) Triglycerides 95 MEDENT ([facility]) Chol/HDL Ratio 2.250 MEDENT ([facility]) Cholesterol in LDL [Mass/volume] in Serum or Plasma by calculation 36 MEDENT ([facility]) ID Date Data Source [id number] 03/24/2020 12:55:00 PM EST MEDENT ([facility]) Name Value Range Interpretation Code Description Data Modesta rce(s) Supporting Document(s) Albumin [Mass/volume] in Serum or Plasma 4.3 MEDENT ([facility]) Carbon dioxide, total [Moles/volume] in Serum or Plasma 28 MEDENT ([facility]) Calcium [Mass/volume] in Serum or Plasma 9.5 MEDENT ([facility]) Alanine aminotransferase [Enzymatic activity/volume] in Serum or Pl asma 13 MEDENT ([facility]) Chloride [Moles/volume] in Serum or Plasma 108 MEDENT ([facility]) Potassium [Moles/volume] in Serum or Plasma 3.9 MEDENT ([facility]) Alkaline phosphatase [Enzymatic activity/volume] in Serum or Plasma 7 1 MEDENT ([facility]) Sodium 140 MEDENT ([facility] Protein [Mass/volume] in Serum or Plasma 7.8 MEDENT ([facility]) Aspartate aminotransferase [Enzymatic activity/volume] in Serum or Plasma 15 MEDENT ([facility]) Glucose 91 70-100 MEDENT ([facility] Urea nitrogen [Mass/volume] in Serum or Plasma 18 MEDENT ([facility]) Creatinine For GFR 0.84 MEDENT ([facility]) ID Date Data Source [id number] 03/24/2020 12:55:00 PM EST MEDENT ([facility]) Name Value Range Interpretation Code Description Data Modesta rce(s) Supporting Document(s) Hemoglobin A1c/Hemoglobin.total in Blood 5.3 MEDENT ([facility]) ID Date Data Source [id number] 03/24/2020 12:55:00 PM EST MEDENT ([facility]) Name Value Range Interpretation Code Description Data Modesta rce(s) Supporting Document(s) Platelets 210 150-450 MEDENT ([facility]) Red Blood Count 4.05 4.30-6.10 MEDENT ([facility]) White Blood Count 6.3 4.0-10.0 MEDENT ([facility]) Hematocrit 41.2 MEDENT ([facility]) Hemoglobin 13.8 MEDENT ([facility]) ID Date Data Source ADM CHEST 2 VIEW 02/14/2020 05:48:29 AM EDT eCW1 ([facility]) Name Value Range Interpretation Code Description Data Modesta rce(s) Supporting Document(s) eCW1 ([facility]) ID Date Data Source FREE T4 & TSH PANEL 02/14/2020 03:03:40 AM EDT eCW1 ([facility]) Name Value Range Interpretation Code Description Data Modesta rce(s) Supporting Document(s) 0.997 eCW1 ([facility]) 0.92 eCW1 ([facility]) ID Date Data Source Comprehensive Metabolic Profile (CMP) 02/14/2020 03:03:40 AM EDT eCW1 ([facility]) Name Value Range Interpretation Code Description Data Modesta rce(s) Supporting Document(s) > 60.0 GLOMERULAR FILTRATION RATE eCW 1 ([facility]) 137 GLUCOSE, FASTING eCW1 ([facility]) 0.88 CREATININE FOR GFR eCW1 ([facility]) 14 BLOOD UREA NITROGEN eCW1 ([facility]) 106 CHLORIDE LEVEL eCW1 ([facility]) 29 CARBON DIOXIDE LEVEL eCW1 ([facility]) 4.1 POTASSIUM SERUM eCW1 ([facility] hospital) 140 SODIUM LEVEL eCW1 ([facility]) 13 AST/SGOT eCW1 ([facility]) 9 ALT/SGPT eCW1 ([facility]) 82 ALKALINE PHOSPHATASE eCW1 ([facility]) 9.2 CALCIUM LEVEL eCW1 ([facility]) 7.7 TOTAL PROTEIN eCW1 ([facility]) 3.9 ALBUMIN eCW1 ([facility]) 0.5 BILIRUBIN,TOTAL eCW1 (Critical access hospital) 1.0 ALBUMIN/GLOBULIN RATIO eCW1 ([facility]) ID Date Data Source CBC - Complete Blood Count 02/14/2020 03:03:40 AM EDT eCW1 ( [facility]) Name Value Range Interpretation Code Description Data Modesta rce(s) Supporting Document(s) 7.6 eCW1 ([facility]) 3.85 eCW1 ([facility]) 13.5 eCW1 ([facility]) 103.9 eCW1 ([facility]) 40.0 eCW1 ([facility]) 35.1 eCW1 ([facility]) 33.8 eCW1 ([facility]) 213 eCW1 ([facility]) 12.1 eCW1 ([facility]) ID Date Data Source LIPID PANEL (CARDIAC RISK) 02/14/2020 03:03:40 AM EDT eCW1 ( [facility]) Name Value Range Interpretation Code Description Data Modesta rce(s) Supporting Document(s) Triglyceride [Mass/volume] in Serum or Plasma by calculation 112 TRIGLYCERIDES LEVEL eCW1 ([facility]) Cholesterol [Moles/volume] in Serum or Plasma 104 CHOLESTEROL LEVEL eCW1 ([facility]) Cholesterol in LDL [Mass/volume] in Serum or Plasma by calculation 36 LDL CHOLESTEROL eCW1 ([facility]) 58 NON-HDL-C eCW1 ([facility]) 2.260 CHOLESTEROL RISK RATIO eCW1 ([facility]) Cholesterol in HDL [Moles/volume] in Serum or Plasma 46 HDL CHOLESTEROL eCW1 ([facility]) Procedure Social History Code Duration Value Status Description Data Source(s ) Smoking 01/23/2021 12:00:00 AM EDT Former Smoker completed Former Smoker eCW1 ([facility]) Smoking 11/16/2020 12:00:00 AM EDT Patient is a former smoker completed Patient is a former smoker MEDENT ([facility]) Smoking 09/18/2020 12:00:00 AM EDT Former Smoker completed Former Smoker eCW1 ([facility]) Smoking 09/18/2020 12:00:00 AM EDT Former Smoker completed Former Smoker eCW1 ([facility]) Smoking 09/18/2020 12:00:00 AM EDT Former Smoker completed Former Smoker eCW1 ([facility]) Smoking 09/18/2020 12:00:00 AM EDT Former Smoker completed Former Smoker eCW1 ([facility]) Smoking 09/18/2020 12:00:00 AM EDT Former Smoker completed Former Smoker eCW1 ([facility]) Smoking 09/18/2020 12:00:00 AM EDT Former Smoker completed Former Smoker eCW1 ([facility]) Smoking 04/02/2020 12:00:00 AM EST Former Smoker completed Former Smoker eCW1 ([facility]) Smoking 03/16/2020 12:00:00 AM EST Former Smoker completed Former Smoker eCW1 ([facility]) Smoking 03/16/2020 12:00:00 AM EST Former Smoker completed Former Smoker eCW1 ([facility]) Smoking 02/14/2020 12:00:00 AM EDT Former Smoker completed Former Smoker eCW1 ([facility]) Smoking 02/14/2020 12:00:00 AM EDT Former Smoker completed Former Smoker eCW1 ([facility]) Smoking 12/11/2019 12:00:00 AM EDT Former Cigarette Smoker com pleted Former Cigarette Smoker MEDENT ([facility]) Vital Signs ID Date Data Source UNK Name Value Range Interpretation Code Description Data Source(s) Respiratory rate 12 /min 12 /min MEDENT ( [facility]) Body height 69 [in_i] 69 [in_i] MEDENT ([facility], ) 5'9" Body weight 165.00 [lb_av] 165.00 [lb_av] MEDEN T ([facility] ) Body mass index (BMI) [Ratio] 24.4 kg/m2 24.4 k g/m2 MEDENT ([facility] ) [place] body weight 160 [lb_av] 160 [lb_av] MEDEN T ([facility], ) Systolic blood pressure 116 mm[Hg] 116 mm[Hg] EDENT ([facility], [facility]) Diastolic blood pressure 64 mm[Hg] 64 mm[Hg] MEDENT ([facility], [facility]) Heart rate 74 /min 74 /min MEDENT ([facility], [facility]) Respiratory rate 14 /min 14 /min MEDENT ( [facility], [facility]) Oxygen saturation in Arterial blood by Pulse oximetry 96 % 96 % MEDENT ([facility], [facility]) Body temperature 97.8 [degF] 97.8 [degF] MEDENT ([facility], [facility]) Body weight 172.00 [lb_av] 172.00 [lb_av] MEDEN T ([facility], [facility]) Body height 69 [in_i] 69 [in_i] MEDENT ([facility], [facility]) 5'9" Body mass index (BMI) [Ratio] 25.4 kg/m2 25.4 k g/m2 MEDENT ([facility], [facility]) Body mass index (BMI) [Ratio] 25.8 kg/m2 25.8 k g/m2 MEDENT ([facility] ) Body temperature 97.7 [degF] 97.7 [degF] MEDENT ([facility] ) Body height 69 [in_i] 69 [in_i] MEDENT ([facility] ) 5'9" Body weight 175.00 [lb_av] 175.00 [lb_av] MEDEN T ([facility] ) Body height 69 [in_i] 69 [in_i] MEDENT ([facility]) 5'9" Body weight 175.00 [lb_av] 175.00 [lb_av] MEDEN T ([facility]) Body mass index (BMI) [Ratio] 25.8 kg/m2 25.8 k g/m2 MEDENT ([facility]) Heart rate 72 /min 72 /min MEDENT ([facility]) Regular Respiratory rate 16 /min 16 /min MEDENT ( [facility]) Systolic blood pressure 128 mm[Hg] 128 mm[Hg] M EDENT ([facility]) sitting, regular cuff Diastolic blood pressure 74 mm[Hg] 74 mm[Hg] MEDENT ([facility]) sitting, regular cuff Systolic blood pressure 128 mm[Hg] 128 mm[Hg] M EDENT ([facility]) sitting Diastolic blood pressure 70 mm[Hg] 70 mm[Hg] MEDENT ([facility]) sitting Systolic blood pressure 138 mm[Hg] 138 mm[Hg] M EDENT ([facility], [facility]) Diastolic blood pressure 71 mm[Hg] 71 mm[Hg] MEDENT ([facility], [facility]) Heart rate 70 /min 70 /min MEDENT ([facility], [facility]) Respiratory rate 13 /min 13 /min MEDENT ( [facility], [facility]) Oxygen saturation in Arterial blood by Pulse oximetry 98 % 98 % MEDENT ([facility], [facility]) Body temperature 97.2 [degF] 97.2 [degF] MEDENT ([facility], [facility]) Body weight 172.00 [lb_av] 172.00 [lb_av] MEDEN T ([facility], [facility]) Body height 69 [in_i] 69 [in_i] MEDENT ([facility], [facility]) 5'9" Body mass index (BMI) [Ratio] 25.4 kg/m2 25.4 k g/m2 MEDENT ([facility], [facility]) Respiratory rate 12 /min 12 /min MEDENT ( [facility]) Body height 69 [in_i] 69 [in_i] MEDENT ([facility]) 5'9" Body weight 175.00 [lb_av] 175.00 [lb_av] MEDEN T ([facility], ) Body mass index (BMI) [Ratio] 25.8 kg/m2 25.8 k g/m2 MEDENT ([facility], ) [place] body weight 160 [lb_av] 160 [lb_av] MEDEN T ([facility]) Body weight 178 [lb_av] 178 [lb_av] eCW1 ([facility]) Body height 69 [in_i] 69 [in_i] eCW1 ([facility]) Body mass index (BMI) [Ratio] 26.28 kg/m2 26.28 kg/m2 eCW1 ([facility]) Heart rate 85 /min 85 /min eCW1 ([facility]) Respiratory rate 18 /min 18 /min eCW1 ([facility]) Body temperature 97.4 [degF] 97.4 [degF] eCW1 ( [facility]) Systolic blood pressure 128 mm[Hg] 128 mm[Hg] e CW1 ([facility]) Diastolic blood pressure 74 mm[Hg] 74 mm[Hg] eCW1 ([facility]) Respiratory rate 12 /min 12 /min MEDENT ( [facility], ) Body height 69 [in_i] 69 [in_i] MEDENT ([facility], ) 5'9" Body weight 175.00 [lb_av] 175.00 [lb_av] MEDEN T ([facility], ) Body mass index (BMI) [Ratio] 25.8 kg/m2 25.8 k g/m2 MEDENT ([facility] ) [place] body weight 160 [lb_av] 160 [lb_av] MEDEN T ([facility], ) Body weight 178.00 [lb_av] 178.00 [lb_av] MEDEN T ([facility]) Body height 69 [in_i] 69 [in_i] MEDENT ([facility]) 5'9" Body mass index (BMI) [Ratio] 26.3 kg/m2 26.3 k g/m2 MEDENT ([facility]) Heart rate 72 /min 72 /min MEDENT ([facility]) Regular Respiratory rate 16 /min 16 /min MEDENT ( [facility]) Systolic blood pressure 136 mm[Hg] 136 mm[Hg] M EDENT ([facility]) sitting, regular cuff Diastolic blood pressure 76 mm[Hg] 76 mm[Hg] MEDENT ([facility]) sitting, regular cuff Systolic blood pressure 136 mm[Hg] 136 mm[Hg] M EDENT ([facility]) sitting Diastolic blood pressure 74 mm[Hg] 74 mm[Hg] MEDENT ([facility]) sitting Body weight 182 [lb_av] 182 [lb_av] eCW1 ([facility]) Body height 69 [in_i] 69 [in_i] eCW1 ([facility]) Body mass index (BMI) [Ratio] 26.87 kg/m2 26.87 kg/m2 eCW1 ([facility]) Heart rate 79 /min 79 /min eCW1 ([facility]) Respiratory rate 18 /min 18 /min eCW1 ([facility]) Body temperature 96.5 [degF] 96.5 [degF] eCW1 ( [facility]) Systolic blood pressure 124 mm[Hg] 124 mm[Hg] e CW1 ([facility]) Diastolic blood pressure 78 mm[Hg] 78 mm[Hg] eCW1 ([facility]) Body weight 176.00 [lb_av] 176.00 [lb_av] CHRISTINEN T ([facility]) Body height 69 [in_i] 69 [in_i] MEDENT ([facility]) 5'9" Body mass index (BMI) [Ratio] 26.0 kg/m2 26.0 k g/m2 MEDENT ([facility]) Body weight 182 [lb_av] 182 [lb_av] eCW1 ([facility]) Body height 69 [in_i] 69 [in_i] eCW1 ([facility]) Body mass index (BMI) [Ratio] 26.87 kg/m2 26.87 kg/m2 eCW1 ([facility]) Heart rate 88 /min 88 /min eCW1 ([facility]) Respiratory rate 18 /min 18 /min eCW1 ([facility]) Body temperature 96.8 [degF] 96.8 [degF] eCW1 ( [facility]) Systolic blood pressure 134 mm[Hg] 134 mm[Hg] e CW1 ([facility]) Diastolic blood pressure 76 mm[Hg] 76 mm[Hg] eCW1 ([facility]) Body mass index (BMI) [Ratio] 26.9 kg/m2 26.9 k g/m2 MEDENT ([facility] ) [place] body weight 160 [lb_av] 160 [lb_av] MEDEN T ([facility], ) Body weight 182.00 [lb_av] 182.00 [lb_av] MEDEN T ([facility], ) Respiratory rate 12 /min 12 /min MEDENT ( [facility], ) Body height 69 [in_i] 69 [in_i] MEDENT ([facility], ) 5'9" Body height 69 [in_i] 69 [in_i] MEDENT ([facility], [facility]) 5'9" Body mass index (BMI) [Ratio] 25.4 kg/m2 25.4 k g/m2 MEDENT ([facility], [facility]) Systolic blood pressure 128 mm[Hg] 128 mm[Hg] M EDENT ([facility], [facility]) Diastolic blood pressure 73 mm[Hg] 73 mm[Hg] MEDENT ([facility], [facility]) Heart rate 73 /min 73 /min MEDENT ([facility], [facility]) Respiratory rate 18 /min 18 /min MEDENT ( [facility], [facility]) Oxygen saturation in Arterial blood by Pulse oximetry 98 % 98 % MEDENT ([facility], [facility]) Body temperature 97.8 [degF] 97.8 [degF] MEDENT ([facility], [facility]) Body weight 172.00 [lb_av] 172.00 [lb_av] MEDEN T ([facility], [facility]) Heart rate 77 /min 77 /min MEDENT ([facility]) Body height 69 [in_i] 69 [in_i] MEDENT ([facility]) 5'9" Body weight 180.00 [lb_av] 180.00 [lb_av] MEDEN T ([facility]) Body mass index (BMI) [Ratio] 26.6 kg/m2 26.6 k g/m2 [facility] ([facility]) Systolic blood pressure 109 mm[Hg] 109 mm[Hg] M EDENT ([facility]) Diastolic blood pressure 61 mm[Hg] 61 mm[Hg] [facility] Body temperature 98.6 [degF] 98.6 [degF] [facility] Body temperature 37.0 [place] 37.0 [place] [facility] ( [facility])
--- OUTSIDE RECORDS SUMMARY | 2021-02-05 10:40 | CCD | Continuity of Care Document ---
Author Author Jose G FUNEZ PA-C Organization Unknown Address [id number] [place] [address], [place] [address] Phone [phone] Care Team Providers Care Fibreglass Laminator Name Role Phone Neri Horner MD AUTM [phone] Stephen Tracey MD [facility] [phone] Problems Active Problems Provider Date Aortic valve disorder Ilianadevon Funez, PA-C Onset: 07/13/2011 Transplantation of heart valve Iliana Funez PA-C Onset: 0 07/13/2011 Atrial fibrillation Iliana Funez, PA-C Onset: 07/13/2011 Electrocardiogram abnormal Ilianadevon Funez, PA-C Onset: 07/12 Benign essential hypertension Iliana Tolbertw, PA-C Onset: Hyperlipidemia Iliana Funez, PA-C Onset: 07/13/2011 Essential hypertension Iliana Funez, PA-C Onset: 5 Mixed hyperlipidemia Iliana Funez, PA-C Onset: 04/29/2016 Aneurysm of thoracic aorta Iliana Funez, PA-C Onset: 04/29 Dietary management surveillance Iliana Funez, PA-C Onset: 11/13/2017 Social History Type Date [...] Exercise Type/Frequency Does housework twice a w [place] vacuuming and dishes Exercise Type/Frequency Does yardwork three time s a week riding hoop expander Exercise Type/Frequency Walks daily around t he house and yard Exercise Limitations Shortness Of Breath Exercise Limitations Dizziness Allergies, Adverse Reactions, Alerts Active Allergies Reaction Severity Comments Date NKDA 11/16/2020 NSAIDS 11/16/2020 Medications Active Medications SIG Qnty Indications [...] daily as needed Neri Horner MD 10/26/2015 [place] 3 1000mg Capsules 1 by mouth every [...] >60.0 Procedures Date Code Description Status 11/16/2020 94988 Office/Outpatient Established Mo d MDM 30-39 Min Completed 11/16/2020 99603 ECG 12-Lead Completed 09/11/2020 85316 Chronic Care MGMT 20 Mins Clinical Staff Time Per Calendar Month Completed 07/30/2020 33354 Chronic Care MGMT 20 Mins Clinical Staff Time Per Calendar Month Completed 07/02/2020 44742 Chronic Care MGMT 20 Mins Clinical Staff Time Per Calendar Month Completed 05/25/2020 30030 Chronic Care MGMT 20 Mins Clinical Staff Time Per Calendar Month Completed 05/25/2020 43139 Chronic Care Management Services Ea Addl 20 Min Completed Medical Devices Description No Information Available Encounters Type Date Location Provider Dx Diagnosis Office Visit 11/16/2020 10:15a Main Office CEDRIC BushC I35.0 Nonrheumatic aortic (valve) stenosis 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e I71.2 Thoracic aortic aneurysm, wi thout rupture I48.91 Unspecified atrial fibrillat ion I10 Essential (primary) hyperten jerri R94.31 Abnormal electrocardiogram [ ECG] [EKG] E78.2 Mixed hyperlipidemia Z71.3 Dietary counseling and surve illance Office Visit 09/11/2020 9:33a Main Office Jose [...] fibrillat ion I10 Essential (primary) hyperten jerri Office Visit 05/25/2020 4:10p Main Office Jose G Harrell MD I35.0 Nonrheumatic aortic (valve) stenosis I48.91 Unspecified atrial fibrillat ion I10 Essential (primary) hyperten jerri Assessments Date Code Description Provider 11/16/2020 I35.0 Nonrheumatic aortic (valve) sten osis CEDRIC BushC 11/16/2020 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 e CEDRIC BushC 11/16/2020 I71.2 Thoracic aortic aneurysm, withou t rupture Iliana Funez PA-C 11/16/2020 I48.91 Unspecified atrial fibrillation CARLIE Bush-C 11/16/2020 I10 Essential (primary) hypertension CARLIE Bush-C 11/16/2020 R94.31 Abnormal electrocardiogram [ECG] [EKG] Iliana Funez PA-C 11/16/2020 E78.2 Mixed hyperlipidemia Iliana young PA-C 11/16/2020 Z71.3 Dietary counseling and surveilla nce Iliana Funez PATroyC 09/11/2020 I10 Essential (primary) hypertension Jose G [...] Essential (primary) hypertension Jose G Harrell MD 05/25/2020 I35.0 Nonrheumatic aortic (valve) sten osis Jose G Harrell MD 05/25/2020 I48.91 Unspecified atrial fibrillation Jose G Harrell MD 05/25/2020 I10 Essential (primary) hypertension Jose G Harrell MD Plan of Treatment Future Appointment(s):* 05/20/2021 9:45 am - Iliana Funez PA-C at Main Office 11/16/2020 - Iliana Funez PA-C* I35.0 Nonrheumatic aortic (valve) stenosis * [...]
--- OUTSIDE RECORDS SUMMARY | 2021-02-05 10:40 | CCD | Continuity of Care Document ---
Author Author Jose G SALDIVAR PA Organization Unknown Address [address] [place] [address] [place] [address] Phone [phone] Care Team Providers Care Lever Tender Name Role Phone Neri Horner MD [facility] [phone] Jose G Harrell MD [facility] [phone] [employer] [facility] [phone] Problems Description No Information Available Social History Type Date Description Comments Sex Unknown ETOH Use Occasionally consumes alcohol Tobacco Use Start: Unknown No Smoking Status Reviewed: 11/26/20 No Allergies, Adverse Reactions, Alerts Description No Known Drug Allergies Medications Active Medications SIG Qnty Indications Ordering Provide r Date Mupirocin 2% Ointment aaa twice a day to the rash in genital area for 10 days 1units L30.9 King Thorpe JR., M.D. 11/11/2020 Flomax 0.4mg Caps ER 24HR Unknown Proscar 5mg Tablets OD Unknown Lidoderm 5% Patches 1 apply to affected area daily back pain/prn 30units Unknown [address] Aspir-[address] qd Unknown Colace 100mg Capsules a day Unknown Arthritis Pain 650mg Tablets ER 2 qhs Unknown Metoprolol Succinate ER Unknown 0 Losartan Potassium 50mg Tablets Take One Tablet By Mouth Once A Day Unknown Quetiapine Fumarate 50mg Tablets Take One Tablet By Mouth Before Bedtime/prn Unknown Pravastatin Sodium 40mg Tablets Take One Tablet By Mouth AT Bedtime Unknown Carbidopa-Levodopa 25-100mg Tablet s Take 1 1 2 Tablets By Mouth Three Times A Day Unknown Vitamin B12 TR 1000mcg Tablets ER every day Unknown Eq Omeprazole Unknown Voltaren 1% Gel apply 4 grams to affected left knee every 6 hours as needed for pain Unkno wn Azilect Unknown Immunizations Description No Information Available Vital [...] Information Available Procedures Date Code Description Status 11/11/2020 62091 Office/Outpatient Established Lo w MDM 20-29 Min Completed Medical Devices Description No Information Available Encounters Type Date Location Provider Dx Diagnosis Office Visit 11/11/2020 1:15p Main Office CARLIE Almanza L30 .9 Dermatitis, unspecified Assessments Date Code Description Provider 11/11/2020 L30.9 Dermatitis, unspecified CARLIE Almanza Plan of Treatment No Information Available Functional Status Description No Information Available Mental Status Description No Information Available Referrals Description No Information Available
--- NOTE | 2021-02-05 11:51 | REP ---
INDICATION: dysphagia. COMPARISON: Cervical spine series 08/29/2006. TECHNIQUE: AP and lateral views soft tissues neck. FINDINGS: There is no prevertebral soft tissue swelling. The airway is widely patent. The epiglottis is normal. The adenoids and palatine tonsils are normal in size. There are extensive cartilaginous calcifications in the neck. There are degenerative changes of the cervical spine without evidence of compression fracture. Mild anterolisthesis of C3 on C4 was present on the prior cervical spine series. IMPRESSION: Unremarkable soft tissues of the neck radiographically. Degenerative changes of the spine. <Electronically signed by Lucian Hernandez > 02/05/21 1011
--- OUTSIDE RECORDS SUMMARY | 2021-02-05 12:42 | CCD ---
Author Author [facility] Organization [facility] Address Unknown Phone Unavailable Care Team Providers Care Resident Medical Officer Name Role Phone Heard, Radha CHARGE COORDINATOR Unavailable Unavailable Heard, Radha CHARGE COORDINATOR Unavailable Unavailable Heard, Radha CHARGE COORDINATOR Unavailable Unavailable Heard, Radha CHARGE COORDINATOR Unavailable Unavailable Heard, Radha CHARGE COORDINATOR Unavailable Unavailable Heard, Radha CHARGE COORDINATOR Unavailable Unavailable Heard, Radha CHARGE COORDINATOR Unavailable Unavailable Heard, Radha CHARGE COORDINATOR Unavailable Unavailable Heard, Radha CHARGE COORDINATOR Unavailable Unavailable Heard, Radha CHARGE COORDINATOR Unavailable Unavailable Heard, Radha CHARGE COORDINATOR Unavailable Unavailable Heard, Radha CHARGE COORDINATOR Unavailable Unavailable Heard, Radha CHARGE COORDINATOR Unavailable Unavailable Jacques CIFUENTES MD Unavailable Unavailable [...] NISHA LEONG Unavailable Unavailable CIFUENTES, E NISHA ELONG Unavailable Unavailable CIFUENTES E NISHA LEONG Unavailable [...] A RAMESH PA Unavailable Unavailable LETTIERE, A RAMEHS PA Unavailable Unavailable LETTIERE, A RAMESH PA [...] A RAMESH PA Unavailable Unavailable LETTIERE, A RMAESH PA Unavailable Unavailable LETTIERE, A RAMESH PA [...] Unavailable Chevy Tracey MD Unavailable Unavailable Chevy Trcaey MD Unavailable Unavailable Chevy Tracey MD Unavailable [...] is protected by Article 27-F of the [facility] Public Health law. If you continue you may have access to information: Regarding HIV / AIDS; Provided by facilities licensed or operated by the [facility] Office of Mental Health; or Provided by the [facility] Office for People With Developmental Disabilities. If such information is present, then the following [facility] mandated warning applies: This information has been [...] law may result in a fine or longterm sentence or both. A general authorization for [...] RUBBER [HSDB]; NATURAL RUBBER LATEX; SORVA/SORVINHA; RUBBER [IA]; NATURAL LATEX; RUBBER [MART.]; NATURAL RUBBER [WHO- DD]; RUBBER LATEX MEDENT ([facility]) Family History Family Member Name Family Member Gender Family Member Status Date o f Status Description Data Source(s) Unknown Unknown Problem MEDENT ([facility]) Unknown Unknown Problem MEDENT ([facility]) Unknown Unknown Problem MED[facility] ([facility]) Unknown Female Problem MEDENT ([facility]) Unknown Female Problem MED[facility] ([facility]) Unknown Female Problem MEDENT ([facility]) Unknown Female Problem [facility] ([facility]) Unknown Female Problem [facility] ([facility]) Encounters Encounter Providers Location Date Indications Data Source(s ) [place] [address] [address] 02/03/2021 12:00:00 AM EDT eCW1 ([facility]) Outpatient Attender: Stephen Tracey MD Main office - [facility] 01/28/2021 02:30:00 PM EDT MEDENT ([facility]) [place] [address] [address] 01/08/2021 12:00:00 AM EDT eCW1 ([facility]) Office Visit Attender: NISHA CIFUENTES MD Main Office 12/10/2020 12:56:0 0 PM EDT MED[facility] ([facility]) Outpatient Attender: FERCHO Moralez Primary 11/26/2020 08:45:00 AM EDT MED[facility] ([facility]) Outpatient Attender: Viri SEXTON Physical Therapy 01:45:00 PM EDT MEDENT ([facility]) Outpatient Attender: Iliana SEXTON Main Office 11/16/2020 10:15:00 AM EDT MEDENT ([facility]) Outpatient Attender: RAMESH Moralez Prim munira 11/11/2020 01:15:00 PM EDT MED[facility] ([facility]) [place] [address] [address] 11/11/2020 12:00:00 AM EDT eCW1 ([facility]) [place] [address] [address] 10/29/2020 12:00:00 AM EDT eCW1 ([facility]) [place] [address] [address] 10/29/2020 12:00:00 AM EDT eCW1 ([facility]) Office Visit Attender: NISHA CIFUENTES MD Main Office 10/21/2020 05:11:0 0 PM EDT MEDENT ([facility]) [place] [address] [address] 10/21/2020 12:00:00 AM EDT eCW1 ([facility]) Office Visit Attender: Stephen Tracey MD Main office - [facility] 10/20/2020 01:00:00 PM EDT MEDENT ([facility]) [place]patient [address] [place] [address] 09/18/2020 12:00:00 AM EDT eCW1 ([facility]) Office Visit Attender: NISHA CIFUENTES MD Main Office 09/11/2020 09:33:0 0 AM EDT MEDENT ([facility]) Office Visit Attender: NISHA CIFUENTES MD Main Office 07/30/2020 11:03:0 0 AM EDT MEDENT ([facility]) Office Visit Attender: Stephen Tracey MD Main office - [facility] 07/03/2020 11:30:00 AM EDT MEDENT ([facility]) Office Visit Attender: NISHA CIFUENTES MD Main Office 07/02/2020 12:56:0 0 PM EDT MEDENT ([facility]) Office Visit Attender: NISHA CIFUENTES MD Main Office 05/25/2020 03:10:0 0 PM EST MEDENT ([facility]) Outpatient Attender: Iliana SEXTON Main Office 05/18/2020 08:45:00 AM EST MEDENT ([facility]) Office Visit Attender: NISHA CIFUENTES MD Main Office 04/06/2020 11:46:0 0 AM EST MEDENT ([facility]) TeleMedicine Est. Pt. Level 3 [address] [place] [address] 04/02/2020 12:00:00 AM EST eCW1 ([facility]) Unknown [address] [facility] [address] 03/17/2020 12:00:00 AM EST eCW1 ([facility]) Outpatient [address] [facility] [address] 03/16/2020 12:00:00 AM EST eCW1 ([facility]) Office Visit Attender: NISHA CIFUENTES MD Main Office 03/02/2020 02:34:0 0 PM EST MEDENT ([facility]) Unknown [address] [facility] [address] 02/24/2020 12:00:00 AM EST eCW1 [facility]) Outpatient Attender: Iliana SEXTON Main Office 02/20/2020 08:15:00 AM EST MEDENT ([facility]) Outpatient [address] [facility] [address] 02/14/2020 12:00:00 AM EDT eCW1 ([facility]) Unknown [address] [facility] [address] 02/12/2020 12:00:00 AM EDT eCW1 ([facility]) Unknown [address] [facility] [address] 02/05/2020 12:00:00 AM EDT eCW1 ([facility]) Office Visit Attender: NISHA CIFUENTES MD Main Office 01/29/2020 03:21:0 0 PM EDT MEDENT ([facility]) Office Visit Attender: Stephen Tracey MD Main office - [facility] 01/09/2020 12:30:00 PM EDT MEDENT ([facility]) Office Visit Attender: NISHA CIFUENTES MD Main Office 01/03/2020 11:03:0 0 AM EDT MEDENT ([facility]) Outpatient Attender: Radha armendariz 12/25/2019 10:45:00 AM EDT MED[facility] ([facility] Outpatient Attender: Jose Andrade MD [facility] [place] 12/11/2019 10:00:00 AM EDT [facility] ([facility]) Immunizations Vaccine Date Status Description Data Source(s) COVID-19 VACCINE Moderna 06/05/2020 12:00:00 AM EST completed [facility] Vaccine Series Complete: YESThis Data wa s Submitted to [facility] Via [employer]. COVID-19 dose #2 given elsewhere Unspecified 05/25/2020 01:3 5:00 PM EST completed eCW1 ([facility]) COVID-19 dose #2 given elsewhere Unspecified 05/25/2020 01:3 5:00 PM EST completed eCW1 ([facility]) COVID-19 dose #2 given elsewhere Unspecified 05/25/2020 01:3 5:00 PM EST completed eCW1 ([facility]) COVID-19 dose #2 given elsewhere Unspecified 05/25/2020 01:3 5:00 PM EST completed eCW1 ([facility]) COVID-19 dose #2 given elsewhere Unspecified 05/25/2020 01:3 5:00 PM EST completed eCW1 ([facility]) COVID-19 dose #2 given elsewhere Unspecified 05/25/2020 01:3 5:00 PM EST completed eCW1 ([facility]) COVID-19 dose #2 given elsewhere Unspecified 05/25/2020 01:3 5:00 PM EST completed eCW1 ([facility]) COVID-19 VACCINE Moderna 05/07/2020 12:00:00 AM EST completed [facility] Vaccine Series Complete: NOThis Data was Submitted to [facility] Via [employer]. COVID-19 dose #1 given elsewhere Unspecified 04/18/2020 01:3 3:00 PM EST completed eCW1 ([facility]) COVID-19 dose #1 given elsewhere Unspecified 04/18/2020 01:3 3:00 PM EST completed eCW1 ([facility]) COVID-19 dose #1 given elsewhere Unspecified 04/18/2020 01:3 3:00 PM EST completed eCW1 ([facility]) COVID-19 dose #1 given elsewhere Unspecified 04/18/2020 01:3 3:00 PM EST completed eCW1 ([facility]) COVID-19 dose #1 given elsewhere Unspecified 04/18/2020 01:3 3:00 PM EST completed eCW1 ([facility]) COVID-19 dose #1 given elsewhere Unspecified 04/18/2020 01:3 3:00 PM EST completed eCW1 ([facility]) COVID-19 dose #1 given elsewhere Unspecified 04/18/2020 01:3 3:00 PM EST completed eCW1 ([facility]) pneumococcal polysaccharide PPV23 12/26/2019 09:48:00 AM EDT comple arabella eCW1 ([facility]) pneumococcal polysaccharide PPV23 12/26/2019 09:48:00 AM EDT comple arabella eCW1 ([facility]) pneumococcal polysaccharide PPV23 12/26/2019 09:48:00 AM EDT comple arabella eCW1 ([facility]) pneumococcal polysaccharide PPV23 12/26/2019 09:48:00 AM EDT comple arabella eCW1 ([facility]) pneumococcal polysaccharide PPV23 12/26/2019 09:48:00 AM EDT comple arabella eCW1 ([facility]) pneumococcal polysaccharide PPV23 12/26/2019 09:48:00 AM EDT comple arabella eCW1 ([facility]) pneumococcal polysaccharide PPV23 12/26/2019 09:48:00 AM EDT comple arabella eCW1 ([facility]) pneumococcal polysaccharide PPV23 12/26/2019 09:48:00 AM EDT comple arabella eCW1 ([facility]) pneumococcal polysaccharide PPV23 12/26/2019 09:48:00 AM EDT comple arabella eCW1 ([facility]) pneumococcal polysaccharide PPV23 12/26/2019 09:48:00 AM EDT comple arabella eCW1 ([facility]) pneumococcal polysaccharide PPV23 12/26/2019 09:48:00 AM EDT comple arabella eCW1 ([facility]) pneumococcal polysaccharide PPV23 12/26/2019 09:48:00 AM EDT comple arabella eCW1 ([facility]) Medications Medication Brand Name Start Date Product Form Dose Route Admi nistrative Instructions Pharmacy Instructions Status Indications Reaction Description Data Source(s) 200 ACTUAT Albuterol 0.09 MG/ACTUAT Metered Dose Inhaler [Pr oAir] Proair HFA 11/26/2020 12:00:00 AM EDT ORAL active MEDENT ([facility]) Doxycycline Monohydrate 100 MG Oral Capsule Doxycycline [place] hydrate 11/26/2020 12:00:00 AM EDT ORAL active M EDENT ([facility]) rasagiline 1 MG Oral Tablet Rasagiline Mesylate 11/15/2020 12:00:00 A M EDT ORAL active [facility] ([facility] Glycopyrrolate 1 MG Oral Tablet Glycopyrrolate 11/15/2020 12:00:00 AM EDT active [facility] ([facility]) Diclofenac Sodium 0.01 MG/MG Topical Gel [Voltaren] Voltaren 11/15/2020 12:00:00 AM EDT active MEDENT ([facility]) Finasteride 5 MG Oral Tablet Finasteride 11/15/2020 12:00:00 AM EDT ORAL active MEDENT ([facility]) docosahexaenoic acid 120 MG / Eicosapentaenoic Acid 18 0 MG Oral Capsule Fish Oil 11/15/2020 12:00:00 AM EDT ORAL active MEDENT ([facility]) Mupirocin 0.02 MG/MG Topical Ointment Mupirocin 11/11/2020 12:00:00 AM EDT active MEDENT ([facility]) Glycopyrrolate 1 MG Oral Tablet Glycopyrrolate 10/20/2020 12:00:00 AM EDT active MEDENT ([facility]) Prednisone 20 MG Oral Tablet Prednisone 12/25/2019 12:00:00 AM EDT completed MEDENT ([facility]) Triamcinolone Acetonide 1 MG/ML Topical Cream Triamcinolone Acetonide 12/25/2019 12:00:00 AM EDT completed MEDENT ([facility], [facility]) Insurance Providers Payer name Policy type / Coverage type Policy ID Covered republican ID Covered republican's relationship to shah Policy Shah Plan Information [facility] 7 [id number] Medicare (Part B) Medicare Primary [id number] Self 1 [id number] Medicare (Part B) Medicare Primary [id number] Self 1 [id number] MEDICARE [id number] SP [id number] A [address] NISHA C UNAVAILABLE [id number] UNAVAI LABLE Medicare Part B [facility] [id number] MEDICARE [id number] [place] [id number] A Medicare (Part B) Medicare Primary [id number] [id number] Self 1 [id number] MEDICARE A [id number] Self [id number] A Medicare Medicare Primary [id number] Self [id number] A MEDICARE [id number] SP [id number] A Medicare (Part B) Medicare Primary [id number] Self Ghi/Emblem HLTH (pr) [facility] Part B [id number] Family Dependent [id number] Ghi/Emblem HLTH (pr) Medigap Part B [id number] 2.840.1.232002.3.227.99.991.367048.0 Family Dependent [id number] Ghi/Emblem HLTH (pr) Medigap Part B [id number] 2.0.1.899864.3.227.99.991.537800.0 Family Dependent [id number] Ghi/Emblem HLTH (pr) Medigap Part B [id number] 2.0.1.322262.3.227.99.991.139393.0 Family Dependent [id number] Ghi/Emblem HLTH (pr) Medigap Part B [id number] 2.0.1.395131.3.227.99.991.838304.0 Family Dependent [id number] Ghi/Emblem HLTH (pr) Medigap Part B [id number] Family Depende nt Ghi/Emblem HLTH (pr) Medigap Part B [id number] 2..1.902822.3.227.99.991.514144.0 Family Dependent [id number] Ghi/Emblem HLTH (pr) Medigap Part B [id number] 2..1.588304.3.227.99.991.776817.0 Family Dependent [id number] [address] [facility] [id number] UNAV AILABLE Pomco [id number] 1 [id number] POMCO U [id number] Self [id number] POMCO PPO 2 [id number] 2 [id number] POMCO [id number] WI2 [id number] Pomco Medigap Part B [id number] Self POMCO [id number] Spo [id number] POMCO [id number] WI2 [id number] [place] Medicare Primary [id number] 2..1.966847.3.227.99.991.415919.0 Self [id number] Pomco (pr) Medigap Part B [id number] 2..1.888423.3.227.99 .991.590171.0 Self [id number] Pomco (pr) Medigap Part B [id number] Self [place] Medicare Primary [id number] Self Medicare [place] Medicare Primary [id number] 2..1.322844.3.227.99.991.831290.0 Self [id number] [place] Medicare Primary [id number] 2.16.840.1.595481.3.227.99.991.088491.0 Self [id number] [place] Medigap Part B [id number] 2.16.840.1.836436.3.227.99.991.112471.0 Self [id number] Medicare [place] Medicare Primary [id number] 2.16840.1.508363.3.227.99.991.088001.0 Self [id number] Medicare [place] Medicare Primary [id number] 2.16840.1.841085.3.227.99.991.923582.0 Self [id number] Medicare [place] Medicare Primary [id number] 2.16840.1.281817.3.227.99.991.786570.0 Self [id number] Pomco (pr) [facility] Part B [id number] 2.0.1.064220.3.227.99 .991.259645.0 Self [id number] POMCO U [id number] Self [id number] [place] Medicare Primary [id number].[id number] Self [id number] Medicare [place] Medicare Primary [id number] 2.840.1.753421.3.227.99.991.703505.0 Self [id number] Medicare [place] Medicare Primary [id number].[id number] Self [id number] Medicare [place] Medicare Primary [id number] 2.840.1.837472.3.227.99.991.018559.0 Self [id number] Medicare [place] Medicare Primary [id number] 2.840.1.621396.3.227.99.991.989399.0 Self [id number] Medicare [place] Medicare Primary [id number] 2.0.1.876511.3.227.99.991.858253.0 Self [id number] POMCO [id number] WI2 [id number] R INTERNATIONAL PAPER O UNAVAILABLE [id number] S UNAVAILABLE POMCO PPO O [id number] S [id number] Medicare Dme Supplies Medigap Part B [id number] 2.0.1.586906.3.227.99.991.142300.0 Self [id number] POMCO PPO O [id number] S [id number] POMCO [id number] WI2 [id number] Pomco Medigap Part B [id number] 2.0.1.785972.3.227.99 .8646.92085.0 Family Dependent [id number] Medicare Up[place]/NGS Medicare Primary [id number] 2.0.1.629308.3.227.99.8646.66528.0 Self [id number] Medicare Dme Supplies Medigap Part B [id number] 2..1.013399.3.227.99.991.262838.0 Self [id number] MEDICARE [id number] SP [id number] Pomco Medigap Part B [id number] 2..1.271139.3.227.99 .8646.58311.0 Family Dependent [id number] Medicare [place]/NGS Medicare Primary [id number] 2.0.1.536076.3.227.99.8646.11458.0 Self [id number] Pomco Medigap Part B [id number] 2.0.1.005936.3.227.99 .8646.06215.0 Family Dependent [id number] Medicare Up[place]/NGS Medicare Primary [id number] 2.0.1.514601.3.227.99.8646.29644.0 Self [id number] Medicare Dme Supplies Medigap Part B [id number] 2.16.840.1.380658.3.227.99.991.192972.0 Self [id number] Medicare Dme Supplies Medigap Part B [id number] 2.16.840.1.118854.3.227.99.991.347231.0 Self [id number] Pomco PHCS Ppo Medigap Part B [id number] 2.16840.1.857092.3.227. 99.572.98326.0 Family Dependent [id number] POMCO [id number] WI2 [id number] Pomco Medigap Part B 2.840.1.398423.3.227.99.8646. 79765.0 Family Dependent Medicare Upstate/[facility] Medicare Primary 2.840.1.37655 3.3.227.99.8646.09468.0 Self Medicare Dme Supplies Medigap Part B [id number] Self Pomco PHCS Ppo Medigap Part B 2.840.1.509092.3.227. 99.572.05508.0 Family Dependent Ghi Medigap Part B [id number] Self MEDICARE P [id number] S [id number] A [employer] [id number] WI2 [id number] SELF PAY 2 UNAVAILABLE 1 UNAVAILA BLE [id number] Pomco PHCS Ppo Medigap Part B [id number] 2.840.1.502279.3.227. 99.572.84934.0 Family Dependent [id number] UMR [facility] [id number] 2 [id number] Umr (pr) Medigap Part B [id number] Self [id number] Medicare Dme Supplies Medigap Part B [id number] Self [id number] ANSI-Commercial [id number] ANSI-Medicare Part B [id number] Umr (pr) [facility] Part B [id number] Self [id number] Medicare Dme Supplies [facility] Part B [id number] Self [id number] Umr (pr) [facility] Part B [id number] 2.16.840.1.584048.3.227.99.991.1010 31.0 Self [id number] Medicare Dme Supplies [facility] Part B [id number] 2.16.840.1.532974.3.227.99.991.283205.0 Self [id number] ANSI-Commercial [id number] ANSI-Medicare Part B [id number] ANSI-Medicare Part B [id number] ANSI-Commercial [id number] ANSI-Medicare Part B [id number] ANSI-Commercial [id number] ANSI-Medicare Part B [id number] ANSI-Commercial [id number] ANSI-Medicare Part B [id number] ANSI-Commercial [id number] UMR [facility] [id number] SP [id number] MEDICARE [id number] SP [id number] A Umr (pr) [facility] Part B [id number] ..093978.3.227.99.991.1010 31.0 Self [id number] Medicare Dme Supplies [facility] Part B [id number] .1.730046.3.227.99.991.229460.0 Self [id number] Umr/Uhc/Pomco [facility] Part B [id number] .1.337270.3.227.9 9.1767.6293.0 Family Dependent [id number] Medicare Natl Gov't Servi Medicare Primary [id number] .1.374364.3.227.99.1767.6293.0 Self [id number] [facility] [id number] .1.144462.3.227.99.991.1010 31.0 Self [id number] Medicare Dme Supplies [facility] Part B [id number] 2.16.840.1.774372.3.227.99.991.367473.0 Self [id number] ANSI-Commercial [id number] ANSI-Medicare Part B [id number] Umr (pr) [facility] Part B [id number] 2.16.840.1.997194.3.227.99.991.1010 31.0 Self [id number] Medicare Dme Supplies [facility] Part B [id number] 2.16.840.1.086675.3.227.99.991.530771.0 Self [id number] ANSI-Commercial [id number] ANSI-Medicare Part B [id number] ANSI-Commercial [id number] ANSI-Medicare Part B [id number] ANSI-Medicare Part B [id number] ANSI-Commercial [id number] [place] [facility] Ppo Medigap Part B [id number] 2.160.1.226890.3.227. 99.572.46462.0 Family Dependent [id number] Umr Medigap Part B [id number] 2.16.0.1.165937.3.227.99.572.80796.0 Family Dependent [id number] Ghi Medigap Part B [id number] 2.0.1.701017.3.227.99.572.1648 6.0 Self [id number] UMR O [id number] S [id number] MEDICARE C [id number] S [id number] A Umr (pr) Medigap Part B [id number] 2.0.1.517923.3.227.99.991.1010 31.0 Self [id number] Medicare Dme Supplies Medigap Part B [id number] 2.0.1.812575.3.227.99.991.784425.0 Self [id number] Umr (pr) Medigap Part B [id number] 2.0.1.392046.3.227.99.991.1010 31.0 Self [id number] Medicare Dme Supplies Medigap Part B [id number] 2.0.1.674254.3.227.99.991.495298.0 Self [id number] Problems, Conditions, and Diagnoses No Information Surgeries/Procedures Procedure Description Date Indications Data Source(s) ELECTROENCEPHALOGRAM W/REC AWAKE&ASLEEP 02/01/2021 12: 00:00 AM EDT [place] [facility] ) ELECTROENCEPHALOGRAM W/REC AWAKE&ASLEEP 02/01/2021 12: 00:00 AM EDT [facility] ([facility]) OFFICE OUTPATIENT VISIT 25 MINUTES 01/28/2021 12:00:00 AM EDT [facility] ([facility]) THERAPEUTIC PX 1/> AREAS EACH 15 MIN EXERCISES 12:00:00 AM EDT [facility] ([facility] ) MANUAL THERAPY TQS 1/> [facility] EACH 15 MINUTES 12:00:00 AM EDT MEDENT ([facility] ) Physical Therapy Eval - Mod Complexity 12/24/2020 12:0 0:00 AM EDT MEDENT ([facility] ) OFFICE OUTPATIENT VISIT 15 MINUTES 12/14/2020 12:00:00 AM EDT MEDENT ([facility] ) Chronic Care MGMT 20 Mins Clinical Staff Time Per Calendar M ont 12/10/2020 12:00:00 AM EDT MEDENT ([employer] [facility]) OFFICE OUTPATIENT VISIT 15 MINUTES 11/26/2020 12:00:00 AM EDT MEDENT ([facility], [facility]) ECG ROUTINE ECG W/LEAST 12 LDS W/I&R 11/16/2020 12:00: 00 AM EDT MEDENT ([facility]) OFFICE OUTPATIENT VISIT 25 MINUTES 11/16/2020 12:00:00 AM EDT MEDENT ([facility]) ARTHROCENTESIS ASPIR&/INJECTION MAJOR JT/BURSA 12:00:00 AM EDT MEDENT ([facility] ) X-Ray Hip Unilateral With Pelvis 2-3 Views 11/16/2020 12:00:00 AM EDT MEDENT ([facility] ) OFFICE OUTPATIENT VISIT 25 MINUTES 11/16/2020 12:00:00 AM EDT MEDENT ([facility] ) OFFICE OUTPATIENT VISIT 15 MINUTES 11/11/2020 12:00:00 AM EDT MEDENT ([facility], [facility]) Chronic Care Management Services Ea Addl 20 Min 2020 12:00:00 AM EDT MEDENT ([facility]) Chronic Care MGMT 20 Mins Clinical Staff Time Per Calendar M onth 10/21/2020 12:00:00 AM EDT MEDENT ([employer] [facility]) PHYSICIAN TELEPHONE EVALUATION 11-20 MIN 10/20/2020 12 :00:00 AM EDT MEDENT ([facility] ) Chronic Care MGMT 20 Mins Clinical Staff Time Per Calendar M [facility] 09/11/2020 12:00:00 AM EDT MEDENT ([employer] [facility]) Chronic Care MGMT 20 Mins Clinical Staff Time Per Calendar M [facility] 07/30/2020 12:00:00 AM EDT MEDENT ([employer] [facility]) PHYSICIAN TELEPHONE EVALUATION 11-20 MIN 07/03/2020 12 :00:00 AM EDT MEDENT ([facility] ) Chronic Care MGMT 20 Mins Clinical Staff Time Per Calendar M [facility] 07/02/2020 12:00:00 AM EDT MEDENT ([employer] [facility]) Chronic Care Management Services Ea Addl 20 Min 2020 12:00:00 AM EST MEDENT ([facility]) Chronic Care MGMT 20 Mins Clinical Staff Time Per Calendar M [facility] 05/25/2020 12:00:00 AM EST MEDENT ([employer] [facility]) ECG ROUTINE ECG W/LEAST 12 LDS W/I&R 05/18/2020 12:00: 00 AM EST MEDENT ([facility]) OFFICE OUTPATIENT VISIT 25 MINUTES 05/18/2020 12:00:00 AM EST MEDENT ([facility]) ECG ROUTINE ECG W/LEAST 12 LDS W/I&R 02/20/2020 12:00: 00 AM EST MEDENT ([facility]) TSTG ANS FUNCJ CARDIOVAGAL INNERVAJ PARASYMP 0 12:00:00 AM EST MEDENT ([facility] ) TSTG ANS FUNCJ CARDIOVAGAL INNERVAJ PARASYMP 0 12:00:00 AM EST MEDENT ([facility] ) TESTING AUTONOMIC NERVOUS SYSTEM FUNCTION 02/19/2020 1 2:00:00 AM EST MEDENT ([facility] ) TESTING AUTONOMIC NERVOUS SYSTEM FUNCTION 02/19/2020 1 2:00:00 AM EST MEDENT ([facility], ) Needle electromyography, each extremity, with related paraspinal areas, when performed, done with nerve conduction, amplitude and latency/velocity study; complete, five or more muscles studied, innervated by three or more nerves or four or more spinal levels (list separately in addition to the code for primary procedure). 01/15/2020 12:00:00 AM EDT MEDEN T ([facility], ) Needle electromyography, each extremity, with related paraspinal areas, when performed, done with nerve conduction, amplitude and latency/velocity study; complete, five or more muscles studied, innervated by three or more nerves or four or more spinal levels (list separately in addition to the code for primary procedure). 01/15/2020 12:00:00 AM EDT MEDEN T ([facility], ) [address] Nerve conduction studies 13 or more studies NEW 201201/15/2020 12:00:00 AM EDT MEDENT ([facility] ) Results ID Date Data Source [id number] 01/09/2021 10:27:00 AM EDT [facility] Name Value Range Interpretation Code Description Data Modesta rce(s) Supporting Document(s) SARS coronavirus 2 RNA [Presence] in Res piratory specimen by URBAN with probe detection NEGATIVE [facility] This lab was ordered by [facility] a nd reported by [facility]. ID Date Data Source [id number] 12/15/2020 10:57:00 AM EDT MED[facility] ([facility]) Name Value Range Interpretation Code Description Data Modesta rce(s) Supporting Document(s) Laboratory test finding (navigational concept) Laboratory test result MED[facility] ([facility]) ID Date Data Source [id number] 11/26/2020 12:00:00 AM EDT [facility] Name Value Range Interpretation Code Description Data Modesta rce(s) Supporting Document(s) SARS-CoV2 Rapid Antigen Negative [facility] This lab was reported by [facility]. ID Date Data Source [id number] 03/26/2020 12:00:00 AM EST [facility] Name Value Range Interpretation Code Description Data Modesta rce(s) Supporting Document(s) SARS coronavirus 2 Ag [facility] This lab was ordered by [facility] and reported by [facility]. ID Date Data Source [id number] 09/21/2020 03:21:00 PM EDT [facility] ([facility]) Name Value Range Interpretation Code Description Data Modesta rce(s) Supporting Document(s) Sodium 140 MEDENT ([facility]) Calcium [Mass/volume] in Serum or Plasma 9.0 MEDENT ([facility]) Potassium [Moles/volume] in Serum or Plasma 4.4 MED[facility] ([facility]) Carbon dioxide, total [Moles/volume] in Serum or Plasma 26 [facility] ([facility]) Chloride [Moles/volume] in Serum or Plasma 109 MED[facility] ([facility]) Blood Urea Nitrogen 21 5-21 MED[facility] ([facility]) Creatinine 0.86 0.6-1.5 MED[facility] ([facility]) Glucose 101 70-100 MED[facility] ([facility]) Glomerular filtration rate/1.73 sq M.pre dicted [Volume Rate/Area] in Serum or Plasma by Creatinine-based formula (MDRD) Laboratory test result [facility] ([facility]) ID Date Data Source Basic Metabolic Profile (BMP) 09/21/2020 12:00:00 AM EDT eCW 1 ([facility]) Name Value Range Interpretation Code Description Data Modesta rce(s) Supporting Document(s) 101 70-100 GLUCOSE, FASTING eCW1 ([facility]) 21 7-18 BLOOD UREA NITROGEN eCW1 ([facility]) > 60.0 >35 GLOMERULAR FILTRATION RATE eCW 1 ([facility]) 140 136-145 SODIUM LEVEL eCW1 ([facility]) 0.86 0.70-1.30 CREATININE FOR GFR eCW1 ([facility]) 26 21-32 CARBON DIOXIDE LEVEL eCW1 ([facility]) 109 98-107 CHLORIDE LEVEL eCW1 ([facility]) 4.4 3.5-5.1 POTASSIUM SERUM eCW1 (Counts include 234 beds at the [facility]) 9.0 8.8-10.2 CALCIUM LEVEL eCW1 ([facility]) ID Date Data Source [id number] 09/21/2020 12:00:00 AM EDT eCW1 ([facility]) Name Value Range Interpretation Code Description Data Modesta rce(s) Supporting Document(s) Hemoglobin A1c/Hemoglobin.total in Blood 5.3 HEMOGLOBIN A1c eCW1 ([facility]) ID Date Data Source [id number] 03/24/2020 12:55:00 PM EST MEDENT ([facility]) Name Value Range Interpretation Code Description Data Modesta rce(s) Supporting Document(s) HDL 44 MED[facility] ([facility]) Cholesterol 99 [facility] ([facility]) Triglycerides 95 MED[facility] ([facility]) Chol/HDL Ratio 2.250 MED[facility] ([facility]) Cholesterol in LDL [Mass/volume] in Serum or Plasma by calculation 36 [facility] ([facility]) ID Date Data Source [id number] 03/24/2020 12:55:00 PM EST [facility] ([facility]) Name Value Range Interpretation Code Description Data Modesta rce(s) Supporting Document(s) Albumin [Mass/volume] in Serum or Plasma 4.3 [facility] ([facility]) Carbon dioxide, total [Moles/volume] in Serum or Plasma 28 [facility] ([facility]) Calcium [Mass/volume] in Serum or Plasma 9.5 [facility] ([facility]) Alanine aminotransferase [Enzymatic activity/volume] in Serum or Pl asma 13 MED[facility] ([facility]) Chloride [Moles/volume] in Serum or Plasma 108 [facility] ([facility]) Potassium [Moles/volume] in Serum or Plasma 3.9 [facility] ([facility]) Alkaline phosphatase [Enzymatic activity/volume] in Serum or Plasma 7 1 MED[facility] ([facility]) Sodium 140 MED[facility] ([facility]) Protein [Mass/volume] in Serum or Plasma 7.8 [facility] ([facility]) Aspartate aminotransferase [Enzymatic activity/volume] in Serum or Plasma 15 [facility] ([facility]) Glucose 91 70-100 [facility] ([facility]) Urea nitrogen [Mass/volume] in Serum or Plasma 18 [facility] ([facility]) Creatinine For GFR 0.84 MEDENT ([facility]) ID Date Data Source [id number] 03/24/2020 12:55:00 PM EST MED[facility] ([facility]) Name Value Range Interpretation Code Description Data Modesta rce(s) Supporting Document(s) Hemoglobin A1c/Hemoglobin.total in Blood 5.3 MED[facility] ([facility]) ID Date Data Source [id number] 03/24/2020 12:55:00 PM EST [facility] ([facility]) Name Value Range Interpretation Code Description Data Modesta rce(s) Supporting Document(s) Platelets 210 150-450 MED[facility] ([facility]) Red Blood Count 4.05 4.30-6.10 MEDENT ([facility]) White Blood Count 6.3 4.0-10.0 MEDENT ([facility]) Hematocrit 41.2 MED[facility] ([facility]) Hemoglobin 13.8 [facility] ([facility]) ID Date Data Source ADM CHEST 2 VIEW 02/14/2020 05:48:29 AM EDT eCW1 ([facility]) Name Value Range Interpretation Code Description Data Modesta rce(s) Supporting Document(s) eCW1 ([facility]) ID Date Data Source FREE T4 & TSH PANEL 02/14/2020 03:03:40 AM EDT eCW1 ([facility]) Name Value Range Interpretation Code Description Data Modesta rce(s) Supporting Document(s) 0.997 eCW1 ([facility]) 0.92 eCW1 ([facility]) ID Date Data Source Comprehensive Metabolic Profile (CMP) 02/14/2020 03:03:40 AM EDT eCW1 ([facility]) Name Value Range Interpretation Code Description Data Modesta rce(s) Supporting Document(s) > 60.0 GLOMERULAR FILTRATION RATE eCW 1 ([facility]) 137 GLUCOSE, FASTING eCW1 ([facility]) 0.88 CREATININE FOR GFR eCW1 ([facility]) 14 BLOOD UREA NITROGEN eCW1 ([facility]) 106 CHLORIDE LEVEL eCW1 ([facility]) 29 CARBON DIOXIDE LEVEL eCW1 ([facility]) 4.1 POTASSIUM SERUM eCW1 (Counts include 234 beds at the [facility]) 140 SODIUM LEVEL eCW1 ([facility]) 13 AST/SGOT eCW1 ([facility]) 9 ALT/SGPT eCW1 ([facility]) 82 ALKALINE PHOSPHATASE eCW1 ([facility]) 9.2 CALCIUM LEVEL eCW1 ([facility]) 7.7 TOTAL PROTEIN eCW1 ([facility]) 3.9 ALBUMIN eCW1 ([facility]) 0.5 BILIRUBIN,TOTAL eCW1 (Counts include 234 beds at the [facility]) 1.0 ALBUMIN/GLOBULIN RATIO eCW1 ([facility]) ID Date Data Source CBC - Complete Blood Count 02/14/2020 03:03:40 AM EDT eCW1 ( [facility]) Name Value Range Interpretation Code Description Data Modesta rce(s) Supporting Document(s) 7.6 eCW1 ([facility]) 3.85 eCW1 ([facility]) 13.5 eCW1 ([facility]) 103.9 eCW1 ([facility]) 40.0 eCW1 ([facility]) 35.1 eCW1 ([facility]) 33.8 eCW1 ([facility]) 213 eCW1 ([facility]) 12.1 eCW1 ([facility]) ID Date Data Source LIPID PANEL (CARDIAC RISK) 02/14/2020 03:03:40 AM EDT eCW1 ( [facility]) Name Value Range Interpretation Code Description Data Modesta rce(s) Supporting Document(s) Triglyceride [Mass/volume] in Serum or Plasma by calculation 112 TRIGLYCERIDES LEVEL eCW1 ([facility]) Cholesterol [Moles/volume] in Serum or Plasma 104 CHOLESTEROL LEVEL eCW1 ([facility]) Cholesterol in LDL [Mass/volume] in Serum or Plasma by calculation 36 LDL CHOLESTEROL eCW1 ([facility]) 58 NON-HDL-C eCW1 ([facility]) 2.260 CHOLESTEROL RISK RATIO eCW1 ([facility]) Cholesterol in HDL [Moles/volume] in Serum or Plasma 46 HDL CHOLESTEROL eCW1 ([facility]) Procedure Social History Code Duration Value Status Description Data Source(s ) Smoking 01/23/2021 12:00:00 AM EDT Former Smoker completed Former Smoker eCW1 ([facility]) Smoking 11/16/2020 12:00:00 AM EDT Patient is a former smoker completed Patient is a former smoker [facility] ([facility]) Smoking 09/18/2020 12:00:00 AM EDT Former Smoker completed Former Smoker eCW1 ([facility]) Smoking 09/18/2020 12:00:00 AM EDT Former Smoker completed Former Smoker eCW1 ([facility]) Smoking 09/18/2020 12:00:00 AM EDT Former Smoker completed Former Smoker eCW1 ([facility]) Smoking 09/18/2020 12:00:00 AM EDT Former Smoker completed Former Smoker eCW1 ([facility]) Smoking 09/18/2020 12:00:00 AM EDT Former Smoker completed Former Smoker eCW1 ([facility]) Smoking 09/18/2020 12:00:00 AM EDT Former Smoker completed Former Smoker eCW1 ([facility]) Smoking 04/02/2020 12:00:00 AM EST Former Smoker completed Former Smoker eCW1 ([facility]) Smoking 03/16/2020 12:00:00 AM EST Former Smoker completed Former Smoker eCW1 ([facility]) Smoking 03/16/2020 12:00:00 AM EST Former Smoker completed Former Smoker eCW1 ([facility]) Smoking 02/14/2020 12:00:00 AM EDT Former Smoker completed Former Smoker eCW1 ([facility]) Smoking 02/14/2020 12:00:00 AM EDT Former Smoker completed Former Smoker eCW1 ([facility]) Smoking 12/11/2019 12:00:00 AM EDT Former Cigarette Smoker com pleted Former Cigarette Smoker MEDENT ([facility]) Vital Signs ID Date Data Source UNK Name Value Range Interpretation Code Description Data Source(s) Body mass index (BMI) [Ratio] 24.4 kg/m2 24.4 k g/m2 MEDENT ([facility] ) [place] body weight 160 [lb_av] 160 [lb_av] MEDEN T ([facility] ) Respiratory rate 12 /min 12 /min MEDENT ( [facility] ) Body height 69 [in_i] 69 [in_i] MEDENT ([facility] ) 5'9" Body weight 165.00 [lb_av] 165.00 [lb_av] MEDEN T ([facility] ) Systolic blood pressure 116 mm[Hg] 116 mm[Hg] EDENT ([facility], [facility]) Diastolic blood pressure 64 mm[Hg] 64 mm[Hg] MEDENT ([facility], [facility]) Heart rate 74 /min 74 /min MEDENT ([facility], [facility]) Respiratory rate 14 /min 14 /min MEDENT ( [facility], [facility]) Oxygen saturation in Arterial blood by Pulse oximetry 96 % 96 % MEDENT ([facility], [facility]) Body temperature 97.8 [degF] 97.8 [degF] MEDENT ([facility], [facility]) Body weight 172.00 [lb_av] 172.00 [lb_av] MEDEN T ([facility], [facility]) Body height 69 [in_i] 69 [in_i] MEDENT ([facility], [facility]) 5'9" Body mass index (BMI) [Ratio] 25.4 kg/m2 25.4 k g/m2 MEDENT ([facility], [facility]) Body mass index (BMI) [Ratio] 25.8 kg/m2 25.8 k g/m2 MEDENT ([facility] ) Body temperature 97.7 [degF] 97.7 [degF] MEDENT ([facility] ) Body height 69 [in_i] 69 [in_i] MEDENT ([facility] ) 5'9" Body weight 175.00 [lb_av] 175.00 [lb_av] MEDEN T ([facility] ) Body height 69 [in_i] 69 [in_i] MEDENT ([facility] 5'9" Body weight 175.00 [lb_av] 175.00 [lb_av] MEDEN T ([facility]) Body mass index (BMI) [Ratio] 25.8 kg/m2 25.8 k g/m2 MEDENT ([facility]) Heart rate 72 /min 72 /min MEDENT ([facility]) Regular Respiratory rate 16 /min 16 /min MEDENT ( [facility]) Systolic blood pressure 128 mm[Hg] 128 mm[Hg] M EDENT ([facility]) sitting, regular cuff Diastolic blood pressure 74 mm[Hg] 74 mm[Hg] MEDENT ([facility]) sitting, regular cuff Systolic blood pressure 128 mm[Hg] 128 mm[Hg] M EDENT ([facility]) sitting Diastolic blood pressure 70 mm[Hg] 70 mm[Hg] MEDENT ([facility]) sitting Systolic blood pressure 138 mm[Hg] 138 mm[Hg] M EDENT ([facility], [facility]) Diastolic blood pressure 71 mm[Hg] 71 mm[Hg] MEDENT ([facility], [facility]) Heart rate 70 /min 70 /min MEDENT ([facility], [facility]) Respiratory rate 13 /min 13 /min MEDENT ( [facility], [facility]) Oxygen saturation in Arterial blood by Pulse oximetry 98 % 98 % MEDENT ([facility], [facility]) Body temperature 97.2 [degF] 97.2 [degF] MEDENT ([facility], [facility]) Body weight 172.00 [lb_av] 172.00 [lb_av] MEDEN T ([facility], [facility]) Body height 69 [in_i] 69 [in_i] MEDENT ([facility], [facility]) 5'9" Body mass index (BMI) [Ratio] 25.4 kg/m2 25.4 k g/m2 MEDENT ([facility], [facility]) Respiratory rate 12 /min 12 /min MEDENT ( [facility]) Body height 69 [in_i] 69 [in_i] MEDENT ([facility]) 5'9" Body weight 175.00 [lb_av] 175.00 [lb_av] MEDEN T ([facility] ) Body mass index (BMI) [Ratio] 25.8 kg/m2 25.8 k g/m2 MEDENT ([facility], ) [place] body weight 160 [lb_av] 160 [lb_av] MEDEN T ([facility]) Systolic blood pressure 128 mm[Hg] 128 mm[Hg] e CW1 ([facility]) Diastolic blood pressure 74 mm[Hg] 74 mm[Hg] eCW1 ([facility]) Body weight 178 [lb_av] 178 [lb_av] eCW1 ([facility]) Body height 69 [in_i] 69 [in_i] eCW1 ([facility]) Body mass index (BMI) [Ratio] 26.28 kg/m2 26.28 kg/m2 eCW1 ([facility]) Heart rate 85 /min 85 /min eCW1 (Counts include 234 beds at the [facility]) Respiratory rate 18 /min 18 /min eCW1 ([facility]) Body temperature 97.4 [degF] 97.4 [degF] eCW1 ( [facility]) Respiratory rate 12 /min 12 /min MEDENT ( [facility]) Body height 69 [in_i] 69 [in_i] MEDENT ([facility]) 5'9" Body weight 175.00 [lb_av] 175.00 [lb_av] MEDEN T ([facility]) Body mass index (BMI) [Ratio] 25.8 kg/m2 25.8 k g/m2 MEDENT ([facility], ) [place] body weight 160 [lb_av] 160 [lb_av] MEDEN T ([facility]) Body weight 178.00 [lb_av] 178.00 [lb_av] MEDEN T ([facility]) Diastolic blood pressure 76 mm[Hg] 76 mm[Hg] MEDENT ([facility]) sitting, regular cuff Body mass index (BMI) [Ratio] 26.3 kg/m2 26.3 k g/m2 MEDENT ([facility]) Heart rate 72 /min 72 /min MEDENT ([facility]) Regular Respiratory rate 16 /min 16 /min MEDENT ( [facility]) Systolic blood pressure 136 mm[Hg] 136 mm[Hg] M EDENT ([facility]) sitting, regular cuff Body height 69 [in_i] 69 [in_i] MEDENT ([facility] 5'9" Diastolic blood pressure 74 mm[Hg] 74 mm[Hg] MEDENT ([facility]) sitting Systolic blood pressure 136 mm[Hg] 136 mm[Hg] M EDENT ([facility]) sitting Body weight 182 [lb_av] 182 [lb_av] eCW1 ([facility]) Body height 69 [in_i] 69 [in_i] eCW1 ([facility]) Body mass index (BMI) [Ratio] 26.87 kg/m2 26.87 kg/m2 eCW1 ([facility]) Heart rate 79 /min 79 /min eCW1 ([facility] [facility] Respiratory rate 18 /min 18 /min eCW1 (Formerly [facility]) Body temperature 96.5 [degF] 96.5 [degF] eCW1 ( Formerly [facility]) Systolic blood pressure 124 mm[Hg] 124 mm[Hg] e CW1 (Formerly [facility]) Diastolic blood pressure 78 mm[Hg] 78 mm[Hg] eCW1 (Formerly [facility]) Body weight 176.00 [lb_av] 176.00 [lb_av] MEDEN T ([facility]) Body height 69 [in_i] 69 [in_i] MEDENT [place] 5'9" Body mass index (BMI) [Ratio] 26.0 kg/m2 26.0 k g/m2 MEDENT ([facility]) Body weight 182 [lb_av] 182 [lb_av] eCW1 ([facility]) Body height 69 [in_i] 69 [in_i] eCW1 ([facility]) Body mass index (BMI) [Ratio] 26.87 kg/m2 26.87 kg/m2 eCW1 (Formerly [facility]) Heart rate 88 /min 88 /min eCW1 (Counts include 234 beds at the [facility]) Respiratory rate 18 /min 18 /min eCW1 (Formerly [facility]) Body temperature 96.8 [degF] 96.8 [degF] eCW1 ( Formerly [facility]) Systolic blood pressure 134 mm[Hg] 134 mm[Hg] e CW1 (Formerly [facility]) Diastolic blood pressure 76 mm[Hg] 76 mm[Hg] eCW1 (Formerly [facility]) Body mass index (BMI) [Ratio] 26.9 kg/m2 26.9 k g/m2 MEDENT ([facility], ) [place] body weight 160 [lb_av] 160 [lb_av] MEDEN T ([facility], ) Body weight 182.00 [lb_av] 182.00 [lb_av] MEDEN T ([facility]) Respiratory rate 12 /min 12 /min MEDENT ( [facility], ) Body height 69 [in_i] 69 [in_i] MEDENT ([facility], ) 5'9" Body height 69 [in_i] 69 [in_i] MEDENT ([facility], [facility]) 5'9" Body mass index (BMI) [Ratio] 25.4 kg/m2 25.4 k g/m2 MEDENT ([facility], [facility]) Oxygen saturation in Arterial blood by Pulse oximetry 98 % 98 % MEDENT ([facility], [facility]) Body temperature 97.8 [degF] 97.8 [degF] MEDENT ([facility], [facility]) Body weight 172.00 [lb_av] 172.00 [lb_av] MEDEN T ([facility], [facility]) Heart rate 73 /min 73 /min MEDENT ([facility], [facility]) Respiratory rate 18 /min 18 /min MEDENT ( [facility], [facility]) Systolic blood pressure 128 mm[Hg] 128 mm[Hg] M EDENT ([facility], [facility]) Diastolic blood pressure 73 mm[Hg] 73 mm[Hg] MEDENT ([facility], [facility]) Heart rate 77 /min 77 /min MEDENT ([facility]) Body height 69 [in_i] 69 [in_i] MEDENT ([facility]) 5'9" Body weight 180.00 [lb_av] 180.00 [lb_av] MEDEN T ([facility]) Body mass index (BMI) [Ratio] 26.6 kg/m2 26.6 k g/m2 [facility] ([facility]) Systolic blood pressure 109 mm[Hg] 109 mm[Hg] M EDENT ([facility]) Diastolic blood pressure 61 mm[Hg] 61 mm[Hg] [place] [facility]) Body temperature 98.6 [degF] 98.6 [degF] [place] ([facility]) Body temperature 37.0 [place] 37.0 [place] ( [facility])
--- NOTE | 2021-02-05 14:48 | REP ---
INDICATION: dysphagia/? aspiration COMPARISON: 02/14/2020, 01/09/2021. TECHNIQUE: PA/Lateral FINDINGS: Lungs: Clear, no infiltrate. Heart: Normal in size. Mediastinum: There is widening of the right paratracheal stripe. This appears to be due to moderate distention of the proximal esophagus, with an air-fluid level visualized in the superior mediastinum. There is calcification of the thoracic aorta. Pleural angles: Unremarkable.. Bones and soft tissues: Unremarkable. 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 IMPRESSION: No acute pulmonary disease. Widening of the superior mediastinum appears to be due to moderate dilatation of the proximal esophagus with air and fluid. This raises the possibility of esophageal obstruction. <Electronically signed by Lucian Hernandez > 02/05/21 0169
[2021-02-05 16:42] LABS: BASO % 0.5 % (0.0-1.0); EOS # 0.1 10^3/uL (0.0-0.5); EOS % 0.6 % (0.0-3.0); HEMATOCRIT 38.5 % (42.0-52.0); HEMOGLOBIN 13.1 g/dl (13.5-17.5); LYMPH # 1.1 10^3/uL (1.5-5.0); LYMPH % 13.4 % (24.0-44.0); MEAN CORPUSCULAR HEMOGLOBIN 35.1 pg (27.0-33.0); MEAN CORPUSCULAR VOLUME 103.2 fl (80.0-96.0); MONO # 0.7 10^3/uL (0.0-0.8); MONO % 8.9 % (2.0-8.0); NEUTROPHILS # 6.4 10^3/uL (1.5-8.5); NEUTROPHILS % 76.4 % (36.0-66.0); PLATELET COUNT, AUTOMATED 235 10^3/uL (150-450); RED BLOOD COUNT 3.73 10^6/uL (4.30-6.10); WHITE BLOOD COUNT 8.3 10^3/uL (4.0-10.0)
[2021-02-05 17:08] LABS: BILIRUBIN,DIRECT 0.3 MG/DL (0.0-0.2); BILIRUBIN,TOTAL 0.9 MG/DL (0.2-1.0)
[2021-02-05 18:18] LABS: RSV AMPLIFICATION NEGATIVE (NEGATIVE)
[2021-02-05] MEDS ORDERED: NS 1,000 ML IV ONE (20:40)
[2021-02-05 22:13] VITALS: BP 121/74
== END 2021-02-05 22:14 | disposition short-term general hospital (02) ==
LOC: M ED 10:30
DX: K22.2 Esophageal obstruction (principal); E11.9 Type 2 diabetes mellitus without complications; I10 Essential (primary) hypertension; E78.5 Hyperlipidemia, unspecified; E53.8 Deficiency of other specified B group vitamins; F33.9 Major depressive disorder, recurrent, unspecified; F41.9 Anxiety disorder, unspecified; G20 Parkinson's disease; K21.9 Gastro-esophageal reflux disease without esophagitis; N40.0 Benign prostatic hyperplasia without lower urinary tract symptoms; Z88.8 Allergy status to other drugs, medicaments and biological substances; Z91.040 Latex allergy status; Z79.899 Other long term (current) drug therapy; Z79.82 Long term (current) use of aspirin; Z87.891 Personal history of nicotine dependence

== ENCOUNTER → 2021-03-17 | Outpatient (CLI) | payer MEDICARE, OTHER ==
[~2021-03-17] MED LIST changes: -CEFD1CAP8 PO; +CEFD300C41 PO; +LOSA50TA28 PO; -LOSA50TA88 PO; -OMEP-221; +OMEP40CA5
[2021-03-17 10:38] LABS: HEMATOCRIT 36.8 % (42.0-52.0); HEMOGLOBIN 12.3 g/dl (13.5-17.5); MEAN CORPUSCULAR HEMOGLOBIN 34.8 pg (27.0-33.0); MEAN CORPUSCULAR HGB CONC 33.4 g/dl (32.0-36.5); MEAN CORPUSCULAR VOLUME 104.2 fl (80.0-96.0); PLATELET COUNT, AUTOMATED 213 10^3/uL (150-450); RED BLOOD COUNT 3.53 10^6/uL (4.30-6.10); WHITE BLOOD COUNT 5.2 10^3/uL (4.0-10.0)
[2021-03-17 11:02] LABS: HEMOGLOBIN A1c 5.3 %
[2021-03-17 11:23] LABS: ALBUMIN 3.7 GM/DL (3.2-5.2); ALT/SGPT 11 U/L (12-78); BILIRUBIN,TOTAL 0.5 MG/DL (0.2-1.0); BLOOD UREA NITROGEN 17 MG/DL (7-18); CALCIUM LEVEL 9.3 MG/DL (8.8-10.2); CARBON DIOXIDE LEVEL 28 MEQ/L (21-32); CHLORIDE LEVEL 108 MEQ/L (98-107); CHOLESTEROL LEVEL 97 MG/DL (<200); CHOLESTEROL RISK RATIO 2.108 (<5); CREATININE FOR GFR 0.77 MG/DL (0.70-1.30); FREE T4 0.91 NG/DL (0.76-1.46); GLOMERULAR FILTRATION RATE > 60.0 (>35); GLUCOSE, FASTING 99 MG/DL (70-100); HDL CHOLESTEROL 46 MG/DL (>40); LDL CHOLESTEROL 37 MG/DL (<100); NON-HDL-C 51 MG/DL; POTASSIUM SERUM 4.5 MEQ/L (3.5-5.1); SODIUM LEVEL 142 MEQ/L (136-145); THYROID STIMULATING HORMONE 0.819 uIU/ML (0.358-3.740); TOTAL PROTEIN 7.4 GM/DL (6.4-8.2); TRIGLYCERIDES LEVEL 71 MG/DL (<150)
== END ==
LOC: M WUC 08:06
PROVIDERS: ATTEND Family Medicine
DX: E11.8 Type 2 diabetes mellitus with unspecified complications (principal); E78.5 Hyperlipidemia, unspecified

== ENCOUNTER → 2021-07-27 | Outpatient (REF) | payer MEDICARE, OTHER ==
[~2021-07-27] MED LIST changes: +ACET-683 PO; +ASCO500T PO; +CARB25TA9 PO; +FINA5TAB2 PO; -GLUCTAB6 PO; +GLUCTAB7 PO; +LIDO1PAD TOP; +META1POW PO; +MIRA1POW3 PO; -OMEP40CA5; +OMEP40CA5 PO; -REST0.05 OD; +REST0.05 OU; +VITA100093 PO; +VITMTA PO
[2021-07-27 17:31] LABS: HEMOGLOBIN 11.8 g/dl (13.5-17.5); MEAN CORPUSCULAR HEMOGLOBIN 35.3 pg (27.0-33.0); MEAN CORPUSCULAR HGB CONC 34.7 g/dl (32.0-36.5); MEAN CORPUSCULAR VOLUME 101.8 fl (80.0-96.0); PLATELET COUNT, AUTOMATED 201 10^3/uL (150-450); RED BLOOD COUNT 3.34 10^6/uL (4.30-6.10); WHITE BLOOD COUNT 7.3 10^3/uL (4.0-10.0)
[2021-07-27 17:52] LABS: ERYTHROCYTE SEDIMENTATION RATE 12 mm/hr (0-20)
[2021-07-27 18:06] LABS: ALBUMIN 3.8 GM/DL (3.2-5.2); ALT/SGPT 15 U/L (12-78); BILIRUBIN,TOTAL 0.4 MG/DL (0.2-1.0); BLOOD UREA NITROGEN 21 MG/DL (7-18); CALCIUM LEVEL 9.1 MG/DL (8.8-10.2); CARBON DIOXIDE LEVEL 27 MEQ/L (21-32); CHLORIDE LEVEL 109 MEQ/L (98-107); CHOLESTEROL LEVEL 82 MG/DL (<200); CHOLESTEROL RISK RATIO 2.157 (<5); CREATININE FOR GFR 1.19 MG/DL (0.70-1.30); GLOMERULAR FILTRATION RATE > 60.0 (>35); GLUCOSE, FASTING 110 MG/DL (70-100); HDL CHOLESTEROL 38 MG/DL (>40); LDL CHOLESTEROL 16 MG/DL (<100); NON-HDL-C 44 MG/DL; POTASSIUM SERUM 4.4 MEQ/L (3.5-5.1); SODIUM LEVEL 140 MEQ/L (136-145); TRIGLYCERIDES LEVEL 139 MG/DL (<150)
[2021-07-27 19:03] LABS: HEMOGLOBIN A1c 5.3 %
== END ==
LOC: M SFHCADAM 15:37
PROVIDERS: ATTEND Family Medicine
DX: I11.9 Hypertensive heart disease without heart failure (principal); E11.8 Type 2 diabetes mellitus with unspecified complications; E78.5 Hyperlipidemia, unspecified; I25.10 Atherosclerotic heart disease of native coronary artery without angina pectoris; M79.10 Myalgia, unspecified site

== ENCOUNTER → 2021-09-10 | Outpatient (CLI) | payer MEDICARE, OTHER ==
[~2021-09-10] MED LIST changes: +GLUCTAB6 PO; -GLUCTAB7 PO
[2021-09-10 12:28] LABS: HEMATOCRIT 26.4 % (42.0-52.0); HEMOGLOBIN 8.7 g/dl (13.5-17.5); MEAN CORPUSCULAR HEMOGLOBIN 35.2 pg (27.0-33.0); MEAN CORPUSCULAR VOLUME 106.9 fl (80.0-96.0); PLATELET COUNT, AUTOMATED 259 10^3/uL (150-450); RED BLOOD COUNT 2.47 10^6/uL (4.30-6.10); WHITE BLOOD COUNT 8.4 10^3/uL (4.0-10.0)
[2021-09-10 13:13] LABS: ALBUMIN 3.2 GM/DL (3.2-5.2); BILIRUBIN,TOTAL 0.7 MG/DL (0.2-1.0); CALCIUM LEVEL 8.6 MG/DL (8.8-10.2); CREATININE FOR GFR 1.41 MG/DL (0.70-1.30); POTASSIUM SERUM 4.3 MEQ/L (3.5-5.1); TOTAL PROTEIN 6.4 GM/DL (6.4-8.2)
[2021-09-10 14:44] LABS: HEMOGLOBIN A1c 5.1 %
== END ==
LOC: M WUC 10:29
PROVIDERS: ATTEND Family Medicine
DX: N17.9 Acute kidney failure, unspecified (principal); R58 Hemorrhage, not elsewhere classified

== ENCOUNTER → 2021-09-30 | Outpatient (REF) | payer MEDICARE, OTHER ==
[~2021-09-30] MED LIST changes: -GLUCTAB6 PO; +GLUCTAB7 PO
[2021-09-30 13:45] LABS: BASO % 0.2 % (0.0-1.0); EOS # 0.1 10^3/uL (0.0-0.5); EOS % 0.6 % (0.0-3.0); HEMATOCRIT 33.2 % (42.0-52.0); HEMOGLOBIN 11.1 g/dl (13.5-17.5); LYMPH # 1.4 10^3/uL (1.5-5.0); LYMPH % 17.4 % (24.0-44.0); MEAN CORPUSCULAR HEMOGLOBIN 35.6 pg (27.0-33.0); MEAN CORPUSCULAR HGB CONC 33.4 g/dl (32.0-36.5); MEAN CORPUSCULAR VOLUME 106.4 fl (80.0-96.0); MONO # 0.6 10^3/uL (0.0-0.8); MONO % 7.6 % (2.0-8.0); NEUTROPHILS # 5.9 10^3/uL (1.5-8.5); NEUTROPHILS % 73.6 % (36.0-66.0); PLATELET COUNT, AUTOMATED 234 10^3/uL (150-450); RED BLOOD COUNT 3.12 10^6/uL (4.30-6.10)
[2021-09-30 14:23] LABS: CREATININE FOR GFR 1.38 MG/DL (0.70-1.30); GLOMERULAR FILTRATION RATE 52.3 (>35); PERCENT SATURATION 33.1 % (19.7-50.0); POTASSIUM SERUM 4.3 MEQ/L (3.5-5.1)
== END ==
LOC: M SFHCADAM 10:54
PROVIDERS: ATTEND Family Medicine
DX: K92.2 Gastrointestinal hemorrhage, unspecified (principal); N17.9 Acute kidney failure, unspecified

== ENCOUNTER → 2021-11-18 | Outpatient (CLI) | payer MEDICARE, OTHER | LOC: M RAD 11:33 | PROVIDERS: ATTEND Family Medicine | DX: R33.9 Retention of urine, unspecified (principal); K82.8 Other specified diseases of gallbladder ==

== ENCOUNTER → 2022-01-23 | Outpatient (REF) | payer MEDICARE, OTHER | LOC: M WUC 19:04 | PROVIDERS: ATTEND Physician Assistant | DX: R31.9 Hematuria, unspecified (principal) ==

== ENCOUNTER → 2022-02-12 | Outpatient (REF) | payer MEDICARE, OTHER | LOC: M LAB REF 19:05 | PROVIDERS: ATTEND Physician Assistant | DX: R31.9 Hematuria, unspecified (principal) ==

== ENCOUNTER → 2022-02-14 | Outpatient (CLI) | payer MEDICARE, OTHER | LOC: M RAD 10:21 | PROVIDERS: ATTEND Physician Assistant | DX: R31.9 Hematuria, unspecified (principal); N13.30 Unspecified hydronephrosis ==

== ENCOUNTER → 2022-02-17 | Outpatient (CLI) | payer MEDICARE, OTHER | LOC: M PLAIMG 09:36 | PROVIDERS: ATTEND Physician Assistant | DX: N13.30 Unspecified hydronephrosis (principal); I70.0 Atherosclerosis of aorta; N20.0 Calculus of kidney ==

== ENCOUNTER → 2022-04-03 | Outpatient (REF) | payer MEDICARE, OTHER | LOC: M WUC 17:38 | PROVIDERS: ATTEND Physician Assistant | DX: R30.0 Dysuria (principal) ==

== ENCOUNTER → 2022-04-21 | Outpatient (REF) | payer MEDICARE, OTHER ==
[~2022-04-21] MED LIST changes: +ACET1TAB55 PO; +BENZ-18 PO; +BENZ200C70 PO; +CARB-113 PO; -CARB-89 PO; +CARB25TA18 PO; +CO Q1CAP2 PO; +GLUC1TAB58 PO; +PROBCAP14 PO; +RAME8TAB2 PO; +TRAZ-252 PO; +[UNRECOGNIZED DRUG - OTHER] PO; +prevagen PO
[2022-04-21 16:16] LABS: HEMATOCRIT 34.7 % (42.0-52.0); HEMOGLOBIN 11.5 g/dl (13.5-17.5); MEAN CORPUSCULAR HEMOGLOBIN 33.5 pg (27.0-33.0); MEAN CORPUSCULAR HGB CONC 33.1 g/dl (32.0-36.5); MEAN CORPUSCULAR VOLUME 101.2 fl (80.0-96.0); PLATELET COUNT, AUTOMATED 243 10^3/uL (150-450); RED BLOOD COUNT 3.43 10^6/uL (4.30-6.10); WHITE BLOOD COUNT 7.8 10^3/uL (4.0-10.0)
[2022-04-21 16:19] LABS: ALBUMIN 3.9 G/DL (3.2-5.2); ALKALINE PHOSPHATASE 83 U/L (46-116); ALT/SGPT < 9 U/L (7.0-40); AST/SGOT 19 U/L (<34); BILIRUBIN,TOTAL 0.6 MG/DL (0.3-1.2); BLOOD UREA NITROGEN 25 MG/DL (9-23); CALCIUM LEVEL 9.5 MG/DL (8.3-10.6); CARBON DIOXIDE LEVEL 27 MMOL/L (20-31); CHLORIDE LEVEL 104 MMOL/L (98-107); CREATININE FOR GFR 1.26 MG/DL (0.70-1.30); GLOMERULAR FILTRATION RATE 57.9 (>35); GLUCOSE, FASTING 107 MG/DL (74-106); POTASSIUM SERUM 4.2 MMOL/L (3.5-5.1); SODIUM LEVEL 139 MMOL/L (136-145); TOTAL PROTEIN 7.2 G/DL (5.7-8.2)
[2022-04-21 16:21] LABS: FREE T4 1.31 NG/DL (0.89-1.76); THYROID STIMULATING HORMONE 0.787 uIU/ML (0.55-4.78)
[2022-04-21 17:15] LABS: INR 1.03; PROTHROMBIN TIME 13.7 SECONDS (12.5-14.5)
== END ==
LOC: M SFHCADAM 10:50
PROVIDERS: ATTEND Family Medicine
DX: N13.30 Unspecified hydronephrosis (principal); R00.1 Bradycardia, unspecified; Z79.899 Other long term (current) drug therapy

== ENCOUNTER → 2022-05-16 | Outpatient (CLI) | payer MEDICARE, OTHER | LOC: M WUC 11:51 | PROVIDERS: ATTEND Physician Assistant | DX: M19.012 Primary osteoarthritis, left shoulder (principal); I50.9 Heart failure, unspecified; I51.7 Cardiomegaly; I70.0 Atherosclerosis of aorta; R93.89 Abnormal findings on diagnostic imaging of other specified body structures; S23.41XA Sprain of ribs, initial encounter; X58.XXXA Exposure to other specified factors, initial encounter; M25.512 Pain in left shoulder; M25.532 Pain in left wrist; Z95.2 Presence of prosthetic heart valve ==

== ENCOUNTER → 2022-05-16 | Outpatient (CLI) | payer MEDICARE, OTHER ==
[~2022-05-16] MED LIST changes: -ACET1TAB55 PO; -BENZ-18 PO; -GLUC1TAB58 PO; -RAME8TAB2 PO
== END ==
LOC: M LABSMTC 09:24
PROVIDERS: ATTEND Anesthesiology
DX: Z01.812 Encounter for preprocedural laboratory examination (principal); Z11.52 Encounter for screening for COVID-19

== ENCOUNTER 2022-05-18 11:24 | Day surgery (SDC) | payer MEDICARE, OTHER ==
[~2022-05-18] VITALS: Ht 175.3 cm; Wt 71.3 kg
[~2022-05-18 11:24] MED LIST changes: +NS 1,000 ML IV SCH; +ceFAZolin SOD 2 GM in IV 1 EA IV ONE
[2022-05-18] MEDS ORDERED: BACITRACIN OINTMENT 30GM TUBE As Ordered ONE (13:16)
[2022-05-18] MEDS ORDERED: LIDOCAINE 1% SDV 30ML VIAL As Ordered ONE (13:16)
[2022-05-18] MEDS ORDERED: VANCOMYCIN 500MG/10ML VIAL As Ordered ONE (13:17)
[2022-05-18] MEDS ORDERED: ISOVUE-300 61% 100ML VIAL As Ordered ONE (13:17)
[2022-05-18] MEDS ORDERED: LIDOCAINE 2% 100MG/5ML SDV (FOR ANES.) As Ordered ONE (13:47)
[2022-05-18] MEDS ORDERED: fentaNYL 100 MCG/2 ML INJECTION As Ordered ONE (13:47)
[2022-05-18] MEDS ORDERED: propofoL 200 MG/20 ML VIAL As Ordered ONE ×2 (13:47→15:42)
[2022-05-18] MEDS ORDERED: ONDANSETRON 4MG 2ML VIAL As Ordered ONE (13:47)
[2022-05-18] MEDS ORDERED: ACETAMINOPHEN 1000MG 100ML IV BAG As Ordered ONE (14:28)
[2022-05-18] MEDS ORDERED: fentaNYL 100 MCG/2 ML INJECTION IV PRN (16:35)
[2022-05-18] MEDS ORDERED: LR 1,000 ML IV SCH (16:35)
[2022-05-18] MEDS ORDERED: ONDANSETRON 4MG 2ML VIAL IV PRN (16:35)
[2022-05-18] MEDS ORDERED: oxyCODONE 5MG TAB PO PRN (16:35)
[2022-05-18 17:40] VITALS: BP 158/82
[2022-05-18] MEDS ORDERED: ACETAMINOPHEN TAB 650MG DOSE (2X325MG) PO PRN (17:45)
[2022-05-18] MEDS ORDERED: SLF 3 ML SYR IV PRN (18:45)
[2022-05-18] MEDS ORDERED: RAME8TAB2 PO (19:04)
[2022-05-18] MEDS ORDERED: BENZ-18 PO (19:04)
[2022-05-18] MEDS ORDERED: QUET50TA4 PO (19:04)
[2022-05-18] MEDS ORDERED: GLUC1TAB58 PO (19:04)
[2022-05-18 20:00] VITALS: BP 157/70
[2022-05-18] MEDS ORDERED: PRAVASTATIN 20 MG TAB PO SCH (21:00)
[2022-05-18] MEDS ORDERED: TAMSULOSIN 0.4 MG CAP PO SCH (21:00)
[2022-05-18] MEDS ORDERED: SINEMET 25-100 MG TAB PO SCH (21:00)
[2022-05-18] MEDS: SLF 3 ML SYR IV SCH (21:47)
[2022-05-18 23:49] VITALS: BP 152/69
[2022-05-19] VITALS (7 sets, daily range): BP systolic 122–154; BP diastolic 58–66
[2022-05-19] MEDS ORDERED: UNRESOLVED CLARIFICATION ENTRY XX SCH (00:01)
[2022-05-19] MEDS: SLF 3 ML SYR IV SCH ×2 (05:48→14:00)
[2022-05-19] MEDS ORDERED: ASCORBIC ACID 500 MG TAB PO SCH (09:00)
[2022-05-19] MEDS ORDERED: DOCUSATE SODIUM 100MG CAPSULE PO SCH (09:00)
[2022-05-19] MEDS ORDERED: CYANOCOBALAMIN 500 MCG TAB PO SCH (09:00)
[2022-05-19] MEDS ORDERED: OMEPRAZOLE 20MG CAP PO SCH (09:00)
[2022-05-19] MEDS ORDERED: FINASTERIDE 5MG TAB PO SCH (09:00)
[2022-05-19] MEDS ORDERED: ASPIRIN 81MG ENTERIC TABLET PO SCH ×2 (09:00)
[2022-05-19] MEDS ORDERED: MULTIVITAMINS/MINERALS THERAP 1 TAB PO SCH (09:00)
[2022-05-19] MEDS ORDERED: MIRALAX *UNIT DOSE* 17GM PACKET PO SCH (09:00)
[2022-05-19] MEDS ORDERED: NS 250 ML IV ONE (09:40)
[2022-05-19] MEDS: SINEMET 25-100 MG TAB PO SCH ×2 (10:00→17:33)
[2022-05-19 10:04] LABS: HEMATOCRIT 27.6 % (42.0-52.0); MEAN CORPUSCULAR HEMOGLOBIN 33.6 pg (27.0-33.0); MEAN CORPUSCULAR HGB CONC 32.6 g/dl (32.0-36.5); PLATELET COUNT, AUTOMATED 218 10^3/uL (150-450); RED BLOOD COUNT 2.68 10^6/uL (4.30-6.10); WHITE BLOOD COUNT 10.6 10^3/uL (4.0-10.0)
[2022-05-19] MEDS ORDERED: ACET1TAB55 PO (17:09)
== END 2022-05-19 18:48 | disposition home or self-care (01) ==
LOC: M SDC 11:24 → M PCU 17:42 → M SDC 05-19 18:48
PROVIDERS: ATTEND Internal Medicine Cardiovascular Disease
DX: I44.1 Atrioventricular block, second degree (principal); I44.7 Left bundle-branch block, unspecified; R55 Syncope and collapse; G20 Parkinson's disease; D64.9 Anemia, unspecified; E11.9 Type 2 diabetes mellitus without complications; I10 Essential (primary) hypertension; E78.5 Hyperlipidemia, unspecified; Z79.82 Long term (current) use of aspirin; K21.9 Gastro-esophageal reflux disease without esophagitis; Z95.1 Presence of aortocoronary bypass graft; Z88.2 Allergy status to sulfonamides; Z91.040 Latex allergy status; Z79.899 Other long term (current) drug therapy
CPT/HCPCS: 33208; 36415; 36430; 71045; 71046; 76000; 82270; 85027; 86850; 86900; 86901; 86920; 93005; 96374; C1785; C1898; J0131; J0690; J2405; J3010; P9016; Q9967

== ENCOUNTER → 2022-06-17 | Outpatient (CLI) | payer MEDICARE, OTHER ==
[~2022-06-17] MED LIST changes: +ACET1TAB55 PO; +BENZ-18 PO; +GLUC1TAB58 PO; -NS 1,000 ML IV SCH; +RAME8TAB2 PO; -ceFAZolin SOD 2 GM in IV 1 EA IV ONE
[2022-06-17 12:26] LABS: BLOOD UREA NITROGEN 24 MG/DL (9-23); CALCIUM LEVEL 8.7 MG/DL (8.3-10.6); CARBON DIOXIDE LEVEL 29 MMOL/L (20-31); CHLORIDE LEVEL 107 MMOL/L (98-107); CREATININE FOR GFR 1.21 MG/DL (0.70-1.30); GLOMERULAR FILTRATION RATE > 60.0 (>35); GLUCOSE, FASTING 102 MG/DL (74-106); POTASSIUM SERUM 4.1 MMOL/L (3.5-5.1); SODIUM LEVEL 142 MMOL/L (136-145)
== END ==
LOC: M WUC 10:30
PROVIDERS: ATTEND Physician Assistant
DX: I48.0 Paroxysmal atrial fibrillation (principal); I11.9 Hypertensive heart disease without heart failure; R60.0 Localized edema

== ENCOUNTER → 2022-06-30 | Outpatient (REF) | payer MEDICARE, OTHER ==
[2022-06-30 13:59] LABS: HEMOGLOBIN 11.5 g/dl (13.5-17.5); MEAN CORPUSCULAR HEMOGLOBIN 33.4 pg (27.0-33.0); MEAN CORPUSCULAR HGB CONC 31.9 g/dl (32.0-36.5); MEAN CORPUSCULAR VOLUME 104.7 fl (80.0-96.0); PLATELET COUNT, AUTOMATED 222 10^3/uL (150-450); RED BLOOD COUNT 3.44 10^6/uL (4.30-6.10); WHITE BLOOD COUNT 9.2 10^3/uL (4.0-10.0)
[2022-06-30 14:18] LABS: HEMOGLOBIN A1c 4.9 % (4.0-6.0)
[2022-06-30 14:24] LABS: IRON (FE) 94 UG/DL (65-175); TOTAL IRON BINDING CAPACITY 261 UG/DL (250-425)
[2022-06-30 14:27] LABS: ALBUMIN 3.9 G/DL (3.2-5.2); ALKALINE PHOSPHATASE 88 U/L (46-116); ALT/SGPT < 9 U/L (7.0-40); AST/SGOT 20 U/L (<34); BILIRUBIN,TOTAL 0.6 MG/DL (0.3-1.2); BLOOD UREA NITROGEN 24 MG/DL (9-23); CALCIUM LEVEL 9.4 MG/DL (8.3-10.6); CARBON DIOXIDE LEVEL 27 MMOL/L (20-31); CHLORIDE LEVEL 104 MMOL/L (98-107); CHOLESTEROL LEVEL 100 MG/DL (<200); CHOLESTEROL RISK RATIO 2.09 (<5); CREATININE FOR GFR 1.31 MG/DL (0.70-1.30); FERRITIN 118.4 NG/ML (10.5-307.3); GLOMERULAR FILTRATION RATE 55.4 (>35); GLUCOSE, FASTING 97 MG/DL (74-106); HDL CHOLESTEROL 47.7 MG/DL (>40); LDL CHOLESTEROL 37.5 MG/DL (<100); NON-HDL-C 52.3 MG/DL; POTASSIUM SERUM 4.5 MMOL/L (3.5-5.1); SODIUM LEVEL 139 MMOL/L (136-145); TOTAL PROTEIN 7.3 G/DL (5.7-8.2); TRIGLYCERIDES LEVEL 74 MG/DL (<150)
== END ==
LOC: M SFHCADAM 09:18
PROVIDERS: ATTEND Family Medicine
DX: D50.0 Iron deficiency anemia secondary to blood loss (chronic) (principal); E11.8 Type 2 diabetes mellitus with unspecified complications; I11.9 Hypertensive heart disease without heart failure; E78.5 Hyperlipidemia, unspecified

== ENCOUNTER → 2022-08-11 | Outpatient (CLI) | payer MEDICARE, OTHER ==
[2022-08-11 12:55] LABS: HEMATOCRIT 35.5 % (42.0-52.0); HEMOGLOBIN 11.6 g/dl (13.5-17.5); MEAN CORPUSCULAR HEMOGLOBIN 34.1 pg (27.0-33.0); MEAN CORPUSCULAR HGB CONC 32.7 g/dl (32.0-36.5); MEAN CORPUSCULAR VOLUME 104.4 fl (80.0-96.0); PLATELET COUNT, AUTOMATED 200 10^3/uL (150-450); WHITE BLOOD COUNT 7.3 10^3/uL (4.0-10.0)
[2022-08-11 13:17] LABS: PERCENT SATURATION 38.1 % (19.7-50.0)
[2022-08-11 13:20] LABS: FERRITIN 109.9 NG/ML (10.5-307.3)
== END ==
LOC: M WUC 10:09
PROVIDERS: ATTEND Family Medicine
DX: D50.0 Iron deficiency anemia secondary to blood loss (chronic) (principal)

== ENCOUNTER → 2022-10-05 | Outpatient (CLI) | payer MEDICARE, OTHER ==
[2022-10-05 12:49] LABS: HEMATOCRIT 34.4 % (42.0-52.0); HEMOGLOBIN 11.3 g/dl (13.5-17.5); MEAN CORPUSCULAR HEMOGLOBIN 33.8 pg (27.0-33.0); MEAN CORPUSCULAR HGB CONC 32.8 g/dl (32.0-36.5); PLATELET COUNT, AUTOMATED 196 10^3/uL (150-450); RED BLOOD COUNT 3.34 10^6/uL (4.30-6.10)
[2022-10-05 13:28] LABS: FERRITIN 129.6 NG/ML (10.5-307.3)
== END ==
LOC: M WUC 09:03
PROVIDERS: ATTEND Family Medicine
DX: D50.0 Iron deficiency anemia secondary to blood loss (chronic) (principal)

== ENCOUNTER → 2022-11-02 | Outpatient (REF) | payer MEDICARE, OTHER ==
[~2022-11-02] MED LIST changes: +FINA-48 PO; -PROS5TAB PO
[2022-11-02 13:36] LABS: ALBUMIN 3.7 G/DL (3.2-5.2); ALKALINE PHOSPHATASE 74 U/L (46-116); ALT/SGPT < 9 U/L (7.0-40); AST/SGOT 14 U/L (<34); BILIRUBIN,TOTAL 0.4 MG/DL (0.3-1.2); BLOOD UREA NITROGEN 27 MG/DL (9-23); CARBON DIOXIDE LEVEL 25 MMOL/L (20-31); CHLORIDE LEVEL 109 MMOL/L (98-107); CHOLESTEROL LEVEL 81 MG/DL (<200); CHOLESTEROL RISK RATIO 1.89 (<5); CREATININE FOR GFR 1.25 MG/DL (0.70-1.30); GLOMERULAR FILTRATION RATE 58.3 (>35); GLUCOSE, FASTING 94 MG/DL (74-106); HDL CHOLESTEROL 42.7 MG/DL (>40); HEMATOCRIT 31.2 % (42.0-52.0); HEMOGLOBIN 10.4 g/dl (13.5-17.5); LDL CHOLESTEROL 21.1 MG/DL (<100); MEAN CORPUSCULAR HEMOGLOBIN 34.8 pg (27.0-33.0); MEAN CORPUSCULAR HGB CONC 33.3 g/dl (32.0-36.5); MEAN CORPUSCULAR VOLUME 104.3 fl (80.0-96.0); NON-HDL-C 38.3 MG/DL; PLATELET COUNT, AUTOMATED 185 10^3/uL (150-450); POTASSIUM SERUM 4.5 MMOL/L (3.5-5.1); RED BLOOD COUNT 2.99 10^6/uL (4.30-6.10); SODIUM LEVEL 143 MMOL/L (136-145); TOTAL PROTEIN 6.8 G/DL (5.7-8.2); TRIGLYCERIDES LEVEL 86 MG/DL (<150); WHITE BLOOD COUNT 7.1 10^3/uL (4.0-10.0)
[2022-11-02 13:39] LABS: C REACTIVE PROTEIN QUANTITATIV < 0.40 MG/DL (<1.0)
[2022-11-02 13:40] LABS: FREE T4 1.04 NG/DL (0.89-1.76); VITAMIN B12 LEVEL 347 PG/ML (211-911)
[2022-11-02 13:41] LABS: THYROID STIMULATING HORMONE 0.825 uIU/ML (0.55-4.78)
[2022-11-02 13:45] LABS: FOLATE > 24.00 NG/ML (>5.4)
[2022-11-02 13:48] LABS: HEMOGLOBIN A1c 5.1 % (4.0-6.0)
[2022-11-02 14:17] LABS: ERYTHROCYTE SEDIMENTATION RATE 7 mm/hr (0-20)
== END ==
LOC: M SFHCADAM 10:13
PROVIDERS: ATTEND Family Medicine
DX: M25.651 Stiffness of right hip, not elsewhere classified (principal); M25.652 Stiffness of left hip, not elsewhere classified; G47.20 Circadian rhythm sleep disorder, unspecified type; E11.8 Type 2 diabetes mellitus with unspecified complications; R48.1 Agnosia; I25.10 Atherosclerotic heart disease of native coronary artery without angina pectoris

== ENCOUNTER → 2023-02-20 | Outpatient (CLI) | payer MEDICARE, OTHER ==
[~2023-02-20] MED LIST changes: -CEFD300C41 PO; +CEFD300C42 PO
[2023-02-20 12:50] LABS: HEMATOCRIT 40.1 % (42.0-52.0); HEMOGLOBIN 12.8 g/dl (13.5-17.5); MEAN CORPUSCULAR HEMOGLOBIN 33.1 pg (27.0-33.0); MEAN CORPUSCULAR HGB CONC 31.9 g/dl (32.0-36.5); MEAN CORPUSCULAR VOLUME 103.6 fl (80.0-96.0); PLATELET COUNT, AUTOMATED 169 10^3/uL (150-450); RED BLOOD COUNT 3.87 10^6/uL (4.30-6.10); WHITE BLOOD COUNT 5.2 10^3/uL (4.0-10.0)
[2023-02-20 13:02] LABS: FERRITIN 72.9 NG/ML (10.5-307.3)
[2023-02-20 13:05] LABS: BLOOD UREA NITROGEN 16 MG/DL (9-23); CALCIUM LEVEL 8.8 MG/DL (8.3-10.6); CARBON DIOXIDE LEVEL 25 MMOL/L (20-31); CHLORIDE LEVEL 107 MMOL/L (98-107); CREATININE FOR GFR 1.18 MG/DL (0.70-1.30); GLOMERULAR FILTRATION RATE > 60.0 (>35); GLUCOSE, FASTING 92 MG/DL (74-106); IRON (FE) 42 UG/DL (65-175); POTASSIUM SERUM 4.4 MMOL/L (3.5-5.1); SODIUM LEVEL 143 MMOL/L (136-145); TOTAL IRON BINDING CAPACITY 263 UG/DL (250-425)
== END ==
LOC: M WUC 09:03
PROVIDERS: ATTEND Family Medicine
DX: D50.0 Iron deficiency anemia secondary to blood loss (chronic) (principal); I11.9 Hypertensive heart disease without heart failure